=== PATIENT | male | born 1935 | race Caucasian/White ===

== ENCOUNTER 2017-09-05 13:41 | Outpatient (CLI) | payer MEDICARE, OTHER ==
[2017-09-05 14:15] LABS: HGB - HEMOGLOBIN 13.8 g/dL (14.0-18.0); MEAN CORPUSCULAR HEMOGLOBIN 29.7 pg (27.0-31.0); MEAN CORPUSCULAR HGB CONC 33.2 g/dL (32.0-36.0); MEAN CORPUSCULAR VOLUME 89.4 fL (80.0-94.0); MEAN PLATELET VOLUME 5.7 fL (7.4-11.4); RED BLOOD COUNT 4.63 10^6/uL (4.70-6.10); RED CELL DISTRIBUTION WIDTH 13.1 % (12.0-15.0)
[2017-09-05 14:29] LABS: ALBUMIN 3.8 g/dL (3.2-5.5); ALBUMIN/GLOBULIN RATIO 1.2 (1.0-2.2); ALKALINE PHOSPHATASE 108 IU/L (42-121); ALT ALANINE AMINOTRANSFERASE 32 IU/L (10-60); AST ASPARTATE AMINOTRANSFERASE 23 IU/L (10-42); BILIRUBIN,TOTAL 0.6 mg/dL (0.2-1.0); BUN - BLOOD UREA NITROGEN 10 mg/dL (6-20); CALCIUM 9.4 mg/dL (8.5-10.3); CARBON DIOXIDE - CO2 29 mmol/L (21-32); CHLORIDE 103 mmol/L (101-111); CHOL/HDL RATIO 3.8 (<5.0); CHOLESTEROL 165 mg/dL; GFR - MDRD 72 (>89); GLUCOSE 107 mg/dL (70-100); HDL CHOLESTEROL 44 mg/dL; LDL CHOLESTEROL,CALCULATED 109 mg/dL; LDL/HDL RATIO 2.5 (<3.6); SODIUM 138 mmol/L (135-145); TOTAL PROTEIN 7.1 g/dL (6.7-8.2); VLDL CHOLESTEROL 12 mg/dL
== END 2017-09-05 13:42 | disposition home or self-care (01) ==
LOC: LAB 13:41
PROVIDERS: ATTEND Family Medicine
DX: E78.4 Other hyperlipidemia (principal); I10 Essential (primary) hypertension; Z79.899 Other long term (current) drug therapy
CPT/HCPCS: 36415; 80053; 80061; 83721; 85027

== ENCOUNTER 2017-10-12 12:16 | Emergency (ER) | payer MEDICARE, OTHER ==
[2017-10-12 12:25] VITALS: BP 129/64
--- NOTE | 2017-10-12 12:54 | ED Physician Documentation ---
PD HPI WOUND RECHECK - Stated complaint Stated Complaint: FACE WOUND CHECK - Chief complaint Chief Complaint: Wound - Histroy obtained from History obtained from: Patient - History of Present Illness Location: Forehead (Around he had what he thought was a pimple in a few days later it popped and then he developed more pustules. He was seen multiple times by dermatology throughout the spring and put on courses of antibiotics. Around June they change the treatment, thinking it was an actinic keratosis and treated him with a month of 5-fluorouracil topically. This was completed about 2 months ago and ever since then his forehead has been weepy with open sores. He has been on a couple more rounds of oral antibiotics and throughout the whole year has been using topical mupirocin.) Review of Systems Constitutional: denies: Fever, Chills Nose: denies: Rhinorrhea / runny nose, Congestion Cardiac: denies: Chest pain / pressure, Palpitations PD PAST MEDICAL HISTORY - Past Medical History Past Medical History: Yes Cardiovascular: Hypertension, Coronary artery disease Respiratory: Asthma, COPD - Past Surgical History Past Surgical History: Yes General: Appendectomy Cardiovascular: Coronary stent - Present Medications Home Medications: Ambulatory Orders Medication Instructions Recorded Confirmed Aspirin [Aspir 81] 81 mg PO DAILY 05/05/13 05/05/13 Atorvastatin Calcium [Lipitor] 40 mg PO HS 05/05/13 05/05/13 Budesonide/Formoterol 160/4.5 1 puffs INH BID 05/05/13 05/05/13 [Symbicort] Ipratropium [place] [Atrovent Hfa] 12.9 gm IH 05/05/13 05/05/13 Bacitracin Zinc 1 gm TP TID 10 Days #1 oint...g. 10/12/17 HYDROcod/ACETAM 5/325 [[place] 5/325] 1 - 2 ea PO Q6H PRN #15 tablet 10/12/17 - Allergies Allergies/Adverse Reactions: Allergies Allergy/AdvReac Type Severity Reaction Status Date / Time iodine Allergy Severe shock Verified 10/12/17 12:23 narcotics AdvReac Intermediate "makes me Uncoded 10/12/17 12:23 sick" - Social History Does the pt smoke?: No Smoking Status: Never smoker Does the pt drink ETOH?: No Does the pt have substance abuse?: No - Immunizations Immunizations are current?: Yes - POLST Patient has POLST: No PD ED PE NORMAL - Vitals Vital signs reviewed: Yes - General General: Alert and oriented X 3, No acute distress - HEENT HEENT: Other (On the forehead there are multiple open weepy lesions about a centimeter around that are scabbed.) Results - Vitals Vitals: Vital Signs - 24 hr 10/12/17 12:20 Temperature 36.6 C Heart Rate 75 Respiratory 15 Rate Blood Pressure 129/64 O2 Saturation 99 Oxygen O2 Source Room air PD MEDICAL DECISION MAKING - ED course ED course: He has already been through multiple courses of antibiotics, also 5- fluorouracil. This may be a persistent reaction of the 5-fluorouracil, but it has already been 2 months and I would expect him to be improving by now. Could also be a reaction to the mupirocin, that is the one therapeutic agents that has been persistent throughout this whole timeframe. His physician performed a culture, I do not have access to that on Friday, but he plans to see him tomorrow. His main complaint is pain today. - Sepsis Event Vital Signs: Vital Signs - 24 hr 10/12/17 12:20 Temperature 36.6 C Heart Rate 75 Respiratory 15 Rate Blood Pressure 129/64 O2 Saturation 99 Oxygen O2 Source Room air Departure - Departure Disposition: 01 Home, Self Care Clinical Impression: Skin rash Condition: Good Record reviewed to determine appropriate education?: Yes Prescriptions: Bacitracin Zinc 1 gm TP TID 10 Days #1 oint...g. HYDROcod/ACETAM 5/325 [[place] 5/325] 1 - 2 ea PO Q6H PRN #15 tablet PRN Reason: Pain Comments: Discontinue the mupirocin, that is the one thing that has been constant throughout this whole timeframe and I wonder if this might be an allergic reaction to it, or it may be a persistent reaction to the chemotherapeutic agent , 5-fluorouracil that you were on. Regardless follow-up with Dr. Nava tomorrow, as he has culture results I will not start oral antibiotics right now since he has more information the me.
== END 2017-10-12 13:01 | disposition home or self-care (01) ==
LOC: ED 12:16
DX: R21 Rash and other nonspecific skin eruption (principal); I10 Essential (primary) hypertension; Z79.82 Long term (current) use of aspirin
CPT/HCPCS: 99283

== ENCOUNTER 2018-05-12 08:46 | Outpatient (CLI) | payer MEDICARE, OTHER ==
--- NOTE | 2018-05-12 14:19 | MRI Report ---
Reason: SCIATICA, LEFT SIDE, RADICULOPATHY, SITE UNSPECIFI Procedure Date: 05/12/2018 Accession Number: [id number] / [id number] Procedure: MRI - Lumbar Spine W/O CPT Code: FULL RESULT: EXAM: MRI LUMBAR SPINE WITHOUT CONTRAST EXAM DATE: 05/12/2018 08:58 AM. CLINICAL HISTORY: Sciatica, left side, radiculopathy, site unspecified. COMPARISON: None. TECHNIQUE: Multiplanar, multisequence T1-weighted and fluid-sensitive sequences of the lumbar spine from T12 to S1 without contrast. Other: None. FINDINGS: 5 mm anterolisthesis of L4 relative to L5 is noted. Loss of vertebral body height is seen at T11 and to a greater extent at T12 without marrow edema present. No abnormal signal is present in the conus medullaris. T10-T11: A mild posterior disk protrusion is seen. No central canal stenosis is present on the sagittal views. T11-T12: No posterior disk protrusion. T12-L1: A mild central and left paracentral disk protrusion is seen without central canal or foraminal stenosis. L1-L2: A minimal to mild posterior disk protrusion is seen. This is greater towards the left. No central canal or foraminal stenosis. L2-L3: A minimal disk protrusion is seen involving the posterior lateral margin of the disk bilaterally. L3-L4: A minimal posterior disk protrusion is seen. There is extension into the foramen bilaterally. Proximal right foraminal narrowing is seen. Mild proximal left foraminal stenosis is present. Superior lateral recess narrowing is seen bilaterally. L4-L5: There is a shallow foraminal protrusion bilaterally. There is a minimal posterior disk protrusion. Severe central canal stenosis is present. Bilateral lateral recess stenosis is present. Right foraminal narrowing is seen. Mild to moderate left foraminal stenosis is present. L5-S1: No posterior disk protrusion is seen. No central canal or foraminal stenosis. Facet/ligamentum flavum hypertrophy is seen throughout the lumbar spine greatest in the lower lumbar spine. IMPRESSION: 1. Facet/ligamentum flavum hypertrophy, spondylolisthesis, and degenerative disk disease result in severe central canal stenosis and bilateral lateral recess stenosis at L4-L5. 2. Proximal left foraminal stenosis which is mild is seen at L3-L4. Mild to moderate left foraminal stenosis is seen at L4-L5. 3. Remote compression deformities are seen with vertebral body height loss at T12 and to a lesser extent at T11. Comment: The following findings are so common in adults without low back pain that while we report their presence, they must be interpreted with caution and in the context of the clinical situation. (Reference Amanda et al, Spine 2001) Prevalence of findings in patients without low back pain: Disk degeneration (any evidence): 92% Disk desiccation/T2 signal loss: 83% Disk height loss: 56% Disk bulge: 64% Disk protrusion: 32% Annular tear/high intensity zone: 38% RADIA
== END 2018-05-12 08:47 | disposition home or self-care (01) ==
LOC: DI 08:46
PROVIDERS: ATTEND Family Medicine
DX: M51.26 Other intervertebral disc displacement, lumbar region (principal); M47.9 Spondylosis, unspecified; M48.061 Spinal stenosis, lumbar region without neurogenic claudication; M51.24 Other intervertebral disc displacement, thoracic region; M43.16 Spondylolisthesis, lumbar region
CPT/HCPCS: 72148

== ENCOUNTER 2018-12-01 18:11 | Inpatient (IN) | payer MEDICARE, OTHER ==
[2018-12-01] MEDS ORDERED: fentaNYL 100 MCG/2 ML VIAL IVP STA (18:59)
[2018-12-01] MEDS ORDERED: ONDANSETRON 4 MG/2 ML VIAL IVP STA (18:59)
[2018-12-01] MEDS ORDERED: SODIUM CHLORIDE 0.9% 1,000 ML IV ONE (18:59)
--- NOTE | 2018-12-01 19:00 | ED Physician Documentation ---
PD HPI ABD PAIN - Stated complaint Stated Complaint: STOMACH PAIN - Chief complaint Chief Complaint: Abd Pain - History obtained from History obtained from: Patient - History of Present Illness Timing - onset: Today (83-year-old gent with history of coronary disease, carotid endarterectomy. Not currently on any blood thinners. He also has a history of umbilical hernia repair and a childhood appendectomy. For the last week on and off he had mild central abdominal pain which early this morning became severe and associated with recurrent vomiting and decreased bowel movements.) Review of Systems Ten Systems: 10 systems reviewed and negative Constitutional: denies: Fever, Chills Cardiac: denies: Chest pain / pressure, Palpitations Respiratory: denies: Dyspnea, Cough PD PAST MEDICAL HISTORY - Past Medical History Cardiovascular: Hypertension, Coronary artery disease Respiratory: Asthma, COPD - Past Surgical History Past Surgical History: Yes General: Appendectomy Cardiovascular: Coronary stent - Present Medications Home Medications: Ambulatory Orders Medication Instructions Recorded Confirmed Aspirin [Aspir 81] 81 mg PO DAILY 05/05/13 05/05/13 Atorvastatin Calcium [Lipitor] 40 mg PO HS 05/05/13 05/05/13 Budesonide/Formoterol 160/4.5 1 puffs INH BID 05/05/13 05/05/13 [Symbicort] Ipratropium [place] [Atrovent Hfa] 12.9 gm IH 05/05/13 05/05/13 Bacitracin Zinc 1 gm TP TID 10 Days #1 oint...g. 10/12/17 HYDROcod/ACETAM 5/325 [[place] 5/325] 1 - 2 ea PO Q6H PRN #15 tablet 10/12/17 - Allergies Allergies/Adverse Reactions: Allergies Allergy/AdvReac Type Severity Reaction Status Date / Time iodine Allergy Severe shock Verified 10/12/17 12:23 narcotics AdvReac Intermediate "makes me Uncoded 10/12/17 12:23 sick" - Social History Does the pt smoke?: No Smoking Status: Never smoker Does the pt drink ETOH?: No Does the pt have substance abuse?: No - Family History Family history: reports: Non contributory - Immunizations Immunizations are current?: Yes - POLST Patient has POLST: No PD ED PE NORMAL - Vitals Vital signs reviewed: Yes - General General: Alert and oriented X 3, No acute distress - HEENT HEENT: PERRL, EOMI - Neck Neck: Supple, no meningeal sign, No bony TTP - Cardiac Cardiac: RRR, No murmur - Respiratory Respiratory: No respiratory distress, Clear bilaterally - Abdomen Abdomen: Other (absent bowel tones, Tender L mid abd. No G/R) - Back Back: No CVA TTP, No spinal TTP - Derm Derm: Normal color, Warm and dry - Extremities Extremities: No edema, No calf tenderness / cord - Neuro Neuro: Alert and oriented X 3, Normal speech Results - Vitals Vitals: Vital Signs - 24 hr 12/01/18 12/01/18 12/01/18 18:22 19:21 21:19 Temperature 36.4 C L 37.5 C Heart Rate 83 74 87 Respiratory 18 14 18 Rate Blood Pressure 152/81 H 144/92 H 132/90 H O2 Saturation 100 100 99 Oxygen O2 Source Room air - Labs Labs: Laboratory Tests 12/01/18 12/01/18 12/01/18 19:03 19:03 19:03 WBC 18.1 H RBC 5.08 Hgb 13.9 L Hct 42.5 MCV 83.7 MCH 27.4 MCHC 32.7 RDW 13.6 Plt Count 278 MPV 8.0 Neut # (Auto) 16.0 H Lymph # (Auto) 1.2 L [place] # (Auto) 0.6 Eos # (Auto) 0.0 Baso # (Auto) 0.0 Absolute Nucleated RBC 0.00 Nucleated RBC % 0.0 Sodium 138 Potassium 3.9 Chloride 99 L Carbon Dioxide 28 Anion Gap 11.0 BUN 13 Creatinine 1.0 Estimated GFR (MDRD) 72 L Glucose 168 H Lactic Acid 1.9 Calcium 9.6 Total Bilirubin 1.0 AST 29 ALT 43 Alkaline Phosphatase 148 H Total Protein 8.0 Albumin 4.2 Globulin 3.8 Albumin/Globulin Ratio 1.1 Lipase 31 Urine Color Urine Clarity Urine pH Ur Specific [place] Urine Protein Urine Glucose (UA) Urine Ketones Urine Occult Blood Urine Nitrite Urine Bilirubin Urine Urobilinogen Ur Leukocyte Esterase Ur Microscopic Review Urine Culture Comments 12/01/18 20:20 WBC RBC Hgb Hct MCV MCH MCHC RDW Plt Count MPV Neut # (Auto) Lymph # (Auto) [place] # (Auto) Eos # (Auto) Baso # (Auto) Absolute Nucleated RBC Nucleated RBC % Sodium Potassium Chloride Carbon Dioxide Anion Gap BUN Creatinine Estimated GFR (MDRD) Glucose Lactic Acid Calcium Total Bilirubin AST ALT Alkaline Phosphatase Total Protein Albumin Globulin Albumin/Globulin Ratio Lipase Urine Color YELLOW Urine Clarity CLEAR Urine pH 8.5 H Ur Specific [place] 1.015 Urine Protein NEGATIVE Urine Glucose (UA) NEGATIVE Urine Ketones TRACE Urine Occult Blood NEGATIVE Urine Nitrite NEGATIVE Urine Bilirubin NEGATIVE Urine Urobilinogen 0.2 (NORMAL) Ur Leukocyte Esterase NEGATIVE Ur Microscopic Review NOT INDICATED Urine Culture Comments NOT INDICATED - Rads (name of study) CT A/P Radiology: EMP read contemporaneously (1. Colonic obstruction which appears to be secondary to a circumferential mass at the splenic flexure measuring approximately 2.5 cm in length causing stricturing. Recommend gastroenterology consultation and colonoscopy for further evaluation. ) PD MEDICAL DECISION MAKING - ED course ED course: 83-year-old gentleman presents with vomiting and abdominal pain, found due to an obstructing lesion at the splenic flexure of the colon. Spoke with the on-call surgeon, Dr. Salter who will consult and recommends NG tube decompression. Defers to medicine for admission. Spoke with Dr. Christy for admission at 9:44 P M Departure - Departure Disposition: 66 [facility] DC/Xfer Clinical Impression: Colonic obstruction Condition: Serious
[2018-12-01 19:08] LABS: BASOPHILS % (AUTO) 0.2 %; EOSINOPHILS % (AUTO) 0.1 %; HGB - HEMOGLOBIN 13.9 g/dL (14.0-18.0); LYMPHOCYTES # (AUTO) 1.2 10^3/uL (1.5-3.5); LYMPHOCYTES % (AUTO) 6.8 %; MEAN CORPUSCULAR HEMOGLOBIN 27.4 pg (27.0-31.0); MEAN CORPUSCULAR HGB CONC 32.7 g/dL (32.0-36.0); MEAN CORPUSCULAR VOLUME 83.7 fL (80.0-94.0); MONOCYTES # (AUTO) 0.6 10^3/uL (0.0-1.0); MONOCYTES % (AUTO) 3.3 %; NEUTROPHILS % (AUTO) 88.6 %; PLT - PLATELET COUNT 278 10^3/uL (130-450); RED BLOOD COUNT 5.08 10^6/uL (4.70-6.10); RED CELL DISTRIBUTION WIDTH 13.6 % (12.0-15.0); WHITE BLOOD COUNT 18.1 x10^3/uL (4.8-10.8)
[2018-12-01] MEDS ORDERED: IOVERSOL 320 100 ML VIAL IVP ONE (19:21)
[2018-12-01] MEDS ORDERED: IOVERSOL 320 50 ML VIAL ONE (19:21)
[2018-12-01 19:25] LABS: ALBUMIN 4.2 g/dL (3.2-5.5); ALBUMIN/GLOBULIN RATIO 1.1 (1.0-2.2); CALCIUM 9.6 mg/dL (8.5-10.3)
[2018-12-01] MEDS ORDERED: METOCLOPRAMIDE 10 MG/2 ML VIAL IVP STA (20:04)
[2018-12-01 20:41] LABS: BILIRUBIN,URINE NEGATIVE (NEGATIVE); GLUCOSE, URINE (UA) NEGATIVE (NEGATIVE); KETONES,URINE (UA) TRACE mg/dL (NEGATIVE); LEUKOCYTE ESTERASE, URINE NEGATIVE (NEGATIVE); NITRITE,URINE NEGATIVE (NEGATIVE); OCCULT BLOOD,URINE NEGATIVE (NEGATIVE); PH,URINE 8.5 PH (5.0-7.5); PROTEIN,URINE NEGATIVE (NEGATIVE); UROBILINOGEN,URINE 0.2 (NORMAL) E.U./dL (NORMAL)
[2018-12-01 20:42] LABS: CLARITY,URINE CLEAR (CLEAR)
--- NOTE | 2018-12-01 21:37 | CT Report ---
Reason: IV and PO if tolerates, central/L abd pain, vomit Procedure Date: 12/01/2018 Accession Number: [id number] / [id number] Procedure: CT - Abdomen/Pelvis W CPT Code: FULL RESULT: EXAM: CT ABDOMEN AND PELVIS EXAM DATE: 12/01/2018 08:10 PM. CLINICAL HISTORY: Central and left abdominal pain with nausea/vomiting COMPARISONS: None. TECHNIQUE: Routine helical CT imaging was performed through the abdomen and pelvis. IV contrast: 100 cc Optiray 320. Enteric contrast: Yes. Reconstructions: Coronal and sagittal. In accordance with CT protocol optimization, one or more of the following dose reduction techniques were utilized for this exam: automated exposure control, adjustment of mA and/or KV based on patient size, or use of iterative reconstructive technique. FINDINGS: Imaged chest: Reflux of oral contrast in the distal esophagus consistent with GERD. 3 vessel coronary artery disease. Liver: Unremarkable. Gallbladder: Unremarkable. Biliary: Unremarkable. Pancreas: Unremarkable. Spleen: Unremarkable. Adrenal glands: Unremarkable. Kidneys: No hydronephrosis or nephrolithiasis. The kidneys demonstrates a few scattered tiny subcentimeter low-density foci, technically too small to accurately characterize and indeterminant but statistically likely to represent tiny cysts. Urinary bladder: There is layering debris within the dependent portion of the urinary bladder. Reproductive organs: Enlarged prostate. Bowel: The transverse colon is dilated and fluid-filled to the level of the splenic flexure where there appears to be a circumferential colonic mass measuring approximately 2.5 cm length causing stricturing/colonic obstruction. The descending colon beyond this point is collapsed. Occasional uncomplicated colonic diverticula. The small bowel is decompressed. Stomach: Nonspecific distention. Appendix: The appendix is not reliably identified, however, there are no secondary signs of acute appendicitis. Miscellaneous: No free fluid. No extraluminal gas. Aorta: Moderate/severe aortic atherosclerosis. Normal in caliber. Lymph nodes: No pathologically enlarged lymph nodes identified. Bones: Status post L4-L5 diskectomy and posterior fusion with grade 1 anterolisthesis L4 on L5. Old T12 compression fracture with minimal retropulsion of fracture fragments and approximately 25% anterior vertebral body height loss. No suspicious osseous lesions. Sidewalls: Small right and small/moderate left fat-containing inguinal hernias. IMPRESSION: 1. Colonic obstruction which appears to be secondary to a circumferential mass at the splenic flexure measuring approximately 2.5 cm in length causing stricturing. Recommend Gastroenterology consultation and colonoscopy for further evaluation. 2. Enlarged prostate. The urinary bladder is distended with dependent debris posteriorly. 3. Other chronic findings detailed above. RADIA
[2018-12-01] MEDS ORDERED: ONDANSETRON 4 MG/2 ML VIAL IVP PRN (21:46)
--- NOTE | 2018-12-01 21:55 | HISTORY & PHYSICAL EXAMINATION ---
Chief Complaint - Chief Complaint Chief Complaint: abd pain, nausea and vomiting History of Present Illness - Admitted From Admitted From:: [facility] ED - History Obtained From Records Reviewed: yes History obtained from: patient - History of Present Illness HPI Comment/Other: Patient seen on 12/02/18 at 23:00 pm Patient is an 83 y/o male who presented to the ED with complain of abdominal pain which has been going on intermittently for one week. However it got worse yesterday evening. He started vomiting yesterday evening and has been doing so approximately every hour through out the day. As a result of his symptoms he came to the ED around 6:30pm for evaluation. He denies chest pain, MARIAH, fever or chills. His last bowel movement was around 10:00pm in the ED. He denied anything of significance about it. Work up in the ED included a CT scan of his abdomen which showed a bowel obstruction and a colonic mass. As a result he is being admitted for further treatment. History - Past Medical History Cardiovascular: reports: Hypertension, High cholesterol, Coronary artery disease, Other (Carotid artery stenosis s/p right roto rotor) Respiratory: reports: Asthma, COPD MRSA Hx?: No - Past Surgical History General: reports: Appendectomy, Other (Umbilical hernia) Ortho: reports: Spine surgery (Spinal fusion) Cardiovascular: reports: Coronary stent HEENT: reports: Cataracts, Tonsil/Adenoidectomy - Family & Social History Family History Comment/Other: Extensive family history of cancer. mother: colorectal cancer at age 81. father: ruptured aortic aneurysm. maternal grandmother: colorectal cancer at age 92. maternal uncle 1: colon cnacer with mets. maternal uncle 2: unspecified cancer. sister 1: ovarian cancer. sister 2: breast cancer Living arrangement: At home Living Situation: Alone Social History Notes: Quit smoking at age 31. Denies alcohol or illicit drug use - POLST Patient has POLST: No POLST Status: Full Code Meds/Allgy - Home Medications Home Medications: Ambulatory Orders Medication Instructions Recorded Confirmed Aspirin [Aspir 81] 81 mg PO DAILY 05/05/13 05/05/13 Atorvastatin Calcium [Lipitor] 40 mg PO HS 05/05/13 05/05/13 Budesonide/Formoterol 160/4.5 1 puffs INH BID 05/05/13 05/05/13 [Symbicort] Ipratropium [place] [Atrovent Hfa] 12.9 gm IH 05/05/13 05/05/13 Bacitracin Zinc 1 gm TP TID 10 Days #1 oint...g. 10/12/17 HYDROcod/ACETAM 5/325 [[place] 5/325] 1 - 2 ea PO Q6H PRN #15 tablet 10/12/17 - Allergies Allergies/Adverse Reactions: Allergies Allergy/AdvReac Type Severity Reaction Status Date / Time iodine Allergy Severe shock Verified 10/12/17 12:23 narcotics AdvReac Intermediate "makes me Uncoded 10/12/17 12:23 sick" Review of Systems - Constitutional Constitutional: denies: Fatigue, Fever, Chills, Weakness, Diaphoresis - Eyes Eyes: denies: Blurred vision, Vision loss, Dipolpia - Ears, Nose & Throat Ears, Nose & Throat: denies: Vertigo, Sore throat, Hoarseness - Cardiovascular Cariovascular: denies: Palpitations, Chest pain, Lightheadedness, Syncope - Respiratory Respiratory: denies: Sputum production, Wheezing, SOB at rest, SOB with exertion - Gastrointestinal Gastrointestinal: reports: Abdominal pain, Nausea, Vomiting. denies: Abdominal distention, Constipation, Diarrhea, Change in bowel habits, Black stools, Bile emesis, Coffee grounds emesis, Reflux/heartburn - Genitourinary Genitourinary: denies: Dysuria, Frequency, Urgency, Hematuria - Integumentary Integumentary: reports: Other (scab on head). denies: Rash, Pruritis - Neurological Neurological: denies: General weakness, Focal weakness, Headache, Dizziness - Psychiatric Psychiatric: denies: Depression, Anxiety - Endocrine Endocrine: denies: Polyuria, Polydypsia - Hematologic/Lymphatic Hematologic/Lymphatic: denies: Anemia, Bruising Prior Level of Functionality: Patient lives alone and is completely independent of activities of daily living. He had a spinal fusion on 07/07/18 and since then has been working with PT. He reports his sessions going well. He walks unaided. Exam - Vital Signs Vital Signs: Vital Signs x48h Temp Pulse Resp BP Pulse Ox 12/01/18 21:19 37.5 C 87 18 132/90 H 99 12/01/18 19:21 74 14 144/92 H 100 12/01/18 18:22 36.4 C L 83 18 152/81 H 100 - Physical Exam General Appearance: positive: Alert, Moderate distress. negative: Lethargic Eyes Bilateral: positive: Normal inspection, PERRL, EOMI, Conjunctivae nml ENT: positive: No signs of dehydration, Other (mild bleeding from nose due to ng tube placement) Neck: positive: Nml inspection, No JVD, Trachea midline Respiratory: positive: Chest non-tender, No respiratory distress. negative: Wheezes, Rales, Rhonchi Cardiovascular: positive: Regular rate & rhythm Abdomen: positive: No distention, Tenderness (moderate) Back: positive: Nml inspection Skin: positive: Color nml, Warm, Other (scab ontop of head) Extremities: positive: Non-tender, Full ROM, Nml appearance, No pedal edema Neurologic/Psychiatric: positive: Oriented x3, CN's nml (2-12), Motor nml, Sensation nml, Mood/affect nml Conclusion/Plan - Problem List (1) Colonic obstruction Conclusion/Plan: 2/2 colonic mass NPO. NG tube for decompression. IV hydration with normal saline. General Surgery (Dr Papito Salter) was contacted and will see the patient (2) Colonic mass Conclusion/Plan: Suspect malignancy General Surgery (Dr Papito Salter) was contacted by the ED and is saw the patient in the ED. He plans for surgery in the am. (3) COPD (chronic obstructive pulmonary disease) Conclusion/Plan: Not in exacerbation. Resume home regimen (4) Hyperlipidemia Conclusion/Plan: On atorvastatin. Will hold for now (5) Leukocytosis Conclusion/Plan: Likely reactive Will recheck with am labs (6) Coronary artery disease Conclusion/Plan: Hx of stents to the RCA and roto rotor to the right carotid artery He takes a baby aspirin 3X a week. Not on any other medications Patient underwent a spinal fusion on 07/07/18 in [facility]. Had an EKG done at the time. Will request EKG from PCP's office for comparison to EKG that will be done today CXR pending. Patient is otherwise independent of activities of daily living - Lab Results Fish Bones: 12/02/18 05:10 12/02/18 05:10 Core Measures - Anticipated LOS I expect patient to be DC'd or transferred within 96 hours.: Yes - DVT/VTE - Prophylaxis VTE/DVT Device ordered at admit?: Yes VTE/DVT Prophylaxis med ordered at admit?: Yes
[2018-12-01] MEDS ORDERED: SODIUM CHLORIDE 0.9% 1,000 ML IV SCH (22:00)
[2018-12-01 23:01] LABS: CALCIUM 8.6 mg/dL (8.5-10.3); CREATININE 0.9 mg/dL (0.6-1.2)
[2018-12-01 23:14] LABS: BASOPHILS % (AUTO) 0.2 %; HGB - HEMOGLOBIN 13.4 g/dL (14.0-18.0); LYMPHOCYTES # (AUTO) 1.1 10^3/uL (1.5-3.5); LYMPHOCYTES % (AUTO) 5.8 %; MEAN CORPUSCULAR HEMOGLOBIN 27.3 pg (27.0-31.0); MEAN CORPUSCULAR HGB CONC 32.3 g/dL (32.0-36.0); MEAN CORPUSCULAR VOLUME 84.7 fL (80.0-94.0); MONOCYTES # (AUTO) 0.7 10^3/uL (0.0-1.0); MONOCYTES % (AUTO) 3.8 %; NEUTROPHILS # (AUTO) 16.3 10^3/uL (1.5-6.6); NEUTROPHILS % (AUTO) 89.4 %; PLT - PLATELET COUNT 255 10^3/uL (130-450); RED CELL DISTRIBUTION WIDTH 13.7 % (12.0-15.0); WHITE BLOOD COUNT 18.2 x10^3/uL (4.8-10.8)
[2018-12-02] MEDS ORDERED: IPRATROPIUM/ALBUTEROL 3 ML NEB INH PRN (00:45)
[2018-12-02] MEDS: SODIUM CHLORIDE FLUSH 0.9% 10 ML SYRINGE IVP SCH ×4 (01:05→23:50)
[2018-12-02] MEDS: HYDROmorphone 2 MG/ML VIAL IVP PRN ×2 (01:05→05:02)
--- NOTE | 2018-12-02 01:53 | CONSULTATION NOTE ---
DATE OF SERVICE: 12/01/2018 Physician: Papito Salter MD REFERRING PHYSICIAN: Dr. David Garvin. REASON FOR CONSULTATION: This is a consultation to evaluate an 83-year-old gentleman with abdominal pain, nausea and vomiting. HISTORY OF PRESENT ILLNESS: Patient is an 83-year-old gentleman in usual state of health until approximately a week ago when he began to develop intermittent colicky left-sided abdominal pain. This was initially relatively mild; however, yesterday evening, approximately 24 hours ago, the pain worsened and became localized to the left upper quadrant, became more constant and steady in nature and was associated with repeated episodes of nausea and vomiting of nonbloody bilious-type of fluid. He reports 10 episodes of emesis over the past 24 hours. There were no associated fevers or chills. He reports continued normal bowel movements, including yesterday, and several small otherwise normal-appearing bowel movements today. He reports passing flatus as recently as this morning. He reports no previous similar symptoms. He does report a 40-pound weight loss over the past year. He reports having had a normal colonoscopy approximately 6- 8 years ago in [place]. He reports a family history of colon cancer in multiple relatives, including his mother in her 80s, an uncle in his 60s, a sister in her 60s and a maternal grandmother in her 90s. He reports no history of genetic testing having been done. Because of worsening pain, nausea and vomiting, he presented to the emergency room this evening and was admitted. Evaluation in the emergency room was notable for an elevated white count of 18,000 with otherwise normal CBC and a CT scan of the abdomen and pelvis, which showed evidence of a high-grade large bowel obstruction with an annular constricting, but small, 2.5 cm diameter mass in the region of the splenic flexure. There was no evidence of perforation, peritonitis, free fluid, free air, mesenteric lymphadenopathy or liver metastases. No other significant intra-abdominal pathology was identified. Surgical consultation was requested. PAST MEDICAL HISTORY: Illnesses: Hypertension, coronary artery disease status post [place] x2 in 2011 and 2012, status post angioplasty and stent. 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 Denies chest pain, palpitations or heart failure. Also, history of COPD, hypertension, and carotid artery disease status post right carotid endarterectomy. 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 PAST SURGICAL HISTORY: Umbilical herniorrhaphy, appendectomy, right carotid thromboendarterectomy, bilateral cataract extractions, ORIF left wrist fracture, lumbar laminectomy and fusion. ALLERGIES: INTOLERANT OF SOME NARCOTICS CAUSING DYSPHORIA. CURRENT MEDICATIONS 1. Aspirin 81 mg every 3 days. 2. Multivitamins daily. 3. Symbicort 1 puff b.i.d. 4. Atrovent inhaler p.r.n. SOCIAL HISTORY: He is a , lives in [place]. His PCP is Dr. Nava. He does not use tobacco or alcohol or recreational drugs. 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 REVIEW SYSTEMS: Negative for bleeding diathesis, hepatitis, jaundice, CVA, diabetes or renal dysfunction. All other review of systems was covered in history of present illness, past medical history, or is negative. PHYSICAL EXAMINATION GENERAL: Reveals a pleasant, alert, elderly gentleman who appears in moderate distress, complaining of abdominal discomfort and intermittent nausea and vomiting. VITAL SIGNS: Temperature 36.4, blood pressure 152/81, pulse 83, respirations 18, O2 saturation 100% on room air. SKIN: Warm and dry. HEENT: Sclerae nonicteric. Oropharynx clear. Mucous membranes are slightly dry. NECK: Supple without mass or adenopathy. There is a right cervical surgical scar. Carotid upstrokes are full and symmetric. There is no JVD. CHEST: Clear to auscultation. CARDIAC: Cardiac exam shows a normal S1 and S2. Regular rate and rhythm without murmur, rub or gallop. ABDOMEN: Shows right lower quadrant oblique surgical scar and a small transverse infraumbilical surgical scar. Bowel tones are hypoactive. Abdomen is moderately distended, generally soft. There is mild tenderness to deep palpation in the left upper quadrant. There are no obvious masses or peritoneal signs. GENITOURINARY: Genitalia showed no evidence of scrotal mass or inguinal hernia. EXTREMITIES: Showed no evidence of cyanosis, clubbing or edema. No calf muscle tenderness. LABORATORY DATA: White count 18,000, hematocrit 41, platelets 255. Sodium 136, potassium 4.2, chloride 99, CO2 of 28, calcium 8.6, glucose 152, BUN [address] abd/pelvis: I reviewed the images independently and findings as noted above were confirmed. IMPRESSION 1. Signs and symptoms of a large bowel obstruction. This appears to be high- grade partial or early complete. There was no evidence of perforation or peritonitis at present. 2. Moderate volume depletion is clinically evident. 3. Coronary artery disease and chronic obstructive pulmonary disease, clinically stable. 4. Carotid artery disease, clinically stable. RECOMMENDATIONS: I agree with admission to the medical service with preoperative medical evaluation and optimization with plans to proceed with surgery in the morning, which will involve a partial colectomy and colostomy. Preoperative fluid resuscitation and institution of broad-spectrum antibiotics is also indicated. Preoperative CEA should be obtained. The surgical procedure, alternatives, and risks were discussed in detail and consent obtained. The procedure will be scheduled for tomorrow morning, assuming medical clearance and optimization has been satisfactory accomplished by then. Thank you for allowing me to participate in this patient's care. TD: 12/01/2018 23:00 PAMELA
--- NOTE | 2018-12-02 02:34 | XRAY Report ---
Reason: ng tube placement Procedure Date: 12/02/2018 Accession Number: [id number] / [id number] Procedure: XR - Chest 1 View X-Ray CPT Code: 19171 FULL RESULT: EXAM: CHEST RADIOGRAPHY EXAM DATE: 12/02/2018 02:18 AM. CLINICAL HISTORY: Ng tube placement. COMPARISON: 07/02/2010 4:17 AM ABDOMEN/PELVIS W/ 12/01/2018 8:09 PM XR CHEST PA AND LAT 03/17/2008 12:41 PM. TECHNIQUE: 1 view. FINDINGS: Lungs/Pleura: No focal opacities evident. Stable blunting of left costophrenic angle which may represent epicardial fat or chronic pleural-parenchymal disease. No large pleural effusion. No pneumothorax. Mediastinum: Within exam limitations, the cardiomediastinal contour is normal. Atherosclerosis noted at aortic arch. Other: Nasogastric tube tip located in proximal stomach. Healed left-sided rib fractures are stable. IMPRESSION: 1. NG tube tip located in proximal stomach. 2. Stable chronic changes in left chest as above. RADIA
[2018-12-02 05:28] LABS: BASOPHILS % (AUTO) 0.2 %; HGB - HEMOGLOBIN 12.8 g/dL (14.0-18.0); LYMPHOCYTES # (AUTO) 1.5 10^3/uL (1.5-3.5); LYMPHOCYTES % (AUTO) 7.7 %; MEAN CORPUSCULAR HGB CONC 32.2 g/dL (32.0-36.0); MEAN PLATELET VOLUME 8.1 fL (7.4-11.4); MONOCYTES # (AUTO) 1.1 10^3/uL (0.0-1.0); MONOCYTES % (AUTO) 5.6 %; NEUTROPHILS # (AUTO) 16.7 10^3/uL (1.5-6.6); NEUTROPHILS % (AUTO) 85.6 %; PLT - PLATELET COUNT 271 10^3/uL (130-450); RED BLOOD COUNT 4.74 10^6/uL (4.70-6.10); RED CELL DISTRIBUTION WIDTH 13.5 % (12.0-15.0); WHITE BLOOD COUNT 19.5 x10^3/uL (4.8-10.8)
[2018-12-02 05:37] LABS: CALCIUM 8.3 mg/dL (8.5-10.3); CREATININE 0.9 mg/dL (0.6-1.2)
[2018-12-02] MEDS: PANTOPRAZOLE 40 MG VIAL IVP SCH (06:33)
[2018-12-02] MEDS: SODIUM CHLORIDE FLUSH 0.9% 10 ML SYRINGE IVP PRN (06:33)
[2018-12-02] MEDS: BUDESONIDE 0.5 MG/2 ML NEB INH SCH ×2 (07:28→18:29)
[2018-12-02] MEDS: FORMOTEROL FUMARATE NEB 20 MCG/2 ML INH SCH ×2 (07:28→18:29)
[2018-12-02] MEDS: PIPERACILLIN/TAZOBACTAM 3.375 GM in SODIUM CHLORIDE 0.9% MINIBAG 100 ML IV SCH ×3 (07:55→19:49)
[2018-12-02] MEDS ORDERED: POLYETHYLENE GLYCOL 3350 17 GM PACKET PO SCH (09:00)
[2018-12-02] MEDS ORDERED: ENOXAPARIN 40 MG/0.4 ML SYRINGE SUBQ SCH (09:00)
--- NOTE | 2018-12-02 09:31 | PROVIDER PROGRESS NOTE ---
Assessment/Plan - Problem List (1) Colonic obstruction Assessment/Plan: High grade LBO due to mass at splenic flexure; Clinically stable with no evidence of perforation or peritonitis; volume status appears euvolemic. Cleared by hospitalist service for surgery. Plan: surgery later today. - Current Meds Current Meds: Current Medications Generic Name Dose Route Start Last Admin Trade Name Freq PRN Reason Stop Dose Admin Budesonide 0.5 mg 12/02/18 07:00 12/02/18 07:28 Pulmicort INH 0.5 mg RTBID LETICIA Administration Formoterol Fumarate 20 mcg 12/02/18 07:00 12/02/18 07:28 Perforomist INH 20 mcg RTBID LETICIA Administration Hydromorphone HCl 0.5 mg 12/02/18 00:22 12/02/18 05:02 Dilaudid (Vial) IVP 0.5 mg Q3H PRN Administration PAIN Sodium Chloride 1,000 mls @ 100 mls/hr 12/01/18 22:00 12/02/18 01:06 Normal Saline 0.9% IV 100 mls/hr .Q10H LETICIA Administration Piperacillin Sod/Tazobactam 100 mls @ 200 mls/hr 12/02/18 08:00 12/02/18 08:59 Sod 3.375 gm/ Sodium Chloride IV Infused Q6H LETICIA Infusion Ondansetron HCl 4 mg 12/01/18 21:46 12/02/18 07:55 Zofran Inj IVP 4 mg Q6HR PRN Administration Nausea / Vomiting Pantoprazole Sodium 40 mg 12/02/18 07:00 12/02/18 06:33 Protonix IVP 40 mg QDAC LETICIA Administration Polyethylene Glycol 17 gm 12/02/18 09:00 12/02/18 07:57 Miralax PO Not Given DAILY LETICIA Sodium Chloride 10 ml 12/01/18 21:46 12/02/18 06:33 Normal Saline Flush 0.9% IVP 10 ml PRN PRN Administration NEEDED PER PROVIDER ORDERS Sodium Chloride 10 ml 12/02/18 01:00 12/02/18 07:56 Normal Saline Flush 0.9% IVP 10 ml 0100,0900,1700 LETICIA Administration - Lab Result Lab results reviewed: Yes Fish Bone Diagrams: 12/02/18 05:10 12/02/18 05:10 - Additional Planning Condition/Complexity: Stable Plan Discussed with:: Patient Time Spent: 15-30 minutes Subjective - Subjective Patient Reports: Feeling Better (less nausea with NG tube; less pain with analgesics), Abdominal Pain (improved) Objective Vital Signs: Vital Signs - 24 hr 12/01/18 12/01/18 12/01/18 18:22 19:21 21:19 Temperature 36.4 C L 37.5 C Heart Rate 83 74 87 Heart Rate [ Brachial] Heart Rate [ Radial] Respiratory 18 14 18 Rate Blood Pressure 152/81 H 144/92 H 132/90 H Blood Pressure [Right Brachial artery] O2 Saturation 100 100 99 12/01/18 12/02/18 12/02/18 23:43 00:30 04:46 Temperature 36.9 C 36.6 C 36.3 C L Heart Rate 85 Heart Rate [ Brachial] Heart Rate [ 97 Radial] Respiratory 18 16 14 Rate Blood Pressure 159/88 H Blood Pressure 151/87 H 157/77 H [Right Brachial artery] O2 Saturation 96 98 99 12/02/18 12/02/18 07:32 07:55 Temperature 36.4 C L Heart Rate 82 Heart Rate [ 77 Brachial] Heart Rate [ Radial] Respiratory 16 16 Rate Blood Pressure Blood Pressure 159/80 H [Right Brachial artery] O2 Saturation 98 Oxygen O2 Source Room air I&O (Last 24 Hrs): Intake and Output Totals x24h 11/30/18 12/01/18 12/02/18 23:59 23:59 23:59 Intake Total 1000 100 Output Total 925 Balance 1000 -825 General: Alert, Oriented x3, Cooperative, Mild distress HEENT: Atraumatic, PERRLA, Other (mucus membranes somewhat dry) Neck: Supple, No JVD Lymphatic: no adenopathy Neuro: Alert Cardiovascular: Regular rate, Normal S1, Normal S2, No murmurs Respiratory: Chest non-tender, No respiratory distress, Breath sounds nml Abdomen: Soft, No hepatospenomegaly, No masses, Other (mild LUQ tenderness, no peritoneal signs; appears slightly less distended than last night; one small liquid stool last night; no flatus) Extremities: No cyanosis, No edema, No tenderness/swelling Skin: No rashes - Results Results: Laboratory Results WBC 19.5 x10^3/uL (4.8-10.8) H 12/02/18 05:10 RBC 4.74 10^6/uL (4.70-6.10) 12/02/18 05:10 Hgb 12.8 g/dL (14.0-18.0) L 12/02/18 05:10 Hct 39.8 % (42.0-52.0) L 12/02/18 05:10 MCV 84.0 fL (80.0-94.0) 12/02/18 05:10 MCH 27.0 pg (27.0-31.0) 12/02/18 05:10 MCHC 32.2 g/dL (32.0-36.0) 12/02/18 05:10 RDW 13.5 % (12.0-15.0) 12/02/18 05:10 Plt Count 271 10^3/uL (130-450) 12/02/18 05:10 MPV 8.1 fL (7.4-11.4) 12/02/18 05:10 Neut # (Auto) 16.7 10^3/uL (1.5-6.6) H 12/02/18 05:10 Lymph # (Auto) 1.5 10^3/uL (1.5-3.5) 12/02/18 05:10 [place] # (Auto) 1.1 10^3/uL (0.0-1.0) H 12/02/18 05:10 Eos # (Auto) 0.0 10^3/uL (0.0-0.7) 12/02/18 05:10 Baso # (Auto) 0.0 10^3/uL (0.0-0.1) 12/02/18 05:10 Absolute Nucleated RBC 0.00 x10^3/uL 12/02/18 05:10 Nucleated RBC % 0.0 /100WBC 12/02/18 05:10 Sodium 137 mmol/L (135-145) 12/02/18 05:10 Potassium 3.8 mmol/L (3.5-5.0) 12/02/18 05:10 Chloride 100 mmol/L (101-111) L 12/02/18 05:10 Carbon Dioxide 29 mmol/L (21-32) 12/02/18 05:10 Anion Gap 8.0 (6-13) 12/02/18 05:10 BUN 15 mg/dL (6-20) 12/02/18 05:10 Creatinine 0.9 mg/dL (0.6-1.2) 12/02/18 05:10 Estimated GFR (MDRD) 81 (>89) L 12/02/18 05:10 Glucose 145 mg/dL (70-100) H 12/02/18 05:10 Lactic Acid 1.9 mmol/L (0.5-2.2) 12/01/18 19:03 Calcium 8.3 mg/dL (8.5-10.3) L 12/02/18 05:10 Total Bilirubin 1.0 mg/dL (0.2-1.0) 12/01/18 19:03 AST 29 IU/L (10-42) 12/01/18 19:03 ALT 43 IU/L (10-60) 12/01/18 19:03 Alkaline Phosphatase 148 IU/L (42-121) H 12/01/18 19:03 C-Reactive Protein < 1.0 mg/dL (0-1.0) 12/02/18 05:10 Total Protein 8.0 g/dL (6.7-8.2) 12/01/18 19:03 Albumin 4.2 g/dL (3.2-5.5) 12/01/18 19:03 Globulin 3.8 g/dL (2.1-4.2) 12/01/18 19:03 Albumin/Globulin Ratio 1.1 (1.0-2.2) 12/01/18 19:03 Lipase 31 U/L (22-51) 12/01/18 19:03 Urine Color YELLOW 12/01/18 20:20 Urine Clarity CLEAR (CLEAR) 12/01/18 20:20 Urine pH 8.5 PH (5.0-7.5) H 12/01/18 20:20 Ur Specific [place] 1.015 (1.002-1.030) 12/01/18 20:20 Urine Protein NEGATIVE mg/dL (NEGATIVE) 12/01/18 20:20 Urine Glucose (UA) NEGATIVE mg/dL (NEGATIVE) 12/01/18 20:20 Urine Ketones TRACE mg/dL (NEGATIVE) 12/01/18 20:20 Urine Occult Blood NEGATIVE (NEGATIVE) 12/01/18 20:20 Urine Nitrite NEGATIVE (NEGATIVE) 12/01/18 20:20 Urine Bilirubin NEGATIVE (NEGATIVE) 12/01/18 20:20 Urine Urobilinogen 0.2 (NORMAL) E.U./dL (NORMAL) 12/01/18 20:20 Ur Leukocyte Esterase NEGATIVE (NEGATIVE) 12/01/18 20:20 Ur Microscopic Review NOT INDICATED 12/01/18 20:20 Urine Culture Comments NOT INDICATED 12/01/18 20:20 ABX Reporting Has patient been on IV antibiotics over the past 48 hours?: No
--- NOTE | 2018-12-02 10:01 | ANESTHESIA ---
Pre-Anesthesia VS, & Labs - Diagnosis High-grade large bowel obstruction @splenic flexure - Procedure Exploratory laparotomy, Partial Colectomy Vital Signs: Temp Pulse Resp BP Pulse Ox 36.4 C L 77 16 159/80 H 98 12/02/18 07:55 12/02/18 07:55 12/02/18 07:55 12/02/18 07:55 12/02/18 07:55 Height 5 ft 4 in Weight (kg) 66.5 kg Body Mass Index 25.1 - NPO >8 hours (R NGT in place) - Lab Results Current Lab Results: Laboratory Tests 12/02/18 07:18: Carcinoembryonic Ag 2.5 12/02/18 05:10: C-Reactive Protein < 1.0 12/02/18 05:10: Sodium 137, Potassium 3.8, Chloride 100 L, Carbon Dioxide 29, Anion Gap 8.0, BUN 15, Creatinine 0.9, Estimated GFR (MDRD) 81 L, Glucose 145 H, Calcium 8.3 L 12/02/18 05:10: WBC 19.5 H, RBC 4.74, Hgb 12.8 L, Hct 39.8 L, MCV 84.0, MCH 2 7.0, MCHC 32.2, RDW 13.5, Plt Count 271, MPV 8.1, Neut # (Auto) 16.7 H, Lymph # (Auto) 1.5, [place] # (Auto) 1.1 H, Eos # (Auto) 0.0, Baso # (Auto) 0.0, Absolute Nucleated RBC 0.00, Nucleated RBC % 0.0 12/01/18 21:58: Sodium 136, Potassium 4.3, Chloride 99 L, Carbon Dioxide 28, Anion Gap 9.0, BUN 13, Creatinine 0.9, Estimated GFR (MDRD) 81 L, Glucose 152 H, Calcium 8.6 12/01/18 21:58: WBC 18.2 H, RBC 4.90, Hgb 13.4 L, Hct 41.5 L, MCV 84.7, MCH 27.3, MCHC 32.3, RDW 13.7, Plt Count 255, MPV 8.0, Neut # (Auto) 16.3 H, Lymph # (Auto) 1.1 L, [place] # (Auto) 0.7, Eos # (Auto) 0.0, Baso # (Auto) 0.0, Absolute Nucleated RBC 0.00, Nucleated RBC % 0.0 12/01/18 19:03: Lactic Acid 1.9 12/01/18 19:03: Sodium 138, Potassium 3.9, Chloride 99 L, Carbon Dioxide 28, Anion Gap 11.0, BUN 13, Creatinine 1.0, Estimated GFR (MDRD) 72 L, Glucose 168 H , Calcium 9.6, Total Bilirubin 1.0, AST 29, ALT 43, Alkaline Phosphatase 148 H, Total Protein 8.0, Albumin 4.2, Globulin 3.8, Albumin/Globulin Ratio 1.1, Lipase 31 12/01/18 19:03: WBC 18.1 H, RBC 5.08, Hgb 13.9 L, Hct 42.5, MCV 83.7, MCH 27.4, MCHC 32.7, RDW 13.6, Plt Count 278, MPV 8.0, Neut # (Auto) 16.0 H, Lymph # (Auto) 1.2 L, [place] # (Auto) 0.6, Eos # (Auto) 0.0, Baso # (Auto) 0.0, Absolute Nucleated RBC 0.00, Nucleated RBC % 0.0 Lab results reviewed: Yes Fish Bones: 12/02/18 05:10 12/02/18 05:10 Home Medications and Allergies Active Medications Albuterol/Ipratropium (Duoneb) 3 ml INH Q4HR PRN PRN Reason: Wheezing Budesonide (Pulmicort) 0.5 mg INH RTBID LETICIA Last Admin: 12/02/18 07:28 Dose: 0.5 mg Formoterol Fumarate (Perforomist) 20 mcg INH RTBID LETICIA Last Admin: 12/02/18 07:28 Dose: 20 mcg Hydromorphone HCl (Dilaudid (Vial)) 0.5 mg IVP Q3H PRN PRN Reason: PAIN Last Admin: 12/02/18 05:02 Dose: 0.5 mg Sodium Chloride (Normal Saline 0.9%) 1,000 mls @ 100 mls/hr IV .Q10H LETICIA Last Admin: 12/02/18 01:06 Dose: 100 mls/hr Piperacillin Sod/Tazobactam (Sod 3.375 gm/ Sodium Chloride) 100 mls @ 200 mls/hr IV Q6H [facility] Last Infusion: 12/02/18 08:59 Dose: Infused Ondansetron HCl (Zofran Inj) 4 mg IVP Q6HR PRN PRN Reason: Nausea / Vomiting Last Admin: 12/02/18 07:55 Dose: 4 mg Pantoprazole Sodium (Protonix) 40 mg IVP QDAC [facility] Last Admin: 12/02/18 06:33 Dose: 40 mg Polyethylene Glycol (Miralax) 17 gm PO DAILY [facility] Last Admin: 12/02/18 07:57 Dose: Not Given Sodium Chloride (Normal Saline Flush 0.9%) 10 ml IVP PRN PRN PRN Reason: NEEDED PER PROVIDER ORDERS Last Admin: 12/02/18 06:33 Dose: 10 ml Sodium Chloride (Normal Saline Flush 0.9%) 10 ml IVP 0100,0900,1700 [facility] Last Admin: 12/02/18 07:56 Dose: 10 ml Aspirin [Aspir 81] 81 mg PO DAILY 05/05/13 Atorvastatin Calcium [Lipitor] 40 mg PO HS 05/05/13 Budesonide/Formoterol 160/4.5 [Symbicort] 1 puffs INH BID 05/05/13 Ipratropium [place] [Atrovent Hfa] 12.9 gm IH 05/05/13 Allergies/Adverse Reactions: Allergies Allergy/AdvReac Type Severity Reaction Status Date / Time iodine Allergy Severe shock Verified 10/12/17 12:23 narcotics AdvReac Intermediate "makes me Uncoded 10/12/17 12:23 sick" Anes History & Medical History - Anesthetic History Anesthesia Complications: reports: No previous complications Family history of Anesthesia Complications: Denies Family history of Malignant Hyperthermia: Denies - Medical History Cardiovascular: reports: Hypertension, High cholesterol, Coronary artery disease, Other (Carotid artery stenosis s/p right roto rotor) Pulmonary: reports: Asthma, COPD Gastrointestinal: reports: GERD, Ulcers Urinary: reports: Incontinence Neuro: reports: None Musculoskeletal: reports: Chronic back pain Endocrine/Autoimmune: reports: None Blood Disorders: reports: None Skin: reports: None Smoking Status: Former smoker - Surgical History General: Appendectomy, Other (Umbilical hernia) Eyes Ears Nose Throat (EENT): Cataracts, Tonsil/Adenoidectomy Cardiothoracic: Coronary stent Orthopedic: Spine surgery (Spinal fusion) Exam General: Alert, Oriented x3, Cooperative, No acute distress Dental: Loose/Frag, Poor dentition, Other (only has 4-5 teeth left, none loose. R Nares NGT in place) Mouth Openin Fingerbreadth Neck Mobility: Normal Mallampati classification: II Thyromental Distance: 4-6 cm Respiratory: Lungs clear, Normal breath sounds, No respiratory distress Cardiovascular: Regular rate (occ PAC) Mental/Cognitive Status: Alert/Oriented X3, Normal for patient Cognitive Status: Within normal limits Plan Anesthesia Type: General, Epidural (for post-op pain control) Regional Block: Per Surgeon's request for Post Op pain control Consent for Procedure(s) Verified and Reviewed: Yes Code Status: Attempt Resuscitation ASA classification: 3-Severe systemic disease Is this case an emergency?: No
[2018-12-02] MEDS ORDERED: LACTATED RINGERS 1,000 ML IV ONE (10:45)
--- NOTE | 2018-12-02 11:10 | PROVIDER PROGRESS NOTE ---
Assessment/Plan - Problem List (1) Colonic obstruction Assessment/Plan: He was kept npo and ng tube decompression, and had colon surgery today. They found the obstruction at the splenic flexure. Continue iv fluids, pain meds prn, and post-op antibiotics (if any) and management by Dr Papito Salter, the general surgeon. (2) Colonic mass Assessment/Plan: He is POD #0, had a successful coloctomy and colostomy. The appearance in the OR was that of colon cancer without local or distant mets. Surgical management post-op by Dr Papito Salter. (3) Hx of coronary artery disease Assessment/Plan: His pre-op risk was minimal. EKG shows RBBB, which is old. ASA on hold and other po meds will be changed to iv forms. (4) History of COPD Assessment/Plan: His RBBB on EKG is consistent with this Dx. he has no exacerbation currently. Continue inhalers as needed. (5) PVD (peripheral vascular disease) Assessment/Plan: He is S/P carotid endarterectomy. Management will be as for CAD, above. - Current Meds Current Meds: Current Medications Generic Name Dose Route Start Last Admin Trade Name Freq PRN Reason Stop Dose Admin Budesonide 0.5 mg 12/02/18 07:00 12/02/18 07:28 Pulmicort INH 0.5 mg RTBID LETICIA Administration Formoterol Fumarate 20 mcg 12/02/18 07:00 12/02/18 07:28 Perforomist INH 20 mcg RTBID LETICIA Administration Hydromorphone HCl 0.5 mg 12/02/18 00:22 12/02/18 05:02 Dilaudid (Vial) IVP 0.5 mg Q3H PRN Administration PAIN Sodium Chloride 1,000 mls @ 100 mls/hr 12/01/18 22:00 12/02/18 01:06 Normal Saline 0.9% IV 100 mls/hr .Q10H LETICIA Administration Piperacillin Sod/Tazobactam 100 mls @ 200 mls/hr 12/02/18 08:00 12/02/18 08:59 Sod 3.375 gm/ Sodium Chloride IV Infused Q6H LETICIA Infusion Ondansetron HCl 4 mg 12/01/18 21:46 12/02/18 07:55 Zofran Inj IVP 4 mg Q6HR PRN Administration Nausea / Vomiting Pantoprazole Sodium 40 mg 12/02/18 07:00 12/02/18 06:33 Protonix IVP 40 mg QDAC LETICIA Administration Polyethylene Glycol 17 gm 12/02/18 09:00 12/02/18 07:57 Miralax PO Not Given DAILY LETICIA Sodium Chloride 10 ml 12/01/18 21:46 12/02/18 06:33 Normal Saline Flush 0.9% IVP 10 ml PRN PRN Administration NEEDED PER PROVIDER ORDERS Sodium Chloride 10 ml 12/02/18 01:00 12/02/18 07:56 Normal Saline Flush 0.9% IVP 10 ml 0100,0900,1700 LETICIA Administration - Lab Result Fish Bone Diagrams: 12/02/18 05:10 12/02/18 05:10 - EKG Results EKG Interpreted Independently: Yes EKG Comparison: Unchanged from prior EKG EKG Findings: NST, RBBB. Unchanged from EKG done June 2018, which was obtained from his doctor's office. Subjective - Subjective Patient Reports: Resting Comfortably Objective Vital Signs: Vital Signs - 24 hr 12/01/18 12/01/18 12/01/18 18:22 19:21 21:19 Temperature 36.4 C L 37.5 C Heart Rate 83 74 87 Heart Rate [ Brachial] Heart Rate [ Radial] Respiratory 18 14 18 Rate Blood Pressure 152/81 H 144/92 H 132/90 H Blood Pressure [Right Brachial artery] O2 Saturation 100 100 99 12/01/18 12/02/18 12/02/18 23:43 00:30 04:46 Temperature 36.9 C 36.6 C 36.3 C L Heart Rate 85 Heart Rate [ Brachial] Heart Rate [ 97 Radial] Respiratory 18 16 14 Rate Blood Pressure 159/88 H Blood Pressure 151/87 H 157/77 H [Right Brachial artery] O2 Saturation 96 98 99 12/02/18 12/02/18 07:32 07:55 Temperature 36.4 C L Heart Rate 82 Heart Rate [ 77 Brachial] Heart Rate [ Radial] Respiratory 16 16 Rate Blood Pressure Blood Pressure 159/80 H [Right Brachial artery] O2 Saturation 98 Oxygen O2 Source Room air I&O (Last 24 Hrs): Intake and Output Totals x24h 11/30/18 12/01/18 12/02/18 23:59 23:59 23:59 Intake Total 1000 100 Output Total 925 Balance 1000 -825 General: Other (Sedated/sleeping post-op) HEENT: Mucous membr. moist/pink Neck: Supple Cardiovascular: Regular rate Respiratory: No respiratory distress Abdomen: Other (Bandaged) Extremities: No edema - Results Results: Laboratory Results WBC 19.5 x10^3/uL (4.8-10.8) H 12/02/18 05:10 RBC 4.74 10^6/uL (4.70-6.10) 12/02/18 05:10 Hgb 12.8 g/dL (14.0-18.0) L 12/02/18 05:10 Hct 39.8 % (42.0-52.0) L 12/02/18 05:10 MCV 84.0 fL (80.0-94.0) 12/02/18 05:10 MCH 27.0 pg (27.0-31.0) 12/02/18 05:10 MCHC 32.2 g/dL (32.0-36.0) 12/02/18 05:10 RDW 13.5 % (12.0-15.0) 12/02/18 05:10 Plt Count 271 10^3/uL (130-450) 12/02/18 05:10 MPV 8.1 fL (7.4-11.4) 12/02/18 05:10 Neut # (Auto) 16.7 10^3/uL (1.5-6.6) H 12/02/18 05:10 Lymph # (Auto) 1.5 10^3/uL (1.5-3.5) 12/02/18 05:10 [place] # (Auto) 1.1 10^3/uL (0.0-1.0) H 12/02/18 05:10 Eos # (Auto) 0.0 10^3/uL (0.0-0.7) 12/02/18 05:10 Baso # (Auto) 0.0 10^3/uL (0.0-0.1) 12/02/18 05:10 Absolute Nucleated RBC 0.00 x10^3/uL 12/02/18 05:10 Nucleated RBC % 0.0 /100WBC 12/02/18 05:10 Sodium 137 mmol/L (135-145) 12/02/18 05:10 Potassium 3.8 mmol/L (3.5-5.0) 12/02/18 05:10 Chloride 100 mmol/L (101-111) L 12/02/18 05:10 Carbon Dioxide 29 mmol/L (21-32) 12/02/18 05:10 Anion Gap 8.0 (6-13) 12/02/18 05:10 BUN 15 mg/dL (6-20) 12/02/18 05:10 Creatinine 0.9 mg/dL (0.6-1.2) 12/02/18 05:10 Estimated GFR (MDRD) 81 (>89) L 12/02/18 05:10 Glucose 145 mg/dL (70-100) H 12/02/18 05:10 Lactic Acid 1.9 mmol/L (0.5-2.2) 12/01/18 19:03 Calcium 8.3 mg/dL (8.5-10.3) L 12/02/18 05:10 Total Bilirubin 1.0 mg/dL (0.2-1.0) 12/01/18 19:03 AST 29 IU/L (10-42) 12/01/18 19:03 ALT 43 IU/L (10-60) 12/01/18 19:03 Alkaline Phosphatase 148 IU/L (42-121) H 12/01/18 19:03 C-Reactive Protein < 1.0 mg/dL (0-1.0) 12/02/18 05:10 Total Protein 8.0 g/dL (6.7-8.2) 12/01/18 19:03 Albumin 4.2 g/dL (3.2-5.5) 12/01/18 19:03 Globulin 3.8 g/dL (2.1-4.2) 12/01/18 19:03 Albumin/Globulin Ratio 1.1 (1.0-2.2) 12/01/18 19:03 Lipase 31 U/L (22-51) 12/01/18 19:03 Carcinoembryonic Ag 2.5 ng/mL 12/02/18 07:18 Urine Color YELLOW 12/01/18 20:20 Urine Clarity CLEAR (CLEAR) 12/01/18 20:20 Urine pH 8.5 PH (5.0-7.5) H 12/01/18 20:20 Ur Specific [place] 1.015 (1.002-1.030) 12/01/18 20:20 Urine Protein NEGATIVE mg/dL (NEGATIVE) 12/01/18 20:20 Urine Glucose (UA) NEGATIVE mg/dL (NEGATIVE) 12/01/18 20:20 Urine Ketones TRACE mg/dL (NEGATIVE) 12/01/18 20:20 Urine Occult Blood NEGATIVE (NEGATIVE) 12/01/18 20:20 Urine Nitrite NEGATIVE (NEGATIVE) 12/01/18 20:20 Urine Bilirubin NEGATIVE (NEGATIVE) 12/01/18 20:20 Urine Urobilinogen 0.2 (NORMAL) E.U./dL (NORMAL) 12/01/18 20:20 Ur Leukocyte Esterase NEGATIVE (NEGATIVE) 12/01/18 20:20 Ur Microscopic Review NOT INDICATED 12/01/18 20:20 Urine Culture Comments NOT INDICATED 12/01/18 20:20
[2018-12-02] MEDS ORDERED: ONDANSETRON 4 MG/2 ML VIAL IVP PRN ×2 (11:44→11:55)
[2018-12-02] MEDS ORDERED: fent/BUPIV 2 MCG/0.125% 250 ML EP PRN (11:44)
[2018-12-02] MEDS ORDERED: NALBUPHINE 10 MG/ML AMP IVP PRN ×2 (11:44→11:55)
[2018-12-02] MEDS ORDERED: diphenhydrAMINE INJ 50 MG/ML VIAL IVP PRN ×2 (11:44→11:55)
--- NOTE | 2018-12-02 13:14 | OPERATIVE REPORT ---
Operative Report - General Admit Date: 12/01/18 Procedure Date: 12/02/18 Planned Procedure: Partial colectomy, colostomy Pre-Op Diagnosis: large bowel obstruction due to colon cancer Procedure Performed: Exploratory laparotomy, partial colectomy with colostomy and Brown's pouch construction. Post Op Diagnosis: large bowel obstruction due to colon cancer - Procedure Note Primary Surgeon: Papito Salter MD FACS Anesthesia Provider: Samson [place] CRNA Anesthesia Technique: Epidural, General ET tube Pathology: transverse colon and omentum IV Fluids (mL): 700 Estimated Blood Loss (mL): 50 Urine Output (mL): 250 Findings: Annular constricting lesion in distal transverse colon near splenic flexure causing large bowel obstruction. No evidence of regional or distant metastases. Complications: None
[2018-12-02 13:39] LABS: BILIRUBIN,URINE NEGATIVE (NEGATIVE); GLUCOSE, URINE (UA) NEGATIVE (NEGATIVE); KETONES,URINE (UA) NEGATIVE (NEGATIVE); LEUKOCYTE ESTERASE, URINE NEGATIVE (NEGATIVE); NITRITE,URINE NEGATIVE (NEGATIVE); OCCULT BLOOD,URINE TRACE-INTA (NEGATIVE); PROTEIN,URINE TRACE mg/dL (NEGATIVE); UROBILINOGEN,URINE 0.2 (NORMAL) E.U./dL (NORMAL)
[2018-12-02 13:44] LABS: CLARITY,URINE CLOUDY (CLEAR); RBC,URINE 0-5 /HPF (0-5)
[2018-12-02 13:45] LABS: AMORPHOUS SEDIMENT,UR Marked /LPF; BACTERIA,URINE Rare /HPF (None Seen); SQUAMOUS EPITHELIAL CELL,UR NONE SEEN (<= Few)
[2018-12-02] MEDS: LACTATED RINGERS 1,000 ML IV SCH ×2 (13:59→19:50)
[2018-12-02] MEDS: ENOXAPARIN 40 MG/0.4 ML SYRINGE SUBQ SCH (19:49)
[2018-12-02] MEDS ORDERED: SODIUM CHLORIDE 0.9% 0 ML IV ONE (19:50)
--- NOTE | 2018-12-02 19:50 | OPERATIVE REPORT ---
DATE OF SERVICE: 12/02/2018 Physician: Papito Salter MD PREOPERATIVE DIAGNOSIS: Large bowel obstruction secondary to colon cancer. POSTOPERATIVE DIAGNOSIS: Large bowel obstruction secondary to colon cancer. PROCEDURE PERFORMED: Exploratory laparotomy, partial colectomy with end colostomy and Ton's pouch construction. ANESTHESIA: General endotracheal plus epidural by Samson [place] CRNA. SURGEON: Papito Salter MD ESTIMATED BLOOD LOSS: 50 mL COMPLICATIONS: None. DRAINS: None. FLUIDS: 700 mL crystalloid solution. URINE OUTPUT: 250 mL FINDINGS: An annular constricting lesion was identified in the distal transverse colon near the splenic flexure causing a nearly complete large bowel obstruction. The tumor appeared to have gross evidence of transmural invasion but no evidence of mesenteric lymphadenopathy, omental peritoneal seeding or liver metastases. There is no ascites. The visualized portions of the liver, stomach, duodenum, remainder of the large and small bowel appeared normal. The appendix was surgically absent. Adhesions were present in the right lower quadrant from prior appendectomy. A right transverse end colostomy was constructed along with a Ton's pouch involving the splenic flexure of the colon. INDICATIONS: Patient is an 83-year-old gentleman who presented yesterday evening with 1 week of progressively worsening abdominal pain, nausea and vomiting. Evaluation included laboratory testing showing marked leukocytosis and a CT scan showing a high-grade partial or early complete large bowel obstruction near the level of the splenic flexure, likely due to neoplasm. Surgical consultation was requested, and following fluid resuscitation, institution of broad spectrum parenteral antibiotic therapy, bowel rest and nasogastric suction, and preoperative medical clearance by the hospitalist service, the patient was advised to undergo exploratory laparotomy with partial colectomy and colostomy. TECHNIQUE: After informed consent and preoperative optimization of his medical status, he was taken to the operating room where he was placed under continuous epidural and general endotracheal anesthesia by Samson [place] CRNA. He was placed supine on the operating table. Najera catheter was inserted. A nasogastric tube had already been placed preoperatively, and 3.375 grams of Zosyn had been administered intravenously within an hour of the incision. Sequential calf compression boots were applied. His abdomen was prepped with ChloraPrep solution and draped in the usual sterile fashion. An upper midline incision was used to enter the peritoneal cavity. Hemostasis was achieved with electrocautery, 2-0 Vicryl ties 3-0 silk suture ligatures and the LigaSure device. The abdomen was explored with findings noted above. Points of bowel division were chosen approximately 5 cm proximal and distal to the tumor in the distal transverse colon. The bowel was mobilized circumferentially at these points, ligated and divided with the Ethicon PROXIMATE 75 mm linear cutting and stapling device with a GI load. The omentum was resected en bloc by dividing the gastrocolic ligament between these 2 points of bowel division and incorporating the involved portion of the omentum with the resection specimen. The mesentery was then resected near its base using the LigaSure for hemostasis. The resulting specimen, which consisted of the transverse colon, omentum and mesentery, was sent for pathologic evaluation. The distal end was oversewn with 3-0 silk sutures and left as a Ton's pouch. After hemostasis was assured, the abdominal cavity was irrigated with saline solution. Attention was turned to creating the ostomy. A point was chosen in the right upper quadrant, upon the lateral aspect of the rectus sheath, where an ellipse of skin was excised. The subcutaneous fat was excised deep to this ellipse. The anterior rectus sheath was exposed, and a cruciate incision was made sufficiently to allow 2 fingerbreadths sized opening in the abdominal wall. The rectus muscle was split. Peritoneum was divided and the right transverse colon was then passed through the opening and exteriorized without excessive tension. Then, 3-0 silk sutures were used to anchor the bowel to the peritoneum adjacent to the ostomy exit site. Wound closure was then accomplished in layers using continuous doubled 0 PDS for the midline fascia, followed by 3-0 Vicryl for subcutaneous tissues and joseph for the skin. Xeroform gauze and dressing was applied. The ostomy was then matured by excising the staple line. Hemostasis was achieved with electrocautery. The stoma was seen to be viable. The stoma was then matured to the skin with interrupted and continuous 3-0 Vicryl sutures. A stoma appliance was then applied. Anesthesia was terminated, and patient was transferred to the recovery room in satisfactory condition. Sponge and needle counts were correct x2. No drains were used. TD: 12/02/2018 13:26 PAMELA
[2018-12-02] MEDS ORDERED: SODIUM CHLORIDE 0.9% 1,000 ML IV ONE ×3 (20:09→22:32)
[2018-12-02] MEDS ORDERED: BUDESONIDE INH SCH (21:00)
[2018-12-02] MEDS ORDERED: FORMOTEROL INH SCH (21:00)
[2018-12-02] MEDS: ROPIVACAINE 0.2% 200 MG/100 ML BAG EP PRN (21:32)
[2018-12-03] MEDS ORDERED: SODIUM CHLORIDE 0.9% 1,000 ML IV ONE
[2018-12-03] MEDS: PIPERACILLIN/TAZOBACTAM 3.375 GM in SODIUM CHLORIDE 0.9% MINIBAG 100 ML IV SCH (02:10)
[2018-12-03] MEDS: LACTATED RINGERS 1,000 ML IV SCH ×2 (02:20→06:40)
[2018-12-03] MEDS: ROPIVACAINE 0.2% 200 MG/100 ML BAG EP PRN ×2 (03:29→16:41)
[2018-12-03 05:27] LABS: BASOPHILS % (AUTO) 0.2 %; HGB - HEMOGLOBIN 9.3 g/dL (14.0-18.0); LYMPHOCYTES # (AUTO) 1.1 10^3/uL (1.5-3.5); LYMPHOCYTES % (AUTO) 5.5 %; MEAN CORPUSCULAR HEMOGLOBIN 26.6 pg (27.0-31.0); MEAN CORPUSCULAR HGB CONC 30.4 g/dL (32.0-36.0); MEAN CORPUSCULAR VOLUME 87.7 fL (80.0-94.0); MEAN PLATELET VOLUME 8.1 fL (7.4-11.4); MONOCYTES # (AUTO) 1.5 10^3/uL (0.0-1.0); MONOCYTES % (AUTO) 7.5 %; NEUTROPHILS # (AUTO) 16.7 10^3/uL (1.5-6.6); PLT - PLATELET COUNT 167 10^3/uL (130-450); RED BLOOD COUNT 3.49 10^6/uL (4.70-6.10); RED CELL DISTRIBUTION WIDTH 14.5 % (12.0-15.0); WHITE BLOOD COUNT 19.4 x10^3/uL (4.8-10.8)
[2018-12-03 05:35] LABS: CALCIUM 7.4 mg/dL (8.5-10.3); CREATININE 0.9 mg/dL (0.6-1.2)
[2018-12-03] MEDS: PANTOPRAZOLE 40 MG VIAL IVP SCH (06:35)
[2018-12-03] MEDS: SODIUM CHLORIDE FLUSH 0.9% 10 ML SYRINGE IVP PRN ×3 (06:35→22:10)
[2018-12-03] MEDS: BUDESONIDE 0.5 MG/2 ML NEB INH SCH ×2 (07:17→18:10)
[2018-12-03] MEDS: FORMOTEROL FUMARATE NEB 20 MCG/2 ML INH SCH ×2 (07:17→18:11)
[2018-12-03] MEDS: IPRATROPIUM 0.2 MG/ML NEB INH SCH ×4 (07:19→18:13)
[2018-12-03] MEDS ORDERED: CALCIUM GLUCONATE 1,000 MG in SODIUM CHLORIDE 0.9% 50 ML IV ONE (08:00)
[2018-12-03] MEDS: SODIUM CHLORIDE FLUSH 0.9% 10 ML SYRINGE IVP SCH ×2 (08:03→17:19)
[2018-12-03] MEDS: ENOXAPARIN 40 MG/0.4 ML SYRINGE SUBQ SCH (08:03)
[2018-12-03] MEDS: KETOROLAC 15 MG/ML VIAL IVP PRN ×2 (09:17→22:10)
[2018-12-03] MEDS: ACETAMINOPHEN 1,000 MG/100 ML 100 ML IV PRN (09:46)
--- NOTE | 2018-12-03 10:07 | PROVIDER PROGRESS NOTE ---
Subjective - General Admit Date: 12/01/18 Procedure Date: 12/02/18 Post Op Days: 1 Procedure Performed: Transverse colectomy with colostomy and Ton's pouch - Review of Systems Wound/Incisions: positive: No drainage General: positive: No symptoms Pulmonary: positive: No symptoms Cardiovascular: positive: No symptoms Gastrointestinal: positive: Abdominal pain (incisional well controlled with epidural analgesia plus prn non narcotic analgesics). negative: Nausea, Vomiting, Difficulty swallowing, Flatus Genitourinary: positive: No symptoms Objective - Patient Data Reviewed Vital Signs: Yes Vital Signs: Vital Signs x48h Temp Pulse Pulse Resp BP Pulse Ox 12/03/18 08:00 36.7 C 85 11 L 97/56 L 100 12/03/18 07:22 86 16 12/03/18 05:00 37.1 C 80 20 93/67 97 12/03/18 04:00 63 92/56 L 12/03/18 03:05 73 99/54 L Weight: Weight 12/01/18 12/02/18 12/03/18 23:59 23:59 23:59 Weight (kg) 66.5 kg Intake & Output: Intake and Output Totals x24h 12/01/18 12/02/18 12/03/18 23:59 23:59 23:59 Intake Total 1000 4872.5 2028.5 Output Total 1375 600 Balance 1000 3497.5 1428.5 - Lab Results Lab Results: 12/03/18 05:15 12/03/18 05:15 Other Lab Results: Lab Results x24hrs 12/03/18 12/03/18 12/02/18 Range/Units 05:15 05:15 13:05 WBC 19.4 H (4.8-10.8) x10^3/uL RBC 3.49 L (4.70-6.10) 10^6/uL Hgb 9.3 L (14.0-18.0) g/dL Hct 30.6 L (42.0-52.0) % MCV 87.7 (80.0-94.0) fL MCH 26.6 L (27.0-31.0) pg MCHC 30.4 L (32.0-36.0) g/dL RDW 14.5 (12.0-15.0) % Plt Count 167 (130-450) 10^3/uL MPV 8.1 (7.4-11.4) fL Neut # (Auto) 16.7 H (1.5-6.6) 10^3/uL Lymph # (Auto) 1.1 L (1.5-3.5) 10^3/uL [place] # (Auto) 1.5 H (0.0-1.0) 10^3/uL Eos # (Auto) 0.0 (0.0-0.7) 10^3/uL Baso # (Auto) 0.0 (0.0-0.1) 10^3/uL Absolute Nucleated RBC 0.00 x10^3/uL Nucleated RBC % 0.0 /100WBC Sodium 141 (135-145) mmol/L Potassium 4.5 (3.5-5.0) mmol/L Chloride 111 (101-111) mmol/L Carbon Dioxide 26 (21-32) mmol/L Anion Gap 4.0 L (6-13) BUN 17 (6-20) mg/dL Creatinine 0.9 (0.6-1.2) mg/dL Estimated GFR (MDRD) 81 L (>89) Glucose 123 H (70-100) mg/dL Calcium 7.4 L (8.5-10.3) mg/dL Urine Color YELLOW Urine Clarity CLOUDY (CLEAR) Urine pH 7.0 (5.0-7.5) PH Ur Specific [place] 1.020 (1.002-1.030) Urine Protein TRACE (NEGATIVE) mg/dL Urine Glucose (UA) NEGATIVE (NEGATIVE) mg/dL Urine Ketones NEGATIVE (NEGATIVE) mg/dL Urine Occult Blood TRACE-INTA (NEGATIVE) Urine Nitrite NEGATIVE (NEGATIVE) Urine Bilirubin NEGATIVE (NEGATIVE) Urine Urobilinogen 0.2 (NORMAL) (NORMAL) E.U./dL Ur Leukocyte Esterase NEGATIVE (NEGATIVE) Urine RBC 0-5 (0-5) /HPF Urine WBC 0-3 (0-3) /HPF Ur Squamous Epith Cells NONE SEEN (<= Few) Amorphous Sediment Marked /LPF Urine Bacteria Rare (None Seen) /HPF Ur Microscopic Review INDICATED Urine Culture Comments NOT INDICATED - Current Medications Current Medications: Current Medications Generic Name Dose Route Start Last Admin Trade Name Freq PRN Reason Stop Dose Admin Budesonide 0.5 mg 12/02/18 07:00 12/03/18 07:17 Pulmicort INH 0.5 mg RTBID LETICIA Administration Enoxaparin Sodium 40 mg 12/02/18 20:00 12/03/18 08:03 Lovenox SUBQ 40 mg DAILY LETICIA Administration Formoterol Fumarate 20 mcg 12/02/18 07:00 12/03/18 07:17 Perforomist INH 20 mcg RTBID LETICIA Administration Ropivacaine 200 mg in 100 mls @ 0 mls/hr 12/02/18 11:55 12/03/18 03:29 Naropin 0.2% EP 4 mls/hr PRN PRN Administration PAIN Protocol Per Protocol Acetaminophen 100 mls @ 400 mls/hr 12/02/18 13:03 12/03/18 09:46 Ofirmev IV 400 mls/hr Q6HR PRN Administration PAIN Ipratropium [place] 0.5 mg 12/02/18 19:00 12/03/18 07:20 Atrovent INH 0.5 mg RTTID LETICIA Administration Ketorolac Tromethamine 15 mg 12/02/18 13:02 12/03/18 09:17 Toradol Inj (15mg) IVP 12/07/18 13:01 15 mg Q6HR PRN Administration PAIN Pantoprazole Sodium 40 mg 12/02/18 07:00 12/03/18 06:35 Protonix IVP 40 mg QDAC LETICIA Administration Sodium Chloride 10 ml 12/01/18 21:46 12/03/18 09:18 Normal Saline Flush 0.9% IVP 10 ml PRN PRN Administration NEEDED PER PROVIDER ORDERS Sodium Chloride 10 ml 12/02/18 01:00 12/03/18 08:03 Normal Saline Flush 0.9% IVP 10 ml 0100,0900,1700 LETICIA Administration - Physical Exam Wound/Incisions: positive: Healing well, No drainage General Appearance: positive: No acute distress, Alert Eyes Bilateral: positive: No scleral icterus ENT: positive: ENT inspection nml, Dry mucous membranes (mild) Neck: positive: Nml inspection, No JVD Respiratory: positive: Chest non-tender, No respiratory distress, Breath sounds nml Cardiovascular: positive: Regular rate & rhythm, No murmur, No gallop Abdomen: positive: Nml bowel sounds, No distention, Other (mild expected maria elena incisional tenderness; ostomy pink, edematous, viable, no sig output yet) Skin: positive: Color nml, No rash, Warm, Dry Extremities: positive: Non-tender, No pedal edema. negative: Calf tenderness Neurologic/Psychiatric: positive: Oriented x3 ABX Reporting Has patient been on IV antibiotics over the past 48 hours?: No Impression/Plan - Problem List Problem List: PO Day 1 s/p partial colectomy, colostomy for LBO due to mass in distal transverse colon. Low blood pressure is due to epidural infusion, not hypovolemia. Persistent leukocytosis of unclear etiology; no evidence of infection/sepsis at this time. PLan: advance diet ant activity as sven; remove dowling, d/c IVF, continue non narcotic analgesics, epidural today. d/c antibiotics.
--- NOTE | 2018-12-03 10:38 | XRAY Report ---
Reason: Eval for pneumonia, has high WBC and Hx COPD Procedure Date: 12/03/2018 Accession Number: [id number] / [id number] Procedure: XR - Chest 1 View X-Ray CPT Code: 99307 FULL RESULT: EXAM: CHEST RADIOGRAPHY EXAM DATE: 12/03/2018 09:54 AM. CLINICAL HISTORY: Evaluation for pneumonia, has high WBC and history of COPD. COMPARISON: CHEST 1 VIEW 12/02/2018 2:01 AM. TECHNIQUE: 1 view. FINDINGS: Lungs/Pleura: Prominent blunting with elevation of the left lung base is again seen in the region of the left costophrenic angle, the interval change is that this potential pleural versus subdiaphragmatic peritoneal space now filled with gas. While this may be a benign finding due to colonic interposition, the finding should be clarified, given that a similar appearance subdiaphragmatic lucency is now seen on the right. No pulmonary consolidation is seen. No other definite pneumothorax or large pleural effusion. Mediastinum: Within exam limitations the cardiomediastinal silhouette including subtle calcifications of the aortic arch are again seen. Other: Nonunited left-sided rib fractures are again seen. IMPRESSION: Suggestion of free air. New finding. RADIA The call report notification system was initiated by Dr. Meng Velez at 10:35 AM on 12/03/2018. The above call report findings were discussed with Justa Arthur by Dr. Meng Velez at 10:39 AM on 12/03/2018.
--- NOTE | 2018-12-03 13:32 | ANESTHESIA POST OP EVALUATION ---
Anesthesia Post Eval - Post Anesthesia Eval CV Function Including HR & BP: positive: Stable Pain Control: positive: Adequate Nausea & Vomiting: positive: Negative Mental Status: positive: Appropriate Anesthesia Complications: positive: None (Epidural site withour redness, swelling or pain. 0.2% Ropivicaine infusing at 4 ml/hr. Patient ambulating without difficulty. Very happy with epidural and pain control. Will continue to follow.)
--- NOTE | 2018-12-03 17:27 | PROVIDER PROGRESS NOTE ---
Assessment/Plan - Problem List (1) Colonic obstruction Assessment/Plan: Resolved with surgery done yesterday Colostomy training starting, from [facility] colostomy nurse Dr Papito Salter is managing epidural, Najera and advancing diet (2) Colonic mass Assessment/Plan: Pathology pending (3) Hx of coronary artery disease Assessment/Plan: Stable (4) History of COPD Assessment/Plan: Stable, inhalers/nebulizer treatments continue (5) PVD (peripheral vascular disease) Assessment/Plan: Stable - Current Meds Current Meds: Current Medications Generic Name Dose Route Start Last Admin Trade Name Freq PRN Reason Stop Dose Admin Budesonide 0.5 mg 12/02/18 07:00 12/03/18 07:17 Pulmicort INH 0.5 mg RTBID LETICIA Administration Enoxaparin Sodium 40 mg 12/02/18 20:00 12/03/18 08:03 Lovenox SUBQ 40 mg DAILY LETICIA Administration Formoterol Fumarate 20 mcg 12/02/18 07:00 12/03/18 07:17 Perforomist INH 20 mcg RTBID LETICIA Administration Ropivacaine 200 mg in 100 mls @ 0 mls/hr 12/02/18 11:55 12/03/18 16:41 Naropin 0.2% EP 4 mls/hr PRN PRN Administration PAIN Protocol Per Protocol Acetaminophen 100 mls @ 400 mls/hr 12/02/18 13:03 12/03/18 10:24 Ofirmev IV Infused Q6HR PRN Infusion PAIN Ipratropium [place] 0.5 mg 12/02/18 19:00 12/03/18 13:18 Atrovent INH 0.5 mg RTTID LETICIA Administration Ketorolac Tromethamine 15 mg 12/02/18 13:02 12/03/18 09:17 Toradol Inj (15mg) IVP 12/07/18 13:01 15 mg Q6HR PRN Administration PAIN Pantoprazole Sodium 40 mg 12/02/18 07:00 12/03/18 06:35 Protonix IVP 40 mg QDAC LETICIA Administration Sodium Chloride 10 ml 12/01/18 21:46 12/03/18 09:18 Normal Saline Flush 0.9% IVP 10 ml PRN PRN Administration NEEDED PER PROVIDER ORDERS Sodium Chloride 10 ml 12/02/18 01:00 09/26/19 17:19 Normal Saline Flush 0.9% IVP 10 ml 0100,0900,1700 LETIICA Administration - Lab Result Fish Bone Diagrams: 12/05/18 04:40 12/05/18 04:40 - Additional Planning My Orders: My Active Orders 12/02/18 18:40 Incentive Spirometry - RT [RC] .tid 12/02/18 19:00 Ipratropium [Atrovent] 0.5 mg INH RTTID Subjective - Subjective Patient Reports: Feeling Better Nursing Reports: Other (Ambulating without pain, on epidural pain med) Objective Vital Signs: Vital Signs - 24 hr 12/02/18 12/02/18 12/02/18 18:30 18:37 19:43 Temperature 36.8 C 36.8 C Heart Rate 76 76 Heart Rate [ 63 Brachial] Heart Rate [ Radial] Respiratory 16 16 18 Rate Blood Pressure 77/44 L [Right Brachial artery] O2 Saturation 98 100 12/02/18 12/02/18 12/02/18 19:55 19:57 20:00 Temperature Heart Rate Heart Rate [ Brachial] Heart Rate [ Radial] Respiratory Rate Blood Pressure 74/44 L 77/47 L 83/39 L [Right Brachial artery] O2 Saturation 12/02/18 12/02/18 12/02/18 20:10 20:17 20:32 Temperature Heart Rate Heart Rate [ Brachial] Heart Rate [ Radial] Respiratory Rate Blood Pressure 67/42 L 69/43 L 72/46 L [Right Brachial artery] O2 Saturation 12/02/18 12/02/18 12/02/18 20:43 21:09 22:17 Temperature Heart Rate Heart Rate [ Brachial] Heart Rate [ 61 Radial] Respiratory 16 Rate Blood Pressure 66/42 L 65/46 L 90/45 L [Right Brachial artery] O2 Saturation 100 12/02/18 12/02/18 12/02/18 22:34 23:02 23:47 Temperature 37 C Heart Rate Heart Rate [ 74 82 Brachial] Heart Rate [ Radial] Respiratory 18 Rate Blood Pressure 92/44 L 101/55 L 93/55 L [Right Brachial artery] O2 Saturation 100 12/03/18 12/03/18 12/03/18 00:00 00:30 01:00 Temperature Heart Rate Heart Rate [ 74 75 Brachial] Heart Rate [ Radial] Respiratory 16 Rate Blood Pressure 90/53 L 92/51 L [Right Brachial artery] O2 Saturation 12/03/18 12/03/18 12/03/18 01:30 02:00 03:05 Temperature Heart Rate Heart Rate [ 79 75 73 Brachial] Heart Rate [ Radial] Respiratory Rate Blood Pressure 96/57 L 100/59 L 99/54 L [Right Brachial artery] O2 Saturation 12/03/18 12/03/18 12/03/18 04:00 05:00 07:22 Temperature 37.1 C Heart Rate 86 Heart Rate [ 63 80 Brachial] Heart Rate [ Radial] Respiratory 20 16 Rate Blood Pressure 92/56 L 93/67 [Right Brachial artery] O2 Saturation 97 12/03/18 12/03/18 12/03/18 08:00 13:21 15:38 Temperature 36.7 C 36.7 C Heart Rate 16 L Heart Rate [ 85 Brachial] Heart Rate [ 76 Radial] Respiratory 11 L 16 16 Rate Blood Pressure 97/56 L 123/68 [Right Brachial artery] O2 Saturation 100 100 Oxygen O2 Source Room air I&O (Last 24 Hrs): Intake and Output Totals x24h 12/01/18 12/02/18 12/03/18 23:59 23:59 23:59 Intake Total 1000 4872.5 3908.5 Output Total 1375 1525 Balance 1000 3497.5 2383.5 General: Alert, Oriented x3 HEENT: Mucous membr. moist/pink Neck: Supple Neuro: Alert, Non Focal Cardiovascular: Regular rate, No murmurs Respiratory: No respiratory distress Abdomen: Soft Extremities: No edema - Results Results: Laboratory Results WBC 19.4 x10^3/uL (4.8-10.8) H 12/03/18 05:15 RBC 3.49 10^6/uL (4.70-6.10) L 12/03/18 05:15 Hgb 9.3 g/dL (14.0-18.0) L 12/03/18 05:15 Hct 30.6 % (42.0-52.0) L 12/03/18 05:15 MCV 87.7 fL (80.0-94.0) 12/03/18 05:15 MCH 26.6 pg (27.0-31.0) L 12/03/18 05:15 MCHC 30.4 g/dL (32.0-36.0) L 12/03/18 05:15 RDW 14.5 % (12.0-15.0) 12/03/18 05:15 Plt Count 167 10^3/uL (130-450) 12/03/18 05:15 MPV 8.1 fL (7.4-11.4) 12/03/18 05:15 Neut # (Auto) 16.7 10^3/uL (1.5-6.6) H 12/03/18 05:15 Lymph # (Auto) 1.1 10^3/uL (1.5-3.5) L 12/03/18 05:15 [place] # (Auto) 1.5 10^3/uL (0.0-1.0) H 12/03/18 05:15 Eos # (Auto) 0.0 10^3/uL (0.0-0.7) 12/03/18 05:15 Baso # (Auto) 0.0 10^3/uL (0.0-0.1) 12/03/18 05:15 Absolute Nucleated RBC 0.00 x10^3/uL 12/03/18 05:15 Nucleated RBC % 0.0 /100WBC 12/03/18 05:15 Sodium 141 mmol/L (135-145) 12/03/18 05:15 Potassium 4.5 mmol/L (3.5-5.0) 12/03/18 05:15 Chloride 111 mmol/L (101-111) 12/03/18 05:15 Carbon Dioxide 26 mmol/L (21-32) 12/03/18 05:15 Anion Gap 4.0 (6-13) L 12/03/18 05:15 BUN 17 mg/dL (6-20) 12/03/18 05:15 Creatinine 0.9 mg/dL (0.6-1.2) 12/03/18 05:15 Estimated GFR (MDRD) 81 (>89) L 12/03/18 05:15 Glucose 123 mg/dL (70-100) H 12/03/18 05:15 Lactic Acid 1.9 mmol/L (0.5-2.2) 12/01/18 19:03 Calcium 7.4 mg/dL (8.5-10.3) L 12/03/18 05:15 Total Bilirubin 1.0 mg/dL (0.2-1.0) 12/01/18 19:03 AST 29 IU/L (10-42) 12/01/18 19:03 ALT 43 IU/L (10-60) 12/01/18 19:03 Alkaline Phosphatase 148 IU/L (42-121) H 12/01/18 19:03 C-Reactive Protein < 1.0 mg/dL (0-1.0) 12/02/18 05:10 Total Protein 8.0 g/dL (6.7-8.2) 12/01/18 19:03 Albumin 4.2 g/dL (3.2-5.5) 12/01/18 19:03 Globulin 3.8 g/dL (2.1-4.2) 12/01/18 19:03 Albumin/Globulin Ratio 1.1 (1.0-2.2) 12/01/18 19:03 Lipase 31 U/L (22-51) 12/01/18 19:03 Carcinoembryonic Ag 2.5 ng/mL 12/02/18 07:18 Urine Color YELLOW 12/02/18 13:05 Urine Clarity CLOUDY (CLEAR) 12/02/18 13:05 Urine pH 7.0 PH (5.0-7.5) 12/02/18 13:05 Ur Specific [place] 1.020 (1.002-1.030) 12/02/18 13:05 Urine Protein TRACE mg/dL (NEGATIVE) 12/02/18 13:05 Urine Glucose (UA) NEGATIVE mg/dL (NEGATIVE) 12/02/18 13:05 Urine Ketones NEGATIVE mg/dL (NEGATIVE) 12/02/18 13:05 Urine Occult Blood TRACE-INTA (NEGATIVE) 12/02/18 13:05 Urine Nitrite NEGATIVE (NEGATIVE) 12/02/18 13:05 Urine Bilirubin NEGATIVE (NEGATIVE) 12/02/18 13:05 Urine Urobilinogen 0.2 (NORMAL) E.U./dL (NORMAL) 12/02/18 13:05 Ur Leukocyte Esterase NEGATIVE (NEGATIVE) 12/02/18 13:05 Urine RBC 0-5 /HPF (0-5) 12/02/18 13:05 Urine WBC 0-3 /HPF (0-3) 12/02/18 13:05 Ur Squamous Epith Cells NONE SEEN (<= Few) 12/02/18 13:05 Amorphous Sediment Marked /LPF 12/02/18 13:05 Urine Bacteria Rare /HPF (None Seen) 12/02/18 13:05 Ur Microscopic Review INDICATED 12/02/18 13:05 Urine Culture Comments NOT INDICATED 12/02/18 13:05
[2018-12-04] MEDS: SODIUM CHLORIDE FLUSH 0.9% 10 ML SYRINGE IVP SCH ×3 (00:43→18:12)
[2018-12-04] MEDS: ACETAMINOPHEN 1,000 MG/100 ML 100 ML IV PRN (05:17)
[2018-12-04] MEDS: ROPIVACAINE 0.2% 200 MG/100 ML BAG EP PRN (05:18)
[2018-12-04] MEDS: PANTOPRAZOLE 40 MG VIAL IVP SCH (05:18)
[2018-12-04] MEDS: KETOROLAC 15 MG/ML VIAL IVP PRN (05:18)
[2018-12-04 06:04] LABS: BASOPHILS % (AUTO) 0.2 %; EOSINOPHILS # (AUTO) 0.1 10^3/uL (0.0-0.7); EOSINOPHILS % (AUTO) 0.6 %; HGB - HEMOGLOBIN 9.4 g/dL (14.0-18.0); LYMPHOCYTES # (AUTO) 1.4 10^3/uL (1.5-3.5); LYMPHOCYTES % (AUTO) 9.8 %; MEAN CORPUSCULAR HEMOGLOBIN 26.5 pg (27.0-31.0); MEAN CORPUSCULAR HGB CONC 30.7 g/dL (32.0-36.0); MEAN CORPUSCULAR VOLUME 86.2 fL (80.0-94.0); MEAN PLATELET VOLUME 8.4 fL (7.4-11.4); MONOCYTES # (AUTO) 1.2 10^3/uL (0.0-1.0); MONOCYTES % (AUTO) 8.3 %; NEUTROPHILS # (AUTO) 11.5 10^3/uL (1.5-6.6); NEUTROPHILS % (AUTO) 80.3 %; PLT - PLATELET COUNT 181 10^3/uL (130-450); RED BLOOD COUNT 3.55 10^6/uL (4.70-6.10); RED CELL DISTRIBUTION WIDTH 14.2 % (12.0-15.0); WHITE BLOOD COUNT 14.3 x10^3/uL (4.8-10.8)
[2018-12-04 06:10] LABS: CALCIUM 7.8 mg/dL (8.5-10.3); CREATININE 0.7 mg/dL (0.6-1.2)
[2018-12-04] MEDS ORDERED: oxyCODONE 5 MG TABLET PO PRN (07:19)
--- NOTE | 2018-12-04 07:26 | PROVIDER PROGRESS NOTE ---
Subjective - General Admit Date: 12/01/18 Procedure Date: 12/02/18 Post Op Days: 2 Procedure Performed: Transverse colectomy with colostomy and Ton's pouch - Review of Systems Wound/Incisions: positive: Healing well, Drainage (noted to be oozing blood from multiple points along incision last evening; treated with DermaBond with resolution and enoxaparin stopped.) General: positive: No symptoms Pulmonary: positive: No symptoms Cardiovascular: positive: No symptoms Gastrointestinal: positive: Abdominal pain (worse incisional pain today). negative: Nausea, Vomiting, Difficulty swallowing, Flatus (minimal stool output so far) Genitourinary: positive: No symptoms Musculoskeletal: positive: No symptoms Objective - Patient Data Reviewed Vital Signs: Yes Vital Signs: Vital Signs x48h Temp Pulse Pulse Resp BP Pulse Ox 12/04/18 03:00 37.4 C 81 22 129/56 L 94 12/04/18 00:00 37.1 C 84 22 125/67 96 Intake & Output: Intake and Output Totals x24h 12/02/18 12/03/18 12/04/18 23:59 23:59 23:59 Intake Total 4872.5 4408.5 100 Output Total 1375 2875 510 Balance 3497.5 1533.5 -410 2,000 cc + urine output yesterday; tolerating clear liquids po well so far. - Lab Results Lab Results: 12/04/18 05:45 12/04/18 05:48 Other Lab Results: Lab Results x24hrs 12/04/18 12/04/18 Range/Units 05:48 05:45 WBC 14.3 H (4.8-10.8) x10^3/uL RBC 3.55 L (4.70-6.10) 10^6/uL Hgb 9.4 L (14.0-18.0) g/dL Hct 30.6 L (42.0-52.0) % MCV 86.2 (80.0-94.0) fL MCH 26.5 L (27.0-31.0) pg MCHC 30.7 L (32.0-36.0) g/dL RDW 14.2 (12.0-15.0) % Plt Count 181 (130-450) 10^3/uL MPV 8.4 (7.4-11.4) fL Neut # (Auto) 11.5 H (1.5-6.6) 10^3/uL Lymph # (Auto) 1.4 L (1.5-3.5) 10^3/uL [place] # (Auto) 1.2 H (0.0-1.0) 10^3/uL Eos # (Auto) 0.1 (0.0-0.7) 10^3/uL Baso # (Auto) 0.0 (0.0-0.1) 10^3/uL Absolute Nucleated RBC 0.00 x10^3/uL Nucleated RBC % 0.0 /100WBC Sodium 141 (135-145) mmol/L Potassium 3.8 (3.5-5.0) mmol/L Chloride 111 (101-111) mmol/L Carbon Dioxide 25 (21-32) mmol/L Anion Gap 5.0 L (6-13) BUN 14 (6-20) mg/dL Creatinine 0.7 (0.6-1.2) mg/dL Estimated GFR (MDRD) 108 (>89) Glucose 104 H (70-100) mg/dL Calcium 7.8 L (8.5-10.3) mg/dL - Imaging Results Radiology Imaging: positive: Final report received Imaging Results Comments: CXR yest: NAD - Current Medications Current Medications: Current Medications Generic Name Dose Route Start Last Admin Trade Name Freq PRN Reason Stop Dose Admin Budesonide 0.5 mg 12/02/18 07:00 12/03/18 18:10 Pulmicort INH 0.5 mg RTBID LETICIA Administration Formoterol Fumarate 20 mcg 12/02/18 07:00 12/03/18 18:11 Perforomist INH 20 mcg RTBID LETICIA Administration Ropivacaine 200 mg in 100 mls @ 0 mls/hr 12/02/18 11:55 12/04/18 05:18 Naropin 0.2% EP 4 mls/hr PRN PRN Administration PAIN Protocol Per Protocol Ipratropium [place] 0.5 mg 12/02/18 19:00 12/03/18 18:13 Atrovent INH 0.5 mg RTTID LETICIA Administration Sodium Chloride 10 ml 12/01/18 21:46 12/03/18 22:10 Normal Saline Flush 0.9% IVP 10 ml PRN PRN Administration NEEDED PER PROVIDER ORDERS Sodium Chloride 10 ml 12/02/18 01:00 12/04/18 00:43 Normal Saline Flush 0.9% IVP Not Given 0100,0900,1700 LETICIA - Physical Exam Wound/Incisions: positive: Healing well, Drainage (none since DermaBond applied yesterday evening; incision looks fine today) General Appearance: positive: Alert, Mild distress (c/o incisional pain) Eyes Bilateral: positive: Normal inspection ENT: positive: ENT inspection nml Neck: positive: Nml inspection, No JVD Respiratory: positive: Chest non-tender, No respiratory distress, Breath sounds nml Cardiovascular: positive: Regular rate & rhythm, No murmur, No gallop Abdomen: positive: Tenderness (mild maria elena-incisional; mild distention; stoma pink, less edematous, viable, serous output, minimal), Abnml bowel sounds (hypoactive). negative: Guarding, Rebound Back: positive: Nml inspection Skin: positive: Color nml, No rash, Warm, Dry. negative: Cyanosis Extremities: positive: No pedal edema. 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 Leukocytosis resolving; increased incisional pain likely due to decreased efficacy of epidural infusion. PLan: increase diet and activity; ostomy education and training; social service consultation, d/c planning; oral analgesics; home in 1-2 days if continues to improve.
[2018-12-04] MEDS: ACETAMINOPHEN 325 MG TABLET PO SCH ×3 (08:45→20:31)
[2018-12-04] MEDS: IBUPROFEN 400 MG TABLET PO SCH ×3 (08:48→18:14)
[2018-12-04] MEDS: IPRATROPIUM 0.2 MG/ML NEB INH SCH ×3 (09:58→19:20)
[2018-12-04] MEDS: FORMOTEROL FUMARATE NEB 20 MCG/2 ML INH SCH ×2 (09:58→19:20)
[2018-12-04] MEDS: BUDESONIDE 0.5 MG/2 ML NEB INH SCH ×2 (09:58→19:20)
--- NOTE | 2018-12-04 12:09 | ANESTHESIA POST OP EVALUATION ---
Anesthesia Post Eval - Post Anesthesia Eval CV Function Including HR & BP: positive: Stable Pain Control: positive: Adequate Nausea & Vomiting: positive: Negative Mental Status: positive: Appropriate Anesthesia Complications: positive: None (epidural discontinued per Dr. Salter's request. Patient tolerating diet and ambulating in [place] with no pain. Catheter removed easily, tip intact, no drainage or redness. Left open to air.)
[2018-12-04] MEDS ORDERED: ROCURONIUM 50 MG/5 ML VIAL IVP ONE (17:27)
[2018-12-04] MEDS ORDERED: PROPOFOL 200 MG/20 ML VIAL IVP ONE ×2 (17:27)
[2018-12-04] MEDS ORDERED: DEXAMETHASONE 4 MG/ML VIAL IVP ONE (17:27)
[2018-12-04] MEDS ORDERED: MIDAZOLAM 2 MG/2 ML VIAL IVP ONE (17:27)
--- NOTE | 2018-12-04 19:24 | PROVIDER PROGRESS NOTE ---
Assessment/Plan - Problem List (1) Colonic obstruction Assessment/Plan: Colostomy training continuing, from [facility] colostomy nurse. Dr Papito Salter is managing epidural, Najera and advancing diet Dr Salter wants Home Health visits from RN for him (2) Colonic mass Assessment/Plan: Pathology is still pending (3) Hx of coronary artery disease Assessment/Plan: Stable (4) History of COPD Assessment/Plan: Stable on treatment (5) PVD (peripheral vascular disease) Assessment/Plan: Stable - Current Meds Current Meds: Current Medications Generic Name Dose Route Start Last Admin Trade Name Freq PRN Reason Stop Dose Admin Acetaminophen 650 mg 12/04/18 08:00 12/04/18 15:30 Tylenol PO Not Given Q6H LETICIA Budesonide 0.5 mg 12/02/18 07:00 12/04/18 19:20 Pulmicort INH 0.5 mg RTBID LETICIA Administration Formoterol Fumarate 20 mcg 12/02/18 07:00 12/04/18 19:20 Perforomist INH 20 mcg RTBID LETICIA Administration Ibuprofen 400 mg 12/04/18 08:00 12/04/18 18:14 Motrin PO 400 mg Q6HR LETICIA Administration Ipratropium [place] 0.5 mg 12/02/18 19:00 12/04/18 19:20 Atrovent INH 0.5 mg RTTID LETICIA Administration Sodium Chloride 10 ml 12/01/18 21:46 12/03/18 22:10 Normal Saline Flush 0.9% IVP 10 ml PRN PRN Administration NEEDED PER PROVIDER ORDERS Sodium Chloride 10 ml 12/02/18 01:00 12/04/18 18:12 Normal Saline Flush 0.9% IVP 10 ml 0100,0900,1700 LETICIA Administration - Lab Result Fish Bone Diagrams: 12/05/18 04:40 12/05/18 04:40 Subjective - Subjective Patient Reports: Feeling Better Nursing Reports: Other (Patient is practicing colostomy care currently) Objective Vital Signs: Vital Signs - 24 hr 12/03/18 12/03/18 12/04/18 21:22 22:21 00:00 Temperature 36.8 C 36.5 C 37.1 C Heart Rate Heart Rate [ 86 80 84 Brachial] Heart Rate [ 89 Radial] Respiratory 20 20 22 Rate Blood Pressure 122/70 126/59 L 125/67 [Right Brachial artery] O2 Saturation 98 97 96 12/04/18 12/04/18 12/04/18 03:00 07:42 09:58 Temperature 37.4 C 36.6 C Heart Rate 72 Heart Rate [ 68 Brachial] Heart Rate [ 81 Radial] Respiratory 22 16 16 Rate Blood Pressure 129/56 L 106/56 L [Right Brachial artery] O2 Saturation 94 96 12/04/18 12/04/18 12/04/18 11:00 12:52 16:00 Temperature 36.8 C 36.8 C 36.6 C Heart Rate Heart Rate [ 74 74 69 Brachial] Heart Rate [ Radial] Respiratory 17 16 18 Rate Blood Pressure 119/63 119/63 148/71 H [Right Brachial artery] O2 Saturation 100 100 100 Oxygen O2 Source Room air I&O (Last 24 Hrs): Intake and Output Totals x24h 12/02/18 12/03/18 12/04/18 23:59 23:59 23:59 Intake Total 4872.5 4408.5 1040 Output Total 1375 2875 1935 Balance 3497.5 1533.5 -895 General: Alert, Oriented x3 HEENT: Mucous membr. moist/pink Neck: Supple Neuro: Alert, Non Focal Cardiovascular: Regular rate Respiratory: No respiratory distress Abdomen: Soft Extremities: No edema - Results Results: Laboratory Results WBC 14.3 x10^3/uL (4.8-10.8) H 12/04/18 05:45 RBC 3.55 10^6/uL (4.70-6.10) L 12/04/18 05:45 Hgb 9.4 g/dL (14.0-18.0) L 12/04/18 05:45 Hct 30.6 % (42.0-52.0) L 12/04/18 05:45 MCV 86.2 fL (80.0-94.0) 12/04/18 05:45 MCH 26.5 pg (27.0-31.0) L 12/04/18 05:45 MCHC 30.7 g/dL (32.0-36.0) L 12/04/18 05:45 RDW 14.2 % (12.0-15.0) 12/04/18 05:45 Plt Count 181 10^3/uL (130-450) 12/04/18 05:45 MPV 8.4 fL (7.4-11.4) 12/04/18 05:45 Neut # (Auto) 11.5 10^3/uL (1.5-6.6) H 12/04/18 05:45 Lymph # (Auto) 1.4 10^3/uL (1.5-3.5) L 12/04/18 05:45 [place] # (Auto) 1.2 10^3/uL (0.0-1.0) H 12/04/18 05:45 Eos # (Auto) 0.1 10^3/uL (0.0-0.7) 12/04/18 05:45 Baso # (Auto) 0.0 10^3/uL (0.0-0.1) 12/04/18 05:45 Absolute Nucleated RBC 0.00 x10^3/uL 12/04/18 05:45 Nucleated RBC % 0.0 /100WBC 12/04/18 05:45 Sodium 141 mmol/L (135-145) 12/04/18 05:48 Potassium 3.8 mmol/L (3.5-5.0) 12/04/18 05:48 Chloride 111 mmol/L (101-111) 12/04/18 05:48 Carbon Dioxide 25 mmol/L (21-32) 12/04/18 05:48 Anion Gap 5.0 (6-13) L 12/04/18 05:48 BUN 14 mg/dL (6-20) 12/04/18 05:48 Creatinine 0.7 mg/dL (0.6-1.2) 12/04/18 05:48 Estimated GFR (MDRD) 108 (>89) 12/04/18 05:48 Glucose 104 mg/dL (70-100) H 12/04/18 05:48 Lactic Acid 1.9 mmol/L (0.5-2.2) 12/01/18 19:03 Calcium 7.8 mg/dL (8.5-10.3) L 12/04/18 05:48 Total Bilirubin 1.0 mg/dL (0.2-1.0) 12/01/18 19:03 AST 29 IU/L (10-42) 12/01/18 19:03 ALT 43 IU/L (10-60) 12/01/18 19:03 Alkaline Phosphatase 148 IU/L (42-121) H 12/01/18 19:03 C-Reactive Protein < 1.0 mg/dL (0-1.0) 12/02/18 05:10 Total Protein 8.0 g/dL (6.7-8.2) 12/01/18 19:03 Albumin 4.2 g/dL (3.2-5.5) 12/01/18 19:03 Globulin 3.8 g/dL (2.1-4.2) 12/01/18 19:03 Albumin/Globulin Ratio 1.1 (1.0-2.2) 12/01/18 19:03 Lipase 31 U/L (22-51) 12/01/18 19:03 Carcinoembryonic Ag 2.5 ng/mL 12/02/18 07:18 Urine Color YELLOW 12/02/18 13:05 Urine Clarity CLOUDY (CLEAR) 12/02/18 13:05 Urine pH 7.0 PH (5.0-7.5) 12/02/18 13:05 Ur Specific [place] 1.020 (1.002-1.030) 12/02/18 13:05 Urine Protein TRACE mg/dL (NEGATIVE) 12/02/18 13:05 Urine Glucose (UA) NEGATIVE mg/dL (NEGATIVE) 12/02/18 13:05 Urine Ketones NEGATIVE mg/dL (NEGATIVE) 12/02/18 13:05 Urine Occult Blood TRACE-INTA (NEGATIVE) 12/02/18 13:05 Urine Nitrite NEGATIVE (NEGATIVE) 12/02/18 13:05 Urine Bilirubin NEGATIVE (NEGATIVE) 12/02/18 13:05 Urine Urobilinogen 0.2 (NORMAL) E.U./dL (NORMAL) 12/02/18 13:05 Ur Leukocyte Esterase NEGATIVE (NEGATIVE) 12/02/18 13:05 Urine RBC 0-5 /HPF (0-5) 12/02/18 13:05 Urine WBC 0-3 /HPF (0-3) 12/02/18 13:05 Ur Squamous Epith Cells NONE SEEN (<= Few) 12/02/18 13:05 Amorphous Sediment Marked /LPF 12/02/18 13:05 Urine Bacteria Rare /HPF (None Seen) 12/02/18 13:05 Ur Microscopic Review INDICATED 12/02/18 13:05 Urine Culture Comments NOT INDICATED 12/02/18 13:05
[2018-12-05] MEDS: IBUPROFEN 400 MG TABLET PO SCH ×3 (00:14→12:17)
[2018-12-05] MEDS: SODIUM CHLORIDE FLUSH 0.9% 10 ML SYRINGE IVP SCH ×2 (00:14→09:04)
[2018-12-05] MEDS: ACETAMINOPHEN 325 MG TABLET PO SCH ×2 (02:29→09:03)
[2018-12-05 04:55] LABS: BASOPHILS % (AUTO) 0.2 %; EOSINOPHILS # (AUTO) 0.5 10^3/uL (0.0-0.7); LYMPHOCYTES # (AUTO) 1.6 10^3/uL (1.5-3.5); LYMPHOCYTES % (AUTO) 16.5 %; MEAN CORPUSCULAR HEMOGLOBIN 27.6 pg (27.0-31.0); MEAN CORPUSCULAR HGB CONC 32.1 g/dL (32.0-36.0); MEAN CORPUSCULAR VOLUME 85.9 fL (80.0-94.0); MEAN PLATELET VOLUME 8.2 fL (7.4-11.4); MONOCYTES # (AUTO) 0.8 10^3/uL (0.0-1.0); MONOCYTES % (AUTO) 8.1 %; NEUTROPHILS # (AUTO) 6.8 10^3/uL (1.5-6.6); NEUTROPHILS % (AUTO) 69.1 %; PLT - PLATELET COUNT 184 10^3/uL (130-450); RED BLOOD COUNT 3.26 10^6/uL (4.70-6.10); RED CELL DISTRIBUTION WIDTH 14.1 % (12.0-15.0); WHITE BLOOD COUNT 9.9 x10^3/uL (4.8-10.8)
[2018-12-05 05:06] LABS: CALCIUM 8.2 mg/dL (8.5-10.3); CREATININE 0.8 mg/dL (0.6-1.2)
[2018-12-05] MEDS ORDERED: PANTOPRAZOLE 40 MG TABLET PO SCH (07:00)
[2018-12-05] MEDS: BUDESONIDE 0.5 MG/2 ML NEB INH SCH (07:48)
[2018-12-05] MEDS: IPRATROPIUM 0.2 MG/ML NEB INH SCH (07:49)
[2018-12-05] MEDS: FORMOTEROL FUMARATE NEB 20 MCG/2 ML INH SCH (07:49)
[2018-12-05 08:40] VITALS: BP 134/66
--- NOTE | 2018-12-05 10:18 | PROVIDER PROGRESS NOTE ---
Subjective - General Admit Date: 12/01/18 Procedure Date: 12/02/18 Post Op Days: 3 Procedure Performed: Transverse colectomy with colostomy and Ton's pouch - Review of Systems Wound/Incisions: positive: Healing well, No drainage General: positive: No symptoms Pulmonary: positive: No symptoms Cardiovascular: positive: No symptoms Gastrointestinal: positive: Abdominal pain (incisional pain well controlled with non narcotic oral analgesics now), Flatus (and stool per colostomy). negative: Constipation, Diarrhea, Melena, Hematochezia Genitourinary: positive: No symptoms Musculoskeletal: positive: No symptoms Psychiatric: positive: No symptoms - Other Other Information/Narrative: patient reports that he is comfortable emptying his ostomy bag and has been learning how to change his appliance. Objective - Patient Data Reviewed Vital Signs: Yes Vital Signs: Vital Signs x48h Temp Pulse Pulse Resp BP Pulse Ox 12/05/18 08:00 36.6 C 63 18 134/66 H 100 12/05/18 07:49 64 18 Intake & Output: Intake and Output Totals x24h 12/03/18 12/04/18 12/05/18 23:59 23:59 23:59 Intake Total 4408.5 1040 960 Output Total 2875 2235 1300 Balance 1533.5 -1195 -340 - Lab Results Lab Results: 12/05/18 04:40 12/05/18 04:40 Other Lab Results: Lab Results x24hrs 12/05/18 12/05/18 Range/Units 04:40 04:40 WBC 9.9 (4.8-10.8) x10^3/uL RBC 3.26 L (4.70-6.10) 10^6/uL Hgb 9.0 L (14.0-18.0) g/dL Hct 28.0 L (42.0-52.0) % MCV 85.9 (80.0-94.0) fL MCH 27.6 (27.0-31.0) pg MCHC 32.1 (32.0-36.0) g/dL RDW 14.1 (12.0-15.0) % Plt Count 184 (130-450) 10^3/uL MPV 8.2 (7.4-11.4) fL Neut # (Auto) 6.8 H (1.5-6.6) 10^3/uL Lymph # (Auto) 1.6 (1.5-3.5) 10^3/uL [place] # (Auto) 0.8 (0.0-1.0) 10^3/uL Eos # (Auto) 0.5 (0.0-0.7) 10^3/uL Baso # (Auto) 0.0 (0.0-0.1) 10^3/uL Absolute Nucleated RBC 0.00 x10^3/uL Nucleated RBC % 0.0 /100WBC Sodium 141 (135-145) mmol/L Potassium 3.7 (3.5-5.0) mmol/L Chloride 110 (101-111) mmol/L Carbon Dioxide 26 (21-32) mmol/L Anion Gap 5.0 L (6-13) BUN 16 (6-20) mg/dL Creatinine 0.8 (0.6-1.2) mg/dL Estimated GFR (MDRD) 93 (>89) Glucose 97 (70-100) mg/dL Calcium 8.2 L (8.5-10.3) mg/dL - Current Medications Current Medications: Current Medications Generic Name Dose Route Start Last Admin Trade Name Freq PRN Reason Stop Dose Admin Acetaminophen 650 mg 12/04/18 08:00 12/05/18 09:03 Tylenol PO 650 mg Q6H LETICIA Administration Budesonide 0.5 mg 12/02/18 07:00 12/05/18 07:48 Pulmicort INH 0.5 mg RTBID LETICIA Administration Formoterol Fumarate 20 mcg 12/02/18 07:00 12/05/18 07:49 Perforomist INH 20 mcg RTBID LETICIA Administration Ibuprofen 400 mg 12/04/18 08:00 12/05/18 05:57 Motrin PO 400 mg Q6HR LETICIA Administration Ipratropium [place] 0.5 mg 12/02/18 19:00 12/05/18 07:49 Atrovent INH 0.5 mg RTTID LETICIA Administration Pantoprazole Sodium 40 mg 12/05/18 07:00 12/05/18 05:57 Protonix PO 40 mg QDAC LETICIA Administration Sodium Chloride 10 ml 12/01/18 21:46 12/03/18 22:10 Normal Saline Flush 0.9% IVP 10 ml PRN PRN Administration NEEDED PER PROVIDER ORDERS Sodium Chloride 10 ml 12/02/18 01:00 12/05/18 09:04 Normal Saline Flush 0.9% IVP 10 ml 0100,0900,1700 LETICIA Administration - Physical Exam Wound/Incisions: positive: Healing well, No drainage General Appearance: positive: No acute distress, Alert Eyes Bilateral: positive: Normal inspection ENT: positive: ENT inspection nml Neck: positive: Nml inspection Respiratory: positive: Chest non-tender, No respiratory distress, Breath sounds nml Cardiovascular: positive: Regular rate & rhythm, No murmur, No gallop Abdomen: positive: Non-tender, Other (incision healing well; ostomy viable, liquid brown stool present in bag) Skin: positive: Color nml, No rash, Warm, Dry. negative: Cyanosis Extremities: positive: No pedal edema. 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 Doing well. Rec: OK for d/c home with HH f/u for assistance with ostomy care, wound care f/u, monitoring of cardiopulmonary conditions, non narcotic oral analgesics, usual meds, routine precautions, (no lifting more than 10 lbs; may shower, regular diet, ambulate daily) and f/u in my office next week. Discussed with Dr. Epstein
--- NOTE | 2018-12-05 11:22 | Discharge Plan ---
Discharge Plan Problem Reviewed?: Yes Disposition: 06 Home Health Service Condition: Stable Diet: Regular Activity Restrictions: Activity as Tolerated Shower Restrictions: No Driving Restrictions: No Instruction Topics: Colostomy Common Questions, Cancer Colon and Rectal, Colostomy Nutritional Manage Health Concerns: Admitted with bowel obstructipn due to a colon mass, which required surgery and a colostomy. The pathology report from the tumor is still pending. Plan of Treatment: Follow colostomy nurse's teaching. A Home Health referral was sent and they will start on 12/08/18. Resume all your pre-hospital medications. Use Advil or Tylenol for pain treatment. You have an appointment to see Dr Papito Salter at his office next 12/10/18. Care Goals: Return to previous level of function. Assessment: The patient is in agreement with the plan. Additional Instructions or Follow Up instructions: If you have any questions or concerns, call the Home Health agency of Dr Papito Salter or your PCP. Follow-Up Care: Home Health - RN No Smoking: If you smoke, Please STOP! Call for help. Follow-up with: Iron Nava MD [Primary Care Provider] -
--- NOTE | 2018-12-09 14:50 | DISCHARGE SUMMARY ---
"Discharge Summary Admit Date: 12/01/18 Discharge Date: 12/05/18 Discharging Provider: Dr Justa Arthur Primary Care Provider: Dr Iron Márquez Code Status: Attempt Resuscitation Condition at Discharge: Stable Discharge Disposition: [facility] - DIAGNOSES Admission Diagnoses: (1) Colonic obstruction (2) Colonic mass (3) COPD (chronic obstructive pulmonary disease) (4) Hyperlipidemia (5) Leukocytosis (6) Coronary artery disease history Discharge Diagnoses with Status of Each Condition: See below - HPI History of Present Illness: From the admission H&P of Dr Nadia Christy: Patient is an 83 y/o male who presented to the ED with complain of abdominal pain which has been going on intermittently for one week. However it got worse yesterday evening. He started vomiting yesterday evening and has been doing so approximately every hour through out the day. As a result of his symptoms he came to the ED around 6:30pm for evaluation. He denies chest pain, dyspnea, fever or chills. His last bowel movement was around 10:00pm in the ED. He denied anything of significance about it. Work up in the ED included a CT scan of his abdomen which showed a bowel obstruction and a colonic mass. As a result he is being admitted for further treatment. - CONSULTS | PROCEDURES Consultations: Dr Papito Salter-12/01/18 Procedures: Exploratory laparotomy, partial colectomy with colostomy and Brown's pouch construction on 12/02/18. - HOSPITAL COURSE Hospital Course: (1) Colonic obstruction The obstruction was felt to be from the colonic mass. The patient was kept NPO, had an NG tube for decompression, and was on IV hydration with normal saline. General Surgery (Dr Papito Salter) was contacted, saw the patient and scheduled surgery for the following day. After relief of the obstruction, the patient eventually had his diet advanced and had BMs. (2) Colonic mass At surgery, the colon was found to have an annular constricting lesion in the distal transverse colon, near splenic flexure, causing large bowel obstruction. No evidence of regional or distant metastases. The pathology report was pending at the time of discharge. The got a colostomy and underwent colostomy training. He had several days of post-op pain management with epidural meds, and eventually started a diet and ambulation, and tolerated these. On 12/05/18, he was discharged to his residence in stable condition, under Home Health care. (3) Hx of coronary artery disease Stable (4) History of COPD He was stable, on scheduled nebulizer treatments while here. (5) PVD (peripheral vascular disease) Stable, no symptoms of PVD while here. - ALLERGIES Allergies/Adverse Reactions: Allergies Allergy/AdvReac Type Severity Reaction Status Date / Time iodine Allergy Severe shock Verified 10/12/17 12:23 Opioids - Morphine Analogues AdvReac Intermediate Nausea Verified 12/02/18 13:46 - MEDICATIONS Home Medications: Ambulatory Orders Medication Instructions Recorded Confirmed Aspirin [Aspir 81] 81 mg PO Q72H 05/05/13 12/02/18 Atorvastatin Calcium [Lipitor] 40 mg PO QPM 05/05/13 12/02/18 Budesonide/Formoterol 160/4.5 1 puffs INH DAILY 05/05/13 12/02/18 [Symbicort] Ipratropium [place] [Atrovent Hfa] 1 puffs PO BID PRN 05/05/13 12/02/18 Cholecalciferol [Vitamin D3] 5,000 units PO DAILY 12/02/18 12/02/18 Ipratropium/Albuterol [Duoneb] 3 ml INH DAILY PRN 12/02/18 12/02/18 - PHYSICAL EXAM AT DISCHARGE General Appearance: positive: No acute distress, Alert Eyes Bilateral: positive: Normal inspection, PERRL ENT: positive: ENT inspection nml, No signs of dehydration Neck: positive: Nml inspection, No JVD Respiratory: positive: No respiratory distress, Breath sounds nml Cardiovascular: positive: Regular rate & rhythm, No murmur Abdomen: positive: Non-tender, Nml bowel sounds, No distention, Other (Colostomy in place) Skin: positive: Color nml Extremities: positive: No pedal edema Neurologic/Psychiatric: positive: Oriented x3, Other (Grossly normal) - LABS Result Diagrams: 12/05/18 04:40 12/05/18 04:40 - DIAGNOSTIC IMAGING Diagnostic Imaging Results: Final report reviewed - FOLLOW UP Follow Up: Patient is to see the surgeon, Dr Papito Salter in follow-up in a week. - TIME SPENT Time Spent in Discharge (Minutes): 30"
== END 2018-12-05 12:30 | disposition home health service (06) | DRG 330 ==
LOC: ED 18:11 → MS2 20:15
PROVIDERS: ADMIT Internal Medicine; ATTEND Internal Medicine
PROC: 0D1L0Z4 Bypass Transverse Colon to Cutaneous, Open Approach (ICD-10-PCS; 2018-12-02)
PROC: 0DBL0ZZ Excision of Transverse Colon, Open Approach (ICD-10-PCS; principal; 2018-12-02 10:30)
DX: K56.609 Unspecified intestinal obstruction, unspecified as to partial versus complete obstruction (principal); C18.4 Malignant neoplasm of transverse colon; I10 Essential (primary) hypertension; C77.2 Secondary and unspecified malignant neoplasm of intra-abdominal lymph nodes; J44.9 Chronic obstructive pulmonary disease, unspecified; I25.10 Atherosclerotic heart disease of native coronary artery without angina pectoris; I73.9 Peripheral vascular disease, unspecified; E78.5 Hyperlipidemia, unspecified; E86.9 Volume depletion, unspecified; I95.2 Hypotension due to drugs; T41.3X5A Adverse effect of local anesthetics, initial encounter; Y92.230 Patient room in hospital as the place of occurrence of the external cause; I45.10 Unspecified right bundle-branch block; I25.2 Old myocardial infarction; Z79.82 Long term (current) use of aspirin; Z79.899 Other long term (current) drug therapy; Z79.51 Long term (current) use of inhaled steroids; Z93.3 Colostomy status; Z87.19 Personal history of other diseases of the digestive system; Z95.5 Presence of coronary angioplasty implant and graft; Z80.0 Family history of malignant neoplasm of digestive organs; Z80.3 Family history of malignant neoplasm of breast; Z80.41 Family history of malignant neoplasm of ovary; Z87.891 Personal history of nicotine dependence; Z98.1 Arthrodesis status; Z86.79 Personal history of other diseases of the circulatory system
CPT/HCPCS: 36415; 71045; 74177; 80048; 80053; 81001; 81003; 82378; 83605; 83690; 85025; 86140; 87040; 93005; 94640; 96361; 96374; 96375; 99284; 99285; A9270; J0131; J1170; J1650; J2765; J7040; J7120; J7626; Q9967; 87086

== ENCOUNTER 2019-02-01 09:11 | Outpatient (CLI) | payer MEDICARE, OTHER ==
[2019-02-01] MEDS ORDERED: IOVERSOL 320 100 ML VIAL IVP ONE ×2 (09:18→10:55)
--- NOTE | 2019-02-01 17:08 | CT Report ---
Reason: COLON CANCER Procedure Date: 02/01/2019 Accession Number: [id number] / [id number] Procedure: CT - CHEST W CPT Code: Final Report FULL RESULT: EXAM: CT CHEST EXAM DATE: 02/01/2019 09:37 AM. CLINICAL HISTORY: Colon cancer. COMPARISONS: None. TECHNIQUE: Routine helical CT imaging was performed through the chest. IV contrast: None. Reconstructions: Coronal and sagittal. In accordance with CT protocol optimization, one or more of the following dose reduction techniques were utilized for this exam: automated exposure control, adjustment of mA and/or KV based on patient size, or use of iterative reconstructive technique. FINDINGS: Lungs/Pleura: No nodules, consolidation, or edema. Minimal bronchial wall and interstitial thickening. Pulmonary vasculature is normal. Normal left basilar pleural thickening and adjacent atelectasis. No pneumothorax. Mediastinum: Normal. No adenopathy or masses. Scant atherosclerotic calcifications affiliated with the aorta and coronary arteries. Bones: Demineralization and degenerative changes in the thoracic spine. Superior endplate compression of T12, chronicity uncertain. No lytic or blastic destructive lesions. Visualized Abdomen: Unremarkable. Other: Small hiatal hernia. Diffuse mid/distal esophageal wall thickening, possibly accentuated by incomplete distention. IMPRESSION: 1. No pulmonary nodules, consolidation or edema. 2. Small hiatal hernia. Mild esophageal wall thickening, diffuse. This may be accentuated by incomplete distention. 3. Demineralization and degenerative changes in the thoracic spine. Mild superior endplate compression of T12, chronicity uncertain. RADIA
== END 2019-02-01 09:12 | disposition home or self-care (01) ==
LOC: DI 09:11
PROVIDERS: ATTEND Internal Medicine
DX: C18.4 Malignant neoplasm of transverse colon (principal)
CPT/HCPCS: 71260; Q9967

== ENCOUNTER 2019-03-25 20:13 | Outpatient (CLI) | payer MEDICARE, OTHER | END 2019-03-25 20:14 | disposition critical access hospital (66) | LOC: EMS 20:13 | PROVIDERS: ATTEND Surgery | DX: R11.2 Nausea with vomiting, unspecified (principal); R19.7 Diarrhea, unspecified; R10.9 Unspecified abdominal pain | CPT/HCPCS: A0425; A0429 ==

== ENCOUNTER 2019-03-25 20:18 | Emergency (ER) | payer MEDICARE, OTHER ==
--- NOTE | 2019-03-25 21:31 | ED Physician Documentation ---
PD HPI NVD - Stated complaint Stated Complaint: N/V - Chief complaint Chief Complaint: Abd Pain - History obtained from History obtained from: Patient - History of Present Illness Timing - onset: How many days ago (4) Timing - duration: Days Timing - details: Gradual onset, Waxing and waning Associated symptoms: Abdominal pain. No: Fever Improved by: Other (nothing) Worsened by: Eating Recently seen: Not recently seen - Additonal information Additional information: patient c/o abdominal pain, nausea, vomiting. he says that all PO intake today results in emesis including liquids. He has an ileostomy which he says appears to continue to have normal output. has diagnosis of colon cancer and stopped all medications 1 week ago including PO chemotherapy. Review of Systems Constitutional: reports: Fatigue. denies: Fever, Chills, Sweats Cardiac: reports: Reviewed and negative Respiratory: reports: Reviewed and negative GI: reports: Abdominal Pain, Nausea, Vomiting. denies: Abdominal Swelling, Constipation, Diarrhea : denies: Dysuria, Frequency Skin: reports: Rash (diffuse, greatest on BUE (thought to be due to chemotherapy)) Musculoskeletal: denies: Neck pain, Back pain Neurologic: reports: Generalized weakness. denies: Focal weakness, Numbness, Headache PD PAST MEDICAL HISTORY - Past Medical History Past Medical History: Yes Cardiovascular: Hypertension, High cholesterol, Coronary artery disease, Other Respiratory: Asthma, COPD Neuro: None Endocrine/Autoimmune: None GI: GERD, Ulcers : Incontinence Psych: None Musculoskeletal: Chronic back pain Derm: None - Past Surgical History Past Surgical History: Yes General: Appendectomy, Other Ortho: Spine surgery Cardiovascular: Coronary stent HEENT: Cataracts, Tonsil/Adenoidectomy - Present Medications Home Medications: Ambulatory Orders Medication Instructions Recorded Confirmed Aspirin [Aspir 81] 81 mg PO Q72H 05/05/13 02/24/19 Budesonide/Formoterol 160/4.5 1 puffs INH DAILY 05/05/13 02/24/19 [Symbicort] Ipratropium [place] [Atrovent Hfa] 1 puffs PO BID PRN 05/05/13 02/24/19 Cholecalciferol [Vitamin D3] 5,000 units PO DAILY 12/02/18 02/24/19 Acetaminophen [Tylenol Extra 500 mg PO PRN PRN 01/28/19 02/24/19 Strength] Albuterol Sulfate [Proventil Hfa 1 - 2 puffs PO PRN PRN 01/28/19 02/24/19 Inhaler] Ibuprofen 200 mg PO PRN PRN 01/28/19 02/24/19 Iodine/Potassium Iodide [Strong 750 mg PO TID 01/28/19 02/24/19 Iodine 7% Tincture] Krill/[place]-3/Dha/Epa/Lipids 750 mg PO DAILY 01/28/19 02/24/19 [Krill Oil 350 mg Softgel] Simvastatin 40 mg PO DAILY 01/28/19 02/24/19 Ubidecarenone/Vit E Acet [Co Q-10 100 mg PO DAILY 01/28/19 02/24/19 100 mg Softgel] Ondansetron Odt [Zofran] 4 mg TL Q6H PRN #14 tablet 03/26/19 - Allergies Allergies/Adverse Reactions: Allergies Allergy/AdvReac Type Severity Reaction Status Date / Time iodine Allergy Severe shock Verified 03/25/19 20:27 Opioids - Morphine Analogues AdvReac Intermediate Nausea Verified 03/25/19 20:27 - Social History Does the pt smoke?: No Smoking Status: Never smoker Does the pt drink ETOH?: No Does the pt have substance abuse?: No - Immunizations Immunizations are current?: Yes - POLST Patient has POLST: No POLST Status: Full Code PD ED PE NORMAL - Vitals Vital signs reviewed: Yes - General General: Alert and oriented X 3, No acute distress, Well developed/nourished - HEENT HEENT: Other (dry mucous membranes) - Neck Neck: Supple, no meningeal sign - Cardiac Cardiac: RRR, No murmur - Respiratory Respiratory: No respiratory distress, Clear bilaterally - Abdomen Abdomen: Soft, Non distended, Other (TTP across lower and mid abdomen. ostomy in place with moderate amount of liquid stool in bag) - Derm Derm: Warm and dry, Other (flat, patchy erythematous exanthem with excoriations on BUE) - Extremities Extremities: No edema - Neuro Neuro: Alert and oriented X 3 Results - Vitals Vitals: Vital Signs - 24 hr 03/25/19 03/25/19 03/25/19 20:21 22:00 23:00 Temperature 37.2 C Heart Rate 97 95 110 H Respiratory 14 18 14 Rate Blood Pressure 121/77 105/68 91/70 O2 Saturation 98 98 98 03/26/19 03/26/19 03/26/19 00:42 02:35 04:08 Temperature Heart Rate 102 H 102 H 86 Respiratory 14 14 16 Rate Blood Pressure 90/68 85/60 L 85/57 L O2 Saturation 94 97 98 03/26/19 03/26/19 03/26/19 05:10 06:16 06:38 Temperature 36.7 C Heart Rate 90 93 85 Respiratory 14 21 14 Rate Blood Pressure 114/64 118/94 H 134/69 H O2 Saturation 98 97 97 Oxygen O2 Source Room air - Labs Labs: Laboratory Tests 03/25/19 03/25/19 03/26/19 20:36 20:36 04:00 WBC 5.8 RBC 4.72 Hgb 13.5 L Hct 41.2 L MCV 87.3 MCH 28.6 MCHC 32.8 RDW 20.6 H Plt Count 184 MPV 8.7 Neut # (Auto) 3.5 Lymph # (Auto) 1.1 L [place] # (Auto) 1.3 H Eos # (Auto) 0.0 Baso # (Auto) 0.0 Absolute Nucleated RBC 0.00 Nucleated RBC % 0.0 Manual Slide Review Indicated WBC Morphology NORMAL APPEARANCE Platelet Estimate NORMAL (130-450,000) Platelet Morphology NORMAL APPEARANCE RBC Morph Micro Appear 1+ ANISOCYTOSIS Sodium 138 Potassium 3.1 L Chloride 102 Carbon Dioxide 23 Anion Gap 13.0 BUN 12 Creatinine 1.0 Estimated GFR (MDRD) 72 L Glucose 149 H Calcium 9.2 Total Bilirubin 2.1 H AST 30 ALT 41 Alkaline Phosphatase 99 Total Protein 6.9 Albumin 3.9 Globulin 3.0 Albumin/Globulin Ratio 1.3 Lipase 26 Urine Color YELLOW Urine Clarity CLEAR Urine pH 5.5 Ur Specific [place] >=1.030 H Urine Protein NEGATIVE Urine Glucose (UA) NEGATIVE Urine Ketones NEGATIVE Urine Occult Blood NEGATIVE Urine Nitrite NEGATIVE Urine Bilirubin NEGATIVE Urine Urobilinogen 0.2 (NORMAL) Ur Leukocyte Esterase NEGATIVE Ur Microscopic Review NOT INDICATED Urine Culture Comments NOT INDICATED - Rads (name of study) CT A/P Radiology: Prelim report reviewed, See rad report PD MEDICAL DECISION MAKING - ED course Complexity details: reviewed old records, reviewed results, re-evaluated patient, considered differential, d/w patient ED course: reevaluated subsequent to tests completed; he is in NAD and reports resolution of his symptoms including the nausea and the abdominal pain. He was observed for several more hours in ED. Initially this was due to difficulty procuring a ride back home (both the time of night and inclement weather are both factors); he subsequently had persistent low blood pressures (80s and 70s SBP but mostly normal DBPs). Despite the low blood pressure readings, he continued to be asym ptomatic on multiple reevaluations. The cuff was changed to a small cuff (which was proportionate to patient's arm size) and blood pressures were 110s SBP. He was then stood up at bedside and continued to be asymptomatic and blood pressures were no longer in hypotensive range. He received 3 liters NS during ED stay. Departure - Departure Disposition: 01 Home, Self Care Clinical Impression: Abdominal pain, Vomiting Condition: Good Instructions: ED Nausea Vomiting, ED Abdominal Pain Unkn Cause Male Follow-Up: Iron Nava MD [Primary Care Provider] - Prescriptions: Ondansetron Odt [Zofran] 4 mg TL Q6H PRN #14 tablet PRN Reason: Nausea / Vomiting Discharge Date/Time: 03/26/19 06:59
[2019-03-25] MEDS ORDERED: ONDANSETRON 4 MG/2 ML VIAL IVP STA (21:44)
[2019-03-25] MEDS ORDERED: SODIUM CHLORIDE 0.9% 1,000 ML IV STA (21:44)
[2019-03-25 22:03] LABS: BASOPHILS % (AUTO) 0.3 %; EOSINOPHILS % (AUTO) 0.3 %; HGB - HEMOGLOBIN 13.5 g/dL (14.0-18.0); LYMPHOCYTES # (AUTO) 1.1 10^3/uL (1.5-3.5); MEAN CORPUSCULAR HEMOGLOBIN 28.6 pg (27.0-31.0); MEAN CORPUSCULAR HGB CONC 32.8 g/dL (32.0-36.0); MEAN CORPUSCULAR VOLUME 87.3 fL (80.0-94.0); MEAN PLATELET VOLUME 8.7 fL (7.4-11.4); MONOCYTES # (AUTO) 1.3 10^3/uL (0.0-1.0); MONOCYTES % (AUTO) 21.8 %; NEUTROPHILS # (AUTO) 3.5 10^3/uL (1.5-6.6); NEUTROPHILS % (AUTO) 59.3 %; PLT - PLATELET COUNT 184 10^3/uL (130-450); RED BLOOD COUNT 4.72 10^6/uL (4.70-6.10); RED CELL DISTRIBUTION WIDTH 20.6 % (12.0-15.0); WHITE BLOOD COUNT 5.8 x10^3/uL (4.8-10.8)
[2019-03-25 22:05] LABS: ALBUMIN 3.9 g/dL (3.2-5.5); ALBUMIN/GLOBULIN RATIO 1.3 (1.0-2.2); BILIRUBIN,TOTAL 2.1 mg/dL (0.2-1.0); CALCIUM 9.2 mg/dL (8.5-10.3); TOTAL PROTEIN 6.9 g/dL (6.7-8.2)
[2019-03-25] MEDS ORDERED: IOVERSOL 320 50 ML VIAL ONE (22:05)
[2019-03-25 22:55] LABS: PLATELET ESTIMATE, MANUAL NORMAL (130-450,000) (NORMAL); PLATELET MORPHOLOGY NORMAL APPEARANCE (NORMAL); RBC MORPHOLOGY (MULTIPLE) 1+ ANISOCYTOSIS (NORMAL)
--- NOTE | 2019-03-26 00:29 | CT Report ---
Reason: abd. pain, n/v Procedure Date: 03/25/2019 Accession Number: [id number] / [id number] Procedure: CT - Abdomen/Pelvis WO CPT Code: Final Report FULL RESULT: EXAM: CT ABDOMEN AND PELVIS (CT KUB) EXAM DATE: 03/25/2019 11:45 PM. CLINICAL HISTORY: Abd. pain, n/v. COMPARISONS: ABDOMEN/PELVIS W/ 12/01/2018 8:09 PM. TECHNIQUE: Routine helical CT imaging was performed through the abdomen and pelvis without intravenous contrast. Lack of intravenous contrast can at times limit scan sensitivity, particularly for the detection of intraparenchymal and vascular pathology. Oral contrast administered. Reconstructions: Coronal and sagittal. In accordance with CT protocol optimization, one or more of the following dose reduction techniques were utilized for this exam: automated exposure control, adjustment of mA and/or KV based on patient size, or use of iterative reconstructive technique. FINDINGS: ABDOMEN: Lung Bases: Incompletely included lower lungs are grossly clear. Heart size is within normal limits. Severe coronary artery calcifications. No basilar effusions. Liver: Unremarkable. Gallbladder/Bile Ducts: Hyperdense material within the gallbladder could reflect sludge. Visualized biliary tree is normal caliber. Spleen: Unremarkable. Pancreas: Unremarkable. Adrenal Glands: Unremarkable. Kidneys: Left kidney: No calculi or hydronephrosis. Right kidney: No hydronephrosis. 4 mm calculus in the right posterior bladder adjacent to the UVJ. Peritoneum/Mesentery/Bowel: No free fluid, free air, or collection. No intestinal obstruction. Right-sided colostomy is present. Distal transverse, descending, and rectosigmoid appear unremarkable aside from diverticulosis. Lymph nodes: No mesenteric, periportal, or retroperitoneal lymphadenopathy. PELVIS: 4 mm calculus adjacent to the right UVJ. Enlarged prostate is present. Small bilateral fat filled inguinal hernias. No pelvic lymphadenopathy. Retroperitoneum: Abdominal aorta is nonaneurysmal. Bones: No suspicious osseous lesions. L4-L5 spinal fusion is present. IMPRESSION: No acute unenhanced abnormalities. 4 mm right posterior bladder calculus adjacent to the UVJ. No renal calculi or hydronephrosis. Gallbladder sludge. RADIA
[2019-03-26] MEDS ORDERED: SODIUM CHLORIDE 0.9% 1,000 ML IV STA ×2 (02:35→03:33)
[2019-03-26] MEDS ORDERED: POTASSIUM CHLORIDE 20 MEQ TABLET PO STA (04:02)
[2019-03-26 04:19] LABS: BILIRUBIN,URINE NEGATIVE (NEGATIVE); GLUCOSE, URINE (UA) NEGATIVE (NEGATIVE); KETONES,URINE (UA) NEGATIVE (NEGATIVE); LEUKOCYTE ESTERASE, URINE NEGATIVE (NEGATIVE); NITRITE,URINE NEGATIVE (NEGATIVE); OCCULT BLOOD,URINE NEGATIVE (NEGATIVE); PH,URINE 5.5 PH (5.0-7.5); PROTEIN,URINE NEGATIVE (NEGATIVE); UROBILINOGEN,URINE 0.2 (NORMAL) E.U./dL (NORMAL)
[2019-03-26 04:21] LABS: CLARITY,URINE CLEAR (CLEAR)
[2019-03-26 06:39] VITALS: BP 134/69
== END 2019-03-26 06:59 | disposition home or self-care (01) ==
LOC: EDBD → EDUNIT# → ED 20:18
DX: R10.9 Unspecified abdominal pain (principal); R11.2 Nausea with vomiting, unspecified; I95.9 Hypotension, unspecified; I10 Essential (primary) hypertension
CPT/HCPCS: 36415; 74176; 80053; 81003; 83690; 85025; 96361; 96374; 99284; A9270; 81001; 87086

== ENCOUNTER 2019-03-28 13:38 | Inpatient (IN) | payer MEDICARE, OTHER ==
[2019-03-28 15:04] LABS: BASOPHILS % (AUTO) 0.6 %; EOSINOPHILS % (AUTO) 1.7 %; LYMPHOCYTES % (AUTO) 19.3 %; MEAN CORPUSCULAR HEMOGLOBIN 28.3 pg (27.0-31.0); MEAN CORPUSCULAR HGB CONC 32.8 g/dL (32.0-36.0); MEAN CORPUSCULAR VOLUME 86.1 fL (80.0-94.0); MEAN PLATELET VOLUME 8.6 fL (7.4-11.4); MONOCYTES % (AUTO) 23.8 %; NEUTROPHILS % (AUTO) 50.5 %; PLT - PLATELET COUNT 237 10^3/uL (130-450); RED CELL DISTRIBUTION WIDTH 20.1 % (12.0-15.0); WHITE BLOOD COUNT 7.7 x10^3/uL (4.8-10.8)
[2019-03-28 15:10] LABS: ABNORMAL LYMPHS % (MANUAL) 0 %
[2019-03-28 15:11] LABS: INR 1.4 (0.8-1.2); PT - PROTHROMBIN TIME 15.9 secs (9.9-12.6)
[2019-03-28 15:22] LABS: ALBUMIN 3.2 g/dL (3.2-5.5); ALBUMIN/GLOBULIN RATIO 1.1 (1.0-2.2); BILIRUBIN,TOTAL 0.9 mg/dL (0.2-1.0); TOTAL PROTEIN 6.2 g/dL (6.7-8.2)
[2019-03-28 15:39] LABS: BAND NEUTROPHILS % (MANUAL) 6 %; BASOPHILS # (MANUAL) 0.1 10^3/uL (0-0.1); BASOPHILS % (MANUAL) 1 %; EOSINOPHILS # (MANUAL) 0.1 10^3/uL (0-0.7); LYMPHOCYTES # (MANUAL) 1.4 10^3/uL (1.5-3.5); LYMPHOCYTES % (MANUAL) 18 %; MONOCYTES # (MANUAL) 2.2 10^3/uL (0.0-1.0)
[2019-03-28 15:40] LABS: RBC MORPHOLOGY (MULTIPLE) NORMAL APPEARANCE (NORMAL)
[2019-03-28 15:42] LABS: DIFFERENTIAL COMMENT MANUAL DIFFERENTIAL; PLATELET ESTIMATE, MANUAL NORMAL (130-450,000) (NORMAL); PLATELET MORPHOLOGY 1+ LARGE PLATELETS (NORMAL)
[2019-03-28] MEDS ORDERED: HYDROmorphone 1 MG/ML CARPUJECT IVP STA (16:03)
[2019-03-28] MEDS ORDERED: ONDANSETRON 4 MG/2 ML VIAL IVP STA (16:03)
[2019-03-28] MEDS ORDERED: SODIUM CHLORIDE 0.9% 1,000 ML IV ONE (16:03)
--- NOTE | 2019-03-28 16:06 | ED Physician Documentation ---
PD HPI ABD PAIN - Stated complaint Stated Complaint: VOMITING - Chief complaint Chief Complaint: Abd Pain - History obtained from History obtained from: Patient - History of Present Illness Timing - onset: Other (84-year-old gentleman who last year had a colectomy with ostomy for colon cancer. Did not tolerate chemotherapy. For last 4 days or so has had severe pain around the stoma and vomiting. He was seen here and a CT without contrast was without acute findings. He did of note on that date have a bilirubin of 2.1. He did have gallbladder sludge on that CT. Continues to have severe pain in his stoma is sticking out with darker material in the bag than his usual.) Review of Systems Ten Systems: 10 systems reviewed and negative Constitutional: denies: Fever, Chills Cardiac: denies: Chest pain / pressure, Palpitations Respiratory: denies: Dyspnea, Cough GI: reports: Abdominal Pain, Nausea, Vomiting. denies: Constipation PD PAST MEDICAL HISTORY - Past Medical History Cardiovascular: Hypertension, High cholesterol, Coronary artery disease, Other Respiratory: Asthma, COPD Neuro: None Endocrine/Autoimmune: None GI: GERD, Ulcers : Incontinence Psych: None Musculoskeletal: Chronic back pain Derm: None - Past Surgical History Past Surgical History: Yes General: Appendectomy, Other Ortho: Spine surgery Cardiovascular: Coronary stent HEENT: Cataracts, Tonsil/Adenoidectomy - Present Medications Home Medications: Ambulatory Orders Medication Instructions Recorded Confirmed Aspirin [Aspir 81] 81 mg PO Q72H 05/05/13 02/24/19 Budesonide/Formoterol 160/4.5 1 puffs INH DAILY 05/05/13 02/24/19 [Symbicort] Ipratropium [place] [Atrovent Hfa] 1 puffs PO BID PRN 05/05/13 02/24/19 Cholecalciferol [Vitamin D3] 5,000 units PO DAILY 12/02/18 02/24/19 Acetaminophen [Tylenol Extra 500 mg PO PRN PRN 01/28/19 02/24/19 Strength] Albuterol Sulfate [Proventil Hfa 1 - 2 puffs PO PRN PRN 01/28/19 02/24/19 Inhaler] Ibuprofen 200 mg PO PRN PRN 01/28/19 02/24/19 Iodine/Potassium Iodide [Strong 750 mg PO TID 01/28/19 02/24/19 Iodine 7% Tincture] Krill/[place]-3/Dha/Epa/Lipids 750 mg PO DAILY 01/28/19 02/24/19 [Krill Oil 350 mg Softgel] Simvastatin 40 mg PO DAILY 01/28/19 02/24/19 Ubidecarenone/Vit E Acet [Co Q-10 100 mg PO DAILY 01/28/19 02/24/19 100 mg Softgel] Ondansetron Odt [Zofran] 4 mg TL Q6H PRN #14 tablet 03/26/19 - Allergies Allergies/Adverse Reactions: Allergies Allergy/AdvReac Type Severity Reaction Status Date / Time iodine Allergy Severe shock Verified 03/28/19 13:49 Opioids - Morphine Analogues AdvReac Intermediate Nausea Verified 03/28/19 13:49 - Social History Does the pt smoke?: No Smoking Status: Never smoker Does the pt drink ETOH?: No Does the pt have substance abuse?: No - Immunizations Immunizations are current?: Yes - POLST Patient has POLST: No POLST Status: Full Code PD ED PE NORMAL - Vitals Vital signs reviewed: Yes - General General: Alert and oriented X 3, No acute distress - HEENT HEENT: PERRL, EOMI - Neck Neck: Supple, no meningeal sign, No bony TTP - Cardiac Cardiac: RRR, No murmur - Respiratory Respiratory: No respiratory distress, Clear bilaterally - Abdomen Abdomen: Other (He is quite tender throughout the abdomen, the stoma is sticking out but it is reducible. The material in the bag I would not call black, it is dark brown and thin.) - Back Back: No CVA TTP, No spinal TTP - Derm Derm: Normal color, Warm and dry - Extremities Extremities: No edema, No calf tenderness / cord - Neuro Neuro: Alert and oriented X 3, Normal speech Results - Vitals Vitals: Vital Signs - 24 hr 03/28/19 03/28/19 03/28/19 13:49 16:13 17:10 Temperature 37.6 C H 37.5 C Heart Rate 82 99 79 Respiratory 17 18 18 Rate Blood Pressure 93/57 L 121/76 118/65 O2 Saturation 98 100 100 Oxygen O2 Source Room air - Labs Labs: Laboratory Tests 03/28/19 03/28/19 03/28/19 15:00 15:00 15:00 WBC 7.7 RBC 4.60 L Hgb 13.0 L Hct 39.6 L MCV 86.1 MCH 28.3 MCHC 32.8 RDW 20.1 H Plt Count 237 MPV 8.6 Neut # (Auto) Not Reportable Lymph # (Auto) Not Reportable [place] # (Auto) Not Reportable Eos # (Auto) Not Reportable Baso # (Auto) Not Reportable Absolute Nucleated RBC Not Reportable Total Counted 100 Band Neuts % (Manual) 6 Abnorm Lymph % (Manual) 0 Nucleated RBC % Not Reportable Neutrophils # (Manual) 3.9 Lymphocytes # (Manual) 1.4 L Monocytes # (Manual) 2.2 H Eosinophils # (Manual) 0.1 Basophils # (Manual) 0.1 Differential Comment MANUAL DIFFERENTIAL Manual Slide Review Indicated WBC Morphology 1+ TOXIC GRANULATION Platelet Estimate NORMAL (130-450,000) Platelet Morphology 1+ LARGE PLATELETS RBC Morph Micro Appear NORMAL APPEARANCE PT 15.9 H INR 1.4 H Sodium 137 Potassium 3.4 L Chloride 99 L Carbon Dioxide 29 Anion Gap 9.0 BUN 19 Creatinine 1.0 Estimated GFR (MDRD) 72 L Glucose 115 H Lactic Acid Calcium 9.0 Total Bilirubin 0.9 AST 25 ALT 37 Alkaline Phosphatase 85 Total Protein 6.2 L Albumin 3.2 Globulin 3.0 Albumin/Globulin Ratio 1.1 Lipase 29 03/28/19 15:00 WBC RBC Hgb Hct MCV MCH MCHC RDW Plt Count MPV Neut # (Auto) Lymph # (Auto) [place] # (Auto) Eos # (Auto) Baso # (Auto) Absolute Nucleated RBC Total Counted Band Neuts % (Manual) Abnorm Lymph % (Manual) Nucleated RBC % Neutrophils # (Manual) Lymphocytes # (Manual) Monocytes # (Manual) Eosinophils # (Manual) Basophils # (Manual) Differential Comment Manual Slide Review WBC Morphology Platelet Estimate Platelet Morphology RBC Morph Micro Appear PT INR Sodium Potassium Chloride Carbon Dioxide Anion Gap BUN Creatinine Estimated GFR (MDRD) Glucose Lactic Acid 1.7 Calcium Total Bilirubin AST ALT Alkaline Phosphatase Total Protein Albumin Globulin Albumin/Globulin Ratio Lipase - Rads (name of study) CT A/P Radiology: EMP read contemporaneously (Chronic gas and fluid distention of mid small bowel loops could be an enteritis or mild ileus or early SBO. Fluid collection around the stoma.) PD MEDICAL DECISION MAKING - ED course ED course: 84-year-old gentleman with history of end colostomy and Brown's pouch last year for colon cancer presents with abdominal pain and vomiting. His imaging has changed from the other night, now concerning for enteritis or early SBO and potentially a parastomal Infection although this is not clinically apparent. Dr. Khan was called, the on-call surgeon, and she will admit him for serial exams. She also requested that I speak with the hospitalist for consult regarding med management. Departure - Departure Disposition: 66 [facility] DC/[place] Clinical Impression: COPD (chronic obstructive pulmonary disease), Ileus, Hx of coronary artery disease Condition: Fair
[2019-03-28] MEDS ORDERED: IOVERSOL 320 100 ML VIAL IVP ONE ×2 (16:10→16:34)
--- NOTE | 2019-03-28 17:03 | CT Report ---
Reason: abdominal pain Procedure Date: 03/28/2019 Accession Number: [id number] / [id number] Procedure: CT - Abdomen/Pelvis W CPT Code: Final Report FULL RESULT: EXAM: CT ABDOMEN AND PELVIS EXAM DATE: 03/28/2019 04:32 PM HISTORY: abdominal pain COMPARISON: ABDOMEN/PELVIS W/O 03/25/2019 11:43 PM TECHNIQUE: Routine helical CT imaging was performed through the abdomen and pelvis. IV contrast: 90 mL Optiray 20. Enteric contrast: No. Reconstructions: Coronal and sagittal. In accordance with CT protocol optimization, one or more of the following dose reduction techniques were utilized for this exam: automated exposure control, adjustment of mA and/or KV based on patient size, or use of iterative reconstructive technique. FINDINGS: LOWER CHEST: Unremarkable. SOLID ORGANS: Within exam limitations, there is no significant abnormality of the liver, spleen, pancreas, adrenal glands or kidneys. GALLBLADDER/BILE DUCTS: No significant abnormality. PERITONEAL CAVITY/BOWEL: Small hiatal hernia. There has been transverse colectomy. Intact distal colon noted from blind loop at the splenic flexure region through the rectum. Intact cecum noted. Ascending colon terminates at right mid abdominal colostomy site. There is a small amount of fluid noted at the colostomy defect in the subcutaneous tissues. This is new but of uncertain significance. Consider close clinical follow-up to assess for developing soft tissue infection. There is moderate fluid and gas distention of mid small bowel loops. At the distal aspect of this there is some mild wall thickening suggestive of a proximal ileal loop noted anteriorly on images 45-57 of series 3. There does not appear to be kelly obstruction. Consider enteritis and mild ileus. No free fluid or free air is seen. CENTRAL RETROPERITONEUM: Essentially unremarkable aorta. No aneurysm. No retroperitoneal lymphadenopathy. PELVIS: Unremarkable urinary bladder contour. No intravesicular calculi. No inflammation or free fluid. Moderate prostatomegaly. OTHER: Skeleton: Old T12 compression fracture. Old L3 compression fracture. Lower lumbar surgical fusion with residual spondylolisthesis. No apparent acute skeletal abnormality. IMPRESSION: 1. Mildly prominent gas and fluid distention of mid small bowel loops, possibly related to proximal ileal enteritis and mild ileus. A mild or partial obstruction is not entirely excluded. 2. New small amount of fluid around the colostomy site of the right mid abdomen. See above comments. 3. Small hiatal hernia. Moderate prostatomegaly. RADIA
[2019-03-28] MEDS ORDERED: ALBUTEROL NEB 2.5 MG/3 ML INH PRN (17:46)
[2019-03-28] MEDS ORDERED: DEXTROSE 5%-0.45% NACL 1,000 ML IV SCH (18:00)
--- NOTE | 2019-03-28 19:12 | CONSULTATION NOTE ---
Referring Provider Name of Referring Provider:: Dr Merle Gillespie Consult Date: 03/28/19 Chief Complaint - Chief Complaint Chief Complaint: Medical Management History of Present Illness - Admitted From Admitted From:: [facility] - History Obtained From Records Reviewed: yes History obtained from: patient - History of Present Illness HPI Comment/Other: Patient is an 84 y/o male with Hx of colon cancer s/p colectomy on 12/02/2018 with colostomy bag in place who presented to the ED with complain of worsening abdominal pain, nausea and vomiting. He started vomiting about 10 days ago, but it got worse 3 days ago. He finally came to the ED today because he was having significant pain behind the stoma. In addition he has noticed a black fluid coming out of the the stoma in the past 8-9 days. He adds that it looked like what he had been vomiting in the past days. At bedside he is fully awake and alert. He denied chest pain, dyspnea, fever or chills. He has mild singultus In the ED work up included a CT of the abdomen/pelvis which raised the possibility of proximal ileal enteritis and mild ileus. Partial bowel obstruction could not be ruled out. There was also a small amount of fluid noted around the colostomy site of the right mid-abdomen. As a result he was admitted by the General Surgery team. We are being consulted for medical management of his co-morbidities. Of note, he stopped chemotherapy on 03/17/2019 due to an significant allergic reaction which resulted in an extensive skin rash. His is being seen by Dr Kent at the [facility]. History - Past Medical History Cardiovascular: reports: Hypertension, High cholesterol, Coronary artery disease, Other Respiratory: reports: Asthma, COPD Neuro: reports: None Endocrine/Autoimmune: reports: None GI: reports: GERD, Ulcers : reports: Incontinence Psych: reports: None Musculoskeletal: reports: Chronic back pain Derm: reports: None MRSA Hx?: No Other Past Medical History: colorectal cancer Dx 12/02/2018 - Past Surgical History General: reports: Appendectomy, Other Ortho: reports: Spine surgery Cardiovascular: reports: Coronary stent HEENT: reports: Cataracts, Tonsil/Adenoidectomy - Family & Social History Family History Comment/Other: Extensive family history of cancer. mother: colorectal cancer at age 81. father: ruptured aortic aneurysm. maternal grandmother: colorectal cancer at age 92. maternal uncle 1: colon cnacer with mets. maternal uncle 2: unspecified cancer. sister 1: ovarian cancer. sister 2: breast cancer Social History Notes: Quit smoking at age 31. Denies alcohol or illicit drug use - POLST Patient has POLST: No POLST Status: Full Code Meds/Allgy - Home Medications Home Medications: Ambulatory Orders Medication Instructions Recorded Confirmed Aspirin [Aspir 81] 81 mg PO Q72H 05/05/13 02/24/19 Budesonide/Formoterol 160/4.5 1 puffs INH DAILY 05/05/13 02/24/19 [Symbicort] Ipratropium [place] [Atrovent Hfa] 1 puffs PO BID PRN 05/05/13 02/24/19 Cholecalciferol [Vitamin D3] 5,000 units PO DAILY 12/02/18 02/24/19 Acetaminophen [Tylenol Extra 500 mg PO PRN PRN 01/28/19 02/24/19 Strength] Albuterol Sulfate [Proventil Hfa 1 - 2 puffs PO PRN PRN 01/28/19 02/24/19 Inhaler] Ibuprofen 200 mg PO PRN PRN 01/28/19 02/24/19 Iodine/Potassium Iodide [Strong 750 mg PO TID 01/28/19 02/24/19 Iodine 7% Tincture] Krill/[place]-3/Dha/Epa/Lipids 750 mg PO DAILY 01/28/19 02/24/19 [Krill Oil 350 mg Softgel] Simvastatin 40 mg PO DAILY 01/28/19 02/24/19 Ubidecarenone/Vit E Acet [Co Q-10 100 mg PO DAILY 01/28/19 02/24/19 100 mg Softgel] Ondansetron Odt [Zofran] 4 mg TL Q6H PRN #14 tablet 03/26/19 - Allergies Allergies/Adverse Reactions: Allergies Allergy/AdvReac Type Severity Reaction Status Date / Time iodine Allergy Severe shock Verified 03/28/19 13:49 shellfish derived Allergy Anaphylaxis Verified 03/28/19 20:46 Opioids - Morphine Analogues AdvReac Intermediate Nausea Verified 03/28/19 13:49 Review of Systems - Constitutional Constitutional: denies: Fever, Chills - Eyes Eyes: denies: Pain, Blurred vision, Dipolpia - Ears, Nose & Throat Ears, Nose & Throat: denies: Vertigo, Sore throat, Hoarseness - Cardiovascular Cariovascular: reports: Irregular heart rate. denies: Chest pain, Lightheadedness, Syncope, Exertional dyspnea - Respiratory Respiratory: denies: Cough, Sputum production, Wheezing, SOB at rest, SOB with exertion - Gastrointestinal Gastrointestinal: reports: Abdominal pain, Nausea, Vomiting. denies: Eber blood emesis - Genitourinary Genitourinary: denies: Dysuria, Frequency, Urgency, Hematuria - Musculoskeletal Musculoskeletal: denies: Muscle pain, Back pain - Integumentary Integumentary: reports: Dryness. denies: Rash, Pruritis - Neurological Neurological: denies: General weakness, Focal weakness, Headache, Dizziness - Psychiatric Psychiatric: denies: Depression, Anxiety - Endocrine Endocrine: denies: Polyuria, Polydypsia - Hematologic/Lymphatic Hematologic/Lymphatic: denies: Bruising, Petechiae Exam - Vital Signs Vital Signs: Vital Signs x48h Temp Pulse Pulse Resp BP BP Pulse Ox 03/28/19 18:40 87 19 101/64 99 03/28/19 17:10 79 18 118/65 100 03/28/19 16:13 37.5 C 99 18 121/76 100 03/28/19 13:49 37.6 C H 82 17 93/57 L 98 - Physical Exam General Appearance: positive: Alert, Mild distress Eyes Bilateral: positive: PERRL, EOMI ENT: positive: No signs of dehydration Neck: positive: No JVD, Trachea midline Respiratory: positive: Chest non-tender, No respiratory distress, Breath sounds nml. negative: Wheezes, Rales, Rhonchi Cardiovascular: positive: Irregularly irregular Abdomen: positive: No distention, Abnml bowel sounds (decreased bowel sounds). negative: Non-tender, Guarding, Rebound Back: positive: Nml inspection Skin: positive: No rash (On extremities. 2/2 chemotherapy. healing), Dry Extremities: positive: Non-tender, Full ROM, Nml appearance, No pedal edema Neurologic/Psychiatric: positive: Oriented x3, Mood/affect nml Conclusion/Plan - Diagnosis Diagnosis: 1. Ileus. 2. Hx of Colon cancer. 3. Paroxysmal Atrial fibrillation. 4. Hx of CAD. 5. COPD. 6. Hyperlipidemia - Plan Plan: 1. Ileus vs Ileal enteritis. Cannot r/o Partial SBO Managed by General Surgery. Currently NPO. IV hydration. Pain management. 2. Hx of Colon cancer s/p colectomy with colostomy on 12/02/[address] Kent. Chemotherapy stopped 03/17/18 due to allergic reaction 3. Paroxysmal Atrial fibrillation No previous account. Currently rate controlled. Not on any medication. 4. Hx of CAD Hx of stents to RCA and roto rotor to right carotid artery Takes baby aspirin 3X a week 5. COPD Not in exacerbation On budesonide and atrovent at home Will resume home meds once verified 6. Hyperlipidemia On atorvastatin - Lab Results Fish Bones: 03/29/19 03:54 03/29/19 03:54
[2019-03-28] MEDS: SODIUM CHLORIDE FLUSH 0.9% 10 ML SYRINGE IVP SCH (19:36)
[2019-03-28] MEDS: SODIUM CHLORIDE FLUSH 0.9% 10 ML SYRINGE IVP PRN (19:44)
[2019-03-28] MEDS: PANTOPRAZOLE 40 MG VIAL IVP SCH (19:44)
[2019-03-28] MEDS: DEXTROSE 5%-0.45% NACL 1,000 ML IV SCH (19:46)
[2019-03-28] MEDS ORDERED: IODINE PO SCH (22:00)
[2019-03-28] MEDS ORDERED: POTASSIUM IODIDE PO SCH (22:00)
[2019-03-28] MEDS ORDERED: METOCLOPRAMIDE 10 MG TABLET PO SCH (23:00)
[2019-03-28] MEDS: METOCLOPRAMIDE 10 MG TABLET PO SCH (23:25)
[2019-03-29] MEDS: HYDROmorphone 0.5 MG/0.5 ML SYRINGE IVP PRN ×3 (03:55→21:11)
[2019-03-29 03:59] LABS: HGB - HEMOGLOBIN 11.6 g/dL (14.0-18.0)
[2019-03-29 04:02] LABS: EOSINOPHILS % (AUTO) 3.7 %; LYMPHOCYTES % (AUTO) 23.9 %; MEAN CORPUSCULAR HEMOGLOBIN 29.2 pg (27.0-31.0); MEAN CORPUSCULAR HGB CONC 33.4 g/dL (32.0-36.0); MEAN CORPUSCULAR VOLUME 87.4 fL (80.0-94.0); MEAN PLATELET VOLUME 8.6 fL (7.4-11.4); PLT - PLATELET COUNT 205 10^3/uL (130-450); RED BLOOD COUNT 3.97 10^6/uL (4.70-6.10); RED CELL DISTRIBUTION WIDTH 20.3 % (12.0-15.0)
[2019-03-29 04:05] LABS: ABNORMAL LYMPHS % (MANUAL) 0 %
[2019-03-29 04:11] LABS: ALBUMIN 2.7 g/dL (3.2-5.5); ALBUMIN/GLOBULIN RATIO 1.1 (1.0-2.2); BILIRUBIN,TOTAL 0.8 mg/dL (0.2-1.0); CREATININE 0.9 mg/dL (0.6-1.2); MAGNESIUM 1.9 mg/dL (1.7-2.8); TOTAL PROTEIN 5.2 g/dL (6.7-8.2)
[2019-03-29 04:26] LABS: BAND NEUTROPHILS % (MANUAL) 6 %; DIFFERENTIAL COMMENT MANUAL DIFFERENTIAL; EOSINOPHILS # (MANUAL) 0.1 10^3/uL (0-0.7); LYMPHOCYTES # (MANUAL) 2.6 10^3/uL (1.5-3.5); LYMPHOCYTES % (MANUAL) 37 %; METAMYELOCYTES % (MANUAL) 4 %; MONOCYTES # (MANUAL) 0.6 10^3/uL (0.0-1.0); MYELOCYTES % (MANUAL) 4 %; PLATELET ESTIMATE, MANUAL NORMAL (130-450,000) (NORMAL)
[2019-03-29] MEDS: PANTOPRAZOLE 40 MG VIAL IVP SCH (06:23)
[2019-03-29] MEDS: SODIUM CHLORIDE FLUSH 0.9% 10 ML SYRINGE IVP PRN ×3 (06:23→22:03)
[2019-03-29] MEDS: METOCLOPRAMIDE 10 MG TABLET PO SCH (06:23)
[2019-03-29] MEDS: POTASSIUM CHLOR 10 MEQ/100 ML 10 MEQ/100 ML BAG IV SCH ×3 (06:28→12:37)
[2019-03-29] MEDS: BUDESONIDE 0.5 MG/2 ML NEB INH SCH ×2 (07:30→19:50)
[2019-03-29] MEDS: IPRATROPIUM/ALBUTEROL 3 ML NEB INH PRN ×2 (07:30→19:50)
[2019-03-29] MEDS: SODIUM CHLORIDE FLUSH 0.9% 10 ML SYRINGE IVP SCH ×3 (08:24→21:11)
[2019-03-29] MEDS: ENOXAPARIN 40 MG/0.4 ML SYRINGE SUBQ SCH (08:24)
[2019-03-29] MEDS ORDERED: FORMOTEROL INH SCH (09:00)
[2019-03-29] MEDS ORDERED: POTASSIUM CHLOR 10 MEQ/100 ML 10 MEQ/100 ML BAG IV SCH (09:00)
[2019-03-29] MEDS ORDERED: BUDESONIDE INH SCH (09:00)
--- NOTE | 2019-03-29 10:24 | PROVIDER PROGRESS NOTE ---
Assessment/Plan - Problem List (1) Ileus Assessment/Plan: Bowel rest, IV fluids and pain meds were ordered. The surgeon plans follow-up x-rays. Management as per surgeon (2) Colostomy complication, unspecified Assessment/Plan: Management as per surgery. (3) Intractable hiccups Assessment/Plan: Treat with prn Reglan which worked overnight (4) Hypokalemia Assessment/Plan: Abely caused by 10 days of nausea and vomiting. Replace with IV potassium runners (on ICU protocol). Prefer IV replacement over p.o. because the potassium pill or potassium liquid may restart his nausea and vomiting. Follow BMP daily. (5) Hx of coronary artery disease Assessment/Plan: Stable, no current anginal episodes. EKG was done today to evaluate the ectopy and shows sinus rhythm with frequent PACs and right bundle branch block, LVH with strain pattern. (6) History of COPD Assessment/Plan: Currently not in COPD exacerbation. Was no chest x-ray done at admission. His inhaler meds have been reordered. If he should need surgery, recommend a chest x-ray for preop clearance. (7) RBBB Assessment/Plan: EKG was done because paroxysmal A. fib was suspected on telemetry. The EKG shows normal sinus rhythm, frequent PACs, right bundle branch block (this is commonly seen in COPD years) and LVH with strain pattern. No evidence of A. fib as suspected by the initial hospitalist case consultant (8) Abnormal EKG Assessment/Plan: EKG was ordered today because paroxysmal A. fib was suspected on telemetry. The EKG shows normal sinus rhythm, frequent PACs, right bundle branch block, and LVH with strain pattern. No evidence of A. fib on EKG or on telemetry strips, as suspected by the initial Hospitalist case consultant - Current Meds Current Meds: Current Medications Generic Name Dose Route Start Last Admin Trade Name Freq PRN Reason Stop Dose Admin Albuterol/Ipratropium 3 ml 03/28/19 21:49 03/29/19 07:30 Duoneb INH 3 ml Q4HR PRN Administration Wheezing Budesonide 0.5 mg 03/29/19 07:00 03/29/19 07:30 Pulmicort INH 0.5 mg RTBID LETICIA Administration Enoxaparin Sodium 40 mg 03/29/19 09:00 03/29/19 08:24 Lovenox SUBQ 40 mg DAILY LETICIA Administration Hydromorphone HCl 0.5 mg 03/28/19 19:22 03/29/19 03:55 Dilaudid Inj Syringe IVP 0.5 mg Q1H PRN Administration Breakthrough Pain Dextrose/Sodium Chloride 1,000 mls @ 50 mls/hr 03/28/19 20:00 03/29/19 06:00 D5.45ns IV 50 mls/hr .Q20H LETICIA Infusion Potassium Chloride 10 meq in 100 mls @ 100 mls/hr 03/29/19 07:00 03/29/19 08:23 Potassium Chloride IV 03/29/19 14:59 25 mls/hr Q1H LETICIA Administration Protocol Metoclopramide HCl 10 mg 03/28/19 23:00 03/29/19 06:23 Reglan PO 03/29/19 15:01 10 mg Q8H LETICIA Administration Pantoprazole Sodium 40 mg 03/28/19 18:00 03/29/19 06:23 Protonix IVP 40 mg QDAC LETICIA Administration Sodium Chloride 10 ml 03/28/19 17:27 03/29/19 06:23 Normal Saline Flush 0.9% IVP 10 ml PRN PRN Administration NEEDED PER PROVIDER ORDERS Sodium Chloride 10 ml 03/29/19 01:00 03/29/19 08:24 Normal Saline Flush 0.9% IVP 10 ml 0100,0900,1700 LETICIA Administration - Lab Result Fish Bone Diagrams: 03/29/19 03:54 03/29/19 11:00 - EKG Results EKG Interpreted Independently: Yes EKG Findings: NSR, freq PACs, RBBB, LVH with strain pattern. Subjective - Subjective Patient Reports: Feeling Better, No Complaints Nursing Reports: Other (Tolerated oral XRay liquid without N/V) Objective Vital Signs: Vital Signs - 24 hr 03/28/19 03/28/19 03/28/19 13:49 16:13 17:10 Temperature 37.6 C H 37.5 C Heart Rate 82 99 79 Heart Rate [ Monitoring electrodes] Respiratory 17 18 18 Rate Blood Pressure 93/57 L 121/76 118/65 Blood Pressure [Left Brachial artery] O2 Saturation 98 100 100 03/28/19 03/28/19 03/28/19 18:40 20:00 20:15 Temperature 36.7 C 36.6 C Heart Rate 90 Heart Rate [ 87 91 Monitoring electrodes] Respiratory 19 16 20 Rate Blood Pressure Blood Pressure 101/64 113/74 [Left Brachial artery] O2 Saturation 99 100 98 03/28/19 03/28/19 03/28/19 21:00 22:15 23:00 Temperature Heart Rate Heart Rate [ 86 100 83 Monitoring electrodes] Respiratory 18 16 17 Rate Blood Pressure Blood Pressure 97/51 L 103/15 L 95/39 L [Left Brachial artery] O2 Saturation 94 98 96 03/28/19 03/29/19 03/29/19 23:27 00:00 01:00 Temperature 36.6 C Heart Rate Heart Rate [ 80 81 Monitoring electrodes] Respiratory 20 19 Rate Blood Pressure Blood Pressure 115/45 L 97/44 L [Left Brachial artery] O2 Saturation 96 96 03/29/19 03/29/19 03/29/19 02:00 03:00 04:00 Temperature 36.8 C Heart Rate Heart Rate [ 80 79 80 Monitoring electrodes] Respiratory 18 18 15 Rate Blood Pressure Blood Pressure 95/56 L 102/40 L 114/60 [Left Brachial artery] O2 Saturation 96 96 03/29/19 03/29/19 03/29/19 05:00 06:00 07:31 Temperature Heart Rate 72 Heart Rate [ 72 71 Monitoring electrodes] Respiratory 17 18 20 Rate Blood Pressure Blood Pressure 114/60 104/56 L [Left Brachial artery] O2 Saturation 03/29/19 08:13 Temperature 36.7 C Heart Rate Heart Rate [ 81 Monitoring electrodes] Respiratory 14 Rate Blood Pressure Blood Pressure 127/56 L [Left Brachial artery] O2 Saturation 99 Oxygen O2 Source Room air I&O (Last 24 Hrs): Intake and Output Totals x24h 03/27/19 03/28/19 03/29/19 23:59 23:59 23:59 Intake Total 1161.667 450.000 Output Total 200 450 Balance 961.667 0 General: Alert, Oriented x3 HEENT: Mucous membr. moist/pink Neck: Supple, No JVD Neuro: Alert, Non Focal Cardiovascular: Regular rate, No murmurs Respiratory: No respiratory distress Abdomen: Soft, No tenderness, Other (Minimal bowel sounds) Extremities: No edema - Results Results: Laboratory Results WBC 7.0 x10^3/uL (4.8-10.8) 03/29/19 03:54 RBC 3.97 10^6/uL (4.70-6.10) L 03/29/19 03:54 Hgb 11.6 g/dL (14.0-18.0) L 03/29/19 03:54 Hct 34.7 % (42.0-52.0) L 03/29/19 03:54 MCV 87.4 fL (80.0-94.0) 03/29/19 03:54 MCH 29.2 pg (27.0-31.0) 03/29/19 03:54 MCHC 33.4 g/dL (32.0-36.0) 03/29/19 03:54 RDW 20.3 % (12.0-15.0) H 03/29/19 03:54 Plt Count 205 10^3/uL (130-450) 03/29/19 03:54 MPV 8.6 fL (7.4-11.4) 03/29/19 03:54 Neut # (Auto) Not Reportable 03/29/19 03:54 Lymph # (Auto) Not Reportable 03/29/19 03:54 [place] # (Auto) Not Reportable 03/29/19 03:54 Eos # (Auto) Not Reportable 03/29/19 03:54 Baso # (Auto) Not Reportable 03/29/19 03:54 Absolute Nucleated RBC Not Reportable 03/29/19 03:54 Total Counted 100 03/29/19 03:54 Band Neuts % (Manual) 6 % (0-10) 03/29/19 03:54 Abnorm Lymph % (Manual) 0 % 03/29/19 03:54 Metamyelocytes % 4 % (-0) H 03/29/19 03:54 Myelocytes % 4 % (-0) H 03/29/19 03:54 Nucleated RBC % Not Reportable 03/29/19 03:54 Neutrophils # (Manual) 3.2 10^3/uL (1.5-6.6) 03/29/19 03:54 Lymphocytes # (Manual) 2.6 10^3/uL (1.5-3.5) 03/29/19 03:54 Monocytes # (Manual) 0.6 10^3/uL (0.0-1.0) 03/29/19 03:54 Eosinophils # (Manual) 0.1 10^3/uL (0-0.7) 03/29/19 03:54 Basophils # (Manual) 0.0 10^3/uL (0-0.1) 03/29/19 03:54 Differential Comment MANUAL DIFFERENTIAL 03/29/19 03:54 Manual Slide Review Indicated 03/28/19 15:00 WBC Morphology 1+ TOXIC GRANULATION (NORMAL) 03/28/19 15:00 Platelet Estimate NORMAL (130-450,000) (NORMAL) 03/29/19 03:54 Platelet Morphology 1+ LARGE PLATELETS (NORMAL) 03/28/19 15:00 RBC Morph Micro Appear 1+ ANISOCYTOSIS (NORMAL) 1+ OVALOCYTES (NORMAL) 03/29/19 03:54 RBC Morph Micro Appear 1+ ANISOCYTOSIS (NORMAL) 1+ OVALOCYTES (NORMAL) 03/29/19 03:54 PT 15.9 secs (9.9-12.6) H 03/28/19 15:00 INR 1.4 (0.8-1.2) H 03/28/19 15:00 Sodium 138 mmol/L (135-145) 03/29/19 03:54 Potassium 2.7 mmol/L (3.5-5.0) L 03/29/19 03:54 Chloride 103 mmol/L (101-111) 03/29/19 03:54 Carbon Dioxide 27 mmol/L (21-32) 03/29/19 03:54 Anion Gap 8.0 (6-13) 03/29/19 03:54 BUN 16 mg/dL (6-20) 03/29/19 03:54 Creatinine 0.9 mg/dL (0.6-1.2) 03/29/19 03:54 Estimated GFR (MDRD) 81 (>89) L 03/29/19 03:54 Glucose 105 mg/dL (70-100) H 03/29/19 03:54 Lactic Acid 1.7 mmol/L (0.5-2.2) 03/28/19 15:00 Calcium 8.0 mg/dL (8.5-10.3) L 03/29/19 03:54 Magnesium 1.9 mg/dL (1.7-2.8) 03/29/19 03:54 Total Bilirubin 0.8 mg/dL (0.2-1.0) 03/29/19 03:54 AST 21 IU/L (10-42) 03/29/19 03:54 ALT 32 IU/L (10-60) 03/29/19 03:54 Alkaline Phosphatase 77 IU/L (42-121) 03/29/19 03:54 Total Protein 5.2 g/dL (6.7-8.2) L 03/29/19 03:54 Albumin 2.7 g/dL (3.2-5.5) L 03/29/19 03:54 Globulin 2.5 g/dL (2.1-4.2) 03/29/19 03:54 Albumin/Globulin Ratio 1.1 (1.0-2.2) 03/29/19 03:54 Lipase 29 U/L (22-51) 03/28/19 15:00 Nasal Screen MRSA (PCR) NEGATIVE (NEGATIVE) 03/28/19 18:42 - Procedures Procedures: Procedures BYPASS TRANSVERSE COLON TO CUTANEOUS, OPEN APPROACH (12/01/18) EXCISION OF TRANSVERSE COLON, OPEN APPROACH (12/01/18)
[2019-03-29 11:28] LABS: PHOSPHORUS 1.3 mg/dL (2.5-4.6)
--- NOTE | 2019-03-29 11:30 | SURGERY HX AND PHYSICAL(T) ---
Surgical History & Physical - Chief Complaint/HPI Chief Complaint: Nausea and vomiting and abdominal pain for 4 days History of Present Illness: Mr. Rivera is a sweet 84 year old may who was admitted last evening with the above complaint. We initially med in November of last year when he was admitted for bowel obstruction and subsequently had a left hemicolectomy with ostomy and Brown's pouch. 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 He struggled to tolerate chemotherapy and developed side effects severe enough to abort the medication for the time being. He developed a rash all over his body that has started to improve but is still quite severe and painful. He is accompanied by a close friend that he calls his daughter. She tells me he hasn't actually eaten anything for 6 days. He says the stool in his ostomy bag is a different than what he is accustomed to. He has pain in the middle of his abdomen and feels like his ostomy site is protruding more than it has in the past. No vomiting since admission. No nausea currently but he is having intractable hiccups. - PMH/PSH/Social Hx Does the pt have a hx of MRSA?: No Neurological History: None Cardiovascular: Hypertension, High cholesterol, Coronary artery disease, Other Respiratory: Asthma, COPD Skin: None Endocrine/Autoimmune: None Gastrointestinal: GERD, Ulcers, Other (Colon cancer) Urinary: Incontinence Musculoskeletal: Chronic back pain Blood Disorders: None Psychiatric: None PMH Other: colorectal cancer Dx 12/02/2018 General: Appendectomy, Other Orthopedic: Spine surgery Cardiothoracic: Coronary stent Eyes Ears Nose Throat (EENT): Cataracts, Tonsil/Adenoidectomy Smoking Status: Former smoker Does the pt drink ETOH?: No Does the pt have substance abuse?: No - Home Meds and Allergies Home Medications: Aspirin [Aspir 81] 81 mg PO Q48H 05/05/13 Budesonide/Formoterol 160/4.5 [Symbicort] 1 puffs INH DAILY 05/05/13 Ipratropium [place] [Atrovent Hfa] 1 puffs PO BID PRN 05/05/13 Albuterol Sulfate [Proventil Hfa Inhaler] 1 - 2 puffs PO PRN PRN 01/28/19 Krill/[place]-3/Dha/Epa/Lipids [Krill Oil 350 mg Softgel] 750 mg PO DAILY 01/28/19 Capecitabine 01/20/20 Capecitabine 150 mg PO BID 03/29/19 Cholecalciferol (Vitamin D3) [Vitamin D3] 2,000 units PO DAILY 03/29/19 Allergies/Adverse Reactions: Allergies Allergy/AdvReac Type Severity Reaction Status Date / Time iodine Allergy Severe shock Verified 03/28/19 13:49 shellfish derived Allergy Anaphylaxis Verified 03/28/19 20:46 Opioids - Morphine Analogues AdvReac Intermediate Nausea Verified 03/28/19 13:49 - Review of Systems Constitutional: Fatigue, Weakness, Poor appetite. No: Fever, Chills HEENT: No: Headaches, Visual changes Skin: Rash (Reaction to chemotherapy - improving) Cardiac: AFIB Respiratory: No: Shortness of breath, Cough Gastrointestinal: Nausea, Vomiting, Abdominal pain Gentinourinary: Incontinence. No: Dysuria Neurological: No: Dizziness, Headache, Syncope Musculoskeletal: Joint pain or stiffness - Vital Signs Heart Rate: 72 Blood Pressure: 118/65 Temperature: 36.7 C Respiratory Rate: 14 O2 Saturation: 99 Weight (kg): 66.5 kg Height: 1.63 m - Physical Exam General Appearance: positive: No acute distress, Alert Eyes Bilatera: positive: Normal inspection, PERRL, EOMI ENT: positive: ENT inspection nml, Pharynx nml, No signs of dehydration Neck: positive: Nml inspection, No JVD, Trachea midline Respiratory: positive: Chest non-tender, No respiratory distress, Breath sounds nml Cardiovascular: positive: Regular rate & rhythm Peripheral Pulses: positive: 0 Abdomen: positive: Tenderness (just to the left of the midline with some voluntary guarding), Other (dark liquid stool in the ostomy bag) Skin: positive: Skin rash Neurologic/Psychiatric: positive: Oriented x3 (No focal deficits) - Patient Review Patient Review: Problems were reviewed with the patient during this visit. Medications were reviewed with the patient during this visit. Allergies were reviewed this patient during this visit. Pertinent Tests Reviewed: All pertitent test for this patient were reviewed. - Assessment & Plan Assessment and Plan: Abdominal pain with nausea and vomiting in the setting of a yolette gentleman who has had a severe and unpleasant reaction to chemotherapy for Stage 3B colon cancer. 1. Hypokalemia - replacement ordered 2. Hiccups - will try baclofen - stop metaclopromide 3. Pain with nausea and vomiting - CT is not definitive. This could be mucositis with attendant enteritis associated with chemotherapy vs ileus vs obstruction. I have requested an UGI - therapeutic and diagnostic to be done with gastrograffin. 4. Malnutrition - I will order PICC line placement and plan to start TPN this evening. 5. Convert to inpatient status I discussed all of the above with the patient and his friend. He is in agreement with this plan.
[2019-03-29] MEDS ORDERED: POTASSIUM PHOSPHATE 21 MMOL in SODIUM CHLORIDE 0.9% 250 ML IV ONE (13:00)
[2019-03-29] MEDS: ONDANSETRON 4 MG/2 ML VIAL IVP PRN (13:18)
--- NOTE | 2019-03-29 13:35 | XRAY Report ---
Reason: IMMEDIATE FILM/ POST GASTROGRAFIN Procedure Date: 03/29/2019 Accession Number: [id number] / [id number] Procedure: XR - No-Charge 1V Abdomen CPT Code: 06479 Final Report FULL RESULT: EXAM: ABDOMEN RADIOGRAPHY EXAM DATE: 03/29/2019 12:10 PM. CLINICAL HISTORY: Bowel obstruction COMPARISON: 03/28/2018. TECHNIQUE: 1 view. FINDINGS: Bowel Gas Pattern: There is dilated midabdomen small bowel measuring up to 3 cm in diameter. Other: None. IMPRESSION: 1. Dilated midabdomen small bowel. 2. Ingested contrast material extends to the proximal jejunum by the time of imaging. RADIA
[2019-03-29] MEDS ORDERED: METOCLOPRAMIDE 10 MG/2 ML VIAL IVP PRN ×2 (14:00→15:00)
[2019-03-29] MEDS: DEXTROSE 5%-0.45% NACL 1,000 ML IV SCH (14:02)
--- NOTE | 2019-03-29 15:01 | ANESTHESIA PROCEDURE NOTE ---
Anesth Central Line Template - Central Line Central Line Preparation: Consent Obtained, Time out completed, Ultrasound used, Sterile prep and drape Central line type: Double lumen Central line catheter tip site resides: Superior vena cava (SVC) Central line aftercare: Secured, Placement confirmed, No complications, Bundle checklist complete, Pt tolerated well (oUsed VPS tracker to verify placement via max P wave. Ports flush and aspirate well. See printout from VPS for info, trimmed at 44 cm, left 3 cm exposed)
[2019-03-29] MEDS: BACLOFEN 10 MG TABLET PO SCH ×2 (15:49→21:17)
--- NOTE | 2019-03-29 16:41 | PHARMACY PROGRESS NOTE ---
- Best Possible Medication History Admit Date and Time: 03/29/19 1424 Processed by: Pharmacy Medication History completed: In progress As the person ultimately responsible for medication therapy, providers are able to order a medication from an existing home medication list in [facility] via the "Reconcile Routine" prior to Confirmation of that medication by youth accommodation support worker. Such practice is discouraged except when the physician, in their clinical judgment, deems that a medical need exists for a medication without regard to previous use.
--- NOTE | 2019-03-29 17:42 | XRAY Report ---
Reason: 4 HOUR FILM/ GASTROGRAFIN Procedure Date: 03/29/2019 Accession Number: [id number] / [id number] Procedure: XR - No-Charge 1V Abdomen CPT Code: 44935 Final Report FULL RESULT: EXAM: ABDOMEN RADIOGRAPHY EXAM DATE: 03/29/2019 05:07 PM. CLINICAL HISTORY: 4-hour film. Gastrografin challenge. COMPARISON: NO CHARGE 1V ABDOMEN 03/29/2019 12:10 PM. TECHNIQUE: 1 view. FINDINGS: Bowel Gas Pattern: 4-hour film demonstrates persistent dilatation of proximal to mid small bowel loops, with a few opacified normal caliber distal small bowel loops, and contrast extending into the nondilated ascending colon. Other: Postoperative changes noted in the lower lumbar spine. IMPRESSION: Persistent proximal to mid small bowel dilatation compatible with partial small bowel obstruction, noting oral contrast extending into the normal caliber distal small bowel and ascending colon at 4 hours. RADIA
[2019-03-29 20:40] LABS: MAGNESIUM 2.2 mg/dL (1.7-2.8); PHOSPHORUS 3.2 mg/dL (2.5-4.6)
[2019-03-29] MEDS: PROCHLORPERAZINE 10 MG/2 ML VIAL IVP PRN (21:17)
[2019-03-29] MEDS: POTASSIUM CHLOR 20 MEQ/100 ML 20 MEQ/100 ML BAG IV SCH ×2 (22:02→23:07)
[2019-03-29] MEDS: SODIUM CHLORIDE 0.9% 500 ML IV PRN (22:03)
[2019-03-30] MEDS: SODIUM CHLORIDE FLUSH 0.9% 10 ML SYRINGE IVP PRN ×4 (04:47→12:14)
[2019-03-30 05:04] LABS: BASOPHILS % (AUTO) 0.2 %; EOSINOPHILS % (AUTO) 4.4 %; HGB - HEMOGLOBIN 11.1 g/dL (14.0-18.0); LYMPHOCYTES % (AUTO) 17.6 %; MEAN CORPUSCULAR HEMOGLOBIN 29.1 pg (27.0-31.0); MEAN CORPUSCULAR HGB CONC 32.6 g/dL (32.0-36.0); MEAN PLATELET VOLUME 8.9 fL (7.4-11.4); MONOCYTES % (AUTO) 17.1 %; NEUTROPHILS % (AUTO) 31.3 %; PLT - PLATELET COUNT 208 10^3/uL (130-450); RED BLOOD COUNT 3.82 10^6/uL (4.70-6.10); RED CELL DISTRIBUTION WIDTH 20.6 % (12.0-15.0); WHITE BLOOD COUNT 9.5 x10^3/uL (4.8-10.8)
[2019-03-30 05:06] LABS: ABNORMAL LYMPHS % (MANUAL) 0 %
[2019-03-30 05:11] LABS: CALCIUM 7.8 mg/dL (8.5-10.3); CREATININE 0.8 mg/dL (0.6-1.2); MAGNESIUM 2.1 mg/dL (1.7-2.8); PHOSPHORUS 2.4 mg/dL (2.5-4.6)
[2019-03-30 05:36] LABS: BAND NEUTROPHILS % (MANUAL) 14 %; EOSINOPHILS # (MANUAL) 0.2 10^3/uL (0-0.7); LYMPHOCYTES # (MANUAL) 2.5 10^3/uL (1.5-3.5); LYMPHOCYTES % (MANUAL) 26 %; METAMYELOCYTES % (MANUAL) 14 %; MONOCYTES # (MANUAL) 1.1 10^3/uL (0.0-1.0); MYELOCYTES % (MANUAL) 14 %; PLATELET ESTIMATE, MANUAL NORMAL (130-450,000) (NORMAL)
[2019-03-30 05:37] LABS: DIFFERENTIAL COMMENT MANUAL DIFFERENTIAL
[2019-03-30] MEDS: POTASSIUM CHLOR 20 MEQ/100 ML 20 MEQ/100 ML BAG IV SCH ×2 (05:47→06:55)
[2019-03-30] MEDS: PANTOPRAZOLE 40 MG VIAL IVP SCH (06:22)
[2019-03-30] MEDS: BACLOFEN 10 MG TABLET PO SCH ×3 (06:22→22:26)
[2019-03-30] MEDS: IPRATROPIUM/ALBUTEROL 3 ML NEB INH PRN (07:50)
[2019-03-30] MEDS: BUDESONIDE 0.5 MG/2 ML NEB INH SCH (07:50)
[2019-03-30] MEDS ORDERED: POTASSIUM PHOSPHATE 15 MMOL in SODIUM CHLORIDE 0.9% 250 ML IV ONE (08:00)
--- NOTE | 2019-03-30 08:47 | PROVIDER PROGRESS NOTE ---
Subjective - Prog Note Date Prog Note Date: 03/30/19 - Subjective Pt reports feeling: Improved Subjective: Reports feeling better today. He has had a large amount of output from his ostomy. He reports no more nausea. 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 Reports no chest pain or dyspnea. He is now out of bed and into a chair. Current Medications - Current Medications Current Medications: Active Medications Albuterol () 2.5 mg INH Q6H PRN PRN Reason: Shortness of Air/Wheezing Albuterol/Ipratropium (Duoneb) 3 ml INH Q4HR PRN PRN Reason: Wheezing Last Admin: 03/30/19 07:50 Dose: 3 ml Baclofen (Lioresal) 5 mg PO TID LETICIA Last Admin: 03/30/19 06:22 Dose: 5 mg Budesonide (Pulmicort) 0.5 mg INH RTBID LETICIA Last Admin: 03/30/19 07:50 Dose: 0.5 mg Diphenhydramine HCl (Benadryl) 25 mg PO QPM PRN PRN Reason: Insomnia Enoxaparin Sodium (Lovenox) 40 mg SUBQ DAILY [facility] Last Admin: 03/29/19 08:24 Dose: 40 mg Formoterol Fumarate (Perforomist) 20 mcg INH RTBID LETICIA Hydromorphone HCl (Dilaudid Inj Syringe) 0.5 mg IVP Q1H PRN PRN Reason: Breakthrough Pain Last Admin: 03/29/19 21:11 Dose: 0.5 mg Dextrose/Sodium Chloride (D5.45ns) 1,000 mls @ 50 mls/hr IV .Q20H LETICIA Last Infusion: 03/30/19 07:00 Dose: 50 mls/hr Sodium Chloride (Normal Saline 0.9%) 500 mls @ 0 mls/hr IV Q24H PRN PRN Reason: TKO RATE Last Infusion: 03/30/19 07:00 Dose: 20 mls/hr Potassium Phosphate 15 mmol/ (Sodium Chloride) 255 mls @ 63 mls/hr IV ONCE ONE; Protocol Stop: 03/30/19 12:02 Last Admin: 03/30/19 08:37 Dose: 63 mls/hr Ondansetron HCl (Zofran Inj) 4 mg IVP Q6HR PRN PRN Reason: Nausea / Vomiting Last Admin: 03/29/19 13:18 Dose: 4 mg Pantoprazole Sodium (Protonix) 40 mg IVP QDAC LETICIA Last Admin: 03/30/19 06:22 Dose: 40 mg Prochlorperazine Edisylate (Compazine Inj) 10 mg IVP Q4HR PRN PRN Reason: Nausea / Vomiting Last Admin: 03/29/19 21:17 Dose: 10 mg Sodium Chloride (Normal Saline Flush 0.9%) 10 ml IVP PRN PRN PRN Reason: NEEDED PER PROVIDER ORDERS Last Admin: 03/30/19 06:22 Dose: 10 ml Sodium Chloride (Normal Saline Flush 0.9%) 10 ml IVP 0100,0900,1700 LETICIA Last Admin: 03/29/19 21:11 Dose: 10 ml Sodium Chloride (Normal Saline Flush 0.9%) 20 ml IVP PRN PRN PRN Reason: After Blood Draw Last Admin: 03/30/19 04:47 Dose: 20 ml Aspirin [Aspir 81] 81 mg PO Q48H 05/05/13 Budesonide/Formoterol 160/4.5 [Symbicort] 1 puffs INH DAILY 05/05/13 Ipratropium [place] [Atrovent Hfa] 1 puffs PO BID PRN 05/05/13 Albuterol Sulfate [Proventil Hfa Inhaler] 1 - 2 puffs PO PRN PRN 01/28/19 Krill/Prue-3/Dha/Epa/Lipids [Krill Oil 350 mg Softgel] 750 mg PO DAILY 01/28/19 Capecitabine 4 tab PO BID 03/29/19 Capecitabine 150 mg PO BID 03/29/19 Cholecalciferol (Vitamin D3) [Vitamin D3] 2,000 units PO DAILY 03/29/19 Objective - Vital Signs/Intake & Output Reviewed Vital Signs: Yes Vital Signs: Vital Signs x48h Temp Pulse Pulse Resp BP Pulse Ox 03/30/19 08:11 36.5 C 71 15 102/60 100 03/30/19 07:50 65 13 03/30/19 07:00 64 19 98/63 98 03/30/19 05:00 61 13 117/74 03/30/19 04:00 64 16 96/58 L 97 03/30/19 03:00 72 18 103/48 L 95 03/30/19 01:00 69 18 101/51 L 97 Intake & Output: Intake & Output 03/27/19 03/28/19 03/29/19 03/30/19 23:59 23:59 23:59 23:59 Intake Total 8111.489 4564.000 959 Output Total 200 1875 1100 Balance 961.667 -128.000 -141 - Objective General Appearance: positive: No acute distress, Alert Eyes Bilateral: positive: Normal inspection ENT: positive: ENT inspection nml Neck: positive: Nml inspection Respiratory: positive: No respiratory distress. negative: Rales, Rhonchi Cardiovascular: positive: Regular rate & rhythm, No murmur. negative: Systolic murmur, Diastolic murmur Abdomen: positive: Nml bowel sounds, No distention, Tenderness (Tender to palpation in the suprapubic and left lower quadrants.), Other (Prior incision from ex lap noted. 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 The stoma appears pink.). negative: Non-tender, Guarding, Rebound Skin: positive: Warm, Dry Extremities: positive: Full ROM, No pedal edema Neurologic/Psychiatric: positive: Oriented x3, Motor nml. negative: Disoriented to person, Disoriented to place, Disoriented to time - Lab Results Fish Bones: 03/30/19 04:38 03/30/19 04:38 Other Labs: Lab Results x24hrs 03/30/19 03/30/19 03/30/19 Range/Units 04:38 04:38 04:38 WBC 9.5 (4.8-10.8) x10^3/uL RBC 3.82 L (4.70-6.10) 10^6/uL Hgb 11.1 L (14.0-18.0) g/dL Hct 34.0 L (42.0-52.0) % MCV 89.0 (80.0-94.0) fL MCH 29.1 (27.0-31.0) pg MCHC 32.6 (32.0-36.0) g/dL RDW 20.6 H (12.0-15.0) % Plt Count 208 (130-450) 10^3/uL MPV 8.9 (7.4-11.4) fL Neut # (Auto) Not Reportable Lymph # (Auto) Not Reportable Atlantic # (Auto) Not Reportable Eos # (Auto) Not Reportable Baso # (Auto) Not Reportable Absolute Nucleated RBC Not Reportable Total Counted 100 Band Neuts % (Manual) 14 H (0 - 10) % Abnorm Lymph % (Manual) 0 % Metamyelocytes % 14 H ( - 0) % Myelocytes % 14 H ( - 0) % Nucleated RBC % Not Reportable Neutrophils # (Manual) 3.0 (1.5-6.6) 10^3/uL Lymphocytes # (Manual) 2.5 (1.5-3.5) 10^3/uL Monocytes # (Manual) 1.1 H (0.0-1.0) 10^3/uL Eosinophils # (Manual) 0.2 (0-0.7) 10^3/uL Basophils # (Manual) 0.0 (0-0.1) 10^3/uL Differential Comment MANUAL DIFFERENTIAL Platelet Estimate NORMAL (130-450,000) (NORMAL) RBC Morph Micro Appear 1+ OVALOCYTES (NORMAL) Sodium 140 (135-145) mmol/L Potassium 3.3 L (3.5-5.0) mmol/L Chloride 106 (101-111) mmol/L Carbon Dioxide 28 (21-32) mmol/L Anion Gap 6.0 (6-13) BUN 12 (6-20) mg/dL Creatinine 0.8 (0.6-1.2) mg/dL Estimated GFR (MDRD) 93 (>89) Glucose 110 H (70-100) mg/dL Calcium 7.8 L (8.5-10.3) mg/dL Phosphorus 2.4 L (2.5-4.6) mg/dL Magnesium 2.1 (1.7-2.8) mg/dL Albumin 2.6 L (3.2-5.5) g/dL 03/29/19 03/29/19 Range/Units 20:13 11:00 WBC (4.8-10.8) x10^3/uL RBC (4.70-6.10) 10^6/uL Hgb (14.0-18.0) g/dL Hct (42.0-52.0) % MCV (80.0-94.0) fL MCH (27.0-31.0) pg MCHC (32.0-36.0) g/dL RDW (12.0-15.0) % Plt Count (130-450) 10^3/uL MPV (7.4-11.4) fL Neut # (Auto) Lymph # (Auto) [place] # (Auto) Eos # (Auto) Baso # (Auto) Absolute Nucleated RBC Total Counted Band Neuts % (Manual) (0 - 10) % Abnorm Lymph % (Manual) % Metamyelocytes % ( - 0) % Myelocytes % ( - 0) % Nucleated RBC % Neutrophils # (Manual) (1.5-6.6) 10^3/uL Lymphocytes # (Manual) (1.5-3.5) 10^3/uL Monocytes # (Manual) (0.0-1.0) 10^3/uL Eosinophils # (Manual) (0-0.7) 10^3/uL Basophils # (Manual) (0-0.1) 10^3/uL Differential Comment Platelet Estimate (NORMAL) RBC Morph Micro Appear (NORMAL) Sodium (135-145) mmol/L Potassium 3.3 L 2.8 L (3.5-5.0) mmol/L Chloride (101-111) mmol/L Carbon Dioxide (21-32) mmol/L Anion Gap (6-13) BUN (6-20) mg/dL Creatinine (0.6-1.2) mg/dL Estimated GFR (MDRD) (>89) Glucose (70-100) mg/dL Calcium (8.5-10.3) mg/dL Phosphorus 3.2 1.3 L (2.5-4.6) mg/dL Magnesium 2.2 2.0 (1.7-2.8) mg/dL Albumin (3.2-5.5) g/dL - Diagnostic Imaging Diagnostic Imaging Results: positive: Final report reviewed ABX Reporting Has patient been on IV antibiotics over the past 48 hours?: No Assessment/Plan - Problem List (1) COPD (chronic obstructive pulmonary disease) Impression: He only takes his Atrovent and Symbicort during pollen season and he feels he does not require them at the moment. He is currently not in exacerbation. We will discontinue the Symbicort and continue albuterol as needed. (2) Ileus Impression: This appears to be improving. Abdominal x-ray yesterday continue to reveal partial obstruction but there was contrast in the ascending colon. He now has output in his colostomy and reports improvement in his abdominal pain and nausea. Will defer to general surgery regarding the initiation of a clear liquid diet. We will continue with Zofran IV as needed. (3) Hypokalemia Impression: We will continue to replace intravenously until he is taking p.o. (4) Hx of coronary artery disease Impression: He is on aspirin at home and he discontinued his statin this past November on his own. We will resume his home aspirin once he is taking p.o. I did discuss with him about restarting a statin and he is agreeable to this. Once he is taking p.o., will start him on Lipitor 40 mg.
[2019-03-30] MEDS: ENOXAPARIN 40 MG/0.4 ML SYRINGE SUBQ SCH (09:00)
[2019-03-30] MEDS: SODIUM CHLORIDE FLUSH 0.9% 10 ML SYRINGE IVP SCH ×3 (09:02→23:42)
[2019-03-30] MEDS: DEXTROSE 5%-0.45% NACL 1,000 ML IV SCH (09:59)
[2019-03-30] MEDS: ONDANSETRON 4 MG/2 ML VIAL IVP PRN (12:14)
[2019-03-30] MEDS: PROCHLORPERAZINE 10 MG/2 ML VIAL IVP PRN (13:13)
[2019-03-30] MEDS: HYDROmorphone 0.5 MG/0.5 ML SYRINGE IVP PRN ×2 (13:13→17:36)
[2019-03-30] MEDS ORDERED: FAT EMULSION 20% 250 ML IV SCH (15:00)
--- NOTE | 2019-03-30 17:03 | PROVIDER PROGRESS NOTE ---
Subjective - General Admit Date: 03/29/19 Procedure Date: 12/02/18 Post Op Days: 118 Procedure Performed: None - Review of Systems General: negative: Fever Gastrointestinal: positive: Nausea, Vomiting, Abdominal pain - Other Other Information/Narrative: Mr. Rivera started the day feeling better and had significant ostomy output after SBFT. Unfortunately the symptoms returned when he attempted to tolerate clear lliquids. He is once again nauseated and miserable. He reports the pain in her abdomen didn't change much after the SBFT but the nausea was gone. He is quite uncomfortable currently. Objective - Patient Data Vital Signs: Vital Signs x48h Temp Pulse Resp BP Pulse Ox 03/30/19 15:37 36.3 C L 66 20 115/46 L 100 03/30/19 13:00 36.5 C 72 22 140/69 H 100 03/30/19 09:04 80 118/67 Weight: Weight 03/28/19 03/29/19 03/30/19 23:59 23:59 23:59 Weight (kg) 66.5 kg 66.5 kg Intake & Output: Intake and Output Totals x24h 03/28/19 03/29/19 03/30/19 23:59 23:59 23:59 Intake Total 1260.318 2398.000 2223.167 Output Total 200 1875 1825 Balance 961.667 -128.000 398.167 - Lab Results Lab Results: 03/30/19 04:38 03/30/19 04:38 Other Lab Results: Lab Results x24hrs 03/30/19 03/30/19 03/30/19 Range/Units 04:38 04:38 04:38 WBC 9.5 (4.8-10.8) x10^3/uL RBC 3.82 L (4.70-6.10) 10^6/uL Hgb 11.1 L (14.0-18.0) g/dL Hct 34.0 L (42.0-52.0) % MCV 89.0 (80.0-94.0) fL MCH 29.1 (27.0-31.0) pg MCHC 32.6 (32.0-36.0) g/dL RDW 20.6 H (12.0-15.0) % Plt Count 208 (130-450) 10^3/uL MPV 8.9 (7.4-11.4) fL Neut # (Auto) Not Reportable Lymph # (Auto) Not Reportable [place] # (Auto) Not Reportable Eos # (Auto) Not Reportable Baso # (Auto) Not Reportable Absolute Nucleated RBC Not Reportable Total Counted 100 Band Neuts % (Manual) 14 H (0 - 10) % Abnorm Lymph % (Manual) 0 % Metamyelocytes % 14 H ( - 0) % Myelocytes % 14 H ( - 0) % Nucleated RBC % Not Reportable Neutrophils # (Manual) 3.0 (1.5-6.6) 10^3/uL Lymphocytes # (Manual) 2.5 (1.5-3.5) 10^3/uL Monocytes # (Manual) 1.1 H (0.0-1.0) 10^3/uL Eosinophils # (Manual) 0.2 (0-0.7) 10^3/uL Basophils # (Manual) 0.0 (0-0.1) 10^3/uL Differential Comment MANUAL DIFFERENTIAL Platelet Estimate NORMAL (130-450,000) (NORMAL) RBC Morph Micro Appear 1+ OVALOCYTES (NORMAL) Sodium 140 (135-145) mmol/L Potassium 3.3 L (3.5-5.0) mmol/L Chloride 106 (101-111) mmol/L Carbon Dioxide 28 (21-32) mmol/L Anion Gap 6.0 (6-13) BUN 12 (6-20) mg/dL Creatinine 0.8 (0.6-1.2) mg/dL Estimated GFR (MDRD) 93 (>89) Glucose 110 H (70-100) mg/dL Calcium 7.8 L (8.5-10.3) mg/dL Phosphorus 2.4 L (2.5-4.6) mg/dL Magnesium 2.1 (1.7-2.8) mg/dL Albumin 2.6 L (3.2-5.5) g/dL 03/29/19 Range/Units 20:13 WBC (4.8-10.8) x10^3/uL RBC (4.70-6.10) 10^6/uL Hgb (14.0-18.0) g/dL Hct (42.0-52.0) % MCV (80.0-94.0) fL MCH (27.0-31.0) pg MCHC (32.0-36.0) g/dL RDW (12.0-15.0) % Plt Count (130-450) 10^3/uL MPV (7.4-11.4) fL Neut # (Auto) Lymph # (Auto) [place] # (Auto) Eos # (Auto) Baso # (Auto) Absolute Nucleated RBC Total Counted Band Neuts % (Manual) (0 - 10) % Abnorm Lymph % (Manual) % Metamyelocytes % ( - 0) % Myelocytes % ( - 0) % Nucleated RBC % Neutrophils # (Manual) (1.5-6.6) 10^3/uL Lymphocytes # (Manual) (1.5-3.5) 10^3/uL Monocytes # (Manual) (0.0-1.0) 10^3/uL Eosinophils # (Manual) (0-0.7) 10^3/uL Basophils # (Manual) (0-0.1) 10^3/uL Differential Comment Platelet Estimate (NORMAL) RBC Morph Micro Appear (NORMAL) Sodium (135-145) mmol/L Potassium 3.3 L (3.5-5.0) mmol/L Chloride (101-111) mmol/L Carbon Dioxide (21-32) mmol/L Anion Gap (6-13) BUN (6-20) mg/dL Creatinine (0.6-1.2) mg/dL Estimated GFR (MDRD) (>89) Glucose (70-100) mg/dL Calcium (8.5-10.3) mg/dL Phosphorus 3.2 (2.5-4.6) mg/dL Magnesium 2.2 (1.7-2.8) mg/dL Albumin (3.2-5.5) g/dL - Imaging Results Radiology Imaging: positive: Final report received - Current Medications Current Medications: Current Medications Generic Name Dose Route Start Last Admin Trade Name Freq PRN Reason Stop Dose Admin Albuterol/Ipratropium 3 ml 03/28/19 21:49 03/30/19 07:50 Duoneb INH 3 ml Q4HR PRN Administration Wheezing Baclofen 5 mg 03/29/19 15:00 03/30/19 14:21 Lioresal PO 5 mg TID LETICIA Administration Enoxaparin Sodium 40 mg 03/29/19 09:00 03/30/19 09:00 Lovenox SUBQ 40 mg DAILY LETICIA Administration Hydromorphone HCl 0.5 mg 03/28/19 19:22 03/30/19 13:13 Dilaudid Inj Syringe IVP 0.5 mg Q1H PRN Administration Breakthrough Pain Dextrose/Sodium Chloride 1,000 mls @ 50 mls/hr 03/28/19 20:00 03/30/19 09:59 D5.45ns IV 50 mls/hr .Q20H LETICIA Administration Sodium Chloride 500 mls @ 0 mls/hr 03/29/19 21:41 03/30/19 12:58 Normal Saline 0.9% IV 20 mls/hr Q24H PRN Infusion TKO RATE TKO Ondansetron HCl 4 mg 03/28/19 17:42 03/30/19 12:14 Zofran Inj IVP 4 mg Q6HR PRN Administration Nausea / Vomiting Pantoprazole Sodium 40 mg 03/28/19 18:00 03/30/19 06:22 Protonix IVP 40 mg QDAC LETICIA Administration Prochlorperazine Edisylate 10 mg 03/29/19 18:20 03/30/19 13:13 Compazine Inj IVP 10 mg Q4HR PRN Administration Nausea / Vomiting Sodium Chloride 10 ml 03/28/19 17:27 03/30/19 12:14 Normal Saline Flush 0.9% IVP 10 ml PRN PRN Administration NEEDED PER PROVIDER ORDERS Sodium Chloride 10 ml 03/29/19 01:00 03/30/19 09:02 Normal Saline Flush 0.9% IVP 10 ml 0100,0900,1700 LETICIA Administration Sodium Chloride 20 ml 03/29/19 20:55 03/30/19 04:47 Normal Saline Flush 0.9% IVP 20 ml PRN PRN Administration After Blood Draw - Physical Exam Abdomen: positive: Tenderness, Guarding, Rebound Impression/Plan - Problem List Problem List: Return of symptoms after starting diet. I think this most likely represents mucositis related to his recent chemotherapy. The SBFT showed some dilated loops but no definitive transition zone. We will start TPN tonight and return to npo status with ice chips. Recheck labs and continue watchful waiting.
[2019-03-30] MEDS ORDERED: FORMOTEROL FUMARATE NEB 20 MCG/2 ML INH SCH (19:00)
[2019-03-30] MEDS: TPN (CLINIMIX E 5/15) 2,000 ML with MULTIVITAMIN 10 ML, TRACE ELEMENTS V CONC 1 ML IV SCH ×3 (20:22)
[2019-03-30] MEDS: FAT EMULSION 20% 250 ML IV SCH (20:23)
[2019-03-31] MEDS: SODIUM CHLORIDE 0.9% 500 ML IV PRN (03:50)
[2019-03-31 05:48] LABS: CALCIUM 7.6 mg/dL (8.5-10.3); MAGNESIUM 1.7 mg/dL (1.7-2.8); PHOSPHORUS 1.2 mg/dL (2.5-4.6)
[2019-03-31 06:09] LABS: BASOPHILS % (AUTO) 0.1 %; EOSINOPHILS % (AUTO) 0.2 %; HGB - HEMOGLOBIN 11.4 g/dL (14.0-18.0); LYMPHOCYTES % (AUTO) 4.1 %; MEAN CORPUSCULAR HEMOGLOBIN 29.1 pg (27.0-31.0); MEAN CORPUSCULAR HGB CONC 32.9 g/dL (32.0-36.0); MEAN CORPUSCULAR VOLUME 88.3 fL (80.0-94.0); MEAN PLATELET VOLUME 8.7 fL (7.4-11.4); MONOCYTES % (AUTO) 6.2 %; PLT - PLATELET COUNT 198 10^3/uL (130-450); RED BLOOD COUNT 3.92 10^6/uL (4.70-6.10); RED CELL DISTRIBUTION WIDTH 20.5 % (12.0-15.0)
[2019-03-31] MEDS: BACLOFEN 10 MG TABLET PO SCH ×3 (06:19→22:11)
[2019-03-31] MEDS: PANTOPRAZOLE 40 MG VIAL IVP SCH (06:19)
[2019-03-31 06:20] LABS: WHITE BLOOD COUNT 37.9 x10^3/uL (4.8-10.8)
[2019-03-31 06:21] LABS: ABNORMAL LYMPHS % (MANUAL) 0 %
[2019-03-31 06:36] LABS: BAND NEUTROPHILS % (MANUAL) 10 %; LYMPHOCYTES # (MANUAL) 1.1 10^3/uL (1.5-3.5); LYMPHOCYTES % (MANUAL) 3 %; MONOCYTES # (MANUAL) 2.7 10^3/uL (0.0-1.0); MYELOCYTES % (MANUAL) 5 %
[2019-03-31 06:37] LABS: RBC MORPHOLOGY (MULTIPLE) 2+ ANISOCYTOSIS (NORMAL)
[2019-03-31 06:38] LABS: DIFFERENTIAL COMMENT MANUAL DIFFERENTIAL; PLATELET ESTIMATE, MANUAL NORMAL (130-450,000) (NORMAL); PLATELET MORPHOLOGY NORMAL APPEARANCE (NORMAL)
[2019-03-31] MEDS: ENOXAPARIN 40 MG/0.4 ML SYRINGE SUBQ SCH (08:17)
[2019-03-31] MEDS: PIPERACILLIN/TAZOBACTAM 3.375 GM in SODIUM CHLORIDE 0.9% MINIBAG 100 ML IV SCH ×3 (08:17→22:08)
[2019-03-31] MEDS: SODIUM CHLORIDE FLUSH 0.9% 10 ML SYRINGE IVP SCH ×2 (08:17→20:35)
[2019-03-31] MEDS: POTASSIUM CHLOR 10 MEQ/100 ML 10 MEQ/100 ML BAG IV SCH ×2 (11:27→12:55)
[2019-03-31] MEDS: HYDROmorphone 0.5 MG/0.5 ML SYRINGE IVP PRN (11:27)
[2019-03-31] MEDS ORDERED: POTASSIUM PHOSPHATE 21 MMOL in SODIUM CHLORIDE 0.9% 250 ML IV ONE (12:00)
--- NOTE | 2019-03-31 12:01 | PROVIDER PROGRESS NOTE ---
Subjective - Prog Note Date Prog Note Date: 03/31/19 - Subjective Pt reports feeling: Improved Subjective: Today after lunch, he complained of abdominal pain and feeling nauseous. He had no further episodes of emesis. He was started on TPN overnight. This morning he states he feels well once again. He reports no abdominal pain or nausea. He does complain of some dysuria. Reports no fevers or chills. Current Medications - Current Medications Current Medications: Active Medications Albuterol () 2.5 mg INH Q6H PRN PRN Reason: Shortness of Air/Wheezing Albuterol/Ipratropium (Duoneb) 3 ml INH Q4HR PRN PRN Reason: Wheezing Last Admin: 03/30/19 07:50 Dose: 3 ml Baclofen (Lioresal) 5 mg PO TID LETICIA Last Admin: 03/31/19 06:19 Dose: 5 mg Diphenhydramine HCl (Benadryl) 25 mg PO QPM PRN PRN Reason: Insomnia Enoxaparin Sodium (Lovenox) 40 mg SUBQ DAILY [facility] Last Admin: 03/31/19 08:17 Dose: 40 mg Hydromorphone HCl (Dilaudid Inj Syringe) 0.5 mg IVP Q1H PRN PRN Reason: Breakthrough Pain Last Admin: 03/31/19 11:27 Dose: 0.5 mg Sodium Chloride (Normal Saline 0.9%) 500 mls @ 0 mls/hr IV Q24H PRN PRN Reason: TKO RATE Last Admin: 03/31/19 03:50 Dose: 20 mls/hr Multivitamins 10 ml/ Chromium/Copper/Manganese/Seleni/Zn 1 ml/ Amino Ac/Elect rol/Dextrose /Calcium 2,011 mls @ 70 mls/hr IV Q24H LETICIA; Protocol Last Admin: 03/30/19 20:22 Dose: 50 mls/hr Fat Emulsion Intravenous (Intralipid 20%) 250 mls @ 21 mls/hr IV Q24H LETICIA Last Infusion: 03/31/19 07:45 Dose: Infused Piperacillin Sod/Tazobactam (Sod 3.375 gm/ Sodium Chloride) 100 mls @ 200 mls/hr IV Q6H [facility] Last Infusion: 03/31/19 09:00 Dose: Infused Potassium Chloride (Potassium Chloride) 10 meq in 100 mls @ 100 mls/hr IV Q1H LETICIA Stop: 03/31/19 12:59 Last Admin: 03/31/19 11:27 Dose: 100 mls/hr Potassium Phosphate 21 mmol/ (Sodium Chloride) 257 mls @ 42.833 mls/hr IV ONCE ONE Stop: 03/31/19 17:59 Ondansetron HCl (Zofran Inj) 4 mg IVP Q6HR PRN PRN Reason: Nausea / Vomiting Last Admin: 03/30/19 12:14 Dose: 4 mg Pantoprazole Sodium (Protonix) 40 mg IVP QDAC LETICIA Last Admin: 03/31/19 06:19 Dose: 40 mg Prochlorperazine Edisylate (Compazine Inj) 10 mg IVP Q4HR PRN PRN Reason: Nausea / Vomiting Last Admin: 03/30/19 13:13 Dose: 10 mg Sodium Chloride (Normal Saline Flush 0.9%) 10 ml IVP PRN PRN PRN Reason: NEEDED PER PROVIDER ORDERS Last Admin: 03/30/19 12:14 Dose: 10 ml Sodium Chloride (Normal Saline Flush 0.9%) 10 ml IVP 0100,0900,1700 LETICIA Last Admin: 03/31/19 08:17 Dose: 10 ml Sodium Chloride (Normal Saline Flush 0.9%) 20 ml IVP PRN PRN PRN Reason: After Blood Draw Last Admin: 03/30/19 04:47 Dose: 20 ml Aspirin [Aspir 81] 81 mg PO Q48H 05/05/13 Budesonide/Formoterol 160/4.5 [Symbicort] 1 puffs INH DAILY 05/05/13 Ipratropium [place] [Atrovent Hfa] 1 puffs PO BID PRN 05/05/13 Albuterol Sulfate [Proventil Hfa Inhaler] 1 - 2 puffs PO PRN PRN 01/28/19 Krill/Jacumb[place]-3/Dha/Epa/Lipids [Krill Oil 350 mg Softgel] 750 mg PO DAILY 01/28/19 Capecitabine 4 tab PO BID 03/29/19 Capecitabine 150 mg PO BID 03/29/19 Cholecalciferol (Vitamin D3) [Vitamin D3] 2,000 units PO DAILY 03/29/19 Objective - Vital Signs/Intake & Output Reviewed Vital Signs: Yes Vital Signs: Vital Signs x48h Temp Pulse Resp BP BP Pulse Ox 03/31/19 07:52 36.4 C L 86 21 108/48 L 97 03/31/19 06:30 113/69 03/31/19 04:07 36.7 C 95 22 96/45 L 92 Intake & Output: Intake & Output 03/28/19 03/29/19 03/30/19 03/31/19 23:59 23:59 23:59 23:59 Intake Total 7197.638 2705.000 2857.334 767.333 Output Total 200 1875 2425 400 Balance 961.667 -128.000 432.334 367.333 - Objective General Appearance: positive: No acute distress, Alert Eyes Bilateral: positive: Normal inspection ENT: positive: ENT inspection nml Neck: positive: Nml inspection Respiratory: positive: No respiratory distress. negative: Wheezes, Rales, Rhonchi Cardiovascular: positive: Regular rate & rhythm, No murmur. 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 The stoma appears pink. There is minimal output in the ostomy bag although gas is present.). negative: Tenderness, Guarding, Rebound Skin: positive: Warm, Dry Extremities: positive: Full ROM, No pedal edema Neurologic/Psychiatric: positive: Oriented x3. negative: Disoriented to person, Disoriented to place, Disoriented to time - Lab Results Fish Bones: 03/31/19 06:00 03/31/19 04:30 Other Labs: Lab Results x24hrs 03/31/19 03/31/19 03/31/19 Range/Units 11:42 06:00 05:49 WBC 37.9 H* (4.8-10.8) x10^3/uL RBC 3.92 L (4.70-6.10) 10^6/uL Hgb 11.4 L (14.0-18.0) g/dL Hct 34.6 L (42.0-52.0) % MCV 88.3 (80.0-94.0) fL MCH 29.1 (27.0-31.0) pg MCHC 32.9 (32.0-36.0) g/dL RDW 20.5 H (12.0-15.0) % Plt Count 198 (130-450) 10^3/uL MPV 8.7 (7.4-11.4) fL Neut # (Auto) Not Reportable Lymph # (Auto) Not Reportable Mcminn # (Auto) Not Reportable Eos # (Auto) Not Reportable Baso # (Auto) Not Reportable Absolute Nucleated RBC Not Reportable Total Counted 100 Band Neuts % (Manual) 10 (0 - 10) % Abnorm Lymph % (Manual) 0 % Myelocytes % 5 H ( - 0) % Nucleated RBC % Not Reportable Neutrophils # (Manual) 32.2 H (1.5-6.6) 10^3/uL Lymphocytes # (Manual) 1.1 L (1.5-3.5) 10^3/uL Monocytes # (Manual) 2.7 H (0.0-1.0) 10^3/uL Eosinophils # (Manual) 0.0 (0-0.7) 10^3/uL Basophils # (Manual) 0.0 (0-0.1) 10^3/uL Differential Comment MANUAL DIFFERENTIAL WBC Morphology NORMAL APPEARANCE (NORMAL) Platelet Estimate NORMAL (130-450,000) (NORMAL) Platelet Morphology NORMAL APPEARANCE (NORMAL) RBC Morph Micro Appear 2+ ANISOCYTOSIS (NORMAL) Sodium (135-145) mmol/L Potassium (3.5-5.0) mmol/L Chloride (101-111) mmol/L Carbon Dioxide (21-32) mmol/L Anion Gap (6-13) BUN (6-20) mg/dL Creatinine (0.6-1.2) mg/dL Estimated GFR (MDRD) (>89) Glucose (70-100) mg/dL POC Whole Bld Glucose 132 H 141 H (70 - 100) mg/dL Calcium (8.5-10.3) mg/dL Phosphorus (2.5-4.6) mg/dL Magnesium (1.7-2.8) mg/dL 03/31/19 03/30/19 Range/Units 04:30 23:48 WBC (4.8-10.8) x10^3/uL RBC (4.70-6.10) 10^6/uL Hgb (14.0-18.0) g/dL Hct (42.0-52.0) % MCV (80.0-94.0) fL MCH (27.0-31.0) pg MCHC (32.0-36.0) g/dL RDW (12.0-15.0) % Plt Count (130-450) 10^3/uL MPV (7.4-11.4) fL Neut # (Auto) Lymph # (Auto) Mcminn # (Auto) Eos # (Auto) Baso # (Auto) Absolute Nucleated RBC Total Counted Band Neuts % (Manual) (0 - 10) % Abnorm Lymph % (Manual) % Myelocytes % ( - 0) % Nucleated RBC % Neutrophils # (Manual) (1.5-6.6) 10^3/uL Lymphocytes # (Manual) (1.5-3.5) 10^3/uL Monocytes # (Manual) (0.0-1.0) 10^3/uL Eosinophils # (Manual) (0-0.7) 10^3/uL Basophils # (Manual) (0-0.1) 10^3/uL Differential Comment WBC Morphology (NORMAL) Platelet Estimate (NORMAL) Platelet Morphology (NORMAL) RBC Morph Micro Appear (NORMAL) Sodium 138 (135-145) mmol/L Potassium 3.3 L (3.5-5.0) mmol/L Chloride 106 (101-111) mmol/L Carbon Dioxide 23 (21-32) mmol/L Anion Gap 9.0 (6-13) BUN 9 (6-20) mg/dL Creatinine 1.0 (0.6-1.2) mg/dL Estimated GFR (MDRD) 72 L (>89) Glucose 137 H (70-100) mg/dL POC Whole Bld Glucose 122 H (70 - 100) mg/dL Calcium 7.6 L (8.5-10.3) mg/dL Phosphorus 1.2 L (2.5-4.6) mg/dL Magnesium 1.7 (1.7-2.8) mg/dL ABX Reporting Has patient been on IV antibiotics over the past 48 hours?: Yes Assessment/Plan - Problem List (1) Leukocytosis Impression: His white count is 31.9 this morning with 10% bands. It was just 9.5 yesterday although he did have 14% bands at that time. Initially it was felt that this was reactive in nature but given the large increase in the white count, I will start him on Zosyn IV empirically. He is complaining of some dysuria we will ch cat a urinalysis. We will check blood cultures. He does not appear septic at this moment given he is not tachycardic and his blood pressure stable. (2) Ileus Impression: 30 he had a return of his abdominal pain as well as nausea without emesis. This morning he reports his symptoms have resolved once again. Abdominal exam is quite benign today and is improved compared to yesterday. There is little output from the ostomy but gas is present. We will keep him n.p.o. and await further general surgery recommendations. He has been started on TPN which will be continued for the time being. He is at risk for refeeding syndrome and therefore we will monitor his phosphorus closely. (3) Hypokalemia Impression: We will continue to replace intravenously given he is n.p.o. (4) Hypophosphatemia Impression: Phosphorus is low this morning and he has been started on TPN. We will monitor his closely given he is at risk for refeeding syndrome. Continue to replace intravenously. (5) COPD (chronic obstructive pulmonary disease) Impression: Stable and not in exacerbation. Continue albuterol as needed. (6) Hx of coronary artery disease Impression: Stable. We will resume his home aspirin once taking p.o. We will also start him on Lipitor as he should be taking this for secondary prevention.
--- NOTE | 2019-03-31 12:07 | PHARMACY PROGRESS NOTE ---
- Best Possible Medication History Admit Date and Time: 03/29/19 1424 Processed by: Pharmacy Medication History completed: Yes Patient Interview: Completed As the person ultimately responsible for medication therapy, providers are able to order a medication from an existing home medication list in [facility] via the "Reconcile Routine" prior to Confirmation of that medication by family support specialist. Such practice is discouraged except when the physician, in their clinical gordon gment, deems that a medical need exists for a medication without regard to previous use.
[2019-03-31 12:46] LABS: BILIRUBIN,URINE NEGATIVE (NEGATIVE); GLUCOSE, URINE (UA) NEGATIVE (NEGATIVE); KETONES,URINE (UA) NEGATIVE (NEGATIVE); LEUKOCYTE ESTERASE, URINE NEGATIVE (NEGATIVE); NITRITE,URINE NEGATIVE (NEGATIVE); OCCULT BLOOD,URINE NEGATIVE (NEGATIVE); PROTEIN,URINE NEGATIVE (NEGATIVE); UROBILINOGEN,URINE 0.2 (NORMAL) E.U./dL (NORMAL)
[2019-03-31 12:47] LABS: CLARITY,URINE CLEAR (CLEAR)
[2019-03-31 12:55] LABS: BACTERIA,URINE Rare /HPF (None Seen); MUCUS,URINE Few Strands; RBC,URINE 0-5 /HPF (0-5); SQUAMOUS EPITHELIAL CELL,UR RARE Squamous (<= Few)
--- NOTE | 2019-03-31 13:28 | XRAY Report ---
Reason: Low ostomy output. Concern for SBO. Procedure Date: 03/31/2019 Accession Number: [id number] / [id number] Procedure: XR - Abdomen 1 View X-Ray CPT Code: 65240 Final Report FULL RESULT: EXAM: ABDOMEN RADIOGRAPHY EXAM DATE: 03/31/2019 12:34 PM. CLINICAL HISTORY: Low ostomy output. Concern for small bowel obstruction. COMPARISON: NO CHARGE 1V ABDOMEN 03/29/2019 4:49 PM NO CHARGE 1V ABDOMEN 03/29/2019 12:10 PM. TECHNIQUE: 1 view. FINDINGS IMPRESSION: Multiple dilated small bowel loops are present, similar to recent priors. The enteric contrast is no longer visualized.
--- NOTE | 2019-03-31 14:13 | PROVIDER PROGRESS NOTE ---
Subjective - Prog Note Date Prog Note Date: 03/31/19 Prog Note Time: 14:11 - Subjective Pt reports feeling: Improved Subjective: Richard denies any abdominal pain today and reports he is very thirsty. He has been afebrile but has had a dramatic increase in his white blood cell count. He reports he actually feels better today than he did yesterday. He would like to try clear liquids again. Objective - Vital Signs/Intake & Output Vital Signs: Vital Signs x48h Temp Pulse Pulse Resp BP BP Pulse Ox 03/31/19 12:47 36.7 C 76 21 100/52 L 95 03/31/19 07:52 36.4 C L 86 21 108/48 L 97 03/31/19 07:45 76 14 03/31/19 06:30 113/69 Intake & Output: Intake & Output 03/28/19 03/29/19 03/30/19 03/31/19 23:59 23:59 23:59 23:59 Intake Total 6144.608 1709.000 2857.334 967.333 Output Total 200 1875 2425 510 Balance 961.667 -128.000 432.334 457.333 - Objective General Appearance: positive: No acute distress, Alert Eyes Bilateral: positive: Normal inspection, PERRL, EOMI Rectal: positive: Non-tender Neurologic/Psychiatric: positive: Oriented x3 - Lab Results Fish Bones: 03/31/19 06:00 03/31/19 04:30 Other Labs: Lab Results x24hrs 03/31/19 03/31/19 03/31/19 Range/Units 11:42 11:20 06:00 WBC 37.9 H* (4.8-10.8) x10^3/uL RBC 3.92 L (4.70-6.10) 10^6/uL Hgb 11.4 L (14.0-18.0) g/dL Hct 34.6 L (42.0-52.0) % MCV 88.3 (80.0-94.0) fL MCH 29.1 (27.0-31.0) pg MCHC 32.9 (32.0-36.0) g/dL RDW 20.5 H (12.0-15.0) % Plt Count 198 (130-450) 10^3/uL MPV 8.7 (7.4-11.4) fL Neut # (Auto) Not Reportable Lymph # (Auto) Not Reportable Mcdonald # (Auto) Not Reportable Eos # (Auto) Not Reportable Baso # (Auto) Not Reportable Absolute Nucleated RBC Not Reportable Total Counted 100 Band Neuts % (Manual) 10 (0 - 10) % Abnorm Lymph % (Manual) 0 % Myelocytes % 5 H ( - 0) % Nucleated RBC % Not Reportable Neutrophils # (Manual) 32.2 H (1.5-6.6) 10^3/uL Lymphocytes # (Manual) 1.1 L (1.5-3.5) 10^3/uL Monocytes # (Manual) 2.7 H (0.0-1.0) 10^3/uL Eosinophils # (Manual) 0.0 (0-0.7) 10^3/uL Basophils # (Manual) 0.0 (0-0.1) 10^3/uL Differential Comment MANUAL DIFFERENTIAL WBC Morphology NORMAL APPEARANCE (NORMAL) Platelet Estimate NORMAL (130-450,000) (NORMAL) Platelet Morphology NORMAL APPEARANCE (NORMAL) RBC Morph Micro Appear 2+ ANISOCYTOSIS (NORMAL) Sodium (135-145) mmol/L Potassium (3.5-5.0) mmol/L Chloride (101-111) mmol/L Carbon Dioxide (21-32) mmol/L Anion Gap (6-13) BUN (6-20) mg/dL Creatinine (0.6-1.2) mg/dL Estimated GFR (MDRD) (>89) Glucose (70-100) mg/dL POC Whole Bld Glucose 132 H (70 - 100) mg/dL Calcium (8.5-10.3) mg/dL Phosphorus (2.5-4.6) mg/dL Magnesium (1.7-2.8) mg/dL Urine Color DARK YELLOW Urine Clarity CLEAR (CLEAR) Urine pH 6.0 (5.0-7.5) PH Ur Specific Fletcher 1.020 (1.002-1.030) Urine Protein NEGATIVE (NEGATIVE) mg/dL Urine Glucose (UA) NEGATIVE (NEGATIVE) mg/dL Urine Ketones NEGATIVE (NEGATIVE) mg/dL Urine Occult Blood NEGATIVE (NEGATIVE) Urine Nitrite NEGATIVE (NEGATIVE) Urine Bilirubin NEGATIVE (NEGATIVE) Urine Urobilinogen 0.2 (NORMAL) (NORMAL) E.U./dL Ur Leukocyte Esterase NEGATIVE (NEGATIVE) Urine RBC 0-5 (0-5) /HPF Urine WBC 0-3 (0-3) /HPF Ur Squamous Epith Cells RARE Squamous (<= Few) Urine Bacteria Rare (None Seen) /HPF Urine Mucus Few Strands Urine Culture Comments NOT INDICATED 03/31/19 03/31/19 03/30/19 Range/Units 05:49 04:30 23:48 WBC (4.8-10.8) x10^3/uL RBC (4.70-6.10) 10^6/uL Hgb (14.0-18.0) g/dL Hct (42.0-52.0) % MCV (80.0-94.0) fL MCH (27.0-31.0) pg MCHC (32.0-36.0) g/dL RDW (12.0-15.0) % Plt Count (130-450) 10^3/uL MPV (7.4-11.4) fL Neut # (Auto) Lymph # (Auto) Mcdonald # (Auto) Eos # (Auto) Baso # (Auto) Absolute Nucleated RBC Total Counted Band Neuts % (Manual) (0 - 10) % Abnorm Lymph % (Manual) % Myelocytes % ( - 0) % Nucleated RBC % Neutrophils # (Manual) (1.5-6.6) 10^3/uL Lymphocytes # (Manual) (1.5-3.5) 10^3/uL Monocytes # (Manual) (0.0-1.0) 10^3/uL Eosinophils # (Manual) (0-0.7) 10^3/uL Basophils # (Manual) (0-0.1) 10^3/uL Differential Comment WBC Morphology (NORMAL) Platelet Estimate (NORMAL) Platelet Morphology (NORMAL) RBC Morph Micro Appear (NORMAL) Sodium 138 (135-145) mmol/L Potassium 3.3 L (3.5-5.0) mmol/L Chloride 106 (101-111) mmol/L Carbon Dioxide 23 (21-32) mmol/L Anion Gap 9.0 (6-13) BUN 9 (6-20) mg/dL Creatinine 1.0 (0.6-1.2) mg/dL Estimated GFR (MDRD) 72 L (>89) Glucose 137 H (70-100) mg/dL POC Whole Bld Glucose 141 H 122 H (70 - 100) mg/dL Calcium 7.6 L (8.5-10.3) mg/dL Phosphorus 1.2 L (2.5-4.6) mg/dL Magnesium 1.7 (1.7-2.8) mg/dL Urine Color Urine Clarity (CLEAR) Urine pH (5.0-7.5) PH Ur Specific Fletcher (1.002-1.030) Urine Protein (NEGATIVE) mg/dL Urine Glucose (UA) (NEGATIVE) mg/dL Urine Ketones (NEGATIVE) mg/dL Urine Occult Blood (NEGATIVE) Urine Nitrite (NEGATIVE) Urine Bilirubin (NEGATIVE) Urine Urobilinogen (NORMAL) E.U./dL Ur Leukocyte Esterase (NEGATIVE) Urine RBC (0-5) /HPF Urine WBC (0-3) /HPF Ur Squamous Epith Cells (<= Few) Urine Bacteria (None Seen) /HPF Urine Mucus Urine Culture Comments - Diagnostic Imaging Diagnostic Imaging Results: positive: Final report reviewed Diagnostic Imaging Comments: Small bowel follow through without definite site of obstruction ABX Reporting Has patient been on IV antibiotics over the past 48 hours?: Yes Assessment/Plan - Problem List (1) Bowel obstruction Impression: Dramatic increase in white count in the setting of clinical improvement. Agree with IV Zosyn and check for c.diff. The patient has no peritoneal signs and no objective signs of sepsis. Start clear liquids as tolerated per patient request. Await c.diff status for other orders. Qualifiers: Intestinal obstruction extent: partial
[2019-03-31] MEDS: TPN (CLINIMIX E 5/15) 2,000 ML with MULTIVITAMIN 10 ML, TRACE ELEMENTS V CONC 1 ML IV SCH ×3 (19:56)
[2019-03-31] MEDS: FAT EMULSION 20% 250 ML IV SCH (19:56)
[2019-03-31 20:25] LABS: CALCIUM 7.6 mg/dL (8.5-10.3); CREATININE 1.1 mg/dL (0.6-1.2); MAGNESIUM 1.8 mg/dL (1.7-2.8); PHOSPHORUS 2.5 mg/dL (2.5-4.6)
[2019-04-01] MEDS: HYDROmorphone 0.5 MG/0.5 ML SYRINGE IVP PRN ×2 (00:59→17:24)
[2019-04-01] MEDS: diphenhydrAMINE 25 MG CAPSULE PO PRN ×2 (01:04→23:36)
[2019-04-01] MEDS: PIPERACILLIN/TAZOBACTAM 3.375 GM in SODIUM CHLORIDE 0.9% MINIBAG 100 ML IV SCH ×4 (02:15→20:21)
[2019-04-01] MEDS: SODIUM CHLORIDE FLUSH 0.9% 10 ML SYRINGE IVP SCH ×3 (02:17→20:09)
[2019-04-01 05:16] LABS: BASOPHILS % (AUTO) 0.1 %; EOSINOPHILS % (AUTO) 1.6 %; HGB - HEMOGLOBIN 9.8 g/dL (14.0-18.0); LYMPHOCYTES % (AUTO) 4.9 %; MEAN CORPUSCULAR HEMOGLOBIN 28.4 pg (27.0-31.0); MEAN CORPUSCULAR HGB CONC 32.8 g/dL (32.0-36.0); MEAN CORPUSCULAR VOLUME 86.7 fL (80.0-94.0); MEAN PLATELET VOLUME 8.9 fL (7.4-11.4); NEUTROPHILS % (AUTO) 78.4 %; PLT - PLATELET COUNT 164 10^3/uL (130-450); RED BLOOD COUNT 3.45 10^6/uL (4.70-6.10); RED CELL DISTRIBUTION WIDTH 20.5 % (12.0-15.0)
[2019-04-01 05:27] LABS: CALCIUM 7.5 mg/dL (8.5-10.3); CREATININE 0.9 mg/dL (0.6-1.2); PHOSPHORUS 2.3 mg/dL (2.5-4.6); WHITE BLOOD COUNT 36.4 x10^3/uL (4.8-10.8)
[2019-04-01 05:28] LABS: ABNORMAL LYMPHS % (MANUAL) 0 %
[2019-04-01 06:05] LABS: BAND NEUTROPHILS % (MANUAL) 3 %; EOSINOPHILS # (MANUAL) 0.4 10^3/uL (0-0.7); LYMPHOCYTES # (MANUAL) 1.8 10^3/uL (1.5-3.5); LYMPHOCYTES % (MANUAL) 5 %; METAMYELOCYTES % (MANUAL) 3 %; MONOCYTES # (MANUAL) 1.5 10^3/uL (0.0-1.0); MYELOCYTES % (MANUAL) 3 %
[2019-04-01 06:07] LABS: DIFFERENTIAL COMMENT MANUAL DIFFERENTIAL; PLATELET ESTIMATE, MANUAL NORMAL (130-450,000) (NORMAL); PLATELET MORPHOLOGY NORMAL APPEARANCE (NORMAL); RBC MORPHOLOGY (MULTIPLE) 2+ ANISOCYTOSIS (NORMAL)
[2019-04-01] MEDS: BACLOFEN 10 MG TABLET PO SCH ×3 (06:12→22:07)
[2019-04-01] MEDS: SODIUM CHLORIDE FLUSH 0.9% 10 ML SYRINGE IVP PRN ×2 (06:12→22:12)
[2019-04-01] MEDS: PANTOPRAZOLE 40 MG VIAL IVP SCH (06:12)
[2019-04-01] MEDS: ENOXAPARIN 40 MG/0.4 ML SYRINGE SUBQ SCH (08:19)
[2019-04-01] MEDS ORDERED: POTASSIUM CHLORIDE 20 MEQ TABLET PO ONE (12:21)
--- NOTE | 2019-04-01 12:28 | PROVIDER PROGRESS NOTE ---
Subjective - Prog Note Date Prog Note Date: 04/01/19 - Subjective Pt reports feeling: Improved Subjective: Reports feeling better today. He was able to tolerate a liquid diet this morning. Reports no nausea or vomiting. Continues to complain of some hiccups. He reports no abdominal pain. He has output from his colostomy. Denies fever or chills. Current Medications - Current Medications Current Medications: Active Medications Albuterol () 2.5 mg INH Q6H PRN PRN Reason: Shortness of Air/Wheezing Albuterol/Ipratropium (Duoneb) 3 ml INH Q4HR PRN PRN Reason: Wheezing Last Admin: 03/30/19 07:50 Dose: 3 ml Baclofen (Lioresal) 5 mg PO TID LETICIA Last Admin: 04/01/19 13:33 Dose: 5 mg Diphenhydramine HCl (Benadryl) 25 mg PO QPM PRN PRN Reason: Insomnia Last Admin: 04/01/19 01:04 Dose: 25 mg Enoxaparin Sodium (Lovenox) 40 mg SUBQ DAILY LETICIA Last Admin: 04/01/19 08:19 Dose: 40 mg Hydromorphone HCl (Dilaudid Inj Syringe) 0.5 mg IVP Q1H PRN PRN Reason: Breakthrough Pain Last Admin: 04/01/19 00:59 Dose: 0.5 mg Sodium Chloride (Normal Saline 0.9%) 500 mls @ 0 mls/hr IV Q24H PRN PRN Reason: TKO RATE Last Admin: 03/31/19 03:50 Dose: 20 mls/hr Multivitamins 10 ml/ Chromium/Copper/Manganese/Seleni/Zn 1 ml/ Amino Ac/Electrol/Dextrose /Calcium 2,011 mls @ 70 mls/hr IV Q24H LETICIA; Protocol Last Admin: 03/31/19 19:56 Dose: 50 mls/hr Fat Emulsion Intravenous (Intralipid 20%) 250 mls @ 21 mls/hr IV Q24H LETICIA Last Infusion: 04/01/19 14:20 Dose: Infused Piperacillin Sod/Tazobactam (Sod 3.375 gm/ Sodium Chloride) 100 mls @ 200 mls/hr IV Q6H LETICIA Last Infusion: 04/01/19 14:21 Dose: Infused Potassium Phosphate 15 mmol/ (Sodium Chloride) 255 mls @ 42.5 mls/hr IV ONCE ONE Stop: 04/01/19 18:59 Last Admin: 04/01/19 13:34 Dose: 42.5 mls/hr Ondansetron HCl (Zofran Inj) 4 mg IVP Q6HR PRN PRN Reason: Nausea / Vomiting Last Admin: 03/30/19 12:14 Dose: 4 mg Pantoprazole Sodium (Protonix) 40 mg IVP QDAC LETICIA Last Admin: 04/01/19 06:12 Dose: 40 mg Prochlorperazine Edisylate (Compazine Inj) 10 mg IVP Q4HR PRN PRN Reason: Nausea / Vomiting Last Admin: 03/30/19 13:13 Dose: 10 mg Sodium Chloride (Normal Saline Flush 0.9%) 10 ml IVP PRN PRN PRN Reason: NEEDED PER PROVIDER ORDERS Last Admin: 04/01/19 06:12 Dose: 10 ml Sodium Chloride (Normal Saline Flush 0.9%) 10 ml IVP 0100,0900,1700 [facility] Last Admin: 04/01/19 08:19 Dose: Not Given Sodium Chloride (Normal Saline Flush 0.9%) 20 ml IVP PRN PRN PRN Reason: After Blood Draw Last Admin: 03/30/19 04:47 Dose: 20 ml Aspirin [Aspir 81] 81 mg PO Q48H 05/05/13 Krill/Lovely-3/Dha/Epa/Lipids [Krill Oil 350 mg Softgel] 750 mg PO DAILY 01/28/19 Capecitabine 4 tab PO BID 03/29/19 Capecitabine 150 mg PO BID 03/29/19 Cholecalciferol (Vitamin D3) [Vitamin D3] 2,000 units PO DAILY 03/29/19 Objective - Vital Signs/Intake & Output Reviewed Vital Signs: Yes Vital Signs: Vital Signs x48h Temp Pulse Pulse Resp BP BP Pulse Ox 04/01/19 07:50 74 18 04/01/19 07:42 36.7 C 74 16 102/54 L 97 04/01/19 05:53 36.7 C 73 18 111/53 L 97 Intake & Output: Intake & Output 03/29/19 03/30/19 03/31/19 04/01/19 23:59 23:59 23:59 23:59 Intake Total 9777.054 1352.334 3802.666 100 Output Total 1875 2425 1360 1050 Balance -128.000 487.069 7927.666 -950 - Objective General Appearance: positive: No acute distress, Alert Eyes Bilateral: positive: Normal inspection ENT: positive: ENT inspection nml Neck: positive: Nml inspection Respiratory: positive: No respiratory distress. negative: Wheezes, Rales, Rhonchi Cardiovascular: positive: Regular rate & rhythm, No murmur. negative: Tachycardia, Bradycardia, Systolic murmur, Diastolic murmur Abdomen: positive: Non-tender, Nml bowel sounds, No distention, Other (Colostomy in the right lower quadrant has liquid output.). negative: Tenderness, Guarding, Rebound Skin: positive: No rash, Warm, Dry Extremities: positive: Full ROM, No pedal edema Neurologic/Psychiatric: positive: Oriented x3. negative: Disoriented to person, Disoriented to place, Disoriented to time - Lab Results Fish Bones: 04/01/19 04:25 04/01/19 04:25 Other Labs: Lab Results x24hrs 04/01/19 04/01/19 04/01/19 Range/Units 12:13 05:46 04:25 WBC (4.8-10.8) x10^3/uL RBC (4.70-6.10) 10^6/uL Hgb (14.0-18.0) g/dL Hct (42.0-52.0) % MCV (80.0-94.0) fL MCH (27.0-31.0) pg MCHC (32.0-36.0) g/dL RDW (12.0-15.0) % Plt Count (130-450) 10^3/uL MPV (7.4-11.4) fL Neut # (Auto) Lymph # (Auto) [place] # (Auto) Eos # (Auto) Baso # (Auto) Absolute Nucleated RBC Total Counted Band Neuts % (Manual) (0 - 10) % Abnorm Lymph % (Manual) % Metamyelocytes % ( - 0) % Myelocytes % ( - 0) % Nucleated RBC % Neutrophils # (Manual) (1.5-6.6) 10^3/uL Lymphocytes # (Manual) (1.5-3.5) 10^3/uL Monocytes # (Manual) (0.0-1.0) 10^3/uL Eosinophils # (Manual) (0-0.7) 10^3/uL Basophils # (Manual) (0-0.1) 10^3/uL Differential Comment WBC Morphology (NORMAL) Platelet Estimate (NORMAL) Platelet Morphology (NORMAL) RBC Morph Micro Appear (NORMAL) Sodium 136 (135-145) mmol/L Potassium 3.1 L (3.5-5.0) mmol/L Chloride 105 (101-111) mmol/L Carbon Dioxide 25 (21-32) mmol/L Anion Gap 6.0 (6-13) BUN 11 (6-20) mg/dL Creatinine 0.9 (0.6-1.2) mg/dL Estimated GFR (MDRD) 81 L (>89) Glucose 141 H (70-100) mg/dL POC Whole Bld Glucose 113 H 112 H (70 - 100) mg/dL Calcium 7.5 L (8.5-10.3) mg/dL Phosphorus 2.3 L (2.5-4.6) mg/dL Magnesium 2.0 (1.7-2.8) mg/dL Urine Color Urine Clarity (CLEAR) Urine pH (5.0-7.5) PH Ur Specific [place] (1.002-1.030) Urine Protein (NEGATIVE) mg/dL Urine Glucose (UA) (NEGATIVE) mg/dL Urine Ketones (NEGATIVE) mg/dL Urine Occult Blood (NEGATIVE) Urine Nitrite (NEGATIVE) Urine Bilirubin (NEGATIVE) Urine Urobilinogen (NORMAL) E.U./dL Ur Leukocyte Esterase (NEGATIVE) Urine RBC (0-5) /HPF Urine WBC (0-3) /HPF Ur Squamous Epith Cells (<= Few) Urine Bacteria (None Seen) /HPF Urine Mucus Urine Culture Comments Stl C. diff Tox B Gene (NEGATIVE) 04/01/19 04/01/19 03/31/19 Range/Units 04:25 00:06 20:06 WBC 36.4 H* (4.8-10.8) x10^3/uL RBC 3.45 L (4.70-6.10) 10^6/uL Hgb 9.8 L (14.0-18.0) g/dL Hct 29.9 L (42.0-52.0) % MCV 86.7 (80.0-94.0) fL MCH 28.4 (27.0-31.0) pg MCHC 32.8 (32.0-36.0) g/dL RDW 20.5 H (12.0-15.0) % Plt Count 164 (130-450) 10^3/uL MPV 8.9 (7.4-11.4) fL Neut # (Auto) Not Reportable Lymph # (Auto) Not Reportable [place] # (Auto) Not Reportable Eos # (Auto) Not Reportable Baso # (Auto) Not Reportable Absolute Nucleated RBC Not Reportable Total Counted 100 Band Neuts % (Manual) 3 (0 - 10) % Abnorm Lymph % (Manual) 0 % Metamyelocytes % 3 H ( - 0) % Myelocytes % 3 H ( - 0) % Nucleated RBC % Not Reportable Neutrophils # (Manual) 30.6 H (1.5-6.6) 10^3/uL Lymphocytes # (Manual) 1.8 (1.5-3.5) 10^3/uL Monocytes # (Manual) 1.5 H (0.0-1.0) 10^3/uL Eosinophils # (Manual) 0.4 (0-0.7) 10^3/uL Basophils # (Manual) 0.0 (0-0.1) 10^3/uL Differential Comment MANUAL DIFFERENTIAL WBC Morphology NORMAL APPEARANCE (NORMAL) Platelet Estimate NORMAL (130-450,000) (NORMAL) Platelet Morphology NORMAL APPEARANCE (NORMAL) RBC Morph Micro Appear 2+ ANISOCYTOSIS (NORMAL) Sodium 135 (135-145) mmol/L Potassium 3.6 (3.5-5.0) mmol/L Chloride 100 L (101-111) mmol/L Carbon Dioxide 26 (21-32) mmol/L Anion Gap 9.0 (6-13) BUN 12 (6-20) mg/dL Creatinine 1.1 (0.6-1.2) mg/dL Estimated GFR (MDRD) 64 L (>89) Glucose 118 H (70-100) mg/dL POC Whole Bld Glucose 125 H (70 - 100) mg/dL Calcium 7.6 L (8.5-10.3) mg/dL Phosphorus 2.5 (2.5-4.6) mg/dL Magnesium 1.8 (1.7-2.8) mg/dL Urine Color Urine Clarity (CLEAR) Urine pH (5.0-7.5) PH Ur Specific [place] (1.002-1.030) Urine Protein (NEGATIVE) mg/dL Urine Glucose (UA) (NEGATIVE) mg/dL Urine Ketones (NEGATIVE) mg/dL Urine Occult Blood (NEGATIVE) Urine Nitrite (NEGATIVE) Urine Bilirubin (NEGATIVE) Urine Urobilinogen (NORMAL) E.U./dL Ur Leukocyte Esterase (NEGATIVE) Urine RBC (0-5) /HPF Urine WBC (0-3) /HPF Ur Squamous Epith Cells (<= Few) Urine Bacteria (None Seen) /HPF Urine Mucus Urine Culture Comments Stl C. diff Tox B Gene (NEGATIVE) 03/31/19 03/31/19 03/31/19 Range/Units 18:25 13:00 11:20 WBC (4.8-10.8) x10^3/uL RBC (4.70-6.10) 10^6/uL Hgb (14.0-18.0) g/dL Hct (42.0-52.0) % MCV (80.0-94.0) fL MCH (27.0-31.0) pg MCHC (32.0-36.0) g/dL RDW (12.0-15.0) % Plt Count (130-450) 10^3/uL MPV (7.4-11.4) fL Neut # (Auto) Lymph # (Auto) [place] # (Auto) Eos # (Auto) Baso # (Auto) Absolute Nucleated RBC Total Counted Band Neuts % (Manual) (0 - 10) % Abnorm Lymph % (Manual) % Metamyelocytes % ( - 0) % Myelocytes % ( - 0) % Nucleated RBC % Neutrophils # (Manual) (1.5-6.6) 10^3/uL Lymphocytes # (Manual) (1.5-3.5) 10^3/uL Monocytes # (Manual) (0.0-1.0) 10^3/uL Eosinophils # (Manual) (0-0.7) 10^3/uL Basophils # (Manual) (0-0.1) 10^3/uL Differential Comment WBC Morphology (NORMAL) Platelet Estimate (NORMAL) Platelet Morphology (NORMAL) RBC Morph Micro Appear (NORMAL) Sodium (135-145) mmol/L Potassium (3.5-5.0) mmol/L Chloride (101-111) mmol/L Carbon Dioxide (21-32) mmol/L Anion Gap (6-13) BUN (6-20) mg/dL Creatinine (0.6-1.2) mg/dL Estimated GFR (MDRD) (>89) Glucose (70-100) mg/dL POC Whole Bld Glucose 111 H (70 - 100) mg/dL Calcium (8.5-10.3) mg/dL Phosphorus (2.5-4.6) mg/dL Magnesium (1.7-2.8) mg/dL Urine Color DARK YELLOW Urine Clarity CLEAR (CLEAR) Urine pH 6.0 (5.0-7.5) PH Ur Specific [place] 1.020 (1.002-1.030) Urine Protein NEGATIVE (NEGATIVE) mg/dL Urine Glucose (UA) NEGATIVE (NEGATIVE) mg/dL Urine Ketones NEGATIVE (NEGATIVE) mg/dL Urine Occult Blood NEGATIVE (NEGATIVE) Urine Nitrite NEGATIVE (NEGATIVE) Urine Bilirubin NEGATIVE (NEGATIVE) Urine Urobilinogen 0.2 (NORMAL) (NORMAL) E.U./dL Ur Leukocyte Esterase NEGATIVE (NEGATIVE) Urine RBC 0-5 (0-5) /HPF Urine WBC 0-3 (0-3) /HPF Ur Squamous Epith Cells RARE Squamous (<= Few) Urine Bacteria Rare (None Seen) /HPF Urine Mucus Few Strands Urine Culture Comments NOT INDICATED Stl C. diff Tox B Gene NEGATIVE (NEGATIVE) ABX Reporting Has patient been on IV antibiotics over the past 48 hours?: Yes Assessment/Plan - Problem List (1) Leukocytosis Impression: His white count has stabilized and likely decreased little bit this morning to 36.4. He still has 3% bands but this is decreased compared 10% from yesterday. There are no obvious signs of infection at this time. He has remained afebrile. His urinalysis and C. difficile are both negative. Blood cultures have also been negative. Given his white count had such a large jump the day before with bands present, we will keep him on Zosyn IV for the time being. We will continue to look for any possible signs of infection and follow-up cultures. Continue to trend white count on a daily basis. Qualifiers: Leukocytosis type: bandemia Qualified Code(s): D72.825 - Bandemia (2) Ileus Impression: He is once again having output from his colostomy bag and is tolerating a clear liquid diet. We will keep him on a clear liquid diet for now. Will defer the continuation of TPN to general surgery. (3) Hypokalemia Impression: He remains hypokalemic and we will be replacing this orally as he is taking oral intake. (4) Hypophosphatemia Impression: This is improving. We will continue to replace orally. If remains on TPN, will increase the potassium phosphate in the TPN. (5) COPD (chronic obstructive pulmonary disease) Impression: Stable and not in exacerbation. Continue albuterol as needed. (6) Hx of coronary artery disease Impression: Stable. We will resume his home aspirin and start him on Lipitor as he is christin ing p.o.
[2019-04-01] MEDS ORDERED: POTASSIUM PHOSPHATE 15 MMOL in SODIUM CHLORIDE 0.9% 250 ML IV ONE (13:00)
[2019-04-01] MEDS ORDERED: SODIUM CHLORIDE FLUSH 0.9% 10 ML SYRINGE IVP PRN (15:31)
--- NOTE | 2019-04-01 15:46 | PROVIDER PROGRESS NOTE ---
Subjective - General Admit Date: 03/29/19 Procedure Date: 12/02/18 Post Op Days: 120 Procedure Performed: None - Review of Systems General: negative: Fever Gastrointestinal: positive: Nausea, Vomiting, Abdominal pain Objective - Patient Data Reviewed Vital Signs: Yes Vital Signs: Vital Signs x48h Temp Pulse Pulse Resp BP Pulse Ox 04/01/19 13:00 37.4 C 80 21 132/61 H 96 04/01/19 07:50 74 18 Intake & Output: Intake and Output Totals x24h 03/30/19 03/31/19 04/01/19 23:59 23:59 23:59 Intake Total 2857.334 3802.666 750 Output Total 2425 1360 1450 Balance 134.891 7290.666 -700 - Lab Results Lab Results: 04/01/19 04:25 04/01/19 04:25 Other Lab Results: Lab Results x24hrs 04/01/19 04/01/19 04/01/19 Range/Units 12:13 05:46 04:25 WBC (4.8-10.8) x10^3/uL RBC (4.70-6.10) 10^6/uL Hgb (14.0-18.0) g/dL Hct (42.0-52.0) % MCV (80.0-94.0) fL MCH (27.0-31.0) pg MCHC (32.0-36.0) g/dL RDW (12.0-15.0) % Plt Count (130-450) 10^3/uL MPV (7.4-11.4) fL Neut # (Auto) Lymph # (Auto) [place] # (Auto) Eos # (Auto) Baso # (Auto) Absolute Nucleated RBC Total Counted Band Neuts % (Manual) (0 - 10) % Abnorm Lymph % (Manual) % Metamyelocytes % ( - 0) % Myelocytes % ( - 0) % Nucleated RBC % Neutrophils # (Manual) (1.5-6.6) 10^3/uL Lymphocytes # (Manual) (1.5-3.5) 10^3/uL Monocytes # (Manual) (0.0-1.0) 10^3/uL Eosinophils # (Manual) (0-0.7) 10^3/uL Basophils # (Manual) (0-0.1) 10^3/uL Differential Comment WBC Morphology (NORMAL) Platelet Estimate (NORMAL) Platelet Morphology (NORMAL) RBC Morph Micro Appear (NORMAL) Sodium 136 (135-145) mmol/L Potassium 3.1 L (3.5-5.0) mmol/L Chloride 105 (101-111) mmol/L Carbon Dioxide 25 (21-32) mmol/L Anion Gap 6.0 (6-13) BUN 11 (6-20) mg/dL Creatinine 0.9 (0.6-1.2) mg/dL Estimated GFR (MDRD) 81 L (>89) Glucose 141 H (70-100) mg/dL POC Whole Bld Glucose 113 H 112 H (70 - 100) mg/dL Calcium 7.5 L (8.5-10.3) mg/dL Phosphorus 2.3 L (2.5-4.6) mg/dL Magnesium 2.0 (1.7-2.8) mg/dL 04/01/19 04/01/19 03/31/19 Range/Units 04:25 00:06 20:06 WBC 36.4 H* (4.8-10.8) x10^3/uL RBC 3.45 L (4.70-6.10) 10^6/uL Hgb 9.8 L (14.0-18.0) g/dL Hct 29.9 L (42.0-52.0) % MCV 86.7 (80.0-94.0) fL MCH 28.4 (27.0-31.0) pg MCHC 32.8 (32.0-36.0) g/dL RDW 20.5 H (12.0-15.0) % Plt Count 164 (130-450) 10^3/uL MPV 8.9 (7.4-11.4) fL Neut # (Auto) Not Reportable Lymph # (Auto) Not Reportable [place] # (Auto) Not Reportable Eos # (Auto) Not Reportable Baso # (Auto) Not Reportable Absolute Nucleated RBC Not Reportable Total Counted 100 Band Neuts % (Manual) 3 (0 - 10) % Abnorm Lymph % (Manual) 0 % Metamyelocytes % 3 H ( - 0) % Myelocytes % 3 H ( - 0) % Nucleated RBC % Not Reportable Neutrophils # (Manual) 30.6 H (1.5-6.6) 10^3/uL Lymphocytes # (Manual) 1.8 (1.5-3.5) 10^3/uL Monocytes # (Manual) 1.5 H (0.0-1.0) 10^3/uL Eosinophils # (Manual) 0.4 (0-0.7) 10^3/uL Basophils # (Manual) 0.0 (0-0.1) 10^3/uL Differential Comment MANUAL DIFFERENTIAL WBC Morphology NORMAL APPEARANCE (NORMAL) Platelet Estimate NORMAL (130-450,000) (NORMAL) Platelet Morphology NORMAL APPEARANCE (NORMAL) RBC Morph Micro Appear 2+ ANISOCYTOSIS (NORMAL) Sodium 135 (135-145) mmol/L Potassium 3.6 (3.5-5.0) mmol/L Chloride 100 L (101-111) mmol/L Carbon Dioxide 26 (21-32) mmol/L Anion Gap 9.0 (6-13) BUN 12 (6-20) mg/dL Creatinine 1.1 (0.6-1.2) mg/dL Estimated GFR (MDRD) 64 L (>89) Glucose 118 H (70-100) mg/dL POC Whole Bld Glucose 125 H (70 - 100) mg/dL Calcium 7.6 L (8.5-10.3) mg/dL Phosphorus 2.5 (2.5-4.6) mg/dL Magnesium 1.8 (1.7-2.8) mg/dL 03/31/19 Range/Units 18:25 WBC (4.8-10.8) x10^3/uL RBC (4.70-6.10) 10^6/uL Hgb (14.0-18.0) g/dL Hct (42.0-52.0) % MCV (80.0-94.0) fL MCH (27.0-31.0) pg MCHC (32.0-36.0) g/dL RDW (12.0-15.0) % Plt Count (130-450) 10^3/uL MPV (7.4-11.4) fL Neut # (Auto) Lymph # (Auto) [place] # (Auto) Eos # (Auto) Baso # (Auto) Absolute Nucleated RBC Total Counted Band Neuts % (Manual) (0 - 10) % Abnorm Lymph % (Manual) % Metamyelocytes % ( - 0) % Myelocytes % ( - 0) % Nucleated RBC % Neutrophils # (Manual) (1.5-6.6) 10^3/uL Lymphocytes # (Manual) (1.5-3.5) 10^3/uL Monocytes # (Manual) (0.0-1.0) 10^3/uL Eosinophils # (Manual) (0-0.7) 10^3/uL Basophils # (Manual) (0-0.1) 10^3/uL Differential Comment WBC Morphology (NORMAL) Platelet Estimate (NORMAL) Platelet Morphology (NORMAL) RBC Morph Micro Appear (NORMAL) Sodium (135-145) mmol/L Potassium (3.5-5.0) mmol/L Chloride (101-111) mmol/L Carbon Dioxide (21-32) mmol/L Anion Gap (6-13) BUN (6-20) mg/dL Creatinine (0.6-1.2) mg/dL Estimated GFR (MDRD) (>89) Glucose (70-100) mg/dL POC Whole Bld Glucose 111 H (70 - 100) mg/dL Calcium (8.5-10.3) mg/dL Phosphorus (2.5-4.6) mg/dL Magnesium (1.7-2.8) mg/dL - Current Medications Current Medications: Current Medications Generic Name Dose Route Start Last Admin Trade Name Freq PRN Reason Stop Dose Admin Albuterol/Ipratropium 3 ml 03/28/19 21:49 03/30/19 07:50 Duoneb INH 3 ml Q4HR PRN Administration Wheezing Baclofen 5 mg 03/29/19 15:00 04/01/19 13:33 Lioresal PO 5 mg TID LETICIA Administration Diphenhydramine HCl 25 mg 03/28/19 20:46 04/01/19 01:04 Benadryl PO 25 mg QPM PRN Administration Insomnia Enoxaparin Sodium 40 mg 03/29/19 09:00 04/01/19 08:19 Lovenox SUBQ 40 mg DAILY LETICIA Administration Hydromorphone HCl 0.5 mg 03/28/19 19:22 04/01/19 00:59 Dilaudid Inj Syringe IVP 0.5 mg Q1H PRN Administration Breakthrough Pain Sodium Chloride 500 mls @ 0 mls/hr 03/29/19 21:41 03/31/19 03:50 Normal Saline 0.9% IV 20 mls/hr Q24H PRN Administration TKO RATE TKO Multivitamins 10 ml/ Chromium/ 2,011 mls @ 70 mls/hr 03/30/19 19:00 03/31/19 19:56 Copper/Manganese/Seleni/Zn 1 IV 50 mls/hr ml/ Amino Ac/Electrol/Dextrose Q24H LETICIA Administration /Calcium Protocol Fat Emulsion Intravenous 250 mls @ 21 mls/hr 03/30/19 19:00 04/01/19 14:20 Intralipid 20% IV Infused Q24H LETICIA Infusion Piperacillin Sod/Tazobactam 100 mls @ 200 mls/hr 03/31/19 08:00 04/01/19 14:21 Sod 3.375 gm/ Sodium Chloride IV Infused Q6H LETICIA Infusion Potassium Phosphate 15 mmol/ 255 mls @ 42.5 mls/hr 04/01/19 13:00 04/01/19 13:34 Sodium Chloride IV 04/01/19 18:59 42.5 mls/hr ONCE ONE Administration Ondansetron HCl 4 mg 03/28/19 17:42 03/30/19 12:14 Zofran Inj IVP 4 mg Q6HR PRN Administration Nausea / Vomiting Pantoprazole Sodium 40 mg 03/28/19 18:00 04/01/19 06:12 Protonix IVP 40 mg QDAC LETICIA Administration Prochlorperazine Edisylate 10 mg 03/29/19 18:20 03/30/19 13:13 Compazine Inj IVP 10 mg Q4HR PRN Administration Nausea / Vomiting Sodium Chloride 10 ml 03/28/19 17:27 04/01/19 06:12 Normal Saline Flush 0.9% IVP 10 ml PRN PRN Administration NEEDED PER PROVIDER ORDERS Sodium Chloride 10 ml 03/29/19 01:00 04/01/19 08:19 Normal Saline Flush 0.9% IVP Not Given 0100,0900,1700 LETICIA Sodium Chloride 20 ml 03/29/19 20:55 03/30/19 04:47 Normal Saline Flush 0.9% IVP 20 ml PRN PRN Administration After Blood Draw - Physical Exam Abdomen: positive: Non-tender, Nml bowel sounds, Other (Mild abdominal distens ion). negative: Guarding, Rebound ABX Reporting Has patient been on IV antibiotics over the past 48 hours?: Yes Impression/Plan - Problem List Problem List: Abdominal pain has improved significantly and nausea is present but better. He was able to take a little clear liquid today and then stopped before he got to nauseated. I agree with continued Zosyn. Hiccups are back but less severe - continue Bactrim. Will give a couple of doses of reglan as well.
[2019-04-01] MEDS: TPN (CLINIMIX E 5/15) 2,000 ML with MULTIVITAMIN 10 ML, TRACE ELEMENTS V CONC 1 ML IV SCH ×3 (19:25)
[2019-04-01] MEDS: FAT EMULSION 20% 250 ML IV SCH (19:25)
[2019-04-01] MEDS ORDERED: ATORVASTATIN 40 MG TABLET PO SCH (21:00)
[2019-04-01] MEDS: ATORVASTATIN 40 MG TABLET PO SCH (21:07)
[2019-04-02] MEDS: PIPERACILLIN/TAZOBACTAM 3.375 GM in SODIUM CHLORIDE 0.9% MINIBAG 100 ML IV SCH ×4 (02:02→20:19)
[2019-04-02] MEDS: SODIUM CHLORIDE FLUSH 0.9% 10 ML SYRINGE IVP SCH ×3 (02:02→16:10)
[2019-04-02] MEDS: SODIUM CHLORIDE 0.9% 500 ML IV PRN (02:02)
[2019-04-02 05:32] LABS: BASOPHILS % (AUTO) 0.1 %; EOSINOPHILS % (AUTO) 1.7 %; HGB - HEMOGLOBIN 10.2 g/dL (14.0-18.0); LYMPHOCYTES % (AUTO) 5.4 %; MEAN CORPUSCULAR HEMOGLOBIN 29.2 pg (27.0-31.0); MEAN CORPUSCULAR HGB CONC 32.7 g/dL (32.0-36.0); MEAN CORPUSCULAR VOLUME 89.4 fL (80.0-94.0); MEAN PLATELET VOLUME 9.1 fL (7.4-11.4); MONOCYTES % (AUTO) 4.3 %; NEUTROPHILS % (AUTO) 72.9 %; PLT - PLATELET COUNT 160 10^3/uL (130-450); RED BLOOD COUNT 3.49 10^6/uL (4.70-6.10); RED CELL DISTRIBUTION WIDTH 20.9 % (12.0-15.0); WHITE BLOOD COUNT 32.6 x10^3/uL (4.8-10.8)
[2019-04-02 05:43] LABS: CALCIUM 7.7 mg/dL (8.5-10.3); CREATININE 0.9 mg/dL (0.6-1.2); PHOSPHORUS 2.2 mg/dL (2.5-4.6)
[2019-04-02 05:55] LABS: ABNORMAL LYMPHS % (MANUAL) 0 %
[2019-04-02 06:01] LABS: BAND NEUTROPHILS % (MANUAL) 1 %; EOSINOPHILS # (MANUAL) 0.3 10^3/uL (0-0.7); LYMPHOCYTES # (MANUAL) 2.3 10^3/uL (1.5-3.5); LYMPHOCYTES % (MANUAL) 7 %; MONOCYTES # (MANUAL) 1.3 10^3/uL (0.0-1.0); MYELOCYTES % (MANUAL) 4 %
[2019-04-02 06:02] LABS: PLATELET ESTIMATE, MANUAL NORMAL (130-450,000) (NORMAL); PLATELET MORPHOLOGY NORMAL APPEARANCE (NORMAL); RBC MORPHOLOGY (MULTIPLE) 1+ ANISOCYTOSIS (NORMAL)
[2019-04-02 06:03] LABS: DIFFERENTIAL COMMENT MANUAL DIFFERENTIAL
[2019-04-02] MEDS: BACLOFEN 10 MG TABLET PO SCH ×3 (06:38→21:13)
[2019-04-02] MEDS: PANTOPRAZOLE 40 MG VIAL IVP SCH (06:38)
[2019-04-02] MEDS: SODIUM CHLORIDE FLUSH 0.9% 10 ML SYRINGE IVP PRN ×2 (06:39→20:20)
--- NOTE | 2019-04-02 08:40 | PROVIDER PROGRESS NOTE ---
Subjective - Prog Note Date Prog Note Date: 04/02/19 - Subjective Subjective: Continues to report feeling better each day. He is tolerating a liquid diet and reports no abdominal pain or nausea and vomiting. He still complains of hiccups and occasional esophageal spasms. He states he does feel a little weak overall as he has been in bed or sitting in a chair with minimal ambulation. Current Medications - Current Medications Current Medications: Active Medications Albuterol () 2.5 mg INH Q6H PRN PRN Reason: Shortness of Air/Wheezing Albuterol/Ipratropium (Duoneb) 3 ml INH Q4HR PRN PRN Reason: Wheezing Last Admin: 03/30/19 07:50 Dose: 3 ml Aspirin (Ecotrin) 81 mg PO DAILY [facility] Last Admin: 04/02/19 08:44 Dose: 81 mg Atorvastatin Calcium (Lipitor) 20 mg PO QPM [facility] Last Admin: 04/01/19 21:07 Dose: Not Given Baclofen (Lioresal) 5 mg PO TID [facility] Last Admin: 04/02/19 06:38 Dose: 5 mg Diphenhydramine HCl (Benadryl) 25 mg PO QPM PRN PRN Reason: Insomnia Last Admin: 04/01/19 23:36 Dose: 25 mg Enoxaparin Sodium (Lovenox) 40 mg SUBQ DAILY [facility] Last Admin: 04/02/19 08:44 Dose: 40 mg Hydromorphone HCl (Dilaudid Inj Syringe) 0.5 mg IVP Q1H PRN PRN Reason: Breakthrough Pain Last Admin: 04/01/19 17:24 Dose: 0.5 mg Sodium Chloride (Normal Saline 0.9%) 500 mls @ 0 mls/hr IV Q24H PRN PRN Reason: TKO RATE Last Admin: 04/02/19 02:02 Dose: 30 mls/hr Multivitamins 10 ml/ Chromium/Copper/Manganese/Seleni/Zn 1 ml/ Amino Ac/Electrol/Dextrose /Calcium 2,011 mls @ 70 mls/hr IV Q24H [facility]; Protocol Last Admin: 04/01/19 19:25 Dose: 70 mls/hr Fat Emulsion Intravenous (Intralipid 20%) 250 mls @ 21 mls/hr IV Q24H [facility] Last Infusion: 04/02/19 07:24 Dose: Infused Piperacillin Sod/Tazobactam (Sod 3.375 gm/ Sodium Chloride) 100 mls @ 200 mls/hr IV Q6H [facility] Last Infusion: 04/02/19 09:20 Dose: Infused Metoclopramide HCl (Reglan Inj) 5 mg IVP Q6HR PRN PRN Reason: Nausea / Vomiting Last Admin: 04/02/19 08:47 Dose: 5 mg Ondansetron HCl (Zofran Inj) 4 mg IVP Q6HR PRN PRN Reason: Nausea / Vomiting Last Admin: 03/30/19 12:14 Dose: 4 mg Pantoprazole Sodium (Protonix) 40 mg IVP QDAC [facility] Last Admin: 04/02/19 06:38 Dose: 40 mg Prochlorperazine Edisylate (Compazine Inj) 10 mg IVP Q4HR PRN PRN Reason: Nausea / Vomiting Last Admin: 03/30/19 13:13 Dose: 10 mg Sodium Chloride (Normal Saline Flush 0.9%) 10 ml IVP PRN PRN PRN Reason: NEEDED PER PROVIDER ORDERS Last Admin: 04/02/19 06:39 Dose: 10 ml Sodium Chloride (Normal Saline Flush 0.9%) 10 ml IVP 0100,0900,1700 [facility] Last Admin: 04/02/19 02:02 Dose: 10 ml Sodium Chloride (Normal Saline Flush 0.9%) 20 ml IVP PRN PRN PRN Reason: After Blood Draw Last Admin: 03/30/19 04:47 Dose: 20 ml Sodium Chloride (Normal Saline Flush 0.9%) 20 ml IVP PRN PRN PRN Reason: After Blood Draw Aspirin [Aspir 81] 81 mg PO Q48H 05/05/13 Krill/Melvin-3/Dha/Epa/Lipids [Krill Oil 350 mg Softgel] 750 mg PO DAILY 01/28/19 Capecitabine 4 tab PO BID 03/29/19 Capecitabine 150 mg PO BID 03/29/19 Cholecalciferol (Vitamin D3) [Vitamin D3] 2,000 units PO DAILY 03/29/19 Objective - Vital Signs/Intake & Output Reviewed Vital Signs: Yes Vital Signs: Vital Signs x48h Temp Pulse Resp BP BP Pulse Ox 04/02/19 07:57 37.2 C 68 19 118/54 L 100 04/02/19 05:00 37.3 C 74 18 117/60 98 Intake & Output: Intake & Output 03/30/19 03/31/19 04/01/19 04/02/19 23:59 23:59 23:59 23:59 Intake Total 2857.334 3802.666 2910.000 650 Output Total 2425 1360 2825 1575 Balance 913.377 4727.666 85.000 -925 - Objective General Appearance: positive: No acute distress, Alert Eyes Bilateral: positive: Normal inspection ENT: positive: ENT inspection nml Neck: positive: Nml inspection Respiratory: positive: No respiratory distress. negative: Wheezes, Rales, Rhonchi Cardiovascular: positive: Regular rate & rhythm, No murmur. negative: Tachycardia, Bradycardia, Systolic murmur, Diastolic murmur Abdomen: positive: Non-tender, Nml bowel sounds, No distention, Other (There is dark liquid stool output from the colostomy.). negative: Tenderness, Guarding, Rebound Skin: positive: Warm, Dry Extremities: positive: No pedal edema Neurologic/Psychiatric: positive: Oriented x3. negative: Disoriented to person, Disoriented to place, Disoriented to time - Lab Results Fish Bones: 04/02/19 04:35 04/02/19 04:35 Other Labs: Lab Results x24hrs 04/02/19 04/02/19 04/02/19 Range/Units 07:55 04:35 04:35 WBC 32.6 H (4.8-10.8) x10^3/uL RBC 3.49 L (4.70-6.10) 10^6/uL Hgb 10.2 L (14.0-18.0) g/dL Hct 31.2 L (42.0-52.0) % MCV 89.4 (80.0-94.0) fL MCH 29.2 (27.0-31.0) pg MCHC 32.7 (32.0-36.0) g/dL RDW 20.9 H (12.0-15.0) % Plt Count 160 (130-450) 10^3/uL MPV 9.1 (7.4-11.4) fL Neut # (Auto) Not Reportable Lymph # (Auto) Not Reportable [place] # (Auto) Not Reportable Eos # (Auto) Not Reportable Baso # (Auto) Not Reportable Absolute Nucleated RBC Not Reportable Total Counted 100 Band Neuts % (Manual) 1 (0 - 10) % Abnorm Lymph % (Manual) 0 % Myelocytes % 4 H ( - 0) % Nucleated RBC % Not Reportable Neutrophils # (Manual) 27.4 H (1.5-6.6) 10^3/uL Lymphocytes # (Manual) 2.3 (1.5-3.5) 10^3/uL Monocytes # (Manual) 1.3 H (0.0-1.0) 10^3/uL Eosinophils # (Manual) 0.3 (0-0.7) 10^3/uL Basophils # (Manual) 0.0 (0-0.1) 10^3/uL Differential Comment MANUAL DIFFERENTIAL WBC Morphology M (NORMAL) Platelet Estimate NORMAL (130-450,000) (NORMAL) Platelet Morphology NORMAL APPEARANCE (NORMAL) RBC Morph Micro Appear 1+ ANISOCYTOSIS (NORMAL) Sodium 135 (135-145) mmol/L Potassium 3.8 (3.5-5.0) mmol/L Chloride 105 (101-111) mmol/L Carbon Dioxide 24 (21-32) mmol/L Anion Gap 6.0 (6-13) BUN 11 (6-20) mg/dL Creatinine 0.9 (0.6-1.2) mg/dL Estimated GFR (MDRD) 81 L (>89) Glucose 128 H (70-100) mg/dL POC Whole Bld Glucose 136 H (70 - 100) mg/dL Calcium 7.7 L (8.5-10.3) mg/dL Phosphorus 2.2 L (2.5-4.6) mg/dL 04/01/19 04/01/19 Range/Units 21:03 12:13 WBC (4.8-10.8) x10^3/uL RBC (4.70-6.10) 10^6/uL Hgb (14.0-18.0) g/dL Hct (42.0-52.0) % MCV (80.0-94.0) fL MCH (27.0-31.0) pg MCHC (32.0-36.0) g/dL RDW (12.0-15.0) % Plt Count (130-450) 10^3/uL MPV (7.4-11.4) fL Neut # (Auto) Lymph # (Auto) [place] # (Auto) Eos # (Auto) Baso # (Auto) Absolute Nucleated RBC Total Counted Band Neuts % (Manual) (0 - 10) % Abnorm Lymph % (Manual) % Myelocytes % ( - 0) % Nucleated RBC % Neutrophils # (Manual) (1.5-6.6) 10^3/uL Lymphocytes # (Manual) (1.5-3.5) 10^3/uL Monocytes # (Manual) (0.0-1.0) 10^3/uL Eosinophils # (Manual) (0-0.7) 10^3/uL Basophils # (Manual) (0-0.1) 10^3/uL Differential Comment WBC Morphology (NORMAL) Platelet Estimate (NORMAL) Platelet Morphology (NORMAL) RBC Morph Micro Appear (NORMAL) Sodium (135-145) mmol/L Potassium (3.5-5.0) mmol/L Chloride (101-111) mmol/L Carbon Dioxide (21-32) mmol/L Anion Gap (6-13) BUN (6-20) mg/dL Creatinine (0.6-1.2) mg/dL Estimated GFR (MDRD) (>89) Glucose (70-100) mg/dL POC Whole Bld Glucose 105 H 113 H (70 - 100) mg/dL Calcium (8.5-10.3) mg/dL Phosphorus (2.5-4.6) mg/dL ABX Reporting Has patient been on IV antibiotics over the past 48 hours?: Yes Assessment/Plan - Problem List (1) Leukocytosis Impression: His white count continues to improve with a decrease in his bands. Although there is no obvious source, this may be secondary to enteritis. We will continue him on Zosyn IV as he is improving. Will likely treat for a total of 5 to 7 days. Continue to trend his white count. Qualifiers: Leukocytosis type: bandemia Qualified Code(s): D72.825 - Bandemia (2) Ileus Impression: This continues to improve and he is now tolerating a diet. Will defer to surgery regarding advancement of his diet. Continue with baclofen for his hiccups. (3) COPD (chronic obstructive pulmonary disease) Impression: She remained stable and not in exacerbation. Continue albuterol as needed. (4) Hx of coronary artery disease Impression: Stable. He has been restarted on his aspirin as well as Lipitor.
[2019-04-02] MEDS: ASPIRIN EC 81 MG TABLET PO SCH (08:44)
[2019-04-02] MEDS: ENOXAPARIN 40 MG/0.4 ML SYRINGE SUBQ SCH (08:44)
[2019-04-02] MEDS: METOCLOPRAMIDE 10 MG/2 ML VIAL IVP PRN ×2 (08:47→16:09)
[2019-04-02] MEDS ORDERED: NEUTRA-PHOS 250 MG TABLET PO ONE (12:00)
--- NOTE | 2019-04-02 17:34 | PROVIDER PROGRESS NOTE ---
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 Rec: continue to advance diet as tolerated. (2) Intractable hiccups Assessment/Plan: improved somewhat with baclofen and metoclopramide; having what appear to be esophageal spasms possibly due to metoclopramide; ;will d/c same and increase dose of baclofen. 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 Rec: observation. (4) Leukocytosis Qualifiers: Leukocytosis type: bandemia Qualified Code(s): D72.825 - Bandemia Assessment/Plan: likely low grade sepsis due to chemotherapy; clinically improving. Rec: continue antibiotics, supportive measures; ow as per hospitalists. - Current Meds Current Meds: Current Medications Generic Name Dose Route Start Last Admin Trade Name Freq PRN Reason Stop Dose Admin Albuterol/Ipratropium 3 ml 03/28/19 21:49 03/30/19 07:50 Duoneb INH 3 ml Q4HR PRN Administration Wheezing Aspirin 81 mg 04/02/19 09:00 04/02/19 08:44 Ecotrin PO 81 mg DAILY [facility] Administration Atorvastatin Calcium 20 mg 04/01/19 21:00 04/01/19 21:07 Lipitor PO Not Given QPM [facility] Baclofen 5 mg 03/29/19 15:00 04/02/19 13:26 Lioresal PO 5 mg TID [facility] Administration Diphenhydramine HCl 25 mg 03/28/19 20:46 04/01/19 23:36 Benadryl PO 25 mg QPM PRN Administration Insomnia Enoxaparin Sodium 40 mg 03/29/19 09:00 04/02/19 08:44 Lovenox SUBQ 40 mg DAILY [facility] Administration Hydromorphone HCl 0.5 mg 03/28/19 19:22 04/01/19 17:24 Dilaudid Inj Syringe IVP 0.5 mg Q1H PRN Administration Breakthrough Pain Sodium Chloride 500 mls @ 0 mls/hr 03/29/19 21:41 04/02/19 16:00 Normal Saline 0.9% IV 0 mls/hr Q24H PRN Infusion TKO RATE TKO Multivitamins 10 ml/ Chromium/ 2,011 mls @ 70 mls/hr 03/30/19 19:00 04/01/19 19:25 Copper/Manganese/Seleni/Zn 1 IV 70 mls/hr ml/ Amino Ac/Electrol/Dextrose Q24H [facility] Administration /Calcium Protocol Fat Emulsion Intravenous 250 mls @ 21 mls/hr 03/30/19 19:00 04/02/19 07:24 Intralipid 20% IV Infused Q24H [facility] Infusion Piperacillin Sod/Tazobactam 100 mls @ 200 mls/hr 03/31/19 08:00 04/02/19 13:56 Sod 3.375 gm/ Sodium Chloride IV Infused Q6H [facility] Infusion Metoclopramide HCl 5 mg 04/01/19 15:46 04/02/19 16:09 Reglan Inj IVP 5 mg Q6HR PRN Administration Nausea / Vomiting Ondansetron HCl 4 mg 03/28/19 17:42 03/30/19 12:14 Zofran Inj IVP 4 mg Q6HR PRN Administration Nausea / Vomiting Pantoprazole Sodium 40 mg 03/28/19 18:00 04/02/19 06:38 Protonix IVP 40 mg QDAC [facility] Administration Prochlorperazine Edisylate 10 mg 03/29/19 18:20 03/30/19 13:13 Compazine Inj IVP 10 mg Q4HR PRN Administration Nausea / Vomiting Sodium Chloride 10 ml 03/28/19 17:27 04/02/19 06:39 Normal Saline Flush 0.9% IVP 10 ml PRN PRN Administration NEEDED PER PROVIDER ORDERS Sodium Chloride 10 ml 03/29/19 01:00 04/02/19 16:10 Normal Saline Flush 0.9% IVP Not Given 0100,0900,1700 [facility] Sodium Chloride 20 ml 03/29/19 20:55 03/30/19 04:47 Normal Saline Flush 0.9% IVP 20 ml PRN PRN Administration After Blood Draw - Lab Result Lab results reviewed: Yes Fish Bone Diagrams: 04/02/19 04:35 04/02/19 04:35 - Additional Planning Condition/Complexity: Improved Plan Discussed with:: Patient Time Spent: 31-60 minutes Subjective - Subjective Patient Reports: Feeling Better (hiccups slightly improved; having esophageal spasms every few hours; no N/V; tolerating full liquids well at present; nonbloody output from ileostomy reported, approx 300 ml today so far.) Objective Vital Signs: Vital Signs - 24 hr 04/01/19 04/02/19 04/02/19 21:00 00:02 05:00 Temperature 37.3 C 37.2 C 37.3 C Heart Rate 77 Heart Rate [ 77 73 74 Brachial] Heart Rate [ Monitoring electrodes] Respiratory 20 18 18 Rate Blood Pressure 117/60 [Left Brachial artery] Blood Pressure 110/57 L 119/66 [Left Radial artery] O2 Saturation 99 100 98 04/02/19 04/02/19 04/02/19 07:57 13:00 15:28 Temperature 37.2 C 36.9 C 37.3 C Heart Rate Heart Rate [ 68 66 Brachial] Heart Rate [ 78 Monitoring electrodes] Respiratory 19 18 22 Rate Blood Pressure [Left Brachial artery] Blood Pressure 118/54 L 112/54 L 88/45 L [Left Radial artery] O2 Saturation 100 98 100 04/02/19 04/02/19 04/02/19 15:35 15:45 15:51 Temperature Heart Rate Heart Rate [ Brachial] Heart Rate [ Monitoring electrodes] Respiratory Rate Blood Pressure [Left Brachial artery] Blood Pressure 150/62 H 129/60 115/61 [Left Radial artery] O2 Saturation Oxygen O2 Source Room air I&O (Last 24 Hrs): Intake and Output Totals x24h 03/31/19 04/01/19 04/02/19 23:59 23:59 23:59 Intake Total 3802.666 2910.000 1989 Output Total 1360 2825 2700 Balance 2442.666 85.000 -711 General: Alert, Oriented x3, Cooperative, Mild distress (with hiccups and episode of esophageal spasm lasting approx 30 seconds) HEENT: Mucous membr. moist/pink Neck: Supple, No JVD Neuro: Alert Cardiovascular: Regular rate, No murmurs, Gallops, Rubs Respiratory: Chest non-tender, No respiratory distress, Breath sounds nml Abdomen: Normal bowel sounds, Soft, No tenderness, No hepatospenomegaly, No masses, Other (ileostomy edematous, pink, mildly prolapsed, partially reducible, nontender) Extremities: No clubbing, No cyanosis, No edema, No tenderness/swelling Comments/Notes: rash improving - Results Results: Laboratory Results WBC 32.6 x10^3/uL (4.8-10.8) H 04/02/19 04:35 RBC 3.49 10^6/uL (4.70-6.10) L 04/02/19 04:35 Hgb 10.2 g/dL (14.0-18.0) L 04/02/19 04:35 Hct 31.2 % (42.0-52.0) L 04/02/19 04:35 MCV 89.4 fL (80.0-94.0) 04/02/19 04:35 MCH 29.2 pg (27.0-31.0) 04/02/19 04:35 MCHC 32.7 g/dL (32.0-36.0) 04/02/19 04:35 RDW 20.9 % (12.0-15.0) H 04/02/19 04:35 Plt Count 160 10^3/uL (130-450) 04/02/19 04:35 MPV 9.1 fL (7.4-11.4) 04/02/19 04:35 Neut # (Auto) Not Reportable 04/02/19 04:35 Lymph # (Auto) Not Reportable 04/02/19 04:35 [place] # (Auto) Not Reportable 04/02/19 04:35 Eos # (Auto) Not Reportable 04/02/19 04:35 Baso # (Auto) Not Reportable 04/02/19 04:35 Absolute Nucleated RBC Not Reportable 04/02/19 04:35 Total Counted 100 04/02/19 04:35 Band Neuts % (Manual) 1 % (0-10) 04/02/19 04:35 Abnorm Lymph % (Manual) 0 % 04/02/19 04:35 Metamyelocytes % 3 % (-0) H 04/01/19 04:25 Myelocytes % 4 % (-0) H 04/02/19 04:35 Nucleated RBC % Not Reportable 04/02/19 04:35 Neutrophils # (Manual) 27.4 10^3/uL (1.5-6.6) H 04/02/19 04:35 Lymphocytes # (Manual) 2.3 10^3/uL (1.5-3.5) 04/02/19 04:35 Monocytes # (Manual) 1.3 10^3/uL (0.0-1.0) H 04/02/19 04:35 Eosinophils # (Manual) 0.3 10^3/uL (0-0.7) 04/02/19 04:35 Basophils # (Manual) 0.0 10^3/uL (0-0.1) 04/02/19 04:35 Differential Comment MANUAL DIFFERENTIAL 04/02/19 04:35 Manual Slide Review Indicated 03/28/19 15:00 WBC Morphology M (NORMAL) 04/02/19 04:35 Platelet Estimate NORMAL (130-450,000) (NORMAL) 04/02/19 04:35 Platelet Morphology NORMAL APPEARANCE (NORMAL) 04/02/19 04:35 RBC Morph Micro Appear 1+ ANISOCYTOSIS (NORMAL) 1+ HYPOCHROMASIA (NORMAL) 1+ OVALOCYTES (NORMAL) 03/30/19 04:38 RBC Morph Micro Appear 2+ ANISOCYTOSIS (NORMAL) 03/31/19 06:00 RBC Morph Micro Appear 2+ ANISOCYTOSIS (NORMAL) 04/01/19 04:25 RBC Morph Micro Appear 1+ ANISOCYTOSIS (NORMAL) 04/02/19 04:35 PT 15.9 secs (9.9-12.6) H 03/28/19 15:00 INR 1.4 (0.8-1.2) H 03/28/19 15:00 Sodium 135 mmol/L (135-145) 04/02/19 04:35 Potassium 3.8 mmol/L (3.5-5.0) 04/02/19 04:35 Chloride 105 mmol/L (101-111) 04/02/19 04:35 Carbon Dioxide 24 mmol/L (21-32) 04/02/19 04:35 Anion Gap 6.0 (6-13) 04/02/19 04:35 BUN 11 mg/dL (6-20) 04/02/19 04:35 Creatinine 0.9 mg/dL (0.6-1.2) 04/02/19 04:35 Estimated GFR (MDRD) 81 (>89) L 04/02/19 04:35 Glucose 128 mg/dL (70-100) H 04/02/19 04:35 POC Whole Bld Glucose 97 mg/dL (70 - 100) 04/02/19 11:49 Lactic Acid 1.7 mmol/L (0.5-2.2) 03/28/19 15:00 Calcium 7.7 mg/dL (8.5-10.3) L 04/02/19 04:35 Phosphorus 2.2 mg/dL (2.5-4.6) L 04/02/19 04:35 Magnesium 2.0 mg/dL (1.7-2.8) 04/01/19 04:25 Total Bilirubin 0.8 mg/dL (0.2-1.0) 03/29/19 03:54 AST 21 IU/L (10-42) 03/29/19 03:54 ALT 32 IU/L (10-60) 03/29/19 03:54 Alkaline Phosphatase 77 IU/L (42-121) 03/29/19 03:54 Total Protein 5.2 g/dL (6.7-8.2) L 03/29/19 03:54 Albumin 2.6 g/dL (3.2-5.5) L 03/30/19 04:38 Globulin 2.5 g/dL (2.1-4.2) 03/29/19 03:54 Albumin/Globulin Ratio 1.1 (1.0-2.2) 03/29/19 03:54 Lipase 29 U/L (22-51) 03/28/19 15:00 Urine Color DARK YELLOW 03/31/19 11:20 Urine Clarity CLEAR (CLEAR) 03/31/19 11:20 Urine pH 6.0 PH (5.0-7.5) 03/31/19 11:20 Ur Specific [place] 1.020 (1.002-1.030) 03/31/19 11:20 Urine Protein NEGATIVE mg/dL (NEGATIVE) 03/31/19 11:20 Urine Glucose (UA) NEGATIVE mg/dL (NEGATIVE) 03/31/19 11:20 Urine Ketones NEGATIVE mg/dL (NEGATIVE) 03/31/19 11:20 Urine Occult Blood NEGATIVE (NEGATIVE) 03/31/19 11:20 Urine Nitrite NEGATIVE (NEGATIVE) 03/31/19 11:20 Urine Bilirubin NEGATIVE (NEGATIVE) 03/31/19 11:20 Urine Urobilinogen 0.2 (NORMAL) E.U./dL (NORMAL) 03/31/19 11:20 Ur Leukocyte Esterase NEGATIVE (NEGATIVE) 03/31/19 11:20 Urine RBC 0-5 /HPF (0-5) 03/31/19 11:20 Urine WBC 0-3 /HPF (0-3) 03/31/19 11:20 Ur Squamous Epith Cells RARE Squamous (<= Few) 03/31/19 11:20 Urine Bacteria Rare /HPF (None Seen) 03/31/19 11:20 Urine Mucus Few Strands 03/31/19 11:20 Urine Culture Comments NOT INDICATED 03/31/19 11:20 Nasal Screen MRSA (PCR) NEGATIVE (NEGATIVE) 03/28/19 18:42 Stl C. diff Tox B Gene NEGATIVE (NEGATIVE) 03/31/19 13:00 - Procedures Procedures: Procedures BYPASS TRANSVERSE COLON TO CUTANEOUS, OPEN APPROACH (12/01/18) EXCISION OF TRANSVERSE COLON, OPEN APPROACH (12/01/18) Sepsis Event Note (H) - Evaluation Current Stage of Sepsis: Sepsis Possible source of Sepsis: positive: GI tract/intra-abdominal - Sepsis Criteria Sepsis Criteria: WBC count greater than 10% bands, WBC count greater than 12,000 or less than 4000 ABX Reporting Has patient been on IV antibiotics over the past 48 hours?: Yes
[2019-04-02] MEDS: TPN (CLINIMIX E 5/15) 2,000 ML with MULTIVITAMIN 10 ML, TRACE ELEMENTS V CONC 1 ML IV SCH ×3 (18:43)
[2019-04-02] MEDS: FAT EMULSION 20% 250 ML IV SCH (18:44)
[2019-04-02] MEDS: ATORVASTATIN 40 MG TABLET PO SCH (21:12)
[2019-04-02] MEDS: ACETAMINOPHEN 325 MG TABLET PO PRN (21:13)
[2019-04-03] MEDS: SODIUM CHLORIDE FLUSH 0.9% 10 ML SYRINGE IVP SCH ×3 (00:06→19:58)
[2019-04-03] MEDS: PIPERACILLIN/TAZOBACTAM 3.375 GM in SODIUM CHLORIDE 0.9% MINIBAG 100 ML IV SCH ×4 (01:32→19:59)
[2019-04-03 05:19] LABS: BASOPHILS % (AUTO) 0.1 %; EOSINOPHILS % (AUTO) 2.4 %; HGB - HEMOGLOBIN 10.5 g/dL (14.0-18.0); LYMPHOCYTES % (AUTO) 6.7 %; MEAN CORPUSCULAR HEMOGLOBIN 28.2 pg (27.0-31.0); MEAN CORPUSCULAR HGB CONC 32.1 g/dL (32.0-36.0); MEAN CORPUSCULAR VOLUME 87.7 fL (80.0-94.0); MEAN PLATELET VOLUME 9.3 fL (7.4-11.4); MONOCYTES % (AUTO) 7.1 %; NEUTROPHILS % (AUTO) 61.3 %; PLT - PLATELET COUNT 174 10^3/uL (130-450); RED BLOOD COUNT 3.73 10^6/uL (4.70-6.10); RED CELL DISTRIBUTION WIDTH 21.2 % (12.0-15.0); WHITE BLOOD COUNT 25.1 x10^3/uL (4.8-10.8)
[2019-04-03 05:31] LABS: ABNORMAL LYMPHS % (MANUAL) 0 %
[2019-04-03 05:34] LABS: CALCIUM 7.8 mg/dL (8.5-10.3); CREATININE 0.8 mg/dL (0.6-1.2); MAGNESIUM 2.2 mg/dL (1.7-2.8)
[2019-04-03] MEDS: PANTOPRAZOLE 40 MG VIAL IVP SCH (06:01)
[2019-04-03] MEDS: BACLOFEN 10 MG TABLET PO SCH ×3 (06:03→22:07)
[2019-04-03 06:15] LABS: BAND NEUTROPHILS % (MANUAL) 9 %; DIFFERENTIAL COMMENT MANUAL DIFFERENTIAL; EOSINOPHILS # (MANUAL) 1.3 10^3/uL (0-0.7); LYMPHOCYTES % (MANUAL) 4 %; METAMYELOCYTES % (MANUAL) 4 %; MONOCYTES # (MANUAL) 0.3 10^3/uL (0.0-1.0); MYELOCYTES % (MANUAL) 5 %; PLATELET ESTIMATE, MANUAL NORMAL (130-450,000) (NORMAL)
[2019-04-03] MEDS: ENOXAPARIN 40 MG/0.4 ML SYRINGE SUBQ SCH (08:40)
[2019-04-03] MEDS: ASPIRIN EC 81 MG TABLET PO SCH (08:40)
--- NOTE | 2019-04-03 11:58 | PROVIDER PROGRESS NOTE ---
Subjective - Prog Note Date Prog Note Date: 04/03/19 - Subjective Subjective: Reports feeling quite well today. He is able to eat breakfast and he reported no abdominal pain or nausea/vomiting. He states his esophageal spasms have resolved. He was able to work with physical therapy yesterday. Current Medications - Current Medications Current Medications: Active Medications Acetaminophen (Tylenol) 650 mg PO Q4HR PRN PRN Reason: Pain or Fever > 38C (100.4F) Last Admin: 04/02/19 21:13 Dose: 650 mg Albuterol () 2.5 mg INH Q6H PRN PRN Reason: Shortness of Air/Wheezing Albuterol/Ipratropium (Duoneb) 3 ml INH Q4HR PRN PRN Reason: Wheezing Last Admin: 03/30/19 07:50 Dose: 3 ml Aspirin (Ecotrin) 81 mg PO DAILY REPLACED BY [facility] Last Admin: 04/03/19 08:40 Dose: 81 mg Atorvastatin Calcium (Lipitor) 20 mg PO QPM REPLACED BY [facility] Last Admin: 04/02/19 21:12 Dose: 20 mg Baclofen (Lioresal) 10 mg PO TID REPLACED BY [facility] Last Admin: 04/03/19 06:03 Dose: 10 mg Diphenhydramine HCl (Benadryl) 25 mg PO QPM PRN PRN Reason: Insomnia Last Admin: 04/01/19 23:36 Dose: 25 mg Enoxaparin Sodium (Lovenox) 40 mg SUBQ DAILY REPLACED BY [facility] Last Admin: 04/03/19 08:40 Dose: 40 mg Hydromorphone HCl (Dilaudid Inj Syringe) 0.5 mg IVP Q1H PRN PRN Reason: Breakthrough Pain Last Admin: 04/01/19 17:24 Dose: 0.5 mg Multivitamins 10 ml/ Chromium/Copper/Manganese/Seleni/Zn 1 ml/ Amino Ac/Electrol/Dextrose /Calcium 2,011 mls @ 70 mls/hr IV Q24H REPLACED BY [facility]; Protocol Last Admin: 04/02/19 18:43 Dose: 70 mls/hr Fat Emulsion Intravenous (Intralipid 20%) 250 mls @ 21 mls/hr IV Q24H REPLACED BY [facility] Last Infusion: 04/03/19 06:39 Dose: Infused Piperacillin Sod/Tazobactam (Sod 3.375 gm/ Sodium Chloride) 100 mls @ 200 mls/hr IV Q6H REPLACED BY [facility] Last Infusion: 04/03/19 09:10 Dose: Infused Ondansetron HCl (Zofran Inj) 4 mg IVP Q6HR PRN PRN Reason: Nausea / Vomiting Last Admin: 03/30/19 12:14 Dose: 4 mg Pantoprazole Sodium (Protonix) 40 mg IVP QDAC [facility] Last Admin: 04/03/19 06:01 Dose: 40 mg Prochlorperazine Edisylate (Compazine Inj) 10 mg IVP Q4HR PRN PRN Reason: Nausea / Vomiting Last Admin: 03/30/19 13:13 Dose: 10 mg Sodium Chloride (Normal Saline Flush 0.9%) 10 ml IVP PRN PRN PRN Reason: NEEDED PER PROVIDER ORDERS Last Admin: 04/02/19 20:20 Dose: 10 ml Sodium Chloride (Normal Saline Flush 0.9%) 10 ml IVP 0100,0900,1700 REPLACED BY [facility] Last Admin: 04/03/19 00:06 Dose: Not Given Sodium Chloride (Normal Saline Flush 0.9%) 20 ml IVP PRN PRN PRN Reason: After Blood Draw Last Admin: 03/30/19 04:47 Dose: 20 ml Sodium Chloride (Normal Saline Flush 0.9%) 20 ml IVP PRN PRN PRN Reason: After Blood Draw Aspirin [Aspir 81] 81 mg PO Q48H 05/05/13 Krill/[place]-3/Dha/Epa/Lipids [Krill Oil 350 mg Softgel] 750 mg PO DAILY 01/28/19 Capecitabine 4 tab PO BID 03/29/19 Capecitabine 150 mg PO BID 03/29/19 Cholecalciferol (Vitamin D3) [Vitamin D3] 2,000 units PO DAILY 03/29/19 Objective - Vital Signs/Intake & Output Reviewed Vital Signs: Yes Vital Signs: Vital Signs x48h Temp Pulse Resp BP BP Pulse Ox 04/03/19 09:00 37.0 C 74 16 122/52 L 99 04/03/19 05:00 36.8 C 67 18 127/55 L 98 Intake & Output: Intake & Output 03/31/19 04/01/19 04/02/19 04/03/19 23:59 23:59 23:59 23:59 Intake Total 3802.666 2910.000 3900 850 Output Total 1360 8078 3972 2375 Balance 2442.666 85. - Objective General Appearance: positive: No acute distress, Alert Eyes Bilateral: positive: Normal inspection, Conjunctivae nml ENT: positive: ENT inspection nml Neck: positive: Nml inspection Respiratory: positive: No respiratory distress. negative: Wheezes, Rales, Rhonchi Cardiovascular: positive: Regular rate & rhythm, No murmur. negative: Systolic murmur, Diastolic murmur Abdomen: positive: Non-tender, No distention, Other (Continues to have dark liquid output from his colostomy.). negative: Tenderness, Guarding, Rebound Skin: positive: Warm, Dry Extremities: positive: No pedal edema Neurologic/Psychiatric: positive: Oriented x3. negative: Disoriented to person, Disoriented to place, Disoriented to time - Lab Results Fish Bones: 04/03/19 04:55 04/03/19 04:55 Other Labs: Lab Results x24hrs 04/03/19 04/03/19 04/03/19 Range/Units 11:52 08:08 04:55 WBC (4.8-10.8) x10^3/uL RBC (4.70-6.10) 10^6/uL Hgb (14.0-18.0) g/dL Hct (42.0-52.0) % MCV (80.0-94.0) fL MCH (27.0-31.0) pg MCHC (32.0-36.0) g/dL RDW (12.0-15.0) % Plt Count (130-450) 10^3/uL MPV (7.4-11.4) fL Neut # (Auto) Lymph # (Auto) Centre # (Auto) Eos # (Auto) Baso # (Auto) Absolute Nucleated RBC Total Counted Band Neuts % (Manual) (0 - 10) % Abnorm Lymph % (Manual) % Metamyelocytes % ( - 0) % Myelocytes % ( - 0) % Nucleated RBC % Neutrophils # (Manual) (1.5-6.6) 10^3/uL Lymphocytes # (Manual) (1.5-3.5) 10^3/uL Monocytes # (Manual) (0.0-1.0) 10^3/uL Eosinophils # (Manual) (0-0.7) 10^3/uL Basophils # (Manual) (0-0.1) 10^3/uL Differential Comment Platelet Estimate (NORMAL) RBC Morph Micro Appear (NORMAL) Sodium 136 (135-145) mmol/L Potassium 3.6 (3.5-5.0) mmol/L Chloride 109 (101-111) mmol/L Carbon Dioxide 21 (21-32) mmol/L Anion Gap 6.0 (6-13) BUN 13 (6-20) mg/dL Creatinine 0.8 (0.6-1.2) mg/dL Estimated GFR (MDRD) 93 (>89) Glucose 129 H (70-100) mg/dL POC Whole Bld Glucose 138 H 108 H (70 - 100) mg/dL Calcium 7.8 L (8.5-10.3) mg/dL Phosphorus 3.0 (2.5-4.6) mg/dL Magnesium 2.2 (1.7-2.8) mg/dL 04/03/19 04/02/19 04/02/19 Range/Units 04:55 20:23 16:52 WBC 25.1 H (4.8-10.8) x10^3/uL RBC 3.73 L (4.70-6.10) 10^6/uL Hgb 10.5 L (14.0-18.0) g/dL Hct 32.7 L (42.0-52.0) % MCV 87.7 (80.0-94.0) fL MCH 28.2 (27.0-31.0) pg MCHC 32.1 (32.0-36.0) g/dL RDW 21.2 H (12.0-15.0) % Plt Count 174 (130-450) 10^3/uL MPV 9.3 (7.4-11.4) fL Neut # (Auto) Not Reportable Lymph # (Auto) Not Reportable [place] # (Auto) Not Reportable Eos # (Auto) Not Reportable Baso # (Auto) Not Reportable Absolute Nucleated RBC Not Reportable Total Counted 100 Band Neuts % (Manual) 9 (0 - 10) % Abnorm Lymph % (Manual) 0 % Metamyelocytes % 4 H ( - 0) % Myelocytes % 5 H ( - 0) % Nucleated RBC % Not Reportable Neutrophils # (Manual) 20.3 H (1.5-6.6) 10^3/uL Lymphocytes # (Manual) 1.0 L (1.5-3.5) 10^3/uL Monocytes # (Manual) 0.3 (0.0-1.0) 10^3/uL Eosinophils # (Manual) 1.3 H (0-0.7) 10^3/uL Basophils # (Manual) 0.0 (0-0.1) 10^3/uL Differential Comment MANUAL DIFFERENTIAL Platelet Estimate NORMAL (130-450,000) (NORMAL) RBC Morph Micro Appear 1+ OVALOCYTES (NORMAL) Sodium (135-145) mmol/L Potassium (3.5-5.0) mmol/L Chloride (101-111) mmol/L Carbon Dioxide (21-32) mmol/L Anion Gap (6-13) BUN (6-20) mg/dL Creatinine (0.6-1.2) mg/dL Estimated GFR (MDRD) (>89) Glucose (70-100) mg/dL POC Whole Bld Glucose 115 H 104 H (70 - 100) mg/dL Calcium (8.5-10.3) mg/dL Phosphorus (2.5-4.6) mg/dL Magnesium (1.7-2.8) mg/dL ABX Reporting Has patient been on IV antibiotics over the past 48 hours?: Yes Sepsis Event Note (H) - Evaluation Current Stage of Sepsis: Sepsis Possible source of Sepsis: positive: GI tract/intra-abdominal - Sepsis Criteria Sepsis Criteria: WBC count greater than 10% bands, WBC count greater than 12,000 or less than 4000 Assessment/Plan - Problem List (1) Leukocytosis Impression: His white count continues to improve and is now in the 20s. He continues to have bands. This may be secondary to mucositis and bacterial translocation. We will keep him on IV antibiotics until the bandemia resolves and his white count becomes normal or near normal. Fortunately, there are no cultures available to disc antibiotics and therefore we will keep him on Zosyn IV. Qualifiers: Leukocytosis type: bandemia Qualified Code(s): D72.825 - Bandemia (2) Mucositis Impression: This appears to be the source of his initial ileus/partial obstruction. This likely occurred from his chemotherapy he is receiving for his colon cancer. This may also be the etiology of his leukocytosis as surgery feels her could have been bacterial translocation. We will continue on IV antibiotics given his leukocytosis. He is otherwise continuing to clinically improve. (3) Ileus Impression: This has since resolved. He is tolerating a diet without difficulty. We will discontinue his TPN. 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 Unfortunately he developed side effects to chemotherapy. He has an appointment scheduled with Dr. Kent for next week. Will hope to discharge him prior to this appointment so he can continue to follow-up and discuss any other potential treatment options. (5) COPD (chronic obstructive pulmonary disease) Impression: Stable and not in exacerbation. Continue albuterol as needed. (6) Hx of coronary artery disease Impression: Stable. Continue aspirin and Lipitor.
[2019-04-03] MEDS: SODIUM CHLORIDE FLUSH 0.9% 10 ML SYRINGE IVP PRN ×3 (18:23→20:30)
[2019-04-03] MEDS: ATORVASTATIN 40 MG TABLET PO SCH (19:59)
[2019-04-04] MEDS: SODIUM CHLORIDE FLUSH 0.9% 10 ML SYRINGE IVP SCH ×3 (02:11→16:13)
[2019-04-04] MEDS: PIPERACILLIN/TAZOBACTAM 3.375 GM in SODIUM CHLORIDE 0.9% MINIBAG 100 ML IV SCH ×4 (02:11→20:01)
[2019-04-04 05:30] LABS: BASOPHILS % (AUTO) 0.2 %; EOSINOPHILS % (AUTO) 1.7 %; HGB - HEMOGLOBIN 10.3 g/dL (14.0-18.0); LYMPHOCYTES % (AUTO) 6.9 %; MEAN CORPUSCULAR HEMOGLOBIN 29.3 pg (27.0-31.0); MEAN CORPUSCULAR HGB CONC 33.9 g/dL (32.0-36.0); MEAN CORPUSCULAR VOLUME 86.6 fL (80.0-94.0); MEAN PLATELET VOLUME 9.4 fL (7.4-11.4); MONOCYTES % (AUTO) 8.8 %; NEUTROPHILS % (AUTO) 63.5 %; PLT - PLATELET COUNT 205 10^3/uL (130-450); RED BLOOD COUNT 3.51 10^6/uL (4.70-6.10); RED CELL DISTRIBUTION WIDTH 21.5 % (12.0-15.0); WHITE BLOOD COUNT 24.7 x10^3/uL (4.8-10.8)
[2019-04-04 05:35] LABS: ABNORMAL LYMPHS % (MANUAL) 0 %
[2019-04-04 05:45] LABS: CALCIUM 7.9 mg/dL (8.5-10.3); CREATININE 0.9 mg/dL (0.6-1.2); MAGNESIUM 1.9 mg/dL (1.7-2.8)
[2019-04-04 05:57] LABS: BAND NEUTROPHILS % (MANUAL) 11 %; LYMPHOCYTES # (MANUAL) 2.5 10^3/uL (1.5-3.5); LYMPHOCYTES % (MANUAL) 10 %; METAMYELOCYTES % (MANUAL) 9 %; MYELOCYTES % (MANUAL) 11 %; PLATELET ESTIMATE, MANUAL NORMAL (130-450,000) (NORMAL)
[2019-04-04 05:58] LABS: DIFFERENTIAL COMMENT MANUAL DIFFERENTIAL
[2019-04-04] MEDS: PANTOPRAZOLE 40 MG VIAL IVP SCH (06:04)
[2019-04-04] MEDS: BACLOFEN 10 MG TABLET PO SCH ×2 (06:04→14:02)
[2019-04-04] MEDS: ASPIRIN EC 81 MG TABLET PO SCH (09:17)
[2019-04-04] MEDS: ACETAMINOPHEN 325 MG TABLET PO PRN (09:17)
[2019-04-04] MEDS: ENOXAPARIN 40 MG/0.4 ML SYRINGE SUBQ SCH (09:18)
--- NOTE | 2019-04-04 12:07 | PROVIDER PROGRESS NOTE ---
Subjective - Prog Note Date Prog Note Date: 04/04/19 - Subjective Subjective: Reports feeling quite well today. He was able to eat a full diet without abdominal pain. Continues report no nausea or vomiting. He states he has no esophageal spasms. He is eager to know about his white count. He reports he does go for breath with walking the hallways yesterday but otherwise has no complaints. Denies any fevers or chills. Current Medications - Current Medications Current Medications: Active Medications Acetaminophen (Tylenol) 650 mg PO Q4HR PRN PRN Reason: Pain or Fever > 38C (100.4F) Last Admin: 04/04/19 09:17 Dose: 650 mg Albuterol () 2.5 mg INH Q6H PRN PRN Reason: Shortness of Air/Wheezing Albuterol/Ipratropium (Duoneb) 3 ml INH Q4HR PRN PRN Reason: Wheezing Last Admin: 03/30/19 07:50 Dose: 3 ml Aspirin (Ecotrin) 81 mg PO DAILY [facility] Last Admin: 04/04/19 09:17 Dose: 81 mg Atorvastatin Calcium (Lipitor) 20 mg PO QPM [facility] Last Admin: 04/03/19 19:59 Dose: 20 mg Baclofen (Lioresal) 10 mg PO TID [facility] Last Admin: 04/04/19 06:04 Dose: 10 mg Diphenhydramine HCl (Benadryl) 25 mg PO QPM PRN PRN Reason: Insomnia Last Admin: 04/01/19 23:36 Dose: 25 mg Enoxaparin Sodium (Lovenox) 40 mg SUBQ DAILY [facility] Last Admin: 04/04/19 09:18 Dose: 40 mg Hydromorphone HCl (Dilaudid Inj Syringe) 0.5 mg IVP Q1H PRN PRN Reason: Breakthrough Pain Last Admin: 04/01/19 17:24 Dose: 0.5 mg Piperacillin Sod/Tazobactam (Sod 3.375 gm/ Sodium Chloride) 100 mls @ 200 mls/hr IV Q6H [facility] Last Infusion: 04/04/19 09:48 Dose: Infused Ondansetron HCl (Zofran Inj) 4 mg IVP Q6HR PRN PRN Reason: Nausea / Vomiting Last Admin: 03/30/19 12:14 Dose: 4 mg Pantoprazole Sodium (Protonix) 40 mg IVP QDAC [facility] Last Admin: 04/04/19 06:04 Dose: 40 mg Prochlorperazine Edisylate (Compazine Inj) 10 mg IVP Q4HR PRN PRN Reason: Nausea / Vomiting Last Admin: 03/30/19 13:13 Dose: 10 mg Sodium Chloride (Normal Saline Flush 0.9%) 10 ml IVP PRN PRN PRN Reason: NEEDED PER PROVIDER ORDERS Last Admin: 04/03/19 20:30 Dose: 10 ml Sodium Chloride (Normal Saline Flush 0.9%) 10 ml IVP 0100,0900,1700 [facility] Last Admin: 04/04/19 09:18 Dose: 10 ml Sodium Chloride (Normal Saline Flush 0.9%) 20 ml IVP PRN PRN PRN Reason: After Blood Draw Last Admin: 03/30/19 04:47 Dose: 20 ml Sodium Chloride (Normal Saline Flush 0.9%) 20 ml IVP PRN PRN PRN Reason: After Blood Draw Aspirin [Aspir 81] 81 mg PO Q48H 05/05/13 Krill/[place]-3/Dha/Epa/Lipids [Krill Oil 350 mg Softgel] 750 mg PO DAILY 01/28/19 Capecitabine 4 tab PO BID 03/29/19 Capecitabine 150 mg PO BID 03/29/19 Cholecalciferol (Vitamin D3) [Vitamin D3] 2,000 units PO DAILY 03/29/19 Objective - Vital Signs/Intake & Output Reviewed Vital Signs: Yes Vital Signs: Vital Signs x48h Temp Pulse Resp BP Pulse Ox 04/04/19 08:09 37 C 73 20 108/60 98 Intake & Output: Intake & Output 04/01/19 04/02/19 04/03/19 04/04/19 23:59 23:59 23:59 23:59 Intake Total 2910.000 3900 3782.500 480 Output Total 3966 1627 4479 1025 Balance 85.000 -75 -642.500 -545 - Objective General Appearance: positive: No acute distress, Alert Eyes Bilateral: positive: Normal inspection ENT: positive: ENT inspection nml Neck: positive: Nml inspection Respiratory: positive: No respiratory distress. negative: Wheezes, Rales, Rhonchi Cardiovascular: positive: Regular rate & rhythm, No murmur. negative: Tachycardia, Bradycardia, Systolic murmur, Diastolic murmur Abdomen: positive: Non-tender, Nml bowel sounds, No distention, Other (Colostomy in place). negative: Tenderness, Guarding, Rebound Skin: positive: No rash, Warm, Dry Extremities: positive: Full ROM, No pedal edema Neurologic/Psychiatric: positive: Oriented x3, Motor nml. negative: Disoriented to person, Disoriented to place, Disoriented to time - Lab Results Fish Bones: 04/04/19 05:19 04/04/19 05:19 Other Labs: Lab Results x24hrs 04/04/19 04/04/19 04/03/19 Range/Units 05:19 05:19 16:54 WBC 24.7 H (4.8-10.8) x10^3/uL RBC 3.51 L (4.70-6.10) 10^6/uL Hgb 10.3 L (14.0-18.0) g/dL Hct 30.4 L (42.0-52.0) % MCV 86.6 (80.0-94.0) fL MCH 29.3 (27.0-31.0) pg MCHC 33.9 (32.0-36.0) g/dL RDW 21.5 H (12.0-15.0) % Plt Count 205 (130-450) 10^3/uL MPV 9.4 (7.4-11.4) fL Neut # (Auto) Not Reportable Lymph # (Auto) Not Reportable [place] # (Auto) Not Reportable Eos # (Auto) Not Reportable Baso # (Auto) Not Reportable Absolute Nucleated RBC Not Reportable Total Counted 100 Band Neuts % (Manual) 11 H (0 - 10) % Abnorm Lymph % (Manual) 0 % Metamyelocytes % 9 H ( - 0) % Myelocytes % 11 H ( - 0) % Nucleated RBC % Not Reportable Neutrophils # (Manual) 15.3 H (1.5-6.6) 10^3/uL Lymphocytes # (Manual) 2.5 (1.5-3.5) 10^3/uL Monocytes # (Manual) 1.0 (0.0-1.0) 10^3/uL Eosinophils # (Manual) 1.0 H (0-0.7) 10^3/uL Basophils # (Manual) 0.0 (0-0.1) 10^3/uL Differential Comment MANUAL DIFFERENTIAL Platelet Estimate NORMAL (130-450,000) (NORMAL) RBC Morph Micro Appear 1+ OVALOCYTES (NORMAL) Sodium 135 (135-145) mmol/L Potassium 4.2 (3.5-5.0) mmol/L Chloride 108 (101-111) mmol/L Carbon Dioxide 20 L (21-32) mmol/L Anion Gap 7.0 (6-13) BUN 16 (6-20) mg/dL Creatinine 0.9 (0.6-1.2) mg/dL Estimated GFR (MDRD) 81 L (>89) Glucose 95 (70-100) mg/dL POC Whole Bld Glucose 100 (70 - 100) mg/dL Calcium 7.9 L (8.5-10.3) mg/dL Phosphorus 3.0 (2.5-4.6) mg/dL Magnesium 1.9 (1.7-2.8) mg/dL ABX Reporting Has patient been on IV antibiotics over the past 48 hours?: Yes Sepsis Event Note (H) - Evaluation Current Stage of Sepsis: Sepsis Possible source of Sepsis: positive: GI tract/intra-abdominal - Sepsis Criteria Sepsis Criteria: WBC count greater than 10% bands, WBC count greater than 12,000 or less than 4000 Assessment/Plan - Problem List (1) Leukocytosis Impression: White count is relatively flat today and his bands are still elevated at 11%. He has had no fever although did have a temperature of 37.7 C. He reports no acute complaints. Blood cultures have been negative. His urinalysis was clean. The time being, we will keep him on Zosyn IV given likely source is the mucositis of the abdomen. We will continue to trend his white count. If he beg ins to increase or remain flat with elevated bands, we will likely repeat a CT of the abdomen and pelvis to evaluate for any other possible source of the white count although his abdominal exam is quite benign. Qualifiers: Leukocytosis type: bandemia Qualified Code(s): D72.825 - Bandemia (2) Mucositis Impression: This is believed to be a source of his ileus. This has improved and nearly resolved although his white count remains elevated. We will continue with IV antibiotics at this time. (3) Ileus Impression: Resolved. He is tolerating a full diet. (4) Colon cancer Impression: Stable. He will continue outpatient follow-up with Dr. Kent to discuss any other treatment options for his cancer given he reacted to the prior chemotherapy agent (5) COPD (chronic obstructive pulmonary disease) Impression: Continue albuterol as needed. (6) Hx of coronary artery disease Impression: Continue aspirin and Lipitor.
[2019-04-04] MEDS: SODIUM CHLORIDE FLUSH 0.9% 10 ML SYRINGE IVP PRN ×3 (16:13→20:58)
[2019-04-04] MEDS: ATORVASTATIN 40 MG TABLET PO SCH (20:03)
[2019-04-05] MEDS: PIPERACILLIN/TAZOBACTAM 3.375 GM in SODIUM CHLORIDE 0.9% MINIBAG 100 ML IV SCH ×4 (01:28→20:22)
[2019-04-05] MEDS: SODIUM CHLORIDE FLUSH 0.9% 10 ML SYRINGE IVP PRN ×8 (01:33→20:23)
[2019-04-05] MEDS: SODIUM CHLORIDE FLUSH 0.9% 10 ML SYRINGE IVP SCH ×3 (01:33→16:17)
[2019-04-05 05:22] LABS: BASOPHILS % (AUTO) 0.7 %; EOSINOPHILS % (AUTO) 1.9 %; HGB - HEMOGLOBIN 9.6 g/dL (14.0-18.0); LYMPHOCYTES % (AUTO) 7.1 %; MEAN CORPUSCULAR HEMOGLOBIN 29.3 pg (27.0-31.0); MEAN CORPUSCULAR HGB CONC 33.1 g/dL (32.0-36.0); MEAN CORPUSCULAR VOLUME 88.4 fL (80.0-94.0); MEAN PLATELET VOLUME 9.5 fL (7.4-11.4); MONOCYTES % (AUTO) 9.4 %; NEUTROPHILS % (AUTO) 61.9 %; PLT - PLATELET COUNT 254 10^3/uL (130-450); RED BLOOD COUNT 3.28 10^6/uL (4.70-6.10); RED CELL DISTRIBUTION WIDTH 21.7 % (12.0-15.0); WHITE BLOOD COUNT 21.5 x10^3/uL (4.8-10.8)
[2019-04-05 05:27] LABS: ABNORMAL LYMPHS % (MANUAL) 0 %
[2019-04-05 05:36] LABS: CALCIUM 7.9 mg/dL (8.5-10.3); MAGNESIUM 1.9 mg/dL (1.7-2.8); PHOSPHORUS 2.8 mg/dL (2.5-4.6)
[2019-04-05 05:45] LABS: BAND NEUTROPHILS % (MANUAL) 3 %; EOSINOPHILS # (MANUAL) 1.1 10^3/uL (0-0.7); LYMPHOCYTES # (MANUAL) 1.5 10^3/uL (1.5-3.5); LYMPHOCYTES % (MANUAL) 7 %; METAMYELOCYTES % (MANUAL) 1 %; MONOCYTES # (MANUAL) 1.3 10^3/uL (0.0-1.0); MYELOCYTES % (MANUAL) 8 %
[2019-04-05 05:48] LABS: DIFFERENTIAL COMMENT MANUAL DIFFERENTIAL; PLATELET ESTIMATE, MANUAL NORMAL (130-450,000) (NORMAL); PLATELET MORPHOLOGY NORMAL APPEARANCE (NORMAL)
[2019-04-05] MEDS: PANTOPRAZOLE 40 MG VIAL IVP SCH (06:01)
[2019-04-05] MEDS: ENOXAPARIN 40 MG/0.4 ML SYRINGE SUBQ SCH (08:57)
[2019-04-05] MEDS: ASPIRIN EC 81 MG TABLET PO SCH (08:58)
--- NOTE | 2019-04-05 10:32 | PROVIDER PROGRESS NOTE ---
Subjective - Prog Note Date Prog Note Date: 04/05/19 - Subjective Subjective: He continues to report feeling well. Reports no hiccups or esophageal spasms. Denies abdominal pain or nausea/vomiting. Reports no chest pain, dyspnea, cough. Current Medications - Current Medications Current Medications: Active Medications Acetaminophen (Tylenol) 650 mg PO Q4HR PRN PRN Reason: Pain or Fever > 38C (100.4F) Last Admin: 04/04/19 09:17 Dose: 650 mg Albuterol () 2.5 mg INH Q6H PRN PRN Reason: Shortness of Air/Wheezing Albuterol/Ipratropium (Duoneb) 3 ml INH Q4HR PRN PRN Reason: Wheezing Last Admin: 03/30/19 07:50 Dose: 3 ml Aspirin (Ecotrin) 81 mg PO DAILY [facility] Last Admin: 04/05/19 08:58 Dose: 81 mg Atorvastatin Calcium (Lipitor) 20 mg PO QPM [facility] Last Admin: 04/04/19 20:03 Dose: 20 mg Diphenhydramine HCl (Benadryl) 25 mg PO QPM PRN PRN Reason: Insomnia Last Admin: 04/01/19 23:36 Dose: 25 mg Enoxaparin Sodium (Lovenox) 40 mg SUBQ DAILY [facility] Last Admin: 04/05/19 08:57 Dose: 40 mg Piperacillin Sod/Tazobactam (Sod 3.375 gm/ Sodium Chloride) 100 mls @ 200 mls/h r IV Q6H [facility] Last Infusion: 04/05/19 09:28 Dose: Infused Ondansetron HCl (Zofran Inj) 4 mg IVP Q6HR PRN PRN Reason: Nausea / Vomiting Last Admin: 03/30/19 12:14 Dose: 4 mg Pantoprazole Sodium (Protonix) 40 mg IVP QDAC [facility] Last Admin: 04/05/19 06:01 Dose: 40 mg Prochlorperazine Edisylate (Compazine Inj) 10 mg IVP Q4HR PRN PRN Reason: Nausea / Vomiting Last Admin: 03/30/19 13:13 Dose: 10 mg Sodium Chloride (Normal Saline Flush 0.9%) 10 ml IVP PRN PRN PRN Reason: NEEDED PER PROVIDER ORDERS Last Admin: 04/05/19 06:10 Dose: 10 ml Sodium Chloride (Normal Saline Flush 0.9%) 10 ml IVP 0100,0900,1700 [facility] Last Admin: 04/05/19 08:58 Dose: 10 ml Sodium Chloride (Normal Saline Flush 0.9%) 20 ml IVP PRN PRN PRN Reason: After Blood Draw Last Admin: 04/05/19 05:18 Dose: 20 ml Sodium Chloride (Normal Saline Flush 0.9%) 20 ml IVP PRN PRN PRN Reason: After Blood Draw Aspirin [Aspir 81] 81 mg PO Q48H 05/05/13 Krill/[place]-3/Dha/Epa/Lipids [Krill Oil 350 mg Softgel] 750 mg PO DAILY 01/28/19 Capecitabine 4 tab PO BID 03/29/19 Capecitabine 150 mg PO BID 03/29/19 Cholecalciferol (Vitamin D3) [Vitamin D3] 2,000 units PO DAILY 03/29/19 Objective - Vital Signs/Intake & Output Reviewed Vital Signs: Yes Vital Signs: Vital Signs x48h Temp Pulse Resp BP Pulse Ox 04/05/19 08:47 36.9 C 72 16 127/68 99 Intake & Output: Intake & Output 04/02/19 04/03/19 04/04/19 04/05/19 23:59 23:59 23:59 23:59 Intake Total 3900 3782.500 1100 720 Output Total 3975 4425 1720 1025 Balance -75 -642.500 -620 -305 - Objective General Appearance: positive: No acute distress, Alert Eyes Bilateral: positive: Normal inspection ENT: positive: ENT inspection nml Neck: positive: Nml inspection Respiratory: positive: No respiratory distress. negative: Wheezes, Rales, Rhonchi Cardiovascular: positive: Regular rate & rhythm, No murmur. negative: Tachycardia, Bradycardia, Systolic murmur, Diastolic murmur Abdomen: positive: Non-tender, No distention, Other (Colostomy in place with stool output noted.). negative: Tenderness, Guarding, Rebound Skin: positive: No rash, Warm, Dry Extremities: positive: Full ROM, No pedal edema Neurologic/Psychiatric: positive: Oriented x3. negative: Disoriented to person, Disoriented to place, Disoriented to time - Lab Results Fish Bones: 04/05/19 05:10 04/05/19 05:10 Other Labs: Lab Results x24hrs 04/05/19 04/05/19 Range/Units 05:10 05:10 WBC 21.5 H (4.8-10.8) x10^3/uL RBC 3.28 L (4.70-6.10) 10^6/uL Hgb 9.6 L (14.0-18.0) g/dL Hct 29.0 L (42.0-52.0) % MCV 88.4 (80.0-94.0) fL MCH 29.3 (27.0-31.0) pg MCHC 33.1 (32.0-36.0) g/dL RDW 21.7 H (12.0-15.0) % Plt Count 254 (130-450) 10^3/uL MPV 9.5 (7.4-11.4) fL Neut # (Auto) Not Reportable Lymph # (Auto) Not Reportable [place] # (Auto) Not Reportable Eos # (Auto) Not Reportable Baso # (Auto) Not Reportable Absolute Nucleated RBC Not Reportable Total Counted 100 Band Neuts % (Manual) 3 (0 - 10) % Abnorm Lymph % (Manual) 0 % Metamyelocytes % 1 H ( - 0) % Myelocytes % 8 H ( - 0) % Nucleated RBC % Not Reportable Neutrophils # (Manual) 15.7 H (1.5-6.6) 10^3/uL Lymphocytes # (Manual) 1.5 (1.5-3.5) 10^3/uL Monocytes # (Manual) 1.3 H (0.0-1.0) 10^3/uL Eosinophils # (Manual) 1.1 H (0-0.7) 10^3/uL Basophils # (Manual) 0.0 (0-0.1) 10^3/uL Differential Comment MANUAL DIFFERENTIAL WBC Morphology NORMAL APPEARANCE (NORMAL) Platelet Estimate NORMAL (130-450,000) (NORMAL) Platelet Morphology NORMAL APPEARANCE (NORMAL) RBC Morph Micro Appear 1+ OVALOCYTES (NORMAL) Sodium 135 (135-145) mmol/L Potassium 4.0 (3.5-5.0) mmol/L Chloride 107 (101-111) mmol/L Carbon Dioxide 22 (21-32) mmol/L Anion Gap 6.0 (6-13) BUN 16 (6-20) mg/dL Creatinine 1.0 (0.6-1.2) mg/dL Estimated GFR (MDRD) 72 L (>89) Glucose 95 (70-100) mg/dL Calcium 7.9 L (8.5-10.3) mg/dL Phosphorus 2.8 (2.5-4.6) mg/dL Magnesium 1.9 (1.7-2.8) mg/dL ABX Reporting Has patient been on IV antibiotics over the past 48 hours?: Yes Sepsis Event Note (H) - Evaluation Current Stage of Sepsis: Sepsis Possible source of Sepsis: positive: GI tract/intra-abdominal - Sepsis Criteria Sepsis Criteria: WBC count greater than 10% bands, WBC count greater than 12,000 or less than 4000 Assessment/Plan - Problem List (1) Leukocytosis Impression: His white count was flat yesterday but today it continues to decrease. There is no obvious source of infection except for the mucositis of the intestine with likely bacterial translocation given his reaction to the chemotherapy he is receiving for the colon cancer. As his white count is improving with IV antibiotics, we will keep him on Zosyn IV. At this point in time, his abdominal exam is benign and therefore I believe a CT the abdomen and pelvis is not warranted at the moment. There is also likely no role in transfer to higher level of care at this moment. We will keep him on IV antibiotics and assess his white count on a daily basis Qualifiers: Leukocytosis type: bandemia Qualified Code(s): D72.825 - Bandemia (2) Mucositis Impression: This is the likely source of his leukocytosis. This likely occurred due to the reaction he had to his chemotherapy agent. We will continue with IV antibiotics as mentioned above (3) Ileus Impression: This has resolved and is tolerating a diet. We will discontinue his baclofen as his hiccups have resolved. (4) Colon cancer Impression: We will continue outpatient follow-up with Dr. Kent to discuss other potential treatment options. (5) COPD (chronic obstructive pulmonary disease) Impression: Stable. We will continue albuterol as needed. (6) Hx of coronary artery disease Impression: Stable. Continue aspirin and Lipitor.
[2019-04-05] MEDS: ATORVASTATIN 40 MG TABLET PO SCH (20:36)
[2019-04-06] MEDS: SODIUM CHLORIDE FLUSH 0.9% 10 ML SYRINGE IVP SCH ×3 (01:33→20:32)
[2019-04-06] MEDS: PIPERACILLIN/TAZOBACTAM 3.375 GM in SODIUM CHLORIDE 0.9% MINIBAG 100 ML IV SCH ×4 (01:41→20:32)
[2019-04-06] MEDS: SODIUM CHLORIDE FLUSH 0.9% 10 ML SYRINGE IVP PRN ×9 (02:13→20:31)
[2019-04-06 05:31] LABS: BASOPHILS % (AUTO) 0.7 %; EOSINOPHILS % (AUTO) 2.3 %; HGB - HEMOGLOBIN 9.9 g/dL (14.0-18.0); LYMPHOCYTES % (AUTO) 9.5 %; MEAN CORPUSCULAR HEMOGLOBIN 29.2 pg (27.0-31.0); MEAN CORPUSCULAR HGB CONC 32.7 g/dL (32.0-36.0); MEAN CORPUSCULAR VOLUME 89.4 fL (80.0-94.0); MEAN PLATELET VOLUME 9.4 fL (7.4-11.4); MONOCYTES % (AUTO) 9.1 %; NEUTROPHILS % (AUTO) 59.5 %; PLT - PLATELET COUNT 336 10^3/uL (130-450); RED BLOOD COUNT 3.39 10^6/uL (4.70-6.10); RED CELL DISTRIBUTION WIDTH 21.9 % (12.0-15.0); WHITE BLOOD COUNT 19.5 x10^3/uL (4.8-10.8)
[2019-04-06 05:34] LABS: ABNORMAL LYMPHS % (MANUAL) 0 %
[2019-04-06 05:48] LABS: BUN - BLOOD UREA NITROGEN 15 mg/dL (6-20); CALCIUM 7.8 mg/dL (8.5-10.3); CARBON DIOXIDE - CO2 22 mmol/L (21-32); CHLORIDE 107 mmol/L (101-111); CHOL/HDL RATIO 8.2 (<5.0); CHOLESTEROL 98 mg/dL; CREATININE 0.9 mg/dL (0.6-1.2); GFR - MDRD 81 (>89); GLUCOSE 95 mg/dL (70-100); HDL CHOLESTEROL 12 mg/dL; LDL CHOLESTEROL,CALCULATED 60 mg/dL; MAGNESIUM 1.9 mg/dL (1.7-2.8); PHOSPHORUS 2.6 mg/dL (2.5-4.6); SODIUM 135 mmol/L (135-145); VLDL CHOLESTEROL 26 mg/dL
[2019-04-06] MEDS: PANTOPRAZOLE 40 MG VIAL IVP SCH (06:08)
[2019-04-06 06:21] LABS: BAND NEUTROPHILS % (MANUAL) 4 %; EOSINOPHILS # (MANUAL) 0.2 10^3/uL (0-0.7); LYMPHOCYTES % (MANUAL) 10 %; METAMYELOCYTES % (MANUAL) 5 %; MONOCYTES # (MANUAL) 1.6 10^3/uL (0.0-1.0); MYELOCYTES % (MANUAL) 5 %
[2019-04-06 06:22] LABS: DIFFERENTIAL COMMENT MANUAL DIFFERENTIAL; PLATELET ESTIMATE, MANUAL NORMAL (130-450,000) (NORMAL)
[2019-04-06] MEDS: ENOXAPARIN 40 MG/0.4 ML SYRINGE SUBQ SCH (08:33)
[2019-04-06] MEDS: ASPIRIN EC 81 MG TABLET PO SCH (08:33)
--- NOTE | 2019-04-06 16:03 | PROVIDER PROGRESS NOTE ---
Assessment/Plan - Problem List (1) Leukocytosis Assessment/Plan: The source was felt to be his mucositis, extensive rash. He has been on iv antibiotics empirically, and finally there has been a downward trend in WBC. Probable discharge tomorrow. He dos not require PT rehab, is walking with a cane independently. (2) Mucositis (ulcerative) due to antineoplastic therapy Assessment/Plan: This was felt to be the cause of the high WBC. There is no longer a visible rash. (3) Ileus Assessment/Plan: Resolved He is tolerating a regular, solid diet (4) Colostomy complication, unspecified Assessment/Plan: No surgery was necessary (5) Intractable hiccups Assessment/Plan: Resolved as ileus resolved (6) Hypokalemia Assessment/Plan: Resolved (7) Hx of coronary artery disease Assessment/Plan: Stable on home meds (8) History of COPD Assessment/Plan: Stable, on his scheduled inhalers (9) RBBB Assessment/Plan: Chronic - Current Meds Current Meds: Current Medications Generic Name Dose Route Start Last Admin Trade Name Freq PRN Reason Stop Dose Admin Acetaminophen 650 mg 04/02/19 20:44 04/04/19 09:17 Tylenol PO 650 mg Q4HR PRN Administration Pain or Fever > 38C (100.4F) Albuterol/Ipratropium 3 ml 03/28/19 21:49 03/30/19 07:50 Duoneb INH 3 ml Q4HR PRN Administration Wheezing Aspirin 81 mg 04/02/19 09:00 04/06/19 08:33 Ecotrin PO 81 mg DAILY LETICIA Administration Atorvastatin Calcium 20 mg 04/01/19 21:00 04/05/19 20:36 Lipitor PO 20 mg QPM LETICIA Administration Diphenhydramine HCl 25 mg 03/28/19 20:46 04/01/19 23:36 Benadryl PO 25 mg QPM PRN Administration Insomnia Enoxaparin Sodium 40 mg 03/29/19 09:00 04/06/19 08:33 Lovenox SUBQ 40 mg DAILY LETICIA Administration Heparin Sodium (Beef Lung) 30 - 50 unit 04/06/19 01:58 04/06/19 02:13 IVP 50 unit PRN PRN Administration PICC line decoagulation Piperacillin Sod/Tazobactam 100 mls @ 200 mls/hr 03/31/19 08:00 04/06/19 14:21 Sod 3.375 gm/ Sodium Chloride IV Infused Q6H LETICIA Infusion Ondansetron HCl 4 mg 03/28/19 17:42 03/30/19 12:14 Zofran Inj IVP 4 mg Q6HR PRN Administration Nausea / Vomiting Pantoprazole Sodium 40 mg 03/28/19 18:00 04/06/19 06:08 Protonix IVP 40 mg QDAC LETICIA Administration Prochlorperazine Edisylate 10 mg 03/29/19 18:20 03/30/19 13:13 Compazine Inj IVP 10 mg Q4HR PRN Administration Nausea / Vomiting Sodium Chloride 10 ml 03/28/19 17:27 04/06/19 08:34 Normal Saline Flush 0.9% IVP 10 ml PRN PRN Administration NEEDED PER PROVIDER ORDERS Sodium Chloride 10 ml 03/29/19 01:00 04/06/19 08:34 Normal Saline Flush 0.9% IVP 10 ml 0100,0900,1700 LETICIA Administration Sodium Chloride 20 ml 03/29/19 20:55 04/06/19 05:12 Normal Saline Flush 0.9% IVP 20 ml PRN PRN Administration After Blood Draw - Lab Result Fish Bone Diagrams: 04/06/19 05:15 04/06/19 05:15 Objective Vital Signs: Vital Signs - 24 hr 04/05/19 04/05/19 04/06/19 16:14 23:45 08:24 Temperature 37 C 36.4 C L 36.9 C Heart Rate [ 70 77 Brachial] Heart Rate [ 70 Radial] Respiratory 18 16 16 Rate Blood Pressure 121/60 111/66 [Left Brachial artery] Blood Pressure 115/53 L [Left Radial artery] O2 Saturation 100 98 97 Oxygen O2 Source Room air I&O (Last 24 Hrs): Intake and Output Totals x24h 04/04/19 04/05/19 04/06/19 23:59 23:59 23:59 Intake Total 1100 1870 1700 Output Total 1720 5 1475 Balance -620 -725 225 - Results Results: Laboratory Results WBC 19.5 x10^3/uL (4.8-10.8) H 04/06/19 05:15 RBC 3.39 10^6/uL (4.70-6.10) L 04/06/19 05:15 Hgb 9.9 g/dL (14.0-18.0) L 04/06/19 05:15 Hct 30.3 % (42.0-52.0) L 04/06/19 05:15 MCV 89.4 fL (80.0-94.0) 04/06/19 05:15 MCH 29.2 pg (27.0-31.0) 04/06/19 05:15 MCHC 32.7 g/dL (32.0-36.0) 04/06/19 05:15 RDW 21.9 % (12.0-15.0) H 04/06/19 05:15 Plt Count 336 10^3/uL (130-450) 04/06/19 05:15 MPV 9.4 fL (7.4-11.4) 04/06/19 05:15 Neut # (Auto) Not Reportable 04/06/19 05:15 Lymph # (Auto) Not Reportable 04/06/19 05:15 Menard # (Auto) Not Reportable 04/06/19 05:15 Eos # (Auto) Not Reportable 04/06/19 05:15 Baso # (Auto) Not Reportable 04/06/19 05:15 Absolute Nucleated RBC Not Reportable 04/06/19 05:15 Total Counted 100 04/06/19 05:15 Band Neuts % (Manual) 4 % (0-10) 04/06/19 05:15 Abnorm Lymph % (Manual) 0 % 04/06/19 05:15 Metamyelocytes % 5 % (-0) H 04/06/19 05:15 Myelocytes % 5 % (-0) H 04/06/19 05:15 Nucleated RBC % Not Reportable 04/06/19 05:15 Neutrophils # (Manual) 13.8 10^3/uL (1.5-6.6) H 04/06/19 05:15 Lymphocytes # (Manual) 2.0 10^3/uL (1.5-3.5) 04/06/19 05:15 Monocytes # (Manual) 1.6 10^3/uL (0.0-1.0) H 04/06/19 05:15 Eosinophils # (Manual) 0.2 10^3/uL (0-0.7) 04/06/19 05:15 Basophils # (Manual) 0.0 10^3/uL (0-0.1) 04/06/19 05:15 Differential Comment MANUAL DIFFERENTIAL 04/06/19 05:15 Manual Slide Review Indicated 03/28/19 15:00 WBC Morphology NORMAL APPEARANCE (NORMAL) 04/05/19 05:10 Platelet Estimate NORMAL (130-450,000) (NORMAL) 04/06/19 05:15 Platelet Morphology NORMAL APPEARANCE (NORMAL) 04/05/19 05:10 RBC Morph Micro Appear 1+ ANISOCYTOSIS (NORMAL) 1+ MICROCYTOSIS (NORMAL) 1+ HYPOCHROMASIA (NORMAL) 1+ OVALOCYTES (NORMAL) 04/03/19 04:55 RBC Morph Micro Appear 1+ ANISOCYTOSIS (NORMAL) 1+ MICROCYTOSIS (NORMAL) 1+ HYPOCHROMASIA (NORMAL) 1+ OVALOCYTES (NORMAL) 04/03/19 04:55 RBC Morph Micro Appear 1+ ANISOCYTOSIS (NORMAL) 1+ MICROCYTOSIS (NORMAL) 1+ HYPOCHROMASIA (NORMAL) 1+ OVALOCYTES (NORMAL) 04/03/19 04:55 RBC Morph Micro Appear 1+ ANISOCYTOSIS (NORMAL) 1+ MICROCYTOSIS (NORMAL) 1+ HYPOCHROMASIA (NORMAL) 1+ OVALOCYTES (NORMAL) 04/03/19 04:55 RBC Morph Micro Appear 1+ ANISOCYTOSIS (NORMAL) 1+ HYPOCHROMASIA (NORMAL) 1+ OVALOCYTES (NORMAL) 04/04/19 05:19 RBC Morph Micro Appear 1+ ANISOCYTOSIS (NORMAL) 1+ HYPOCHROMASIA (NORMAL) 1+ OVALOCYTES (NORMAL) 04/04/19 05:19 RBC Morph Micro Appear 1+ ANISOCYTOSIS (NORMAL) 1+ HYPOCHROMASIA (NORMAL) 1+ OVALOCYTES (NORMAL) 04/04/19 05:19 RBC Morph Micro Appear 1+ ANISOCYTOSIS (NORMAL) 1+ HYPOCHROMASIA (NORMAL) 1+ OVALOCYTES (NORMAL) 04/05/19 05:10 RBC Morph Micro Appear 1+ ANISOCYTOSIS (NORMAL) 1+ HYPOCHROMASIA (NORMAL) 1+ OVALOCYTES (NORMAL) 04/05/19 05:10 RBC Morph Micro Appear 1+ ANISOCYTOSIS (NORMAL) 1+ HYPOCHROMASIA (NORMAL) 1+ OVALOCYTES (NORMAL) 04/05/19 05:10 RBC Morph Micro Appear 1+ ANISOCYTOSIS (NORMAL) 1+ HYPOCHROMASIA (NORMAL) 1+ OVALOCYTES (NORMAL) 04/06/19 05:15 RBC Morph Micro Appear 1+ ANISOCYTOSIS (NORMAL) 1+ HYPOCHROMASIA (NORMAL) 1+ OVALOCYTES (NORMAL) 04/06/19 05:15 RBC Morph Micro Appear 1+ ANISOCYTOSIS (NORMAL) 1+ HYPOCHROMASIA (NORMAL) 1+ OVALOCYTES (NORMAL) 04/06/19 05:15 PT 15.9 secs (9.9-12.6) H 03/28/19 15:00 INR 1.4 (0.8-1.2) H 03/28/19 15:00 Sodium 135 mmol/L (135-145) 04/06/19 05:15 Potassium 3.8 mmol/L (3.5-5.0) 04/06/19 05:15 Chloride 107 mmol/L (101-111) 04/06/19 05:15 Carbon Dioxide 22 mmol/L (21-32) 04/06/19 05:15 Anion Gap 6.0 (6-13) 04/06/19 05:15 BUN 15 mg/dL (6-20) 04/06/19 05:15 Creatinine 0.9 mg/dL (0.6-1.2) 04/06/19 05:15 Estimated GFR (MDRD) 81 (>89) L 04/06/19 05:15 Glucose 95 mg/dL (70-100) 04/06/19 05:15 POC Whole Bld Glucose 100 mg/dL (70 - 100) 04/03/19 16:54 Lactic Acid 1.7 mmol/L (0.5-2.2) 03/28/19 15:00 Calcium 7.8 mg/dL (8.5-10.3) L 04/06/19 05:15 Phosphorus 2.6 mg/dL (2.5-4.6) 04/06/19 05:15 Magnesium 1.9 mg/dL (1.7-2.8) 04/06/19 05:15 Total Bilirubin 0.8 mg/dL (0.2-1.0) 03/29/19 03:54 AST 21 IU/L (10-42) 03/29/19 03:54 ALT 32 IU/L (10-60) 03/29/19 03:54 Alkaline Phosphatase 77 IU/L (42-121) 03/29/19 03:54 Total Protein 5.2 g/dL (6.7-8.2) L 03/29/19 03:54 Albumin 2.6 g/dL (3.2-5.5) L 03/30/19 04:38 Globulin 2.5 g/dL (2.1-4.2) 03/29/19 03:54 Albumin/Globulin Ratio 1.1 (1.0-2.2) 03/29/19 03:54 Triglycerides 128 mg/dL (-149) 04/06/19 05:15 Cholesterol 98 mg/dL (-199) 04/06/19 05:15 LDL Cholesterol, Calc 60 mg/dL (-129) 04/06/19 05:15 VLDL Cholesterol 26 mg/dL 04/06/19 05:15 HDL Cholesterol 12 mg/dL (60-) L 04/06/19 05:15 LDL/HDL Ratio 5.0 (<3.6) 04/06/19 05:15 Cholesterol/HDL Ratio 8.2 (<5.0) 04/06/19 05:15 Lipase 29 U/L (22-51) 03/28/19 15:00 Urine Color DARK YELLOW 03/31/19 11:20 Urine Clarity CLEAR (CLEAR) 03/31/19 11:20 Urine pH 6.0 PH (5.0-7.5) 03/31/19 11:20 Ur Specific [place] 1.020 (1.002-1.030) 03/31/19 11:20 Urine Protein NEGATIVE mg/dL (NEGATIVE) 03/31/19 11:20 Urine Glucose (UA) NEGATIVE mg/dL (NEGATIVE) 03/31/19 11:20 Urine Ketones NEGATIVE mg/dL (NEGATIVE) 03/31/19 11:20 Urine Occult Blood NEGATIVE (NEGATIVE) 03/31/19 11:20 Urine Nitrite NEGATIVE (NEGATIVE) 03/31/19 11:20 Urine Bilirubin NEGATIVE (NEGATIVE) 03/31/19 11:20 Urine Urobilinogen 0.2 (NORMAL) E.U./dL (NORMAL) 03/31/19 11:20 Ur Leukocyte Esterase NEGATIVE (NEGATIVE) 03/31/19 11:20 Urine RBC 0-5 /HPF (0-5) 03/31/19 11:20 Urine WBC 0-3 /HPF (0-3) 03/31/19 11:20 Ur Squamous Epith Cells RARE Squamous (<= Few) 03/31/19 11:20 Urine Bacteria Rare /HPF (None Seen) 03/31/19 11:20 Urine Mucus Few Strands 03/31/19 11:20 Urine Culture Comments NOT INDICATED 03/31/19 11:20 Nasal Screen MRSA (PCR) NEGATIVE (NEGATIVE) 03/28/19 18:42 Stl C. diff Tox B Gene NEGATIVE (NEGATIVE) 03/31/19 13:00 - Procedures Procedures: Procedures BYPASS TRANSVERSE COLON TO CUTANEOUS, OPEN APPROACH (12/01/18) EXCISION OF TRANSVERSE COLON, OPEN APPROACH (12/01/18) Sepsis Event Note (H) - Evaluation Current Stage of Sepsis: Sepsis Possible source of Sepsis: positive: GI tract/intra-abdominal - Sepsis Criteria Sepsis Criteria: WBC count greater than 10% bands, WBC count greater than 12,000 or less than 4000
[2019-04-06] MEDS: ATORVASTATIN 40 MG TABLET PO SCH (20:31)
[2019-04-07 01:31] VITALS: BP 108/57
[2019-04-07] MEDS: SODIUM CHLORIDE FLUSH 0.9% 10 ML SYRINGE IVP PRN ×3 (01:35→06:20)
[2019-04-07] MEDS: SODIUM CHLORIDE FLUSH 0.9% 10 ML SYRINGE IVP SCH ×2 (01:35→08:13)
[2019-04-07] MEDS: PIPERACILLIN/TAZOBACTAM 3.375 GM in SODIUM CHLORIDE 0.9% MINIBAG 100 ML IV SCH ×2 (01:40→08:14)
[2019-04-07] MEDS: PANTOPRAZOLE 40 MG VIAL IVP SCH (06:20)
[2019-04-07] MEDS: ASPIRIN EC 81 MG TABLET PO SCH (08:13)
[2019-04-07] MEDS: ENOXAPARIN 40 MG/0.4 ML SYRINGE SUBQ SCH (08:13)
[2019-04-07] MEDS: IPRATROPIUM/ALBUTEROL 3 ML NEB INH PRN (08:55)
[2019-04-07 08:58] LABS: BASOPHILS % (AUTO) 0.7 %; EOSINOPHILS % (AUTO) 2.4 %; HGB - HEMOGLOBIN 10.7 g/dL (14.0-18.0); LYMPHOCYTES % (AUTO) 7.8 %; MEAN CORPUSCULAR HEMOGLOBIN 28.3 pg (27.0-31.0); MEAN CORPUSCULAR HGB CONC 31.4 g/dL (32.0-36.0); MEAN CORPUSCULAR VOLUME 90.2 fL (80.0-94.0); MEAN PLATELET VOLUME 9.3 fL (7.4-11.4); MONOCYTES % (AUTO) 6.9 %; NEUTROPHILS % (AUTO) 69.7 %; PLT - PLATELET COUNT 502 10^3/uL (130-450); RED BLOOD COUNT 3.78 10^6/uL (4.70-6.10); RED CELL DISTRIBUTION WIDTH 21.9 % (12.0-15.0); WHITE BLOOD COUNT 17.8 x10^3/uL (4.8-10.8)
[2019-04-07 09:17] LABS: ABNORMAL LYMPHS % (MANUAL) 0 %; BAND NEUTROPHILS % (MANUAL) 0 %
[2019-04-07 09:20] LABS: DIFFERENTIAL COMMENT MANUAL DIFFERENTIAL; EOSINOPHILS # (MANUAL) 0.7 10^3/uL (0-0.7); LYMPHOCYTES % (MANUAL) 6 %; METAMYELOCYTES % (MANUAL) 5 %; MONOCYTES # (MANUAL) 0.9 10^3/uL (0.0-1.0); MYELOCYTES % (MANUAL) 5 %; PLATELET MORPHOLOGY RARE GIANT PLATELETS (NORMAL)
--- NOTE | 2019-04-07 10:21 | Discharge Plan ---
Discharge Plan Problem Reviewed?: Yes Disposition: Home, Self Care Condition: Stable Prescriptions: Atorvastatin [Lipitor] 20 mg PO QPM #60 tablet Diet: Regular Activity Restrictions: Activity as Tolerated Shower Restrictions: No Driving Restrictions: No Assistance Devices: Cane Health Concerns: You were admitted with abdominal pain, nausea and hiccups related to an ileus (slowed bowel motility) and also a rash and very high White Blood Cell count related to the chemotherapy. You needed iv fluids and you have already completed a 10-day course of antibiotics. Plan of Treatment: Resume all your previous prehospital medications and usual activities. The Lipitor was refilled at your request and the prescription was sent electronically to your pharmacy. See your PCP and Oncology providers as previously scheduled. Care Goals: Stabilization is the goal. Assessment: The patient understands and agrees. No Smoking: If you smoke, Please STOP! Call for help. Follow-up with: Iron Nava MD [Primary Care Provider] -
--- NOTE | 2019-04-07 10:33 | DISCHARGE SUMMARY ---
"Discharge Summary Admit Date: 03/28/19 Discharge Date: 04/07/19 Discharging Provider: Dr Justa Arthur Primary Care Provider: Dr Iron Nava Code Status: Attempt Resuscitation Condition at Discharge: Stable Discharge Disposition: 01 Home, Self Care - DIAGNOSES Admission Diagnoses: 1. Ileus 2. Hx of Colon cancer, with a colostomy 3. Paroxysmal Atrial fibrillation 4. Hx of CAD 5. COPD 6. Hyperlipidemia Discharge Diagnoses with Status of Each Condition: See below - HPI History of Present Illness: From the admission H&P of Dr Merle Gillespie (General Surgeon): Mr. Rivera is a sweet 84 year old may who was admitted last evening with the above complaint. We initially med in November of last year when he was admitted for bowel obstruction and subsequently had a left hemicolectomy with ostomy and Brown's pouch. 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 He struggled to tolerate chemotherapy and developed side effects severe enough to abort the medication for the time being. He developed a rash all over his body that has started to improve but is still quite severe and painful. He is accompanied by a close friend that he calls his daughter. She tells me he hasn't actually eaten anything for 6 days. He says the stool in his ostomy bag is a different than what he is accustomed to. He has pain in the middle of his abdomen and feels like his ostomy site is protruding more than it has in the past. No vomiting since admission. No nausea currently but he is having intractable hiccups. From the inpatient Consultation of Dr Nadia Christy: Patient is an 84 y/o male with Hx of colon cancer s/p colectomy on 12/02/[address] with colostomy bag in place who presented to the ED with complain of worsening abdominal pain, nausea and vomiting. He started vomiting about 10 days ago, but it got worse 3 days ago. He finally came to the ED today because he was having s ignificant pain behind the stoma. In addition he has noticed a black fluid coming out of the the stoma in the past 8-9 days. He adds that it looked like what he had been vomiting in the past days. At bedside he is fully awake and alert. He denied chest pain, dyspnea, fever or chills. He has mild singultus In the ED work up included a CT of the abdomen/pelvis which raised the possibility of proximal ileal enteritis and mild ileus. Partial bowel obstruction could not be ruled out. There was also a small amount of fluid noted around the colostomy site of the right mid-abdomen. As a result he was admitted by the General Surgery team. We are being consulted for medical management of his co-morbidities. Of note, he stopped chemotherapy on 03/17/2019 due to an significant allergic reaction which resulted in an extensive skin rash. His is being seen by Dr Kent at the [facility]. - CONSULTS | PROCEDURES Consultations: General Surgery, Hospitalists - HOSPITAL COURSE Hospital Course: (1) Leukocytosis His admission WBC was 7.7 but on the fourth day it tomas dramatically to 36.4 with a left shift. He was put on iv antibiotics empirically with iv Vanco and iv Zosyn, but the WBC was very elevated for about 6 days. and finally there was definite improvement in WBC. (36>> 32>> 25>> 25>> 21>>19.5>>17.8). In retrospect, the source was felt to be his mucositis, plus an extensive rash from chemotherapy. Since he completed 10 days of antibiotic therapy, he did not get a prescription for p.o. antibiotics at discharge. All cultures were negative during the entire hospitalization. He did not require PT rehab at discharge, he was walking with a cane independently. (2) Mucositis (ulcerative) due to antineoplastic therapy This appears to be the source of his initial ileus/partial obstruction. This likely occurred from his chemotherapy that he is receiving for his colon cancer. This may have also be the etiology of his leukocytosis as surgery felt there could have been bacterial translocation. We continued on IV antibiotics given his leukocytosis, since there was clinical improvement. (3) Ileus This was the cause of his original symptoms. He was started on bowel rest with npo and IV fluids, antiemetics and both Internal Medicine and Surgery were following. Abdominal x-ray continued to reveal partial obstruction but there was contrast in the ascending colon. When he was started on clear liquids, he again developed worsening nausea & vomiting. TPN was needed briefly. He then had output in his colostomy and reported improvement in his abdominal pain and nausea. His diet was then slowly advanced and he was able to tolerate solids for the last final days of hospitalization, but there was avdelay in discharge to assure that the severely elevated white blood count was improving. (4) Colostomy in place He has stage IIIb colon cancer that was resected and he has a colostomy in place. 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 No surgery was necessary. He has an appointment scheduled with Dr. Kent for next week. (5) Intractable hiccups These improved somewhat with baclofen and metoclopramide, but he may have had esophageal spasms possibly due to metoclopramide and it was stopped and used increase dose of baclofen. The hiccups entirely resolved as ileus resolved. (6) Hypokalemia Related to 10 days of N/V before admission then from liquid colostomy output. Potassium required replacement. (7) Hx of coronary artery disease Stable on home meds of aspirin and Lipitor, which were resumed when diet was restarted. (8) History of COPD He only takes his Atrovent and Symbicort during pollen season and he felt he did not require them at the moment. He was not in COPD exacerbation. (9) RBBB Chronic - ALLERGIES Allergies/Adverse Reactions: Allergies Allergy/AdvReac Type Severity Reaction Status Date / Time iodine Allergy Severe shock Verified 03/28/19 13:49 shellfish derived Allergy Anaphylaxis Verified 03/28/19 20:46 Opioids - Morphine Analogues AdvReac Intermediate Nausea Verified 03/28/19 13:49 - MEDICATIONS Home Medications: Ambulatory Orders Medication Instructions Recorded Confirmed Aspirin [Aspir 81] 81 mg PO Q48H 05/05/13 03/29/19 Krill/[place]-3/Dha/Epa/Lipids 750 mg PO DAILY 01/28/19 02/24/19 [Krill Oil 350 mg Softgel] Capecitabine 4 tab PO BID 03/29/19 03/29/19 Capecitabine 150 mg PO BID 03/29/19 03/29/19 Cholecalciferol (Vitamin D3) 2,000 units PO DAILY 03/29/19 03/29/19 [Vitamin D3] Atorvastatin [Lipitor] 20 mg PO QPM #60 tablet 04/07/19 - PHYSICAL EXAM AT DISCHARGE General Appearance: positive: No acute distress, Alert Eyes Bilateral: positive: Normal inspection, EOMI ENT: positive: ENT inspection nml, No signs of dehydration Neck: positive: Nml inspection, No JVD Respiratory: positive: No respiratory distress, Breath sounds nml Cardiovascular: positive: Regular rate & rhythm, No murmur Abdomen: positive: Non-tender, No distention, Other (Colostomy bag) Skin: positive: Color nml Extremities: positive: No pedal edema Neurologic/Psychiatric: positive: Oriented x3, Other (Grossly intact) - LABS Result Diagrams: 04/07/19 08:30 04/06/19 05:15 - DIAGNOSTIC IMAGING Diagnostic Imaging Results: Final report reviewed - FOLLOW UP Follow Up: See PCP and surgeon in follow up. - TIME SPENT Time Spent in Discharge (Minutes): 60"
== END 2019-04-07 11:40 | disposition home or self-care (01) | DRG 389 ==
LOC: ED 13:38 → ICU 17:28 → OBSVTOIN 03-29 14:24 → MS3 03-30 10:31 → MS2 04-03 20:37
PROVIDERS: ADMIT Surgery; ATTEND Internal Medicine
DX: K56.7 Ileus, unspecified (principal); K56.690 Other partial intestinal obstruction; E46 Unspecified protein-calorie malnutrition; K92.81 Gastrointestinal mucositis (ulcerative); K94.09 Other complications of colostomy; C18.9 Malignant neoplasm of colon, unspecified; E44.0 Moderate protein-calorie malnutrition; Y83.6 Removal of other organ (partial) (total) as the cause of abnormal reaction of the patient, or of later complication, without mention of misadventure at the time of the procedure; E87.6 Hypokalemia; Z68.25 Body mass index [BMI] 25.0-25.9, adult; I45.10 Unspecified right bundle-branch block; D72.825 Bandemia; J44.9 Chronic obstructive pulmonary disease, unspecified; L27.0 Generalized skin eruption due to drugs and medicaments taken internally; T45.1X5D Adverse effect of antineoplastic and immunosuppressive drugs, subsequent encounter; R06.6 Hiccough; E83.39 Other disorders of phosphorus metabolism; I10 Essential (primary) hypertension; E78.5 Hyperlipidemia, unspecified; I25.10 Atherosclerotic heart disease of native coronary artery without angina pectoris; G89.29 Other chronic pain; M54.9 Dorsalgia, unspecified; R32 Unspecified urinary incontinence; Z79.82 Long term (current) use of aspirin; Z79.899 Other long term (current) drug therapy; Z80.0 Family history of malignant neoplasm of digestive organs; Z87.891 Personal history of nicotine dependence; Z87.11 Personal history of peptic ulcer disease; Z98.62 Peripheral vascular angioplasty status; Z95.5 Presence of coronary angioplasty implant and graft
CPT/HCPCS: 36415; 74018; 74177; 74250; 80048; 80053; 80061; 81001; 82040; 83605; 83690; 83735; 84100; 84132; 85025; 85610; 87040; 87150; 87493; 93005; 94640; 96361; 96365; 96366; 96372; 96375; 96376; 97116; 97162; 97530; 99285; A9270; C1751; G0378; J1170; J1650; J2765; J3490; J7626; Q9967; 83721; 87086

== ENCOUNTER 2019-04-19 09:44 | Day surgery (SDC) | payer MEDICARE, OTHER ==
[2019-04-19] MEDS ORDERED: fentaNYL 100 MCG/2 ML VIAL IVP ONE (09:45)
[2019-04-19] MEDS ORDERED: MIDAZOLAM 2 MG/2 ML VIAL IVP ONE (09:45)
[2019-04-19] MEDS ORDERED: LACTATED RINGERS 1,000 ML IV ONE (10:12)
[2019-04-19 11:51] VITALS: BP 105/70
== END 2019-04-19 09:45 | disposition home or self-care (01) ==
LOC: SDS 09:44
PROVIDERS: ATTEND Internal Medicine Gastroenterology
PROC: 0DJD8ZZ Inspection of Lower Intestinal Tract, Via Natural or Artificial Opening Endoscopic (ICD-10-PCS; principal; 2019-04-19 10:45)
DX: C18.4 Malignant neoplasm of transverse colon (principal); D12.5 Benign neoplasm of sigmoid colon; K63.89 Other specified diseases of intestine; K94.09 Other complications of colostomy; J45.909 Unspecified asthma, uncomplicated; I10 Essential (primary) hypertension; I25.10 Atherosclerotic heart disease of native coronary artery without angina pectoris; I73.9 Peripheral vascular disease, unspecified; L27.0 Generalized skin eruption due to drugs and medicaments taken internally; T45.1X5D Adverse effect of antineoplastic and immunosuppressive drugs, subsequent encounter; Z79.51 Long term (current) use of inhaled steroids; Z79.82 Long term (current) use of aspirin; Z87.891 Personal history of nicotine dependence
CPT/HCPCS: 45378; J7120

== ENCOUNTER 2019-05-20 10:24 | Outpatient (CLI) | payer MEDICARE, OTHER ==
[2019-05-20 10:46] LABS: BASOPHILS % (AUTO) 0.4 %; EOSINOPHILS # (AUTO) 0.5 10^3/uL (0.0-0.7); EOSINOPHILS % (AUTO) 7.5 %; HGB - HEMOGLOBIN 12.5 g/dL (14.0-18.0); LYMPHOCYTES # (AUTO) 2.2 10^3/uL (1.5-3.5); LYMPHOCYTES % (AUTO) 32.7 %; MEAN CORPUSCULAR HEMOGLOBIN 29.3 pg (27.0-31.0); MEAN CORPUSCULAR HGB CONC 31.3 g/dL (32.0-36.0); MEAN CORPUSCULAR VOLUME 93.7 fL (80.0-94.0); MEAN PLATELET VOLUME 7.9 fL (7.4-11.4); MONOCYTES # (AUTO) 0.7 10^3/uL (0.0-1.0); MONOCYTES % (AUTO) 10.9 %; NEUTROPHILS # (AUTO) 3.2 10^3/uL (1.5-6.6); NEUTROPHILS % (AUTO) 47.8 %; PLT - PLATELET COUNT 184 10^3/uL (130-450); RED BLOOD COUNT 4.26 10^6/uL (4.70-6.10); RED CELL DISTRIBUTION WIDTH 14.9 % (12.0-15.0); WHITE BLOOD COUNT 6.7 x10^3/uL (4.8-10.8)
[2019-05-20 10:58] LABS: ALBUMIN 3.8 g/dL (3.2-5.5); ALBUMIN/GLOBULIN RATIO 1.1 (1.0-2.2); BILIRUBIN,TOTAL 0.5 mg/dL (0.2-1.0); CALCIUM 8.9 mg/dL (8.5-10.3); CREATININE 0.9 mg/dL (0.6-1.2); TOTAL PROTEIN 7.3 g/dL (6.7-8.2)
== END 2019-05-20 10:25 | disposition home or self-care (01) ==
LOC: LAB 10:24
PROVIDERS: ATTEND Surgery
DX: K63.4 Enteroptosis (principal)
CPT/HCPCS: 36415; 80053; 84134; 85025

== ENCOUNTER 2019-05-25 06:30 | Inpatient (IN) | payer MEDICARE, OTHER ==
[~2019-05-25 06:30] MED LIST: CEFAZOLIN SODIUM IN 0.9 % NACL 2 GM/100 ML BAG IV ONE
[2019-05-25] MEDS ORDERED: LACTATED RINGERS 1,000 ML IV ONE ×3 (06:56→11:19)
--- NOTE | 2019-05-25 07:17 | ANESTHESIA ---
Pre-Anesthesia VS, & Labs - Diagnosis S/P hartmans procedure, Prolapsed Stoma - Procedure Hartmans reversal, stoma closure Vital Signs: Temp Pulse Resp BP Pulse Ox 36.2 C L 60 18 115/58 L 96 05/25/19 06:26 05/25/19 06:26 05/25/19 06:26 05/25/19 06:26 05/25/19 06:26 Height 5 ft 4 in Weight (kg) 66 kg Body Mass Index 24.9 Home Medications and Allergies Home Medications: Ambulatory Orders Ascorbic Acid [Vitamin C] 500 mg PO DAILY 05/18/19 Vitamin B Complex 1 each PO DAILY 05/18/19 Budesonide/Formoterol Fumarate [Symbicort 160-4.5 Mcg Inhaler] 10.2 gm IH 05/25/19 Ipratropium [place] [Atrovent Hfa] 17 mg IH 05/25/19 Aspirin [Aspir 81] 81 mg PO Q48H 05/05/13 Cholecalciferol (Vitamin D3) [Vitamin D3] 2,000 units PO DAILY 03/29/19 Ascorbic Acid [Vitamin C] 500 mg PO DAILY 05/18/19 Vitamin B Complex 1 each PO DAILY 05/18/19 Budesonide/Formoterol Fumarate [Symbicort 160-4.5 Mcg Inhaler] 10.2 gm IH 05/25/19 Ipratropium [place] [Atrovent Hfa] 17 mg IH 05/25/19 Allergies/Adverse Reactions: Allergies Allergy/AdvReac Type Severity Reaction Status Date / Time iodine Allergy Severe shock Verified 04/16/19 13:09 pentazocine [From [place]] Allergy Hallucinati Verified 04/19/19 10:12 ons shellfish derived Allergy Anaphylaxis Verified 04/16/19 13:09 Opioids - Morphine Analogues AdvReac Intermediate Nausea Verified 04/16/19 13:09 Anes History & Medical History - Anesthetic History Anesthesia Complications: reports: No previous complications Family history of Anesthesia Complications: Denies Family history of Malignant Hyperthermia: Denies - Medical History Cardiovascular: reports: Hypertension, High cholesterol, Coronary artery disease, Other Pulmonary: reports: Asthma, COPD Gastrointestinal: reports: GERD, Ulcers, Other Urinary: reports: Incontinence Neuro: reports: None Musculoskeletal: reports: Chronic back pain Endocrine/Autoimmune: reports: None Blood Disorders: reports: None Skin: reports: None Smoking Status: Former smoker (quit when 29 years age) Psychosocial: reports: No issues indicated - Surgical History General: Appendectomy, Colonoscopy, Other Eyes Ears Nose Throat (EENT): Cataracts, Tonsil/Adenoidectomy Cardiothoracic: Coronary stent Orthopedic: Spine surgery Exam General: Alert, Oriented x3, Cooperative, No acute distress Dental: Dentures full Upper, Other (few teeth in the bottom) Mouth Openin Fingerbreadth Mallampati classification: II Thyromental Distance: 4-6 cm Respiratory: Lungs clear, Normal breath sounds, No respiratory distress, No accessory muscle use Cardiovascular: Regular rate, Normal S1, Normal S2, No murmurs Abdomen: Normal bowel sounds, Soft, No tenderness, No hepatospenomegaly, No masses Extremities: No clubbing, No cyanosis, No edema, Normal pulses, No tenderness/swelling Neurological: Normal gait, Normal speech, Strength at 5/5 X4 ext, Normal tone, Sensation intact, Cranial nerves 3-12 NL, Reflexes 2+ Mental/Cognitive Status: Alert/Oriented X3, Normal for patient Cognitive Status: Within normal limits Plan Anesthesia Type: General Regional Block: Per Surgeon's request for Post Op pain control Consent for Procedure(s) Verified and Reviewed: Yes Code Status: Attempt Resuscitation ASA classification: 3-Severe systemic disease Is this case an emergency?: No
[2019-05-25] MEDS ORDERED: oxyCODONE 5 MG TABLET PO PRN (10:32)
[2019-05-25] MEDS ORDERED: ACETAMINOPHEN 325 MG TABLET PO PRN (10:37)
--- NOTE | 2019-05-25 10:42 | OPERATIVE REPORT ---
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 He has been scoped and colon cleared. He underwent bowel prep with oral antibiotics. He understands all risks, benefits, and alternatives and wishes to proceed. Findings: healthy, viable bowel; prolapsed colostomy Complications: none - Other Other Information/Narrative: The patient was taken to the operating room and placed on the operating table in supine position. General anesthesia was induced without complications. The colostomy was sutured closed with a 3-0 silk suture. The abdomen was prepped and draped in the usual sterile fashion. An upper midline incision is made with a 10 blade scalpel. This was carried down through subcutaneous tissues and fascia using electrocautery. The peritoneum was identified and incised and this incision was extended for the length of the skin incision. Once exposed, the abdomen is examined with no evidence of metastatic disease and minimal adhesions from the prior surgery. The adhesions present were taken down and the distal end of the colon was identified. The proximal end of colon making up the colostomy was then carefully freed from the bowel wall until most of this was free in the abdomen. A 75mm EVERETT stapler was used to divide the colon, leaving the extracorporeal end of the colostomy in the skin. There is adequate length of the bowel to meet the distal end but in order to staple without tension the distal end was mobilized from the greater omentum attachments for several centimeters. Once freed, the bowel ends laid well side by side with no tension or twisting. The anti-mesenteric ends were aligned and 3-0 silk sutures were placed to hold the bowels in apposition. Small enterotomies are made in each segment and the 75mm EVERETT stapler ends were introduced and carefully placed to maintain alignment. This was fired once placement assured. The staple lines were inspected and a small area of bleeding was noted; this did not resolve with pressure so a 3-0 silk figure of eight suture was used for hemostasis. The ends were healthy and well vascularized. The open end of the anastomosis was closed in double layers using 2-0 PDS then 3-0 silk Lemberts. The anastomosis was inspected and was patent. The abdomen was irrigated until effluent ran clear. As much free fluid as possible was suctioned from the abdomen. The fascia of the colostomy was then closed using #1 PDS suture in a running fashion. Gloves and gowns were changed to close and new instruments used. The midline fascia was closed using looped #1 PDS suture. This was covered with a sterile blue towel. Attention was then turned to the remaining colostomy and the bowel and immediately surrounding skin was excised using cautery. The subcutaneous tissues were released using electrocautery until the end of bowel was fully released. It was passed off the field. Hemostasis is ensured and the field irrigated. A half-inch andreas drain was placed in the wound bed and loose joseph used to close the skin as well as secure the drain. The midline incision is also irrigated and closed with loosely spaced skin joseph. The field is cleaned and dried and an island dressing was applied to the midline and clean gauze and tape used to cover the colostomy site. All counts were correct at the end of the procedure. Patient remains in the OR for regional block by anesthesia then will be admitted to the floor.
[2019-05-25] MEDS: fentaNYL 100 MCG/2 ML VIAL ONE ×4 (11:20→11:44)
[2019-05-25] MEDS: LACTATED RINGERS 1,000 ML IV SCH (12:00)
[2019-05-25] MEDS ORDERED: ACETAMINOPHEN 1,000 MG/100 ML 100 ML IV ONE (13:00)
[2019-05-25] MEDS: KETOROLAC 15 MG/ML VIAL IVP SCH ×2 (13:42→18:10)
[2019-05-25] MEDS: ceFAZolin 2 GM in SODIUM CHLORIDE 0.9% 100ML 100 ML IV SCH (17:29)
[2019-05-25] MEDS: metroNIDAZOLE 500 MG/100 ML 500 MG/100 ML BAG IV SCH (18:18)
[2019-05-26] MEDS: ceFAZolin 2 GM in SODIUM CHLORIDE 0.9% 100ML 100 ML IV SCH (00:03)
[2019-05-26] MEDS: KETOROLAC 15 MG/ML VIAL IVP SCH ×2 (00:47→05:20)
[2019-05-26] MEDS: metroNIDAZOLE 500 MG/100 ML 500 MG/100 ML BAG IV SCH (00:49)
[2019-05-26] MEDS: LACTATED RINGERS 1,000 ML IV SCH (04:06)
[2019-05-26] MEDS: ONDANSETRON 4 MG/2 ML VIAL IVP PRN ×3 (07:47→19:37)
[2019-05-26] MEDS ORDERED: polyethylene glycoL 3350 17 GM PACKET PO SCH (09:00)
--- NOTE | 2019-05-26 09:12 | PROVIDER PROGRESS NOTE ---
Subjective - General Admit Date: 05/25/19 Procedure Date: 05/25/19 Post Op Days: 1 Procedure Performed: Colostomy takedown - Review of Systems Drain Type: andreas - Other Other Information/Narrative: Doing well, pain well controlled without narcotics, sven clear liquids, walking well in room. No nausea, mildly distended but soft abdomen, has felt like he has to pass gas but nothing yet. Objective - Patient Data Reviewed Vital Signs: Yes Vital Signs: Vital Signs x48h Temp Pulse Resp BP Pulse Ox 05/26/19 08:02 37.1 C 69 18 98/63 97 05/26/19 06:15 36.7 C 68 16 103/36 L 95 Weight: Weight 05/24/19 05/25/19 05/26/19 23:59 23:59 23:59 Weight (kg) 69 kg Intake & Output: Intake and Output Totals x24h 05/24/19 05/25/19 05/26/19 23:59 23:59 23:59 Intake Total 2537 1425 Output Total 770 800 Balance 1767 625 - Lab Results Other Lab Results: Lab Results x24hrs 05/26/19 05/25/19 05/25/19 Range/Units 07:53 20:19 16:25 POC Whole Bld Glucose 117 H 152 H 135 H (70 - 100) mg/dL - Current Medications Current Medications: Current Medications Generic Name Dose Route Start Last Admin Trade Name Freq PRN Reason Stop Dose Admin Acetaminophen 650 mg 05/25/19 10:37 05/25/19 21:30 Tylenol PO 650 mg Q4HR PRN Administration PAIN Lactated Ringer's 1,000 mls @ 50 mls/hr 05/25/19 13:00 05/26/19 04:06 Lr IV 50 mls/hr .Q20H LETICIA Administration Ketorolac Tromethamine 15 mg 05/25/19 12:00 05/26/19 05:20 Toradol Inj (15mg) IVP 05/26/19 11:59 15 mg Q6HR LETICIA Administration Ondansetron HCl 4 mg 05/25/19 10:37 05/26/19 07:47 Zofran Inj IVP 4 mg Q6HR PRN Administration Nausea / Vomiting - Physical Exam Comments/Other: AAO, NAD, male of healthy weight EOMI, MMM unlabored RA soft, mildly distended, non-tender, colostomy inc c/d/i with andreas, midline remains dressed MABENY ABX Reporting Has patient been on IV antibiotics over the past 48 hours?: Yes Impression/Plan - Problem List Problem List: - to FLD - HLIV - pain control: has regional block, scheduled toradol, prn tylenol and oxycodone/ dilaudid - ambulate - dowling out - inc look good, will take off midline dressing tomorrow - abx to finish today
[2019-05-26] MEDS: ENOXAPARIN 40 MG/0.4 ML SYRINGE SUBQ SCH (09:21)
[2019-05-26] MEDS ORDERED: ONDANSETRON INJ 4 MG in SODIUM CHLORIDE 0.9% 50 ML IVP SCH (11:00)
[2019-05-26] MEDS ORDERED: ONDANSETRON 4 MG/2 ML VIAL IVP ONE ×2 (11:00→13:59)
[2019-05-26] MEDS ORDERED: PROPOFOL 200 MG/20 ML VIAL IVP ONE (13:59)
[2019-05-26] MEDS ORDERED: NEOSTIGMINE 1 MG/1 ML 10 ML MDV IVP ONE ×2 (13:59)
[2019-05-26] MEDS ORDERED: ACETAMINOPHEN 1,000 MG/100 ML 100 ML IV ONE (13:59)
[2019-05-26] MEDS ORDERED: ePHEDrine 50 MG/ML VIAL IVP ONE (13:59)
[2019-05-26] MEDS ORDERED: GLYCOPYRROLATE 1 MG/5 ML VIAL IVP ONE (13:59)
[2019-05-26] MEDS ORDERED: MIDAZOLAM 2 MG/2 ML VIAL IVP ONE (13:59)
[2019-05-26] MEDS ORDERED: LIDOCAINE-MPF 2% 5 ML VIAL IM ONE (13:59)
[2019-05-26] MEDS ORDERED: DEXAMETHASONE 4 MG/ML VIAL IVP ONE (13:59)
[2019-05-26] MEDS ORDERED: ROCURONIUM 50 MG/5 ML VIAL IVP ONE (13:59)
[2019-05-26] MEDS ORDERED: fentaNYL 100 MCG/2 ML VIAL IVP ONE (13:59)
[2019-05-26] MEDS ORDERED: PROMETHAZINE 12.5 MG TABLET PO PRN (14:57)
[2019-05-26] MEDS: HYDROmorphone 0.5 MG/0.5 ML SYRINGE IVP PRN ×2 (15:13→17:13)
[2019-05-27] MEDS: HYDROmorphone 0.5 MG/0.5 ML SYRINGE IVP PRN ×2 (00:39→08:11)
[2019-05-27 00:42] LABS: CALCIUM 8.3 mg/dL (8.5-10.3); CREATININE 0.9 mg/dL (0.6-1.2)
[2019-05-27] MEDS: ONDANSETRON 4 MG/2 ML VIAL IVP PRN (08:11)
[2019-05-27] MEDS: ENOXAPARIN 40 MG/0.4 ML SYRINGE SUBQ SCH (08:11)
[2019-05-27] MEDS ORDERED: FAMOTIDINE 20 MG TABLET PO SCH (09:00)
[2019-05-27] MEDS: D5.45NS W/20 MEQ KCL 1,000 ML IV SCH ×2 (10:19→22:13)
[2019-05-27] MEDS ORDERED: PANTOPRAZOLE 80 MG in SODIUM CHLORIDE 0.9% 100ML 100 ML IV SCH (11:00)
[2019-05-27] MEDS: PANTOPRAZOLE 40 MG VIAL IVP SCH ×2 (12:14→22:12)
--- NOTE | 2019-05-27 12:36 | PROVIDER PROGRESS NOTE ---
Subjective - General Admit Date: 05/25/19 Procedure Date: 05/25/19 Post Op Days: 2 Procedure Performed: Colostomy takedown - Review of Systems Drain Type: andreas - Other Other Information/Narrative: nauseated yesterday with emesis last night and this AM, mild distension but soft abdomen Objective - Patient Data Reviewed Vital Signs: Yes Vital Signs: Vital Signs x48h Temp Pulse Resp BP Pulse Ox 05/27/19 07:32 37.2 C 103 H 20 104/63 94 Weight: Weight 05/25/19 05/26/19 05/27/19 23:59 23:59 23:59 Weight (kg) 69 kg Intake & Output: Intake and Output Totals x24h 05/25/19 05/26/19 05/27/19 23:59 23:59 23:59 Intake Total 2537 1986 Output Total 770 1700 1350 Balance 1767 286 -1350 - Lab Results Lab Results: 05/27/19 00:20 Other Lab Results: Lab Results x24hrs 05/27/19 05/27/19 05/27/19 Range/Units 11:11 07:30 00:20 Sodium 136 (135-145) mmol/L Potassium 3.9 (3.5-5.0) mmol/L Chloride 100 L (101-111) mmol/L Carbon Dioxide 29 (21-32) mmol/L Anion Gap 7.0 (6-13) BUN 16 (6-20) mg/dL Creatinine 0.9 (0.6-1.2) mg/dL Estimated GFR (MDRD) 81 L (>89) Glucose 130 H (70-100) mg/dL POC Whole Bld Glucose 147 H 142 H (70 - 100) mg/dL Calcium 8.3 L (8.5-10.3) mg/dL 05/26/19 05/26/19 Range/Units 20:52 16:46 Sodium (135-145) mmol/L Potassium (3.5-5.0) mmol/L Chloride (101-111) mmol/L Carbon Dioxide (21-32) mmol/L Anion Gap (6-13) BUN (6-20) mg/dL Creatinine (0.6-1.2) mg/dL Estimated GFR (MDRD) (>89) Glucose (70-100) mg/dL POC Whole Bld Glucose 130 H 117 H (70 - 100) mg/dL Calcium (8.5-10.3) mg/dL - Current Medications Current Medications: Current Medications Generic Name Dose Route Start Last Admin Trade Name Freq PRN Reason Stop Dose Admin Acetaminophen 650 mg 05/25/19 10:37 05/25/19 21:30 Tylenol PO 650 mg Q4HR PRN Administration PAIN Enoxaparin Sodium 40 mg 05/26/19 09:00 05/27/19 08:11 Lovenox SUBQ 40 mg DAILY LETICIA Administration Hydromorphone HCl 0.5 mg 05/25/19 10:32 05/27/19 08:11 Dilaudid Inj Syringe IVP 0.5 mg Q2H PRN Administration PAIN Potassium Chloride/Dextrose/Sod Cl 1,000 mls @ 83.333 mls/hr 05/27/19 10:00 05/27/19 10:19 D5.45ns W/20 Meq Kcl IV 83.333 mls/hr .Q12H LETICIA Administration Ondansetron HCl 4 mg 05/26/19 14:58 05/27/19 08:11 Zofran Inj IVP 4 mg Q4HR PRN Administration Nausea / Vomiting Pantoprazole Sodium 40 mg 05/27/19 11:00 05/27/19 12:14 Protonix IVP 40 mg BID LETICIA Administration Promethazine HCl 12.5 mg 05/26/19 14:57 05/26/19 17:13 Phenergan PO 12.5 mg Q6HR PRN Administration Nausea / Vomiting - Physical Exam Comments/Other: AAO, NAD, male of healthy weight EOMI, MMM unlabored RA soft, moderate distension, non-tender, colostomy inc c/d/i with andreas, midline inc c/d/i MAEW Impression/Plan - Problem List Problem List: - NPO but ok for ice chips - restart MIVFs - pain control: has regional block, scheduled toradol, prn tylenol and oxycodone/ dilaudid - ambulate - inc look good, no infection - abx completed - lovenox, SCDs - IS - COVID-19 precautions reviewed
[2019-05-28 00:28] LABS: BASOPHILS % (AUTO) 0.2 %; EOSINOPHILS # (AUTO) 0.9 10^3/uL (0.0-0.7); EOSINOPHILS % (AUTO) 5.9 %; HGB - HEMOGLOBIN 8.1 g/dL (14.0-18.0); LYMPHOCYTES # (AUTO) 2.4 10^3/uL (1.5-3.5); LYMPHOCYTES % (AUTO) 15.5 %; MEAN CORPUSCULAR HEMOGLOBIN 29.1 pg (27.0-31.0); MEAN CORPUSCULAR HGB CONC 30.9 g/dL (32.0-36.0); MEAN CORPUSCULAR VOLUME 94.2 fL (80.0-94.0); MEAN PLATELET VOLUME 8.2 fL (7.4-11.4); MONOCYTES # (AUTO) 1.1 10^3/uL (0.0-1.0); MONOCYTES % (AUTO) 7.2 %; NEUTROPHILS # (AUTO) 10.8 10^3/uL (1.5-6.6); NEUTROPHILS % (AUTO) 70.5 %; PLT - PLATELET COUNT 157 10^3/uL (130-450); RED BLOOD COUNT 2.78 10^6/uL (4.70-6.10); WHITE BLOOD COUNT 15.3 x10^3/uL (4.8-10.8)
[2019-05-28 00:46] LABS: CALCIUM 7.7 mg/dL (8.5-10.3); CREATININE 0.9 mg/dL (0.6-1.2)
[2019-05-28] MEDS: ENOXAPARIN 40 MG/0.4 ML SYRINGE SUBQ SCH (08:23)
[2019-05-28] MEDS: PANTOPRAZOLE 40 MG VIAL IVP SCH ×2 (08:23→20:44)
[2019-05-28] MEDS: D5.45NS W/20 MEQ KCL 1,000 ML IV SCH ×2 (08:24→20:50)
--- NOTE | 2019-05-28 14:08 | PROVIDER PROGRESS NOTE ---
Subjective - General Admit Date: 05/25/19 Procedure Date: 05/25/19 Post Op Days: 3 Procedure Performed: Colostomy takedown - Review of Systems Drain Type: andreas - Other Other Information/Narrative: Better today, no nausea, walking laps in [place]. Distension improved. No flatus yet but feels rumblings. Objective - Patient Data Reviewed Vital Signs: Yes Vital Signs: Vital Signs x48h Temp Pulse Resp BP BP Pulse Ox 05/28/19 12:16 37 C 82 18 107/55 L 100 05/28/19 07:46 37.1 C 73 20 96/50 L 97 Intake & Output: Intake and Output Totals x24h 05/26/19 05/27/19 05/28/19 23:59 23:59 23:59 Intake Total 1985 990.2 948.272 Output Total 1699 2024 650 Balance 286 -1034.8 298.272 - Lab Results Lab Results: 05/28/19 00:20 05/28/19 00:20 Other Lab Results: Lab Results x24hrs 05/28/19 05/28/19 Range/Units 00:20 00:20 WBC 15.3 H (4.8-10.8) x10^3/uL RBC 2.78 L (4.70-6.10) 10^6/uL Hgb 8.1 L (14.0-18.0) g/dL Hct 26.2 L (42.0-52.0) % MCV 94.2 H (80.0-94.0) fL MCH 29.1 (27.0-31.0) pg MCHC 30.9 L (32.0-36.0) g/dL RDW 14.0 (12.0-15.0) % Plt Count 157 (130-450) 10^3/uL MPV 8.2 (7.4-11.4) fL Neut # (Auto) 10.8 H (1.5-6.6) 10^3/uL Lymph # (Auto) 2.4 (1.5-3.5) 10^3/uL [place] # (Auto) 1.1 H (0.0-1.0) 10^3/uL Eos # (Auto) 0.9 H (0.0-0.7) 10^3/uL Baso # (Auto) 0.0 (0.0-0.1) 10^3/uL Absolute Nucleated RBC 0.00 x10^3/uL Nucleated RBC % 0.0 /100WBC Sodium 135 (135-145) mmol/L Potassium 3.9 (3.5-5.0) mmol/L Chloride 107 (101-111) mmol/L Carbon Dioxide 26 (21-32) mmol/L Anion Gap 2.0 L (6-13) BUN 29 H (6-20) mg/dL Creatinine 0.9 (0.6-1.2) mg/dL Estimated GFR (MDRD) 81 L (>89) Glucose 114 H (70-100) mg/dL Calcium 7.7 L (8.5-10.3) mg/dL - Current Medications Current Medications: Current Medications Generic Name Dose Route Start Last Admin Trade Name Freq PRN Reason Stop Dose Admin Acetaminophen 650 mg 05/25/19 10:37 05/25/19 21:30 Tylenol PO 650 mg Q4HR PRN Administration PAIN Enoxaparin Sodium 40 mg 05/26/19 09:00 05/28/19 08:23 Lovenox SUBQ 40 mg DAILY GLENDY Administration Hydromorphone HCl 0.5 mg 05/25/19 10:32 05/27/19 08:11 Dilaudid Inj Syringe IVP 0.5 mg Q2H PRN Administration PAIN Potassium Chloride/Dextrose/Sod Cl 1,000 mls @ 83.333 mls/hr 05/27/19 10:00 05/28/19 08:24 D5.45ns W/20 Meq Kcl IV 83.3 mls/hr .Q12H GLENDY Administration Ondansetron HCl 4 mg 05/26/19 14:58 05/27/19 08:11 Zofran Inj IVP 4 mg Q4HR PRN Administration Nausea / Vomiting Oxycodone HCl 5 mg 05/25/19 10:32 05/27/19 20:01 Roxicodone PO 5 mg Q4HR PRN Administration PAIN Pantoprazole Sodium 40 mg 05/27/19 11:00 05/28/19 08:23 Protonix IVP 40 mg BID GLENDY Administration Promethazine HCl 12.5 mg 05/26/19 14:57 05/26/19 17:13 Phenergan PO 12.5 mg Q6HR PRN Administration Nausea / Vomiting - Physical Exam Comments/Other: AAO, NAD, male of healthy weight EOMI, MMM unlabored RA soft, moderate distension, non-tender, colostomy inc c/d/i with andreas today with scant erythema in mid aspect but no drainage expressed, midline inc c/d/i MAEW Impression/Plan - Problem List Problem List: - to CLD --> will HLIV later if sven clears --> will ADAT to low fiber, discussed that he should stay on these easy to digest foods until seen in clinic in 1-2 weeks - pain control: has regional block, scheduled toradol finished so glendy ibuprofen started, prn tylenol and oxycodone/ dilaudid (using narcotics minimally) - ambulate; doing well walking laps of hallways - midline inc look good, no infection; colostomy site with new minimal erythema, no drainage and andreas in place- if worsens will need to take joseph out and pack at home for secondary closure --> will remove joseph prior to d/c and place steri strips - abx completed - lovenox, SCDs - IS - COVID-19 precautions reviewed - outpatient rx for ibuprofen, oxycodone, and colace sent to on file pharmacy to be ready on d/c; counseled to take laxative or other supplement as needed if no BM in 48 hrs and call office for that or any other issues
[2019-05-28] MEDS: IBUPROFEN 600 MG TABLET PO SCH ×3 (14:22→23:53)
[2019-05-29] MEDS: IBUPROFEN 600 MG TABLET PO SCH ×2 (06:00→12:40)
[2019-05-29 06:29] LABS: BASOPHILS % (AUTO) 0.3 %; EOSINOPHILS # (AUTO) 0.9 10^3/uL (0.0-0.7); EOSINOPHILS % (AUTO) 12.8 %; HGB - HEMOGLOBIN 7.2 g/dL (14.0-18.0); LYMPHOCYTES # (AUTO) 1.3 10^3/uL (1.5-3.5); LYMPHOCYTES % (AUTO) 18.3 %; MEAN CORPUSCULAR HGB CONC 31.6 g/dL (32.0-36.0); MEAN PLATELET VOLUME 8.3 fL (7.4-11.4); MONOCYTES # (AUTO) 0.5 10^3/uL (0.0-1.0); MONOCYTES % (AUTO) 7.2 %; NEUTROPHILS # (AUTO) 4.2 10^3/uL (1.5-6.6); NEUTROPHILS % (AUTO) 60.7 %; PLT - PLATELET COUNT 148 10^3/uL (130-450); RED CELL DISTRIBUTION WIDTH 13.6 % (12.0-15.0)
[2019-05-29 06:41] LABS: CALCIUM 7.7 mg/dL (8.5-10.3); CREATININE 0.9 mg/dL (0.6-1.2)
--- NOTE | 2019-05-29 08:25 | PROVIDER PROGRESS NOTE ---
Subjective - Prog Note Date Prog Note Date: 05/29/19 - Subjective Pt reports feeling: Improved (nausea improved to resolved. passing gas and stool.) Objective - Vital Signs/Intake & Output Vital Signs: Vital Signs x48h Temp Pulse Resp BP Pulse Ox 05/29/19 05:42 36.6 C 71 18 80/44 L 97 Intake & Output: Intake & Output 05/26/19 05/27/19 05/28/19 05/29/19 23:59 23:59 23:59 23:59 Intake Total 1986 990.2 1948.272 200 Output Total 1700 5 950 375 Balance 286 -1034.8 998.272 -175 - Objective General Appearance: positive: No acute distress, Alert Eyes Bilateral: positive: Normal inspection, PERRL Neck: positive: Nml inspection Respiratory: positive: No respiratory distress Abdomen: positive: Non-tender, Other Extremities: positive: No pedal edema Neurologic/Psychiatric: positive: Oriented x3 - Lab Results Fish Bones: 05/29/19 06:18 05/29/19 06:18 Other Labs: Lab Results x24hrs 05/29/19 05/29/19 Range/Units 06:18 06:18 WBC 7.0 (4.8-10.8) x10^3/uL RBC 2.40 L (4.70-6.10) 10^6/uL Hgb 7.2 L (14.0-18.0) g/dL Hct 22.8 L (42.0-52.0) % MCV 95.0 H (80.0-94.0) fL MCH 30.0 (27.0-31.0) pg MCHC 31.6 L (32.0-36.0) g/dL RDW 13.6 (12.0-15.0) % Plt Count 148 (130-450) 10^3/uL MPV 8.3 (7.4-11.4) fL Neut # (Auto) 4.2 (1.5-6.6) 10^3/uL Lymph # (Auto) 1.3 L (1.5-3.5) 10^3/uL [place] # (Auto) 0.5 (0.0-1.0) 10^3/uL Eos # (Auto) 0.9 H (0.0-0.7) 10^3/uL Baso # (Auto) 0.0 (0.0-0.1) 10^3/uL Absolute Nucleated RBC 0.00 x10^3/uL Nucleated RBC % 0.0 /100WBC Sodium 138 (135-145) mmol/L Potassium 3.9 (3.5-5.0) mmol/L Chloride 111 (101-111) mmol/L Carbon Dioxide 25 (21-32) mmol/L Anion Gap 2.0 L (6-13) BUN 15 (6-20) mg/dL Creatinine 0.9 (0.6-1.2) mg/dL Estimated GFR (MDRD) 81 L (>89) Glucose 112 H (70-100) mg/dL Calcium 7.7 L (8.5-10.3) mg/dL Assessment/Plan - Problem List (1) Post-operative state Impression: improving after colostomy closure acute blood loss anemia with hct 23 and hypotension plan transfusion diet as tolerated. possibly home today after transfusion d/c andreas drain prior to d/c
[2019-05-29] MEDS: D5.45NS W/20 MEQ KCL 1,000 ML IV SCH (08:52)
[2019-05-29] MEDS: PANTOPRAZOLE 40 MG VIAL IVP SCH (08:52)
[2019-05-29] MEDS: ENOXAPARIN 40 MG/0.4 ML SYRINGE SUBQ SCH (08:53)
[2019-05-29 14:24] VITALS: BP 111/58
--- NOTE | 2019-06-02 13:44 | DISCHARGE SUMMARY ---
Discharge Summary Admit Date: 05/25/19 Discharging Provider: Robert Phan MD Condition at Discharge: Good Discharge Disposition: 01 Home, Self Care - DIAGNOSES Admission Diagnoses: prolapse of colostomy Discharge Diagnoses with Status of Each Condition: prolapse of colostomy improved with surgery for takedown and closure of colostomy - HPI History of Present Illness: 84yo M with history of obstructing colon cancer found in November 2018 when he underwent resection and long Ton's segment procedure. He has completed adjuvant therapies and presents for reversal of colostomy in setting of a prolapse. He underwent reversal and tolerated well. He stayed in hospital until tolerating diet, bowels moving, and pain controlled. - HOSPITAL COURSE Hospital Course: as above - ALLERGIES Allergies/Adverse Reactions: Allergies Allergy/AdvReac Type Severity Reaction Status Date / Time iodine Allergy Severe shock Verified 04/16/19 13:09 pentazocine [From [place]] Allergy Hallucinati Verified 04/19/19 10:12 ons shellfish derived Allergy Anaphylaxis Verified 04/16/19 13:09 Opioids - Morphine Analogues AdvReac Intermediate Nausea Verified 04/16/19 13:09 - MEDICATIONS Home Medications: Ambulatory Orders Medication Instructions Recorded Confirmed Aspirin [Aspir 81] 81 mg PO Q48H 05/05/13 05/25/19 Cholecalciferol (Vitamin D3) 2,000 units PO DAILY 03/29/19 05/25/19 [Vitamin D3] Atorvastatin [Lipitor] 20 mg PO QPM #60 tablet 04/07/19 05/25/19 Ascorbic Acid [Vitamin C] 500 mg PO DAILY 05/18/19 05/25/19 Vitamin B Complex 1 each PO DAILY 05/18/19 05/25/19 Budesonide/Formoterol Fumarate 10.2 gm IH 05/25/19 [Symbicort 160-4.5 Mcg Inhaler] Ipratropium [place] [Atrovent Hfa] 17 mg IH 05/25/19 Docusate Sodium 100 mg PO BID #60 capsule 05/28/19 Ibuprofen 800 mg PO TID #60 tablet 05/28/19 oxyCODONE [Roxicodone] 5 mg PO Q6H PRN #20 tablet 05/28/19 - LABS Result Diagrams: 05/29/19 06:18 05/29/19 06:18 - FOLLOW UP Follow Up: Dr. Montoya in surgery clinic in 1 week
== END 2019-05-29 16:30 | disposition home or self-care (01) | DRG 330 ==
LOC: MS2 06:30
PROVIDERS: ADMIT Surgery; ATTEND Surgery
PROC: 0DBL0ZZ Excision of Transverse Colon, Open Approach (ICD-10-PCS; principal; 2019-05-25 07:30)
PROC: 30233N1 Transfusion of Nonautologous Red Blood Cells into Peripheral Vein, Percutaneous Approach (ICD-10-PCS; 2019-05-29)
DX: K94.09 Other complications of colostomy (principal); D62 Acute posthemorrhagic anemia; C18.4 Malignant neoplasm of transverse colon; J44.9 Chronic obstructive pulmonary disease, unspecified; I10 Essential (primary) hypertension; I25.10 Atherosclerotic heart disease of native coronary artery without angina pectoris; K57.30 Diverticulosis of large intestine without perforation or abscess without bleeding; Z79.82 Long term (current) use of aspirin; Z79.51 Long term (current) use of inhaled steroids; Z95.5 Presence of coronary angioplasty implant and graft; Z87.891 Personal history of nicotine dependence; I25.2 Old myocardial infarction; Z87.19 Personal history of other diseases of the digestive system
CPT/HCPCS: 36415; 80048; 85025; 86850; 86900; 86901; 86920; A9270; J0131; J0690; J1170; J1650; J7120; P9016